=== PATIENT | male | born 1970 | race Caucasian/White ===

== ENCOUNTER 2024-11-08 11:56 | Inpatient (IN) | payer OTHER ==
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
[2024-11-08] MEDS: SODIUM CHLORIDE 0.9% 1,000 ML IV ONE ×2 (12:56→15:19)
[2024-11-08] MEDS: MORPHINE SULFATE 4 MG/ML SYRINGE IVP STA ×2 (12:58→15:20)
[2024-11-08] MEDS: ONDANSETRON 4 MG/2 ML VIAL IVP STA ×2 (12:59→15:21)
[2024-11-08 13:13] LABS: Anisocytosis Slight; Basophils % (A) 0 %; Eosinophils % (A) 0 %; HCT 35.2 % (39.0-53.0); HGB 10.9 gm/dL (13.0-17.5); Hypochromasia Slight; Lymphocytes # (A) 1.8 k/uL (1.0-4.8); Lymphocytes % (A) 12 %; MCH 26.6 pg (25.0-35.0); MCV 85.6 fL (80.0-100.0); Monocytes # (A) 0.5 k/uL (0-1.0); Monocytes % (A) 3 %; Neutrophils # (A) 12.6 k/uL (1.3-7.7); Neutrophils % (A) 84 %; Platelet Count 682 k/uL (150-450); RBC 4.11 m/uL (4.30-5.90); RDW 16.9 % (11.5-15.5); WBC 15.1 k/uL (3.8-10.6)
[2024-11-08 13:29] LABS: Prothrombin Time 10.6 sec (10.0-12.5)
[2024-11-08 13:33] LABS: ALT 25 U/L (4-49); AST 31 U/L (17-59); African American GFR (CKD) >90 (>60 ml/min/1.73 sqM); Albumin 3.9 g/dL (3.5-5.0); Alkaline Phosphatase 91 U/L (38-126); Amylase 36 U/L (30-110); Anion Gap 10 mmol/L; Blood Urea Nitrogen 18 mg/dL (9-20); Carbon Dioxide 25 mmol/L (22-30); Chloride 100 mmol/L (98-107); Glucose 126 mg/dL (74-99); Lipase 23 U/L (23-300); Non-African American GFR(CKD) >90 (>60 ml/min/1.73 sqM); Potassium 4.1 mmol/L (3.5-5.1); Sodium 135 mmol/L (137-145); Total Bilirubin 0.5 mg/dL (0.2-1.3)
--- NOTE | 2024-11-08 14:38 | CT ---
EXAMINATION TYPE: CT abdomen pelvis w con DATE OF EXAM: 11/08/2024 COMPARISON: CLINICAL INDICATION: Male, 54 years old with history of ab pain, distent. weight loss, inguin hernia; PHH, Abdominal pain, distention, weight loss and inguinal hernia TECHNIQUE: Performed without Oral Contrast and with IV Contrast, patient injected with 100 ml mL of Isovue 300. CT DLP: 628.[address] CTDI: mGy Automated exposure control for dose reduction was used. FINDINGS: There is mild atelectasis or interstitial changes in the right lung base posteriorly. The gallbladder is normal without distention, wall thickening, pericholecystic fluid or gallstones. T here is no biliary ductal dilatation. There is no focal mass or organomegaly involving the liver, pancreas, spleen or adrenal glands. There is no solid renal mass or hydronephrosis and there is homogeneous contrast enhancement of the r enal parenchyma. The caliber the abdominal aorta is normal is no retroperitoneal adenopathy or hemorr vasiliy. There is marked dilatation of the small bowel loops consistent with small bowel obstruction. There is a left hernia inguinal hernia extending into the scrotum which contains nondilated loops of bowel bu t the bowel instruction appears to be proximal to the hernia.. There is a small amount of free fluid. There is no free air. There is no free intraperitoneal air or fluid. No pelvic mass, free fluid, abscess or adenopathy. There is moderate prostatic hypertrophy with centr al calcification The osseous structures and soft tissues are intact. IMPRESSION: Left inguinal hernia extending into the scrotum containing nondilated small bowel loops. There are mu ltiple markedly enlarged small bowel loops proximal to the hernia consistent with a small bowel obstr uction. Small amount of free fluid. [facility], , 11/08/2024 2:35 PM
[2024-11-08] MEDS ORDERED: NALOXONE 0.4 MG/ML 1 ML VIAL IV PRN (15:04)
[2024-11-08] MEDS: SODIUM CHLORIDE 0.9% 1,000 ML IV SCH (16:45)
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
[2024-11-08] MEDS: HYDROmorphone 0.5 MG/0.5 ML SYRINGE IVP PRN (16:55)
[2024-11-08] MEDS: LACTATED RINGERS 1,000 ML IV SCH (17:20)
[2024-11-08 17:22] LABS: Appearance,Urine Clear (Clear); Bilirubin,Urine Negative (Negative); Blood,Urine Negative (Negative); Color,Urine Yellow; Glucose,Urine (UA) Negative (Negative); Ketones,Urine Negative (Negative); Leukocyte Esterase,Urine Negative (Negative); Mucus,Urine Few /hpf; Nitrite,Urine Negative (Negative); Protein,Urine 1+ (Negative); RBC,Urine 1 /hpf (0-5); Squamous Epithelial Cell,Urine <1 /hpf (0-4); WBC,Urine 1 /hpf (0-5)
[2024-11-08 17:26] LABS: Specific Gravity,Urine >1.050 (1.001-1.035)
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
--- NOTE | 2024-11-08 23:06 | P.PN ---
Progress Note - Text Progress Note Date: 11/08/24 Patient seen and evaluated. Please see full documented H&P. In the interim, acute bowel obstruction resolving. May have diet.
[2024-11-09] MEDS ORDERED: METOCLOPRAMIDE 5 MG/ML 2 ML VIAL IVP PRN (07:00)
[2024-11-09] MEDS ORDERED: fentaNYL (PF) 50 MCG/ML 2 ML AMP IV PRN (07:00)
[2024-11-09 08:48] LABS: Basophils # (A) 0.03 X 10*3/uL (0.00-0.10); Basophils % (A) 0.2 %; Eosinophils # (A) 0.05 X 10*3/uL (0.04-0.35); Eosinophils % (A) 0.4 %; HCT 28.7 % (39.6-50.0); HGB 9.3 g/dL (13.0-17.0); Lymphocytes # (A) 1.91 X 10*3/uL (0.90-5.00); Lymphocytes % (A) 14.5 %; MCH 27.4 pg (27.0-32.0); MCHC 32.4 g/dL (32.0-37.0); MCV 84.7 FL (80.0-97.0); Mean Platelet Volume 8.9 FL (9.5-12.2); Monocytes # (A) 1.03 X 10*3/uL (0.20-1.00); Monocytes % (A) 7.8 %; NRBC Per 100 WBC 0 X 10*3/uL (0.00-0.01); Neutrophils # (A) 10.08 X 10*3/uL (1.80-7.70); Neutrophils % (A) 76.6 %; Platelet Count 531 X 10*3/uL (140-440); RBC 3.39 X 10*6/uL (4.40-5.60); RDW 18.8 % (11.5-14.5); WBC 13.16 X 10*3/uL (4.50-10.00)
[2024-11-09 09:06] LABS: BUN/Creat Ratio 17.67 Ratio (12.00-20.00); Blood Urea Nitrogen 10.6 mg/dL (9.0-27.0); Calcium 8.1 mg/dL (8.7-10.3); Carbon Dioxide 23.3 mmol/L (21.6-31.8); Chloride 102 mmol/L (96-109); Glucose 106 mg/dL (70-110); Potassium 3.9 mmol/L (3.5-5.5); Sodium 135 mmol/L (135-145)
[2024-11-09] MEDS ORDERED: diphenhydrAMINE 50 MG/ML 1 ML VIAL IVP PRN (09:55)
[2024-11-09] MEDS: PANTOPRAZOLE 40 MG/10 ML VIAL IV SCH (10:15)
[2024-11-09] MEDS: CEFEPIME 2 GM in SODIUM CHLORIDE 0.9% 100 ML IVPB STA (10:34)
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
[2024-11-09] MEDS: metroNIDAZOLE-NS PMX 500 MG in SALINE 1 100ML.BAG IVPB SCH ×2 (13:10→21:43)
[2024-11-09 15:19] LABS: % Iron Saturation 8.83 (15.00-50.00); Ferritin 17.7 ng/mL (22.0-322.0)
--- NOTE | 2024-11-09 17:13 | P.PN ---
Subjective Progress Note Date: 11/09/24 CHIEF COMPLAINT: Abdominal pain HISTORY OF PRESENT ILLNESS: The patient is a 54-year-old male admitted with abdominal pain due to bowel obstruction. Patient reports he has been able to reduce his inguinal hernia. He is tolerating diet. Continues to pass flatus had a bowel movement today. Does report low appetite. He does report some abdominal stanchion today. He does report feeling better today than yesterday. Patient has been seen by cardiology. REVIEW OF ORGAN SYSTEMS: No fevers or chills. No nausea or vomiting. No chest pain. PHYSICAL EXAM: VITALS: Reviewed CONSTITUTIONAL: Well developed and in no acute distress. EYES: Conjuctivae without sclera icterus. Extraocular movements grossly intact. HEAD, EARS, NOSE, THROAT: Moist buccal mucosa. Head is atraumatic, normocephalic. Hears conversational speech. No nasal drainage. RESPIRATORY: Non-labored respirations and equal bilateral excursions. No gross wheezes. CARDIOVASCULAR: Palpable 2+ radial pulses. ABDOMEN: 6 cm left inguinal hernia involving the scrotum, reducible, mild distention MUSCULOSKELETAL: No clubbing cyanosis or edema SKIN: Warm and well perfused with good skin turgor. NEUROLOGIC: Cranial nerves II through XII grossly intact. No focal or lateralizing signs. PSYCH: Appropriate affect. Alert and oriented to person, place and time. Displays appropriate insight. CLINCAL LABS: Reviewed. WBC down to 15,000 and 13,000. Hemoglobin dropped 10.9-9.3, anemia. Platelets down 682-531, thrombocytosis ASSESSMENT: 1. Small bowel obstruction due to incarcerated left inguinal hernia 2. Family history of premature due to cardiac disease, males less than 50 years old 3. Anemia 4. Leukocytosis 5. Thrombocytosis PLAN: 1. His hemoglobin continues to decline further demonstrating pre-existing anemia which makes him elevated risk. I have obtained iron studies. Pending results, will start iron infusions. 2. Additionally, due to pre-existing anemia, patient would benefit from upper lower endoscopy which may be done as an outpatient. 3. Also, WBC still elevated. Started cefepime and Flagyl. 4. Patient will be medically optimized for left inguinal hernia pair to present recurrence of bowel obstruction 5. Patient is elevated risk 6. All questions addressed 7. Simethicone gas drops also started Objective - Vital Signs Vital signs: Vital Signs Temp 98.1 F 11/09/24 16:43 Pulse 77 11/09/24 16:43 Resp 16 11/09/24 16:43 BP 129/80 11/09/24 16:43 Pulse Ox 98 11/09/24 16:43 FiO2 Intake & Output 11/08/24 11/09/24 11/09/24 18:59 06:59 18:59 Intake Total 240 10 Output Total 200 Balance -200 240 10 Weight 65.771 kg Intake: IV 10 Invasive Line 3 10 Oral 240 Output: Urine 200 Other: # Voids 2 - Labs CBC & Chem 7: 11/09/24 05:46 11/09/24 05:46 Labs: Abnormal Lab Results - Last 24 Hours (Table) 11/08/24 11/09/24 11/09/24 Range/Units 17:02 05:46 05:46 WBC 13.16 H (4.50-10.00) X 10*3/uL RBC 3.39 L (4.40-5.60) X 10*6/uL Hgb 9.3 L (13.0-17.0) g/dL Hct 28.7 L (39.6-50.0) % RDW 18.8 H (11.5-14.5) % Plt Count 531 H (140-440) X 10*3/uL MPV 8.9 L (9.5-12.2) FL Immature Gran # 0.06 H (0.00-0.04) X 10*3/uL Neutrophils # 10.08 H (1.80-7.70) X 10*3/uL Monocytes # 1.03 H (0.20-1.00) X 10*3/uL Calcium 8.1 L (8.7-10.3) mg/dL Iron (65-175) UG/DL % Saturation (15.00-50.00) Ferritin (22.0-322.0) ng/mL Ur Specific [place] >1.050 H (1.001-1.035) Urine Protein 1+ H (Negative) Urine Mucus Few H (None) /hpf 11/09/24 Range/Units 05:46 WBC (4.50-10.00) X 10*3/uL RBC (4.40-5.60) X 10*6/uL Hgb (13.0-17.0) g/dL Hct (39.6-50.0) % RDW (11.5-14.5) % Plt Count (140-440) X 10*3/uL MPV (9.5-12.2) FL Immature Gran # (0.00-0.04) X 10*3/uL Neutrophils # (1.80-7.70) X 10*3/uL Monocytes # (0.20-1.00) X 10*3/uL Calcium (8.7-10.3) mg/dL Iron 34 L (65-175) UG/DL % Saturation 8.83 L (15.00-50.00) Ferritin 17.7 L (22.0-322.0) ng/mL Ur Specific [place] (1.001-1.035) Urine Protein (Negative) Urine Mucus (None) /hpf
--- NOTE | 2024-11-09 17:44 | CA ---
Transthoracic Echo Report Name: Ramirez Zuniga Age: 54 Gender: M : 1970 Exam Date: 11/09/2024 11:58 Exam Location: [facility] Ht (in): 72 Wt (lb): 145 Ordering Physician: Zoraida So MD Attending/Referring Phys: Judah FERNANDES [employer] Winder Denny Monroe RDCS Procedure CPT: Indications: Cardiac clearance Cardiac Hx: Technical Quality: Good Contrast 1: Total Dose (mL): Contrast 2: Total Dose (mL): MEASUREMENTS (Male / Female) Normal Values 2D ECHO LV Diastolic Diameter PLAX 5.4 cm 4.2 - 5.9 / 3.9 - 5.3 cm LV Systolic Diameter PLAX 4.1 cm IVS Diastolic Thickness 0.9 cm 0.6 - 1.0 / 0.6 - 0.9 cm LVPW Diastolic Thickness 0.8 cm 0.6 - 1.0 / 0.6 - 0.9 cm LV Relative Wall Thickness 0.3 LVOT Diameter 2.3 cm LA Systolic Diameter LX 3.6 cm 3.0 - 4.0 / 2.7 - 3.8 cm LV Diastolic Volume MOD BP 135.7 cm??? 67 - 155 / 56 - 104 cm??? LV Systolic Volume MOD BP 77.7 cm??? - / 19 - 49 cm??? LV Ejection Fraction MOD BP 42.8 % >= 55 % LV Cardiac Index MOD BP 2330.8 cm???/min???m??? LV Diastolic Volume MOD 4C 117.4 cm??? LV Systolic Volume MOD 4C 64.2 cm??? LV Ejection Fraction MOD 4C 45.3 % LV Cardiac Index MOD 4C 2138.3 cm???/min???m??? LV Diastolic Length 4C 7.7 cm LV Systolic Length 4C 6.7 cm LV Diastolic Volume MOD 2C 140.8 cm??? LV Systolic Volume MOD 2C 85.7 cm??? LV Ejection Fraction MOD 2C 39.2 % LV Cardiac Index MOD 2C 2215.2 cm???/min???m??? LV Diastolic Length 2C 8.7 cm LV Systolic Length 2C 7.4 cm LA Volume 64.2 cm??? 18 - 58 / 22 - 52 cm??? LA Volume Index 35.3 cm???/m??? 16 - 28 cm???/m??? DOPPLER AV Peak Velocity 87.8 cm/s AV Peak Gradient 3.1 mmHg AV Mean Velocity 63.9 cm/s AV Mean Gradient 1.8 mmHg AV Velocity Time Integral 16.6 cm LVOT Peak Velocity 71.6 cm/s LVOT Peak Gradient 2.0 mmHg LVOT Velocity Time Integral 12.4 cm LVOT Stroke Volume 51.6 cm??? LVOT Stroke Volume Index 27.8 ml/m??? LVOT Cardiac Index 2074.7 cm???/min???m??? AV Area Cont Eq vti 3.1 cm??? AV Area Cont Eq pk 3.4 cm??? MV Area PHT 2.8 cm??? Mitral E Point Velocity 43.7 cm/s Mitral A Point Velocity 48.3 cm/s Mitral E to A Ratio 0.9 MV Deceleration Time 266.6 ms FINDINGS Left Ventricle Left ventricular ejection fraction is estimated at 40-45%. Global left ventricular hypokinesis. Moderately increased left ventricular systolic volume. Moderately decreased left ventricular ejection fraction. Right Ventricle Moderate right ventricular dilatation. Unable to estimate the right ventricular systolic pressure. Right Atrium Moderate right atrial dilatation. Left Atrium Mildly increased left atrial volume. Mitral Valve Mitral valve thickened. No mitral stenosis, regurgitation or prolapse. Aortic Valve Trileaflet aortic valve. No aortic stenosis. No aortic regurgitation. Tricuspid Valve Structurally normal tricuspid valve. No tricuspid stenosis. No tricuspid regurgitation. Pulmonic Valve Structurally normal pulmonic valve. No pulmonic stenosis. Trace pulmonic regurgitation. Pericardium No pericardial effusion. No pleural effusion. Aorta Mild aortic dilatation at the level of the sinuses of valsalva (root). Normal proximal ascending aorta. CONCLUSIONS Mild LV systolic dysfunction with an ejection fraction of 45% Mildly dilated right ventricle Previewed by: Dr. Te Singh MD (Electronically Signed) Final Date: 09 November 2024 17:43
--- NOTE | 2024-11-09 17:57 | P.PN ---
Subjective Progress Note Date: 11/09/24 54-year-old male patient with no significant past medical history, presenting today for left lower quadrant sharp abdominal pain. Patient states this pain has been intermittent over the last 2 weeks. More persistent today, uncontrolled with 800 mg of ibuprofen or Pepcid. Patient endorses abdominal swelling and firmness over this time as well. He states he has had a left inguinal hernia "for a while" and the pain is not located over the region of the hernia. He denies fevers or chills, denies shortness of breath or chest pain, endorses nausea and today had 2 episodes of nonbloody nonbilious emesis. States he has intermittent brown stools sometimes with small streaks of blood no melena. No history of prior abdominal surgeries. Denies dysuria, hematuria or urinary frequency. No history of cancers in himself or family members. Patient has no other medical history. He does not drink alcohol or smoke cigarettes. Blood work completed in ED reveals a WBC of 15.1, hemoglobin of 10.[address] atelet count of 682, sodium 135, potassium 4.1, BUNs/creatinine of 18/0.71 and blood glucose of 126, lactic acid level of 1.1 CT of the abdomen and pelvis completed with contrast reveals left inguinal hernia extending into the scrotum containing nondilated small bowel loops. Multiple markedly enlarged small bowel loops proximal to the hernia consistent with small bowel obstruction. Small amount of free fluid Objective - Vital Signs Vital signs: Vital Signs Temp 98.5 F 11/09/24 07:08 Pulse 72 11/09/24 07:08 Resp 16 11/09/24 07:08 BP 116/71 11/09/24 07:08 Pulse Ox 94 L 11/09/24 07:08 FiO2 Intake & Output 11/08/24 11/09/24 11/09/24 18:59 06:59 18:59 Intake Total 240 Output Total 200 Balance -200 240 Weight 65.771 kg Intake: Oral 240 Output: Urine 200 Other: # Voids 2 - Exam CONSTITUTIONAL: [no apparent distress, chronic ill-appearing, nontoxic, somewhat cachectic] SKIN: warm, dry, no jaundice, hives or petechiae EYES: pupils are equally round, extraocular movements intact without nystagmus, clear conjunctiva, non-icteric sclera HENT: normocephalic, atraumatic NECK: Full range of motion, normal appearance PULMONARY: clear to auscultation without wheezes, rhonchi, or rales CARDIOVASCULAR: regular rate, rhythm, normal S1 and S2. No appreciated murmurs, rubs or gallops. Strong radial pulses with intact distal perfusion. No lower extremity edema GASTROINTESTINAL: Firm, distended, active bowel sounds throughout, tenderness outpatient the left lower and right lower quadrants, left inguinal hernia, of note window glass cutter off was offered for exam however patient platelet declined, none irreducible, guarding palpation of the abdomen, no rebound no palpable masses No hepatosplenomegaly GENITOURINARY: As above MUSCULOSKELETAL: Extremities have no gross deformity, no edema, redness, or swelling. No calf swelling NEUROLOGIC: a/o x 3, GCS 15, normal mentation and speech. Moves all extremities x 4 without motor or sensory deficit PSYCHIATRIC: normal mood and affect, thought process is clear and linear - Labs CBC & Chem 7: 11/09/24 05:46 11/09/24 05:46 Labs: Abnormal Lab Results - Last 24 Hours (Table) 11/08/24 11/08/24 11/08/24 Range/Units 13:04 13:04 17:02 WBC 15.1 H (3.8-10.6) k/uL RBC 4.11 L (4.30-5.90) m/uL Hgb 10.9 L (13.0-17.5) gm/dL Hct 35.2 L (39.0-53.0) % RDW 16.9 H (11.5-15.5) % Plt Count 682 H (150-450) k/uL MPV (9.5-12.2) FL Immature Gran # (0.00-0.04) X 10*3/uL Neutrophils # 12.6 H (1.3-7.7) k/uL Monocytes # (0.20-1.00) X 10*3/uL Sodium 135 L (137-145) mmol/L Glucose 126 H (74-99) mg/dL Calcium (8.7-10.3) mg/dL Ur Specific Strawberry >1.050 H (1.001-1.035) Urine Protein 1+ H (Negative) Urine Mucus Few H (None) /hpf 11/09/24 11/09/24 Range/Units 05:46 05:46 WBC 13.16 H (3.8-10.6) k/uL RBC 3.39 L (4.30-5.90) m/uL Hgb 9.3 L (13.0-17.5) gm/dL Hct 28.7 L (39.0-53.0) % RDW 18.8 H (11.5-15.5) % Plt Count 531 H (150-450) k/uL MPV 8.9 L (9.5-12.2) FL Immature Gran # 0.06 H (0.00-0.04) X 10*3/uL Neutrophils # 10.08 H (1.3-7.7) k/uL Monocytes # 1.03 H (0.20-1.00) X 10*3/uL Sodium (137-145) mmol/L Glucose (74-99) mg/dL Calcium 8.1 L (8.7-10.3) mg/dL Ur Specific Strawberry (1.001-1.035) Urine Protein (Negative) Urine Mucus (None) /hpf Assessment and Plan Assessment: 1. Small bowel obstruction CT of the abdomen and pelvis reveals left inguinal hernia extending into scrotum containing nondilated small bowel loops. Multiple markedly enlarged small bowel loops proximal to hernia consistent with a small bowel obstruction. 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 Leukocytosis; likely reactive; no clear evidence of infection; will monitor CRP and procalcitonin and repeat CBC; plan to initiate sepsis workup if white blood count remains elevated or worsens 3. Mild hyponatremia; likely related to poor oral intake; will add IV fluids in form of normal saline at rate of 75 cc an hour 4. Anemia; patient does not report any history of anemia; will order stool occult blood; monitor H&H; start patient on IV Protonix 5. Mild hyperglycemia; possibly stress-induced; will monitor Accu-Cheks DVT prophylaxis; SCDs only given possibility of surgical intervention in next 24 hours CODE STATUS; full code
[2024-11-09] MEDS: SIMETHICONE 40 MG/0.6 ML DROPS 2,000 MG/30 ML BOTTLE PO SCH (18:04)
[2024-11-09] MEDS: SODIUM FERRIC GLUCONAT-SUCROSE 125 MG in SODIUM CHLORIDE 0.9% 100 ML IVPB SCH (19:29)
[2024-11-09] MEDS: CEFEPIME 1 GM in SODIUM CHLORIDE 0.9% 50 ML IVPB SCH (22:10)
[2024-11-10] MEDS: IV FLUID CONTINUATION 1,000 ML IV ONE ×2 (06:07→07:08)
[2024-11-10 06:21] LABS: Anisocytosis Slight; Basophils % (A) 0 %; Eosinophils % (A) 0 %; HCT 36.7 % (39.0-53.0); HGB 11.3 gm/dL (13.0-17.5); Hypochromasia Moderate; Lymphocytes # (A) 2.3 k/uL (1.0-4.8); Lymphocytes % (A) 22 %; MCH 26.5 pg (25.0-35.0); MCHC 30.8 g/dL (31.0-37.0); MCV 85.8 fL (80.0-100.0); Mean Platelet Volume 6.7; Monocytes # (A) 0.5 k/uL (0-1.0); Monocytes % (A) 5 %; Neutrophils # (A) 7.3 k/uL (1.3-7.7); Neutrophils % (A) 70 %; Platelet Count 613 k/uL (150-450); RBC 4.28 m/uL (4.30-5.90); WBC 10.4 k/uL (3.8-10.6)
[2024-11-10 06:29] LABS: INR 1.1 (<1.2); Prothrombin Time 12.2 sec (10.0-12.5)
[2024-11-10] MEDS: DEXAMETHASONE SOD PHOSPHATE 4 MG/ML 1 ML VIAL IVP STA (07:06)
[2024-11-10] MEDS: ONDANSETRON 4 MG/2 ML VIAL IVP STA (07:07)
[2024-11-10] MEDS: MIDAZOLAM 2 MG/2 ML VIAL IV ONE (07:18)
[2024-11-10] MEDS: ENOXAPARIN 30 MG/0.3 ML SYRINGE SQ SCH (07:30)
[2024-11-10] MEDS ORDERED: MIDAZOLAM 2 MG/2 ML VIAL ONE (07:40)
[2024-11-10] MEDS ORDERED: GLYCOPYRROLATE 0.2 MG/ML 2 ML VIAL ONE (07:40)
[2024-11-10] MEDS ORDERED: HYDROmorphone (PF) 1 MG/ML ONE (07:40)
[2024-11-10] MEDS ORDERED: NEOSTIGMINE 1 MG/ML 10 ML VIAL ONE (07:40)
[2024-11-10] MEDS ORDERED: SUCCINYLCHOLINE CHLORIDE 200 MG/10 ML VIAL IV ONE (07:40)
[2024-11-10] MEDS ORDERED: PHENYLEPHRINE 10 MG/ML VIAL ONE (07:40)
[2024-11-10] MEDS ORDERED: DEXAMETHASONE SOD PHOSPHATE 4 MG/ML 1 ML VIAL ONE (07:40)
[2024-11-10] MEDS ORDERED: ROPIVACAINE 5 MG/ML 30 ML VIAL ONE (07:40)
[2024-11-10] MEDS ORDERED: SODIUM CHLORIDE 0.9% (PF) 10 ML VIAL ONE (07:40)
[2024-11-10] MEDS ORDERED: ROCURONIUM 10 MG/ML (5 ML VIAL) IV ONE (07:40)
[2024-11-10] MEDS ORDERED: PROPOFOL 10 MG/ML 20 ML VIAL IV ONE (07:40)
[2024-11-10] MEDS ORDERED: fentaNYL (PF) 50 MCG/ML 2 ML AMP ONE (07:40)
[2024-11-10] MEDS ORDERED: LIDOCAINE 1% INJ 10MG/ML (20 ML MDV) ONE (07:40)
[2024-11-10] MEDS: LIDOCAINE 1%-EPI 1:100,000 20 ML VIAL SQ ONE (08:11)
[2024-11-10 08:15] LABS: Basophils # (A) 0.02 X 10*3/uL (0.00-0.10); Basophils % (A) 0.2 %; Eosinophils # (A) 0.01 X 10*3/uL (0.04-0.35); Eosinophils % (A) 0.1 %; HCT 29.9 % (39.6-50.0); HGB 9.8 g/dL (13.0-17.0); Lymphocytes # (A) 1.76 X 10*3/uL (0.90-5.00); Lymphocytes % (A) 18.8 %; MCH 27.4 pg (27.0-32.0); MCHC 32.8 g/dL (32.0-37.0); MCV 83.5 FL (80.0-97.0); Mean Platelet Volume 9.2 FL (9.5-12.2); Monocytes # (A) 0.88 X 10*3/uL (0.20-1.00); Monocytes % (A) 9.4 %; NRBC Per 100 WBC 0 X 10*3/uL (0.00-0.01); Neutrophils # (A) 6.65 X 10*3/uL (1.80-7.70); Neutrophils % (A) 71.1 %; Platelet Count 502 X 10*3/uL (140-440); RBC 3.58 X 10*6/uL (4.40-5.60); RDW 18.4 % (11.5-14.5); WBC 9.36 X 10*3/uL (4.50-10.00)
[2024-11-10] MEDS: LACTATED RINGERS 1,000 ML IV ONE (10:44)
--- NOTE | 2024-11-10 11:01 | P.ANPRN ---
Procedure Note - Anesthesia - Nerve Block Performed Bilateral Erector Spinae Single Time Out Performed: Yes ([id number]) Date of Procedure: 11/10/24 Procedure Start Time: : Procedure Stop Time: : Location of Patient: PreOp Indication: Acute Post-Operative Pain, Requested by Surgeon Sedation Type: Sedate with meaningful contact maintained Preparation: Sterile Prep Position: Prone Catheter: None Needle Types: Pajunk Needle Gauge: 21 Ultrasound used to visualize needle placement: Yes Ultrasound used to observe medication spread: Yes Injectate: 0.5% Ropivacaine (see comment for volume) (21 mL of block solution used on each side. 21 mL of block solution containing 10 mL of 0.5% ropivacaine mixed with 10 mL of preservative-free normal saline, and 4 mg of dexamethasone.) Blood Aspirated: No Pain Paresthesia on Injection Noted: No Resistance on Injection: Normal Image Stored and Saved: Yes Events: Uneventful and Well Tolerated
--- NOTE | 2024-11-10 12:07 | P.OP ---
Date of Procedure: 11/10/24 Description of Procedure: SURGEON: TAWANDA HOLT MD PREOPERATIVE DIAGNOSES: 1. Incarcerated left inguinal hernia with small bowel obstruction 2. Family history of premature cardiac 3. Unintentional weight loss 4. Iron deficiency anemia 5. Tobacco abuse disorder POSTOPERATIVE DIAGNOSES: 1. Incarcerated left inguinal hernia, 4 x 4 cm 2. Large bowel obstruction due to sigmoid colon mass 3. Small bowel obstruction due to sigmoid colon mass 4. Coloenteric fistula 5. Abdominal ascites OPERATION: 1. Robotic-assisted da Itzel Xi laparoscopic reduction repair of initial incarcerated left indirect inguinal hernia with mesh, 11.[address] 2. Robotic-assisted da Itzel Xi laparoscopic small bowel resection with primary anastomosis 3. Robotic-assisted da Itzel Xi laparoscopic takedown of coloenteric fistula ANESTHESIA: General with local anesthetic, abdominal block ESTIMATED BLOOD LOSS: 10 mL. SPECIMENS: 1. Incarcerated left inguinal hernia sac 2. Small bowel resection, proximal ileum 3. Anastomosis 4. Partial resection coloenteric fistula COMPLICATIONS: None. FINDINGS: 1. Incarcerated left inguinal hernia over 4 x 4 cm, Nyhus III, incorporating small bowel with obstruction and scrotal contents to mid thigh 2. Appendix unremarkable 3. Moderate diffuse distention of entire colon to sigmoid colon with finding of obstructive mass 3. Transition point of small bowel obstruction with active partial volvulus due to small bowel colonic fistula as a cause of small bowel obstruction 4. Partial resection of small bowel to colon fistula with sigmoid colon intact 5. Will require staged procedure for sigmoid resection possible colostomy with additional staging for colon cancer and imaging studies and blood work pending 6. Placement of nasogastric tube due to chronic small and large bowel obstruction identified 7. Placement of Montgomery catheter end of case due to length of the case over 2-1/2 hours 8. Closure of posterior floor of left inguinal hernia 9. Third spacing with abdominal ascites 10. No peritoneal studding 11. No pelvic metastases identified INDICATIONS: The patient is a 54-year-old male who presents with history of initial left inguinal hernia. He reports changes in bowel habits as a result. Now he presents for definitive surgical intervention. Laparoscopic versus open and robotic approaches were discussed including bilateral approach. Benefits and risks including bleeding, infection, chronic groin pain, sterility were reviewed. Placement of mesh was also described. Informed consent was obtained. DESCRIPTION: In the preoperative area, an abdominal block was placed per anesthesia. The patient was brought to the operating room and initially laid in supine position. The abdomen had been prepped and draped in standard sterile fashion. Ioban draping was also placed. Prior to incision, a timeout protocol was confirmed with surgical team regarding patient's name including procedures to be performed. Initial positioning for the robotic assisted ports were selected 20 cm superior to the target anatomy. A 0 degree 5 mm laparoscopic trocar entry was performed at the left upper quadrant. The abdomen was insufflated to 15 mmHg which he tolerated well. Diagnostic laparoscopy demonstrated no injury to bowel, viscera or mesentery. Along the right groin, a large indirect hernia involving incarcerated small bowel was found. The appendix and cecum was being pulled into the hernia sac. Separately, along the left groin was completely secured by the sigmoid colon with adhesions. Next, along the epigastrium, 8 mm robot trocar was placed. An 8-mm robotic trocar was placed under direct visualization at the right upper quadrant. An 8 mm port was placed at the left upper quadrant. All trocars were positioned between 10-cm apart from each other. The [employer] XI robot was primed, draped, prepared for docking along upper abdomen of the patient. The patient was positioned 16 steep Trendelenburg position. I then went to the [employer] Xi console. The assistant child care teacher was at bedside for exchange of the robot arms and equipment. Attention was brought to the right groin. A large right inguinal defect was confirmed as the small intestine was reduced from the right groin. Next, the right groin defect was measured 4 x 3-cm hernia with the sac extending to the scrotum. A large indirect hernia was confirmed, Nyhus type IV. The right inguinal hernia sac was evaginated whereby the peritoneum was scored using Endo scissors with cautery and vessel sealer . As the hernia sac extended into the groin, partial resection of the sac was done. The peritoneal sac of the hernia was stripped. The sac was resected and then passed off for further pathological analysis. The size of the hernia defect was 4 cm x 3 cm with intraoperative films obtained. Using a 2-0 VLOC nonabsorbable, the peritoneal defect of the right inguinal hernia site was closed using a running suture. The defect was found to be completely closed with complete reduction of the right direct inguinal hernia was confirmed. As an onlay, an 11.[address] mesh by [employer] was cut in half and entered into the abdominal cavity via the 8 mm trocar. The mesh was tacked to the pelvis using 2-0 VLOC 9-inch length sutures. Dense adhesions of the cecum and appendix was identified with appendicolith found. The cecum and appendix were mobilized from the pelvis. Secondary to appendicolith found with chronic changes of chronic appendicitis, the appendix was prepared for resection. The mesoappendix and appendix were mobilized. The trocar along the left upper quadrant were exchanged for 12 mm port. A blue 45 m m staple load was fired across the base of the appendix. A final endoscopic imaging was obtained. The robot was undocked from the patient's bedside. I then rescrubbed into the case. Insufflation was released from the abdominal cavity and all instruments were removed from the abdominal cavity. Pressure was applied along the left groin. The rest of incisions were reapproximated using 4-0 Monocryl in a running subcuticular fashion. Local anesthetic was placed along the incision including for a bilateral groin block. Incisions were cleansed using dilute hydrogen peroxide. Liquid glue was applied to the skin. At the end of the procedure, the needle, sponge and instrument counts had been verified correct by the certified endoscopy technician. The patient had tolerated the procedure well and was taken to the postanesthesia care unit in stable condition.
[2024-11-10] MEDS: LACTATED RINGERS 1,000 ML IV SCH (14:02)
[2024-11-10] MEDS: CEFEPIME 1 GM in SODIUM CHLORIDE 0.9% 50 ML IVPB SCH (15:56)
[2024-11-10] MEDS ORDERED: BENZOCAINE SPRAY 1 EACH MUCOUS MEM PRN (17:08)
[2024-11-10] MEDS: HYDROmorphone 1 MG/ML 1 ML SYRINGE IVP PRN (20:11)
[2024-11-11] MEDS: MORPHINE SULFATE 4 MG/ML SYRINGE IV PRN (06:08)
[2024-11-11 07:34] LABS: African American GFR (CKD) >90 (>60 ml/min/1.73 sqM); Anion Gap 5 mmol/L; Blood Urea Nitrogen 9 mg/dL (9-20); Calcium 8.4 mg/dL (8.4-10.2); Carbon Dioxide 29 mmol/L (22-30); Chloride 95 mmol/L (98-107); Glucose 84 mg/dL (74-99); Magnesium 1.5 mg/dL (1.6-2.3); Non-African American GFR(CKD) >90 (>60 ml/min/1.73 sqM); Phosphorus 3.3 mg/dL (2.5-4.5); Potassium 3.6 mmol/L (3.5-5.1); Sodium 129 mmol/L (137-145)
--- NOTE | 2024-11-11 09:04 | P.PN ---
Subjective Progress Note Date: 11/11/24 CHIEF COMPLAINT: Abdominal pain HISTORY OF PRESENT ILLNESS: The patient is a 54-year-old male initially admitted due to bowel obstruction due to left inguinal hernia. Patient is status post robotic left inguinal hernia repair with bowel resection and takedown of small bowel colonic fistula, 11/10/2024, due to sigmoid colon mass as a cause of his small bowel obstruction and large bowel obstruction which is a new finding. He reports abdominal distention. Nasogastric tube had no output overnight. He has yet to ambulate. Oncology consultation has been placed due to new finding. No reports of flatus or bowel movements. He reports no recurrent inguinal hernia. REVIEW OF ORGAN SYSTEMS: No fevers or chills. No nausea or vomiting. No chest pain. PHYSICAL EXAM: VITALS: Reviewed CONSTITUTIONAL: Well developed and in no acute distress. EYES: Conjuctivae without sclera icterus. Extraocular movements grossly intact. HEAD, EARS, NOSE, THROAT: Moist buccal mucosa. Head is atraumatic, normo cephalic. Hears conversational speech. No nasal drainage. RESPIRATORY: Non-labored respirations and equal bilateral excursions. No gross wheezes. CARDIOVASCULAR: Palpable 2+ radial pulses. ABDOMEN: No recurrent inguinal hernia. Abdominal binder intact. Incisions intact. Mild abdominal distention. MUSCULOSKELETAL: No clubbing cyanosis or edema SKIN: Warm and well perfused with good skin turgor. NEUROLOGIC: Cranial nerves II through XII grossly intact. No focal or lateralizing signs. PSYCH: Appropriate affect. Alert and oriented to person, place and time. Displays appropriate insight. CLINCAL LABS: Reviewed. WBC normal. Sodium decreased 135-129, hyponatremia. Magnesium low. STUDIES: CT of the abdomen pelvis upon admission reevaluated with findings of circumferential intraluminal mass of the sigmoid colon within the pelvis. No adenopathy identified. This is my independent interpretation. No liver lesions identified. ASSESSMENT: 1. 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 Left inguinal hernia 3. High risk malignancy 4. Hyponatremia PLAN: 1. Oncology consultation requested due to new findings of coloenteric fistula and high risk of malignancy as patient reports no prior colonoscopy and family history of cancers. Patient reports that his mother is stage IV liver cancer in [place]. 2. Due to his anemia and new finding, will proceed with upper and lower endoscopy on Wednesday. An enema will be performed due to sigmoid obstruction and discussed with patient. 3. Correction of sodium including magnesium for hyponatremia and hypomagnesia which may contribute to ileus 4. Scheduled Reglan prescribed 5. DVT prophylaxis with Lovenox scheduled 6. CEA and CA 19-9 sent for tumor markers 7. Will need definitive resection prior to discharge while inpatient due to obstruction from colonic mass as staging and additional workup is in progress 8. Discontinue Montgomery 9. Care plan described and reviewed with patient who agreed with level of care Objective - Vital Signs Vital signs: Vital Signs Temp 98.2 F 11/11/24 07:16 Pulse 88 11/11/24 07:16 Resp 16 11/11/24 07:16 BP 134/88 11/11/24 07:16 Pulse Ox 97 11/11/24 07:16 FiO2 Intake & Output 11/10/24 11/11/24 11/11/24 18:59 06:59 18:59 Intake Total 1750 Output Total 960 700 Balance 790 -700 Intake: IV 1750 Output: Urine 950 700 Estimated Blood Loss 10 Other: Voiding Method Indwelling Catheter Indwelling Catheter - Labs CBC & Chem 7: 11/10/24 05:49 11/11/24 05:19 Labs: Abnormal Lab Results - Last 24 Hours (Table) 11/11/24 Range/Units 05:19 Sodium 129 L (137-145) mmol/L Chloride 95 L (98-107) mmol/L Creatinine 0.65 L (0.66-1.25) mg/dL Magnesium 1.5 L (1.6-2.3) mg/dL
[2024-11-11 09:19] LABS: Basophils # (A) 0.02 X 10*3/uL (0.00-0.10); Basophils % (A) 0.1 %; Eosinophils # (A) 0 X 10*3/uL (0.04-0.35); Eosinophils % (A) 0 %; HCT 31.9 % (39.6-50.0); HGB 10.3 g/dL (13.0-17.0); Lymphocytes # (A) 1.46 X 10*3/uL (0.90-5.00); Lymphocytes % (A) 8.7 %; MCH 26.7 pg (27.0-32.0); MCHC 32.3 g/dL (32.0-37.0); MCV 82.6 FL (80.0-97.0); Mean Platelet Volume 8.7 FL (9.5-12.2); Monocytes # (A) 0.86 X 10*3/uL (0.20-1.00); Monocytes % (A) 5.1 %; NRBC Per 100 WBC 0 X 10*3/uL (0.00-0.01); Neutrophils # (A) 14.42 X 10*3/uL (1.80-7.70); Neutrophils % (A) 85.6 %; Platelet Count 522 X 10*3/uL (140-440); RBC 3.86 X 10*6/uL (4.40-5.60); RDW 18.9 % (11.5-14.5); WBC 16.85 X 10*3/uL (4.50-10.00)
--- NOTE | 2024-11-11 09:45 | XR ---
Abdomen: HISTORY: NG tube placement. COMPARISON: None. FINDINGS: There is no visible NG tube within the stomach or lower esophagus. Bowel gas pattern is nonspecific. There is no suspicious abdominal or pelvic calcification. IMPRESSION: 1. No evidence of an NG tube within the stomach or distal esophagus. 2 nonspecific bowel gas pattern. [facility], Workstation: [facility], 11/11/2024 9:43 AM
--- NOTE | 2024-11-11 09:57 | CT ---
EXAMINATION TYPE: CT chest wo con DATE OF EXAM: 11/11/2024 COMPARISON: CLINICAL INDICATION: Male, 54 years old with history of Sigmoid colon mass with iodine allergy, r/o m ets; PHH, Sigmoid colon mass, R/O mets TECHNIQUE: CT scan of the thorax is performed without IV contrast. CT DLP: 229.[address] CTDI: mGy Automated exposure control for dose reduction was used. FINDINGS: There are moderate to marked emphysematous changes with an upper lobe predominance. There is an ET tube tip which is in the right mainstem bronchus. There are bilateral partially interstitial and airspace infiltrates in the lower lobes posteriorly, r ight greater than left. Findings could represent aspiration pneumonia or atelectasis. There are a few scattered micronodules. There is a 4 mm groundglass nodule in the left lung apex. There is no pleural effusion or pneumothorax. The great vessels chest are normal and there is no mediastinal, hilar or axillary adenopathy. There is a 1.6 cm left thyroid nodule. Recommend thyroid ultrasound There are no focal intraosseous abnormality. IMPRESSION: 1. ET tube extending into the right mainstem bronchus. 2. By basilar infiltrates, right greater than left as described above. 3. 4 mm groundglass nodule in the left lung apex and a few scattered micronodules. No definite eviden ce of metastatic disease 4. 1.6 cm left thyroid nodule. Thyroid ultrasound is recommended. 5. Moderate emphysematous changes with upper lobe predominance. [facility], , 11/11/2024 9:54 AM
[2024-11-11] MEDS: METOCLOPRAMIDE 5 MG/ML 2 ML VIAL IVP SCH (10:13)
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
[2024-11-11] MEDS: SODIUM CHLORIDE 0.9% 1,000 ML IV SCH (12:53)
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
[2024-11-11 13:35] LABS: Cancer Antigen 19-9 9.3 U/mL (0.0-34.9); Carcinoembryonic Antigen 8.9 ng/mL (0.0-4.9)
[2024-11-11] MEDS: MAGNESIUM SULFATE-D5W PMX 1 GM in DEXTROSE/WATER 1 100ML.BAG IVPB SCH (14:17)
--- NOTE | 2024-11-11 18:40 | P.PN ---
Subjective Progress Note Date: 11/10/24 54-year-old male patient with no significant past medical history, presenting today for left lower quadrant sharp abdominal pain. Patient states this pain has been intermittent over the last 2 weeks. More persistent today, uncontrolled with 800 mg of ibuprofen or Pepcid. Patient endorses abdominal swelling and firmness over this time as well. He states he has had a left inguinal hernia "for a while" and the pain is not located over the region of the hernia. He denies fevers or chills, denies shortness of breath or chest pain, endorses nausea and today had 2 episodes of nonbloody nonbilious emesis. States he has intermittent brown stools sometimes with small streaks of blood no melena. No history of prior abdominal surgeries. Denies dysuria, hematuria or urinary frequency. No history of cancers in himself or family members. Patient has no other medical history. He does not drink alcohol or smoke cigarettes. Blood work completed in ED reveals a WBC of 15.1, hemoglobin of 10.[address] atelet count of 682, sodium 135, potassium 4.1, BUNs/creatinine of 18/0.71 and blood glucose of 126, lactic acid level of 1.1 CT of the abdomen and pelvis completed with contrast reveals left inguinal hernia extending into the scrotum containing nondilated small bowel loops. Multiple markedly enlarged small bowel loops proximal to the hernia consistent with small bowel obstruction. Small amount of free fluid 11/10/2024 Patient is seen and evaluated in room at bedside; about to be ruled over 2 OR; for incarcerated left inguinal hernia with small bowel obstruction -Vital signs are reviewed and stable Lab review shows WBC of 10.4, hemoglobin of 11.3 and platelet count of 613 Patient admitted for small bowel obstruction due to incarcerated left inguinal hernia Patient has been started on IV antibiotics in form of cefepime and Flagyl Objective - Vital Signs Vital signs: Vital Signs Temp 98.1 F 11/10/24 06:11 Pulse 67 11/10/24 07:30 Resp 16 11/10/24 07:30 BP 127/81 11/10/24 07:30 Pulse Ox 99 11/10/24 07:30 FiO2 Intake & Output 11/09/24 11/10/24 11/10/24 18:59 06:59 18:59 Intake Total 10 1050 Balance 10 1050 Intake: IV 10 1050 Invasive Line 3 10 Other: # Voids 4 1 - Exam CONSTITUTIONAL: [no apparent distress, chronic ill-appearing, nontoxic, somewhat cachectic] SKIN: warm, dry, no jaundice, hives or petechiae EYES: pupils are equally round, extraocular movements intact without nystagmus, clear conjunctiva, non-icteric sclera HENT: normocephalic, atraumatic NECK: Full range of motion, normal appearance PULMONARY: clear to auscultation without wheezes, rhonchi, or rales CARDIOVASCULAR: regular rate, rhythm, normal S1 and S2. No appreciated murmurs, rubs or gallops. Strong radial pulses with intact distal perfusion. No lower extremity edema GASTROINTESTINAL: Firm, distended, active bowel sounds throughout, tenderness outpatient the left lower and right lower quadrants, left inguinal hernia, of note center hole reamer was offered for exam however patient platelet declined, none i rreducible, guarding palpation of the abdomen, no rebound no palpable masses No hepatosplenomegaly GENITOURINARY: As above MUSCULOSKELETAL: Extremities have no gross deformity, no edema, redness, or swelling. No calf swelling NEUROLOGIC: a/o x 3, GCS 15, normal mentation and speech. Moves all extremities x 4 without motor or sensory deficit PSYCHIATRIC: normal mood and affect, thought process is clear and linear - Labs CBC & Chem 7: 11/11/24 05:19 11/11/24 05:19 Labs: Abnormal Lab Results - Last 24 Hours (Table) 11/09/24 11/10/24 11/10/24 Range/Units 05:46 04:40 05:49 RBC 3.58 L 4.28 L (4.40-5.60) X 10*6/uL Hgb 9.8 L 11.3 L (13.0-17.0) g/dL Hct 29.9 L 36.7 L (39.6-50.0) % MCHC 30.8 L (31.0-37.0) g/dL RDW 18.4 H 17.0 H (11.5-14.5) % Plt Count 502 H 613 H (140-440) X 10*3/uL MPV 9.2 L (9.5-12.2) [place] Eosinophils # 0.01 L (0.04-0.35) X 10*3/uL Iron 34 L (65-175) UG/DL % Saturation 8.83 L (15.00-50.00) Ferritin 17.7 L (22.0-322.0) ng/mL Assessment and Plan Assessment: 1. Small bowel obstruction CT of the abdomen and pelvis reveals left inguinal hernia extending into scrotum containing nondilated small bowel loops. Multiple markedly enlarged small bowel loops proximal to hernia consistent with a small bowel obstruction. 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 Leukocytosis; likely reactive; no clear evidence of infection; will monitor CRP and procalcitonin and repeat CBC; plan to initiate sepsis workup if white blood count remains elevated or worsens 3. Mild hyponatremia; likely related to poor oral intake; will add IV fluids in form of normal saline at rate of 75 cc an hour 4. Anemia; patient does not report any history of anemia; will order stool occult blood; monitor H&H; start patient on IV Protonix 5. Mild hyperglycemia; possibly stress-induced; will monitor Accu-Cheks DVT prophylaxis; SCDs only given possibility of surgical intervention in next 24 hours CODE STATUS; full code
--- NOTE | 2024-11-11 18:43 | P.PN ---
Subjective Progress Note Date: 11/11/24 54-year-old male patient with no significant past medical history, presenting today for left lower quadrant sharp abdominal pain. Patient states this pain has been intermittent over the last 2 weeks. More persistent today, uncontrolled with 800 mg of ibuprofen or Pepcid. Patient endorses abdominal swelling and firmness over this time as well. He states he has had a left inguinal hernia "for a while" and the pain is not located over the region of the hernia. He denies fevers or chills, denies shortness of breath or chest pain, endorses nausea and today had 2 episodes of nonbloody nonbilious emesis. States he has intermittent brown stools sometimes with small streaks of blood no melena. No history of prior abdominal surgeries. Denies dysuria, hematuria or urinary frequency. No history of cancers in himself or family members. Patient has no other medical history. He does not drink alcohol or smoke cigarettes. Blood work completed in ED reveals a WBC of 15.1, hemoglobin of 10.[address] atelet count of 682, sodium 135, potassium 4.1, BUNs/creatinine of 18/0.71 and blood glucose of 126, lactic acid level of 1.1 CT of the abdomen and pelvis completed with contrast reveals left inguinal hernia extending into the scrotum containing nondilated small bowel loops. Multiple markedly enlarged small bowel loops proximal to the hernia consistent with small bowel obstruction. 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 causing bowel obstruction -Patient is status post surgery; POD #1 -Medical oncology consult is placed Lab reviewed reveals WBC trending up to 16.85, hemoglobin 10.3 postoperatively, sodium down to 129 with potassium at 3.6 and magnesium of 1.5 -Recommend supplements keeping magnesium above 2 and sodium level above 4.0; we will start patient on IV fluids for hyponatremia; monitor electrolytes closely Objective - Vital Signs Vital signs: Vital Signs Temp 98.2 F 11/11/24 07:16 Pulse 88 11/11/24 07:16 Resp 16 11/11/24 07:16 BP 134/88 11/11/24 07:16 Pulse Ox 97 11/11/24 07:16 FiO2 Intake & Output 11/10/24 11/11/24 11/11/24 18:59 06:59 18:59 Intake Total 1750 Output Total 960 700 Balance 790 -700 Intake: IV 1750 Output: Urine 950 700 Estimated Blood Loss 10 Other: Voiding Method Indwelling Catheter Indwelling Catheter - Exam CONSTITUTIONAL: [no apparent distress, chronic ill-appearing, nontoxic, somewhat cachectic] SKIN: warm, dry, no jaundice, hives or petechiae EYES: pupils are equally round, extraocular movements intact without nystagmus, clear conjunctiva, non-icteric sclera HENT: normocephalic, atraumatic NECK: Full range of motion, normal appearance PULMONARY: clear to auscultation without wheezes, rhonchi, or rales CARDIOVASCULAR: regular rate, rhythm, normal S1 and S2. No appreciated murmurs, rubs or gallops. Strong radial pulses with intact distal perfusion. No lower extremity edema GASTROINTESTINAL: Firm, distended, active bowel sounds throughout, tenderness outpatient the left lower and right lower quadrants, left inguinal hernia, of note termite helper was offered for exam however patient platelet declined, none irreducible, guarding palpation of the abdomen, no rebound no palpable masses No hepatosplenomegaly GENITOURINARY: As above MUSCULOSKELETAL: Extremities have no gross deformity, no edema, redness, or swelling. No calf swelling NEUROLOGIC: a/o x 3, GCS 15, normal mentation and speech. Moves all extremities x 4 without motor or sensory deficit PSYCHIATRIC: normal mood and affect, thought process is clear and linear - Labs CBC & Chem 7: 11/11/24 05:19 11/11/24 05:19 Labs: Abnormal Lab Results - Last 24 Hours (Table) 11/11/24 11/11/24 Range/Units 05:19 05:19 WBC 16.85 H (4.50-10.00) X 10*3/uL RBC 3.86 L (4.40-5.60) X 10*6/uL Hgb 10.3 L (13.0-17.0) g/dL Hct 31.9 L (39.6-50.0) % MCH 26.7 L (27.0-32.0) pg RDW 18.9 H (11.5-14.5) % Plt Count 522 H (140-440) X 10*3/uL MPV 8.7 L (9.5-12.2) FL Immature Gran # 0.09 H (0.00-0.04) X 10*3/uL Neutrophils # 14.42 H (1.80-7.70) X 10*3/uL Eosinophils # 0 L (0.04-0.35) X 10*3/uL Sodium 129 L (137-145) mmol/L Chloride 95 L (98-107) mmol/L Creatinine 0.65 L (0.66-1.25) mg/dL Magnesium 1.5 L (1.6-2.3) mg/dL Assessment and Plan Assessment: 1. Small bowel obstruction CT of the abdomen and pelvis reveals left inguinal hernia extending into scrotum containing nondilated small bowel loops. Multiple markedly enlarged small bowel loops proximal to hernia consistent with a small bowel obstruction. 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 Leukocytosis; likely reactive; no clear evidence of infection; will monitor CRP and procalcitonin and repeat CBC; plan to initiate sepsis workup if white blood count remains elevated or worsens 3. Mild hyponatremia; likely related to poor oral intake; will add IV fluids in form of normal saline at rate of 75 cc an hour 4. Anemia; patient does not report any history of anemia; will order stool occult blood; monitor H&H; start patient on IV Protonix 5. Mild hyperglycemia; possibly stress-induced; will monitor Accu-Cheks DVT prophylaxis; SCDs only given possibility of surgical intervention in next 24 hours CODE STATUS; full code
--- NOTE | 2024-11-12 08:18 | P.PN ---
Subjective Progress Note Date: 11/12/24 CHIEF COMPLAINT: Abdominal pain HISTORY OF PRESENT ILLNESS: The patient is a 54-year-old male initially admitted due to bowel obstruction from left inguinal hernia. He is status post robotic left inguinal hernia repair with bowel resection and takedown of small bowel sigmoid colonic fistula, 11/10/2024, due to sigmoid colon mass as a cause of his small bowel obstruction and large bowel obstruction. Due to high likelihood of malignancy, oncology was consulted. Additional studies including CT scan were obtained also demonstrating moderate COPD for which pulmonary consultation was also obtained. Patient is now passing moderate flatus. He reports no bowel movement. He reports no recurrence of his inguinal hernia. He reports feeling better from yesterday. He is on clear liquids. Nasogastric tube was also discontinued yesterday as was found within the right bronchus. REVIEW OF ORGAN SYSTEMS: No fevers or chills. No nausea or vomiting. No chest pain. PHYSICAL EXAM: VITALS: Reviewed CONSTITUTIONAL: Well developed and in no acute distress. EYES: Conjuctivae without sclera icterus. Extraocular movements grossly intact. HEAD, EARS, NOSE, THROAT: Moist buccal mucosa. Head is atraumatic, normocephalic. Hears conversational speech. No nasal drainage. RESPIRATORY: Non-labored respirations and equal bilateral excursions. No gross wheezes. CARDIOVASCULAR: Palpable 2+ radial pulses. ABDOMEN: No recurrent left inguinal hernia. Abdominal binder present. Incision clean dry intact. MUSCULOSKELETAL: No clubbing cyanosis or edema SKIN: Warm and well perfused with good skin turgor. NEUROLOGIC: Cranial nerves II through XII grossly intact. No focal or lateralizing signs. PSYCH: Appropriate affect. Alert and oriented to person, place and time. Displays appropriate insight. CLINCAL LABS: Reviewed. WBC elevated over 16,000. Sodium 129, hyponatremia low. Today labs are pending. CEA elevated STUDIES: CT of the chest report reviewed without IV contrast demonstrates moderate emphysematous changes with COPD including 1.6 cm left thyroid nodule. Additionally, nasogastric tube was in the right main bronchus. ASSESSMENT: 1. 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 Left inguinal hernia 3. High risk malignancy 4. Hyponatremia 5. Emphysema with COPD, new 6. Thyroid nodule, left, new 7. Elevated CEA 8. Iron deficiency anemia PLAN: 1. Discussion with radiologist for new finding of sigmoid colon fistula on past CT scan was described. Recommendation of rectal enema with CT pelvis ordered for better assessment of location and size of tumor. 2. Due to his malignancy and iron deficiency anemia, upper and lower endoscopy described with biopsies 3. Further discussion with patient includes staged colectomy pending additional diagnostic and radiology images. 4. Anticipated definitive surgical resection for colectomy while inpatient Objective - Vital Signs Vital signs: Vital Signs Temp 98.5 F 11/12/24 01:22 Pulse 93 11/12/24 01:22 Resp 16 11/12/24 01:22 BP 135/75 11/12/24 01:22 Pulse Ox 93 L 11/12/24 01:22 FiO2 Intake & Output 11/11/24 11/12/24 11/12/24 18:59 06:59 18:59 Other: Voiding Method Toilet - Labs CBC & Chem 7: 11/11/24 05:19 11/11/24 05:19 Labs: Abnormal Lab Results - Last 24 Hours (Table) 11/11/24 11/11/24 Range/Units 05:19 05:19 WBC 16.85 H (4.50-10.00) X 10*3/uL RBC 3.86 L (4.40-5.60) X 10*6/uL Hgb 10.3 L (13.0-17.0) g/dL Hct 31.9 L (39.6-50.0) % MCH 26.7 L (27.0-32.0) pg RDW 18.9 H (11.5-14.5) % Plt Count 522 H (140-440) X 10*3/uL MPV 8.7 L (9.5-12.2) FL Immature Gran # 0.09 H (0.00-0.04) X 10*3/uL Neutrophils # 14.42 H (1.80-7.70) X 10*3/uL Eosinophils # 0 L (0.04-0.35) X 10*3/uL Carcinoembryonic Ag 8.9 H (0.0-4.9) ng/mL
[2024-11-12] MEDS: FAMOTIDINE 20 MG/2 ML VIAL IV STA (09:04)
[2024-11-12] MEDS: methylPREDNISolone SOD SUCCI 125 MG/2 ML VIAL IV STA (09:04)
[2024-11-12] MEDS: diphenhydrAMINE 50 MG/ML 1 ML VIAL IVP STA (09:04)
[2024-11-12 09:49] LABS: HCT 31.6 % (39.6-50.0); HGB 10.3 g/dL (13.0-17.0); MCHC 32.6 g/dL (32.0-37.0); MCV 82.9 FL (80.0-97.0); NRBC Per 100 WBC 0 X 10*3/uL (0.00-0.01); Platelet Count 512 X 10*3/uL (140-440); RBC 3.81 X 10*6/uL (4.40-5.60); RDW 18.9 % (11.5-14.5); WBC 26.46 X 10*3/uL (4.50-10.00)
[2024-11-12 10:22] LABS: ALT 14 U/L (10-49); AST 22 U/L (14-35); Albumin 2.8 g/dL (3.8-4.9); Albumin/Globulin Ratio 1.33 Ratio (1.60-3.17); Alkaline Phosphatase 76 U/L (41-126); BUN/Creat Ratio 12.33 Ratio (12.00-20.00); Blood Urea Nitrogen 7.4 mg/dL (9.0-27.0); Carbon Dioxide 26.4 mmol/L (21.6-31.8); Chloride 96 mmol/L (96-109); Globulin 2.1 g/dL (1.6-3.3); Glucose 103 mg/dL (70-110); Potassium 3.6 mmol/L (3.5-5.5); Sodium 132 mmol/L (135-145); Total Bilirubin 0.2 mg/dL (0.3-1.2); Total Protein 4.9 g/dL (6.2-8.2)
--- NOTE | 2024-11-12 10:27 | CT ---
CT pelvis with rectal contrast and IV contrast. HISTORY: Rectal mass. COMPARISON: CT abdomen and pelvis 8 11/08/2024. TECHNIQUE: Multiple axial images were obtained through the pelvis following rectal contrast and IV co ntrast material. FINDINGS: There is a rectal tube with marked contrast within the rectum and distal sigmoid colon. Extending from the anterior surface of the distal sigmoid colon there is a linear tract of contrast e xtending in to the distal small bowel loops in the midline abdomen consistent with small bowel fistul a. The possibility of a abscess in the central portion of the pelvis is not excluded. There are dropl ets of free air scattered throughout the lower abdomen and pelvis reason the question of bowel perfor ation or postsurgical change. There is diffuse edema in the mesentery could be postsurgical or inflam matory in nature. Small bowel within the left inguinal hernia has been reduced and the small bowel dilatation and obstr uction has resolved. There is moderate stool within the visualized colon and rectum. There are a few scattered droplets of subcutaneous air in the lower anterior abdominal wall likely po stsurgical. The osseous structures are intact. IMPRESSION: 1. Fistula tract extending from the anterior wall of the sigmoid colon proximally and what appeared t o be small bowel loops. 2. Possible abscess in the midline pelvis. 3 drops of free intraperitoneal air either postsurgical or indicative of bowel perforation. 4. Edema formation within the mesentery infectious or postsurgical in nature or 5 resolution of the bowel within the left inguinal hernia and resolution of the previous bowel obstru ction [facility], , 11/12/2024 10:24 AM
[2024-11-12 10:55] LABS: Basophils # (A) 0.05 X 10*3/uL (0.00-0.10); Basophils % (A) 0.2 %; Eosinophils # (A) 0.01 X 10*3/uL (0.04-0.35); Eosinophils % (A) 0 %; Lymphocytes % (A) 7.2 %; Monocytes # (A) 0.96 X 10*3/uL (0.20-1.00); Monocytes % (A) 3.6 %; Neutrophils # (A) 23.38 X 10*3/uL (1.80-7.70); Neutrophils % (A) 88.4 %
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
--- NOTE | 2024-11-12 12:21 | P.PN ---
Subjective Progress Note Date: 11/12/24 54-year-old male patient with no significant past medical history, presenting today for left lower quadrant sharp abdominal pain. Patient states this pain has been intermittent over the last 2 weeks. More persistent today, uncontrolled with 800 mg of ibuprofen or Pepcid. Patient endorses abdominal swelling and firmness over this time as well. He states he has had a left inguinal hernia "for a while" and the pain is not located over the region of the hernia. He denies fevers or chills, denies shortness of breath or chest pain, endorses nausea and today had 2 episodes of nonbloody nonbilious emesis. States he has intermittent brown stools sometimes with small streaks of blood no melena. No history of prior abdominal surgeries. Denies dysuria, hematuria or urinary frequency. No history of cancers in himself or family members. Patient has no other medical history. He does not drink alcohol or smoke cigarettes. Blood work completed in ED reveals a WBC of 15.1, hemoglobin of 10.[address] atelet count of 682, sodium 135, potassium 4.1, BUNs/creatinine of 18/0.71 and blood glucose of 126, lactic acid level of 1.1 CT of the abdomen and pelvis completed with contrast reveals left inguinal hernia extending into the scrotum containing nondilated small bowel loops. Multiple markedly enlarged small bowel loops proximal to the hernia consistent with small bowel obstruction. 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 He is currently sitting up in bed. Awake and alert in no acute distress. - CT scan of the pelvis today reveals a fistula tract extending from the anterior wall of the sigmoid colon proximally and what appeared to be small bowel loops. Possible abscess in the midline pelvis. Droplets of free intraperitoneal air either postsurgical or indicative of bowel perforation. Edema formation within the mesenteric infectious or postsurgical in nature. Resolution of the bowel within the left inguinal hernia and resolution of the previous bowel obstruction. Lab review shows White count 26.4. Hemoglobin 10.3. Platelets 512. Sodium 132. Potassium 3.6. Bicarb 26. BUN 7. Creatinine 0.6. Glucose 103. He remains on cefepime and Flagyl. Normal saline at 80 mL/h. Morphine and Dil audid for pain control. Lovenox for DVT prophylaxis. -Surgery recommending EGD and colonoscopy with biopsies given sigmoid colon mass and iron deficiency anemia Objective - Vital Signs Vital signs: Vital Signs Temp 98.3 F 11/12/24 07:23 Pulse 89 11/12/24 07:23 Resp 17 11/12/24 07:23 BP 117/76 11/12/24 07:23 Pulse Ox 94 L 11/12/24 07:23 FiO2 Intake & Output 11/11/24 11/12/24 11/12/24 18:59 06:59 18:59 Other: Voiding Method Toilet - Exam CONSTITUTIONAL: [no apparent distress, chronic ill-appearing, nontoxic, somewhat cachectic] SKIN: warm, dry, no jaundice, hives or petechiae EYES: pupils are equally round, extraocular movements intact without nystagmus, clear conjunctiva, non-icteric sclera HENT: normocephalic, atraumatic NECK: Full range of motion, normal appearance PULMONARY: clear to auscultation without wheezes, rhonchi, or rales CARDIOVASCULAR: regular rate, rhythm, normal S1 and S2. No appreciated murmurs, rubs or gallops. Strong radial pulses with intact distal perfusion. No lower extremity edema GASTROINTESTINAL: Firm, distended, active bowel sounds throughout, tenderness outpatient the left lower and right lower quadrants, left inguinal hernia, of note farm management adviser was offered for exam however patient platelet declined, none irreducible, guarding palpation of the abdomen, no rebound no palpable masses No hepatosplenomegaly GENITOURINARY: As above MUSCULOSKELETAL: Extremities have no gross deformity, no edema, redness, or swelling. No calf swelling NEUROLOGIC: a/o x 3, GCS 15, normal mentation and speech. Moves all extremities x 4 without motor or sensory deficit PSYCHIATRIC: normal mood and affect, thought process is clear and linear - Labs CBC & Chem 7: 11/12/24 04:26 11/12/24 04:26 Labs: Abnormal Lab Results - Last 24 Hours (Table) 11/11/24 11/11/24 Range/Units 05:19 10:39 Carcinoembryonic Ag 8.9 H (0.0-4.9) ng/mL Folate 3.20 L (4.40-31.00) ng/mL Assessment and Plan Assessment: 1. Small bowel obstruction CT of the abdomen and pelvis reveals left inguinal hernia extending into scrotum containing nondilated small bowel loops. Multiple markedly enlarged small bowel loops proximal to hernia consistent with a small bowel obstruction. 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 Leukocytosis; likely reactive; no clear evidence of infection; will monitor CRP and procalcitonin and repeat CBC; plan to initiate sepsis workup if white blood count remains elevated or worsens 3. Mild hyponatremia; likely related to poor oral intake; will add IV fluids in form of normal saline at rate of 75 cc an hour 4. Anemia; patient does not report any history of anemia; will order stool occult blood; monitor H&H; start patient on IV Protonix 5. Mild hyperglycemia; possibly stress-induced; will monitor Accu-Cheks DVT prophylaxis; SCDs only given possibility of surgical intervention in next 24 hours CODE STATUS; full code
[2024-11-12] MEDS: FOLIC ACID 1 MG TAB PO SCH (12:46)
[2024-11-13 08:45] LABS: Anisocytosis Slight; Basophils % (A) 0 %; Eosinophils # (A) 0.2 k/uL (0-0.7); Eosinophils % (A) 1 %; HCT 30.3 % (39.0-53.0); Hypochromasia Slight; Lymphocytes # (A) 1.8 k/uL (1.0-4.8); Lymphocytes % (A) 7 %; MCH 26.9 pg (25.0-35.0); MCHC 31.5 g/dL (31.0-37.0); MCV 85.3 fL (80.0-100.0); Mean Platelet Volume 6.9; Monocytes # (A) 0.7 k/uL (0-1.0); Monocytes % (A) 3 %; Neutrophils # (A) 22.1 k/uL (1.3-7.7); Neutrophils % (A) 88 %; Platelet Count 471 k/uL (150-450); RBC 3.55 m/uL (4.30-5.90); RDW 17.6 % (11.5-15.5)
[2024-11-13 08:58] LABS: HGB 9.6 gm/dL (13.0-17.5)
[2024-11-13 09:10] LABS: ALT 13 U/L (4-49); AST 23 U/L (17-59); African American GFR (CKD) >90 (>60 ml/min/1.73 sqM); Albumin 2.5 g/dL (3.5-5.0); Alkaline Phosphatase 78 U/L (38-126); Anion Gap 3 mmol/L; Blood Urea Nitrogen 7 mg/dL (9-20); Carbon Dioxide 31 mmol/L (22-30); Chloride 97 mmol/L (98-107); Globulin 2.5 g/dL; Glucose 98 mg/dL (74-99); Magnesium 1.9 mg/dL (1.6-2.3); Non-African American GFR(CKD) >90 (>60 ml/min/1.73 sqM); Phosphorus 2.2 mg/dL (2.5-4.5); Potassium 3.2 mmol/L (3.5-5.1); Sodium 131 mmol/L (137-145); Total Bilirubin 0.4 mg/dL (0.2-1.3)
[2024-11-13] MEDS: IV FLUID CONTINUATION 900 ML IV ONE (10:02)
[2024-11-13] MEDS ORDERED: PROPOFOL 10 MG/ML 20 ML VIAL IV ONE (10:04)
--- NOTE | 2024-11-13 10:52 | P.PCN ---
Date of Procedure: 11/13/24 Description of Procedure: PREOPERATIVE DIAGNOSIS: Anemia POSTOPERATIVE DIAGNOSIS: Gastroesophageal reflux disease with erosive esophagitis Gastritis, chronic Diaphragmatic hiatal hernia OPERATION: Esophagogastroduodenoscopy with cold forceps biopsies along esophagus, antrum and duodenum SURGEON: Zoraida So MD ANESTHESIA: MAC. INDICATIONS: The patient is a 54-year-old male who presents with anemia. Benefits and risks of the procedure were described. Informed consent was obtained. DESCRIPTION: The patient was brought into the endoscopy suite and laid in the left lateral decubitus position. An Olympus gastroscope was passed along the posterior oropharynx down to the distal esophagus where the squamocolumnar junction was encountered at 40 cm from the incisors. The stomach was entered and no bile reflux was found. Additional findings are listed below. Biopsies with cold forceps were obtained of the antrum. The first through third portion of the duodenum was examined. Retroflexion of the scope confirmed Hill grade 3 lower esophageal valve. The squamocolumnar junction demonstrated LA grade B erosive esophagitis. The stomach was desufflated. The patient tolerated the procedure well. FINDINGS: Squamocolumnar junction 40 cm from the incisors. Diaphragmatic hiatus at 42 cm. Hiatal hernia, 2 cm Hill grade 3 lower esophageal valve. LA grade C erosive esophagitis, 2 cm linear erosions with biopsies obtained Biopsies obtained of the duodenum. Chronic gastritis with biopsies obtained. RECOMMENDATIONS: Omeprazole 40 mg daily
--- NOTE | 2024-11-13 11:04 | P.PCN ---
Date of Procedure: 11/13/24 Description of Procedure: PREOPERATIVE DIAGNOSIS: Anemia Coloenteric fistula POSTOPERATIVE DIAGNOSIS: Tubular adenoma rectum Tubular adenoma sigmoid colon with obstruction OPERATION: Sigmoidoscopy with hot snare polypectomy Sigmoidoscopy with injection of Shamika ink, 4 cc, sigmoid colon mass SURGEON: Zoraida So MD. ANESTHESIA: MAC. INDICATIONS: The patient is an 54-year-old male who presented with anemia including no prior colonoscopy. Intraoperative findings demonstrated a sigmoid colon fistula highly suspicious for malignancy. Benefits and risks were described and informed consent was obtained. DESCRIPTION OF PROCEDURE: The patient had undergone contrast enema. The patient had been brought into the operating room and laid in the left lateral decubitus position. After adequate intravenous sedation, the rectum was examined with 2% lidocaine jelly. The prostate was unremarkable. No external hemorrhoids were encountered. The rectal tone was within normal limits. No lesions were palpated in the rectal vault. An Olympus colonoscope was advanced until the cecum, ileocecal valve and appendiceal orifice were clearly viewed. The prep was poor. A rectal adenoma 10 cm from the anal verge was resected using hot snare. At 20 cm from the anal verge, a circumferential near complete obstruction of the mass was found with additional snare polypectomy obtained. Due to poor prep, moderate suction was performed within the rectum to obtain samples. Injection of 4 cc Shamika ink placed 20 cm from the anal verge for attempted resection. The colon was desufflated. The patient had tolerated the procedure well. Withdrawal time was over 6 minutes. FINDINGS: Aronchick preparation quality scale 5(1-5) Internal hemorrhoids, grade 2 External hemorrhoids, grade 2. Colonoscopy limited to obstructive sigmoid colon mass Removal of 2 polyps: - Snare polypectomy 10 cm from the anal verge, 10 mm tubulovillous adenoma, rectum - Snare polypectomy 20 cm from the anal verge, circumferential obstructive fungating mass with snare polypectomies obtained for specimen without complete resection. No focal colitis. RECOMMENDATIONS: Will undergo bowel prep for urgent colectomy due to bowel obstruction from likely malignant sigmoid colon mass Plan - Discharge Summary New Discharge Prescriptions: No Action No Known Home Medications Discharge Medication List No Known Home Medications 04/05/14 [History] Follow up Appointment(s)/Referral(s): None,Stated [Primary Care Provider] - 1-2 days Te Singh MD [STAFF PHYSICIAN] - 1 Week Discharge/Stand Alone Forms: [facility] PCPs
[2024-11-13] MEDS: LACTULOSE 20 GM/30 ML CUP PO SCH (11:07)
[2024-11-13] MEDS: CEFEPIME 2 GM in SODIUM CHLORIDE 0.9% 100 ML IVPB SCH (13:39)
[2024-11-13] MEDS: POTASSIUM CHLORIDE ER 20 MEQ TAB.ER PO SCH (15:11)
--- NOTE | 2024-11-13 15:15 | P.PN ---
Subjective Progress Note Date: 11/13/24 Interval History: 54-year-old male patient with no significant past medical history, presenting today for left lower quadrant sharp abdominal pain. Patient states this pain has been intermittent over the last 2 weeks. More persistent today, uncontrolled with 800 mg of ibuprofen or Pepcid. Patient endorses abdominal swelling and firmness over this time as well. He states he has had a left inguinal hernia "for a while" and the pain is not located over the region of the hernia. He denies fevers or chills, denies shortness of breath or chest pain, endorses nausea and today had 2 episodes of nonbloody nonbilious emesis. States he has intermittent brown stools sometimes with small streaks of blood no melena. No history of prior abdominal surgeries. Denies dysuria, hematuria or urinary frequency. No history of cancers in himself or family members. Patient has no other medical history. He does not drink alcohol or smoke cigarettes. Blood work completed in ED reveals a WBC of 15.1, hemoglobin of 10.9 and platelet count of 682, sodium 135, potassium 4.1, BUNs/creatinine of 18/0.71 and blood glucose of 126, lactic acid level of 1.1 CT of the abdomen and pelvis completed with contrast reveals left inguinal hernia extending into the scrotum containing nondilated small bowel loops. Multiple markedly enlarged small bowel loops proximal to the hernia consistent with small bowel obstruction. 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 He is currently sitting up in bed. Awake and alert in no acute distress. - CT scan of the pelvis today reveals a fistula tract extending from the anterior wall of the sigmoid colon proximally and what appeared to be small bowel loops. Possible abscess in the midline pelvis. Droplets of free intraperitoneal air either postsurgical or indicative of bowel perforation. Edema formation within the mesenteric infectious or postsurgical in nature. Resolution of the bowel within the left inguinal hernia and resolution of the previous bowel obstruction. Lab review shows White count 26.4. Hemoglobin 10.3. Platelets 512. Sodium 132. Potassium 3.6. Bicarb 26. BUN 7. Creatinine 0.6. Glucose 103. He remains on cefepime and Flagyl. Normal saline at 80 mL/h. Morphine and Dilaudid for pain control. Lovenox for DVT prophylaxis. -Surgery recommending EGD and colonoscopy with biopsies given sigmoid colon mass and iron deficiency anemia 11/13--patient was seen and examined today. Abdominal pain is better, reported bowel movement, underwent EGD today which showed hiatal hernia, Hill grade 3 low esophageal valve, LA grade C erosive esophagitis, 2 cm linear lesions, chronic gastritisbiopsies taken. Colonoscopy today showed internal/external hemorrhoid s, obstructive sigmoid colon mass, showed polyps. General surgery following, plan for urgent colectomy due to bowel obstruction from likely malignant sigmoid colon mass. Assessment and plan: Obstructing sigmoid colon mass Possible pelvic abscess: SBO: Incarcerated left inguinal hernias/p robotic assisted laparoscopic repair of left inguinal hernia, small bowel resection with primary anastomosis 11/10 Leukocytosis: Chronic anemia: Presented with abdominal pain, was admitted for SBO with incarcerated inguinal hernia. s/p robotic assisted laparoscopic repair of left inguinal hernia, small bowel resection with primary anastomosis 11/10 CT scan of pelvis on 11/12 showed fistulous tract extending from anterior wall of the sigmoid colon proximally and what appeared to be small bowel loops, possible abscess in the midline pelvis, droplet of free intraperitoneal air either postsurgical or perforation, edema of mesenteric region. EGD 11/13-- showed hiatal hernia, Hill grade 3 low esophageal valve, LA grade C erosive esophagitis, 2 cm linear lesions, chronic gastritisbiopsies taken. Colonoscopy 11/13--- showed internal/external hemorrhoids, obstructive sigmoid colon mass, showed polyps. General surgery following, plan for urgent colectomy due to bowel obstruction from likely malignant sigmoid colon mass. Cardiology consulted for cardiac clearance Pulmonary consulted for evaluation of emphysema on CT scan. Oncology consultedokay to proceed with definitive surgical intervention IV iron Cefepime and Flagyl General Surgery planning for colectomy. Emphysema: Former smoker: Shortness of breath: Secondary to right mainstem bronchus nasogastric tube placement subsequent removal and relief of symptoms CT scan showed moderate emphysema atelectasis Pulmonary consultedcontinue albuterol inhaler as needed, incentive spirometry Encourage ambulation, outpatient PFTs Hyponatremia: Mild hyponatremia secondary to hypovolemia Continue fluids Folate deficiency: Folate supplement. Gastritis: Esophagitis: PPI DVT prophylaxis: Subcutaneous Lovenox Monitor vital signs and labs Labs and medication were reviewed. Continue same treatment. Further recommendations as per clinical course of the patient PHYSICAL EXAMINATION: GENERAL: The patient is A&O x3, NAD HEENT: EOMI, Sclerae anicteric, Moist Mucous membranes Neck: Supple, Non tender, No JVD PULMONARY: Equal breath souds B/L, No wheezing, No crackles. CARDIOVASCULAR: S1, S2 present. No murmurs, rubs, or gallops. ABDOMEN: Soft, nondistended, normoactive bowel sounds. No guarding or rebound tenderness. MUSCULOSKELETAL: No edema, No cyanosis. No clubbing. Normal ROM. Intact peripheral pulses. NEUROLOGICAL: CN 2-12 grossly intact. No FND Skin: No Rash REVIEW OF SYSTEMS: CONSTITUTIONAL: No fever or chills. CARDIOVASCULAR: No chest pain, palpitations or syncope. PULMONARY: No shortness of breath, no cough, sore throat. GASTROINTESTINAL: No nausea, vomiting, diarrhea, abdominal pain. : No Dysuria, urgency, frequency. Extremities: No edema. NEUROLOGICAL: No headaches, no weakness, or numbness Dictation was produced using [email or web address] dictation software. please excuse any grammatical, word or spelling errors. Objective - Vital Signs Vital signs: Vital Signs Temp 98.4 F 11/13/24 13:37 Pulse 100 11/13/24 13:37 Resp 16 11/13/24 13:37 BP 119/73 11/13/24 13:37 Pulse Ox 93 L 11/13/24 13:37 FiO2 Intake & Output 11/12/24 11/13/24 11/13/24 18:59 06:59 18:59 Intake Total 500 Balance 500 Intake: IV 500 Other: Voiding Method Toilet # Voids 3 - Labs CBC & Chem 7: 11/13/24 08:26 11/13/24 08:26 Labs: Abnormal Lab Results - Last 24 Hours (Table) 11/13/24 11/13/24 Range/Units 08:26 08:26 WBC 25.0 H (3.8-10.6) k/uL RBC 3.55 L (4.30-5.90) m/uL Hgb 9.6 L D (13.0-17.5) gm/dL Hct 30.3 L (39.0-53.0) % RDW 17.6 H (11.5-15.5) % Plt Count 471 H (150-450) k/uL Neutrophils # 22.1 H (1.3-7.7) k/uL Sodium 131 L (137-145) mmol/L Potassium 3.2 L (3.5-5.1) mmol/L Chloride 97 L (98-107) mmol/L Carbon Dioxide 31 H (22-30) mmol/L BUN 7 L (9-20) mg/dL Creatinine 0.53 L (0.66-1.25) mg/dL Calcium 8.0 L (8.4-10.2) mg/dL Phosphorus 2.2 L (2.5-4.5) mg/dL Total Protein 5.0 L (6.3-8.2) g/dL Albumin 2.5 L (3.5-5.0) g/dL
[2024-11-13] MEDS ORDERED: CEFEPIME 2 GM in SODIUM CHLORIDE 0.9% 50 ML IVPB SCH (16:00)
[2024-11-13] MEDS: POTASSIUM PHOSPHATE 10 MMOL in SODIUM CHLORIDE 0.9% 250 ML IV SCH (17:12)
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
[2024-11-14 08:26] LABS: HCT 37.9 % (39.6-50.0); HGB 12.4 g/dL (13.0-17.0); MCH 27.4 pg (27.0-32.0); MCHC 32.7 g/dL (32.0-37.0); MCV 83.7 FL (80.0-97.0); Mean Platelet Volume 9.1 FL (9.5-12.2); NRBC Per 100 WBC 0 X 10*3/uL (0.00-0.01); Platelet Count 490 X 10*3/uL (140-440); RBC 4.53 X 10*6/uL (4.40-5.60); RDW 19.8 % (11.5-14.5)
[2024-11-14 08:37] LABS: ALT 12 U/L (10-49); AST 20 U/L (14-35); Albumin 2.7 g/dL (3.8-4.9); Albumin/Globulin Ratio 1.12 Ratio (1.60-3.17); Alkaline Phosphatase 55 U/L (41-126); Blood Urea Nitrogen 7.8 mg/dL (9.0-27.0); Carbon Dioxide 23.1 mmol/L (21.6-31.8); Chloride 99 mmol/L (96-109); Globulin 2.4 g/dL (1.6-3.3); Glucose 130 mg/dL (70-110); Magnesium 1.7 mg/dL (1.5-2.4); Phosphorus 3.3 mg/dL (2.4-5.1); Sodium 134 mmol/L (135-145); Total Bilirubin 0.3 mg/dL (0.3-1.2); Total Protein 5.1 g/dL (6.2-8.2)
[2024-11-14 09:39] LABS: Basophils # (A) 0.06 X 10*3/uL (0.00-0.10); Basophils % (A) 0.6 %; Crenated RBC 2+ (None Seen); Eosinophils # (A) 0.03 X 10*3/uL (0.04-0.35); Eosinophils % (A) 0.3 %; Lymphocytes # (A) 0.73 X 10*3/uL (0.90-5.00); Monocytes # (A) 0.34 X 10*3/uL (0.20-1.00); Monocytes % (A) 3.3 %; Neutrophils # (A) 9.19 X 10*3/uL (1.80-7.70); Neutrophils % (A) 88.3 %
[2024-11-14] MEDS: PEG 3350 (236 GM/BTL) + LYTES 4,000 ML BOTTLE PO ONE (10:43)
[2024-11-14] MEDS: SODIUM CHLORIDE 0.9% 1,000 ML IV ONE (10:43)
[2024-11-14] MEDS: SODIUM CHLORIDE 0.9% 1,000 ML IV SCH (11:53)
[2024-11-14] MEDS ORDERED: Antibiotics per Pharmacy 1 EACH MISC MISCELLANE PRN (12:45)
--- NOTE | 2024-11-14 13:14 | P.PN ---
Subjective Interval History: 54-year-old male patient with no significant past medical history, presenting today for left lower quadrant sharp abdominal pain. Patient states this pain has been intermittent over the last 2 weeks. More persistent today, uncont rolled with 800 mg of ibuprofen or Pepcid. Patient endorses abdominal swelling and firmness over this time as well. He states he has had a left inguinal hernia "for a while" and the pain is not located over the region of the hernia. He denies fevers or chills, denies shortness of breath or chest pain, endorses nausea and today had 2 episodes of nonbloody nonbilious emesis. States he has intermittent brown stools sometimes with small streaks of blood no melena. No history of prior abdominal surgeries. Denies dysuria, hematuria or urinary frequency. No history of cancers in himself or family members. Patient has no other medical history. He does not drink alcohol or smoke cigarettes. Blood work completed in ED reveals a WBC of 15.1, hemoglobin of 10.9 and platelet count of 682, sodium 135, potassium 4.1, BUNs/creatinine of 18/0.71 and blood glucose of 126, lactic acid level of 1.1 CT of the abdomen and pelvis completed with contrast reveals left inguinal hernia extending into the scrotum containing nondilated small bowel loops. Multiple markedly enlarged small bowel loops proximal to the hernia consistent with small bowel obstruction. 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 He is currently sitting up in bed. Awake and alert in no acute distress. - CT scan of the pelvis today reveals a fistula tract extending from the anterior wall of the sigmoid colon proximally and what appeared to be small bowel loops. Possible abscess in the midline pelvis. Droplets of free intraperitoneal air either postsurgical or indicative of bowel perforation. Edema formation within the mesenteric infectious or postsurgical in nature. Resolution of the bowel within the left inguinal hernia and resolution of the previous bowel obstruction. Lab review shows White count 26.4. Hemoglobin 10.3. Platelets 512. Sodium 132. Potassium 3.6. Bicarb 26. BUN 7. Creatinine 0.6. Glucose 103. He remains on cefepime and Flagyl. Normal saline at 80 mL/h. Morphine and Dilaudid for pain control. Lovenox for DVT prophylaxis. -Surgery recommending EGD and colonoscopy with biopsies given sigmoid colon mass and iron deficiency anemia 11/13--patient was seen and examined today. Abdominal pain is better, reported bowel movement, underwent EGD today which showed hiatal hernia, Hill grade 3 low esophageal valve, LA grade C erosive esophagitis, 2 cm linear lesions, chronic gastritisbiopsies taken. Colonoscopy today showed internal/external hemorrhoids, obstructive sigmoid colon mass, showed polyps. General surgery following, plan for urgent colectomy due to bowel obstruction from likely m alignant sigmoid colon mass. 11/14--patient was seen and examined today. Passing flatus, reported small bowel movement. Afebrile, heart rate 117, respiratory rate 17, blood pressure 110/71, saturating 93% on room air. WBCs 10.4, hemoglobin 12.4, platelet 490. Sodium 134, potassium 4.0, chloride 99, CO2 23.1, BUN 7.8, creatinine 0.5. Infectious disease consulted and following, on cefepime and Flagyl. Assessment and plan: Obstructing sigmoid colon mass Possible pelvic abscess: SBO: Incarcerated left inguinal hernias/p robotic assisted laparoscopic repair of left inguinal hernia, small bowel resection with primary anastomosis 11/10 Leukocytosis: Chronic anemia: Presented with abdominal pain, was admitted for SBO with incarcerated inguinal hernia. s/p robotic assisted laparoscopic repair of left inguinal hernia, small bowel resection with primary anastomosis 11/10 CT scan of pelvis on 11/12 showed fistulous tract extending from anterior wall of the sigmoid colon proximally and what appeared to be small bowel loops, possible abscess in the midline pelvis, droplet of free intraperitoneal air either postsurgical or perforation, edema of mesenteric region. EGD 11/13-- showed hiatal hernia, Hill grade 3 low esophageal valve, LA grade C erosive esophagitis, 2 cm linear lesions, chronic gastritisbiopsies taken. Colonoscopy 11/13--- showed internal/external hemorrhoids, obstructive sigmoid colon mass, showed polyps. General surgery following, plan for urgent colectomy due to bowel obstruction from likely malignant sigmoid colon mass. Cardiology consulted for cardiac clearance Pulmonary consulted for evaluation of emphysema on CT scan. Oncology consultedokay to proceed with definitive surgical intervention IV iron Cefepime and Flagyl Infectious disease consulted General Surgery planning for colectomy tentatively on Emphysema: Former smoker: Shortness of breath: Secondary to right mainstem bronchus nasogastric tube placement subsequent removal and relief of symptoms CT scan showed moderate emphysema atelectasis Pulmonary consultedcontinue albuterol inhaler as needed, incentive spirometry Encourage ambulation, outpatient PFTs Hyponatremia: Mild hyponatremia secondary to hypovolemia Continue fluids Folate deficiency: Folate supplement. Gastritis: Esophagitis: PPI DVT prophylaxis: Subcutaneous Lovenox Monitor vital signs and labs Labs and medication were reviewed. Continue same treatment. Further recommendations as per clinical course of the patient PHYSICAL EXAMINATION: GENERAL: The patient is A&O x3, NAD HEENT: EOMI, Sclerae anicteric, Moist Mucous membranes Neck: Supple, Non tender, No JVD PULMONARY: Equal breath souds B/L, No wheezing, No crackles. CARDIOVASCULAR: S1, S2 present. No murmurs, rubs, or gallops. ABDOMEN: Soft, nondistended, normoactive bowel sounds. No guarding or rebound tenderness. MUSCULOSKELETAL: No edema, No cyanosis. No clubbing. Normal ROM. Intact peripheral pulses. NEUROLOGICAL: CN 2-12 grossly intact. No FND Skin: No Rash REVIEW OF SYSTEMS: CONSTITUTIONAL: No fever or chills. CARDIOVASCULAR: No chest pain, palpitations or syncope. PULMONARY: No shortness of breath, no cough, sore throat. GASTROINTESTINAL: No nausea, vomiting, diarrhea, abdominal pain. : No Dysuria, urgency, frequency. Extremities: No edema. NEUROLOGICAL: No headaches, no weakness, or numbness Dictation was produced using [employer] dictation software. please excuse any grammatical, word or spelling errors. Objective - Vital Signs Vital signs: Vital Signs Temp 98.0 F 11/14/24 07:51 Pulse 117 H 11/14/24 07:51 Resp 17 11/14/24 07:51 BP 110/71 11/14/24 07:51 Pulse Ox 93 L 11/14/24 07:51 FiO2 Intake & Output 11/13/24 11/14/24 11/14/24 18:59 06:59 18:59 Intake Total 500 Balance 500 Intake: IV 500 Other: Voiding Method Toilet # Voids 3 1 # Bowel Movements 4 4 - Labs CBC & Chem 7: 11/14/24 03:07 11/14/24 03:07 Labs: Abnormal Lab Results - Last 24 Hours (Table) 11/11/24 11/14/24 11/14/24 Range/Units 10:39 03:07 03:07 WBC 10.40 H (4.50-10.00) X 10*3/uL Hgb 12.4 L (13.0-17.0) g/dL Hct 37.9 L (39.6-50.0) % RDW 19.8 H (11.5-14.5) % Plt Count 490 H (140-440) X 10*3/uL MPV 9.1 L (9.5-12.2) FL Immature Gran # 0.05 H (0.00-0.04) X 10*3/uL Neutrophils # 9.19 H (1.80-7.70) X 10*3/uL Lymphocytes # 0.73 L (0.90-5.00) X 10*3/uL Eosinophils # 0.03 L (0.04-0.35) X 10*3/uL Crenated Cell 2+ A (None Seen) Sodium 134 L (135-145) mmol/L BUN 7.8 L (9.0-27.0) mg/dL Creatinine 0.5 L (0.6-1.5) mg/dL Glucose 130 H (70-110) mg/dL Calcium 8.0 L (8.7-10.3) mg/dL Total Protein 5.1 L (6.2-8.2) g/dL Albumin 2.7 L (3.8-4.9) g/dL Albumin/Globulin Ratio 1.12 L (1.60-3.17) Ratio Methylmalonic Acid 0.57 H (<0.40) umol/L
--- NOTE | 2024-11-14 13:46 | P.PN ---
Subjective Progress Note Date: 11/14/24 CHIEF COMPLAINT: Sigmoid colon mass HISTORY OF PRESENT ILLNESS: The patient is a 54-year-old male initially admitted due to bowel obstruction from left inguinal hernia. He is status post robotic left inguinal hernia repair with bowel resection and takedown of small bowel sigmoid colonic fistula, 11/10/2024, due to sigmoid colon mass as a cause of his small bowel obstruction and large bowel obstruction. Patient is status post EGD and colonoscopy. EGD reported GERD with erosive esophagitis, gastritis and diaphragmatic hiatal hernia. And colonoscopy reported tubular adenoma in the rectum and tubular adenoma sigmoid colon with obstruction. Patient complains of abdominal pain in the suprapubic area. He has been tachycardic. Afebrile. WBC is down from 25-10.4 Hgb 9.6-12.4 platelets 490 sodium is 134 potassium is 4.0 creatinine 0.5 phosphorus 3.3 magnesium 1.7 PHYSICAL EXAM: VITAL SIGNS: Reviewed GENERAL: Well-developed in no acute distress. HEENT: No sclera icterus. Extraocular movements grossly intact. Moist buccal mucosa. Head is atraumatic, normocephalic. Hears conversational speech. No nasal drainage. NECK: Supple without lymphadenopathy. CHEST: Non-labored respirations and equal bilateral excursions. CARDIOVASCULAR: Palpable 2+ radial pulses. ABDOMEN: Soft. Nondistended. Tenderness with palpation of the suprapubic area MUSCULOSKELETAL: No clubbing or cyanosis. NEUROLOGIC: No focal or lateralizing signs. Cranial nerves II through XII grossly intact. PSYCH: Appropriate affect. Alert and oriented to person, place and time. SKIN: Well perfused. Good skin turgor. ASSESSMENT: 1. Sigmoid colon mass with coloenteric fistula as cause of large and small bow el obstruction, new 2. Left inguinal hernia 3. High risk malignancy 4. Hyponatremia 5. Emphysema with COPD, new 6. Thyroid nodule, left, new 7. Elevated CEA 8. Iron deficiency anemia PLAN: -Patient scheduled for lower anterior resection on November with Dr. So -Start GoLytely bowel prep today. Will continue prep throughout today and tomorrow. -Lactulose added for bowel prep -Full liquid diet today and a clear liquid diet tomorrow -1 L fluid bolus for tachycardia. Patient likely dehydrated. Will place maintenance fluids at 80 mL/h -Repeat labs in a.m. -Continue Protonix Physician Building Estimator note has been reviewed by physician. Signing provider agrees with the documented findings, assessment, and plan of care. Objective - Vital Signs Vital signs: Vital Signs Temp 98.0 F 11/14/24 07:51 Pulse 117 H 11/14/24 07:51 Resp 17 11/14/24 07:51 BP 110/71 11/14/24 07:51 Pulse Ox 93 L 11/14/24 07:51 FiO2 Intake & Output 11/13/24 11/14/24 11/14/24 18:59 06:59 18:59 Intake Total 500 Balance 500 Intake: IV 500 Other: Voiding Method Toilet # Voids 3 1 # Bowel Movements 4 4 - Labs CBC & Chem 7: 11/14/24 03:07 11/14/24 03:07 Labs: Abnormal Lab Results - Last 24 Hours (Table) 11/11/24 11/14/24 11/14/24 Range/Units 10:39 03:07 03:07 WBC 10.40 H (4.50-10.00) X 10*3/uL Hgb 12.4 L (13.0-17.0) g/dL Hct 37.9 L (39.6-50.0) % RDW 19.8 H (11.5-14.5) % Plt Count 490 H (140-440) X 10*3/uL MPV 9.1 L (9.5-12.2) FL Immature Gran # 0.05 H (0.00-0.04) X 10*3/uL Neutrophils # 9.19 H (1.80-7.70) X 10*3/uL Lymphocytes # 0.73 L (0.90-5.00) X 10*3/uL Eosinophils # 0.03 L (0.04-0.35) X 10*3/uL Crenated Cell 2+ A (None Seen) Sodium 134 L (135-145) mmol/L BUN 7.8 L (9.0-27.0) mg/dL Creatinine 0.5 L (0.6-1.5) mg/dL Glucose 130 H (70-110) mg/dL Calcium 8.0 L (8.7-10.3) mg/dL Total Protein 5.1 L (6.2-8.2) g/dL Albumin 2.7 L (3.8-4.9) g/dL Albumin/Globulin Ratio 1.12 L (1.60-3.17) Ratio Methylmalonic Acid 0.57 H (<0.40) umol/L
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
--- NOTE | 2024-11-14 18:11 | P.PN ---
Subjective Progress Note Date: 11/14/24 No acute events overnight. Pt reporting pain is controlled. Plan for colectomy on 11/16. WBC 10.4, hgb 12.4, plt 490. Continues IV abx Objective - Vital Signs Vital signs: Vital Signs Temp 98.0 F 11/14/24 07:51 Pulse 117 H 11/14/24 07:51 Resp 17 11/14/24 07:51 BP 110/71 11/14/24 07:51 Pulse Ox 93 L 11/14/24 07:51 FiO2 Intake & Output 11/13/24 11/14/24 11/14/24 18:59 06:59 18:59 Intake Total 500 Balance 500 Intake: IV 500 Other: Voiding Method Toilet # Voids 3 1 # Bowel Movements 4 4 - Constitutional General appearance: Present: no acute distress - EENT Eyes: Present: anicteric sclerae, EOMI ENT: Present: hearing grossly normal - Respiratory Details: breathing is even and unlabored - Cardiovascular Details: skin warm and dry - Integumentary Integumentary: Absent: cyanotic, jaundiced - Neurologic Neurologic: Present: CNII-XII intact - Psychiatric Psychiatric: Present: A&O x's 3 - Labs CBC & Chem 7: 11/14/24 03:07 11/14/24 03:07 Labs: Abnormal Lab Results - Last 24 Hours (Table) 11/11/24 11/14/24 11/14/24 Range/Units 10:39 03:07 03:07 WBC 10.40 H (4.50-10.00) X 10*3/uL Hgb 12.4 L (13.0-17.0) g/dL Hct 37.9 L (39.6-50.0) % RDW 19.8 H (11.5-14.5) % Plt Count 490 H (140-440) X 10*3/uL MPV 9.1 L (9.5-12.2) FL Immature Gran # 0.05 H (0.00-0.04) X 10*3/uL Neutrophils # 9.19 H (1.80-7.70) X 10*3/uL Lymphocytes # 0.73 L (0.90-5.00) X 10*3/uL Eosinophils # 0.03 L (0.04-0.35) X 10*3/uL Crenated Cell 2+ A (None Seen) Sodium 134 L (135-145) mmol/L BUN 7.8 L (9.0-27.0) mg/dL Creatinine 0.5 L (0.6-1.5) mg/dL Glucose 130 H (70-110) mg/dL Calcium 8.0 L (8.7-10.3) mg/dL Total Protein 5.1 L (6.2-8.2) g/dL Albumin 2.7 L (3.8-4.9) g/dL Albumin/Globulin Ratio 1.12 L (1.60-3.17) Ratio Methylmalonic Acid 0.57 H (<0.40) umol/L - Imaging and Cardiology CT scan - chest: report reviewed CT scan - pelvis: report reviewed Assessment and Plan (1) Iron deficiency anemia Current Visit: Yes Status: Acute Code(s): D50.9 - IRON DEFICIENCY ANEMIA, UNSPECIFIED SNOMED Code(s): 32282181 (2) Leukocytosis Current Visit: Yes Status: Acute Code(s): D72.829 - ELEVATED WHITE BLOOD CELL COUNT, UNSPECIFIED SNOMED Code(s): 416425770 (3) Mass of colon Current Visit: Yes Status: Acute Code(s): K63.89 - OTHER SPECIFIED DISEASES OF INTESTINE SNOMED Code(s): 240877439 (4) Reactive thrombocytosis Current Visit: Yes Status: Acute Code(s): D75.838 - OTHER THROMBOCYTOSIS SNOMED Code(s): 770530709 (5) Small bowel obstruction Current Visit: Yes Status: Acute Code(s): K56.609 - UNSP INTESTNL OBST, UNSP TO PARTIAL VERSUS COMPLETE OBST SNOMED Code(s): 580738726 Plan: #Sigmoid colon mass -Noted to be present during surgical repair of incarcerated hernia resulting in small bowel obstruction -CT abdomen/pelvis on 11/08/2024 noted no findings concerning for metastatic disease -This finding combined with the iron deficiency does raise the concern for primary colon cancer -CEA elevated at 8.9, CA 19-9 WNL -CT of the chest with IV contrast ordered to complete staging workup. Scan revealed non-specific 4mm groundglass nodule in left lung apex, and few scattered micronodules. Will plan to obtain PET CT in outpt setting to further evaluate -Sigmoidoscopy showing tubular adenoma with near obstruction of sigomid colon, with plan for colectomy on 11/16 -Pathology pending #Iron deficiency anemia -Noted to have borderline microcytic anemia on admission -Iron studies on 11/10/2023 revealed ferritin of 275 with iron saturation 8.83% -Likely due to impaired absorption from incarcerated hernia in addition to po ssible colon cancer -IV iron has been given. Folic acid deficiency also noted, supplementation start ed #Thrombocytosis -Likely reactive to iron deficiency and small bowel obstruction -Continue to monitor
[2024-11-15] MEDS: PEG 3350 (236 GM/BTL) + LYTES 4,000 ML BOTTLE PO ONE (07:59)
--- NOTE | 2024-11-15 08:28 | P.PN ---
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 Patient had colonoscopy confirming malignancy at the sigmoid colon with near partial obstruction. Patient reports new lower abdominal pain and new abdominal distention which started last night to this morning. He still reports passage of flatus and having bowel movements without blood. Reports stool is [place]-colored. He reports more burping. Has new tachycardia between yesterday and this morning. REVIEW OF ORGAN SYSTEMS: No fevers or chills. No nausea or vomiting. No chest pain. PHYSICAL EXAM: VITALS: Reviewed CONSTITUTIONAL: Well developed and in no acute distress. EYES: Conjuctivae without sclera icterus. Extraocular movements grossly intact. HEAD, EARS, NOSE, THROAT: Moist buccal mucosa. Head is atraumatic, normocephalic. Hears conversational speech. No nasal drainage. RESPIRATORY: Non-labored respirations and equal bilateral excursions. No gross wheezes. CARDIOVASCULAR: Palpable 2+ radial pulses. ABDOMEN: No recurrent inguinal hernia. Abdomen distended. Incisions clean dry and intact. No erythema along incisions. MUSCULOSKELETAL: No clubbing cyanosis or edema SKIN: Warm and well perfused with good skin turgor. NEUROLOGIC: Cranial nerves II through XII grossly intact. No focal or lateralizing signs. PSYCH: Appropriate affect. Alert and oriented to person, place and time. Displays appropriate insight. CLINCAL LABS: Reviewed. WBC down from 25,000- over 10,000. Labs from this morning pending. CA 19-9 normal. CEA elevated. ASSESSMENT: 1. 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 Left inguinal hernia 3. High risk malignancy 4. Hyponatremia 5. Emphysema with COPD, new 6. Thyroid nodule, left, new 7. Elevated CEA 8. Iron deficiency anemia 9. Sigmoid colon malignancy with obstruction PLAN: 1. Patient reports that he still passing flatus and bowel movements hence partial obstruction 2. Mechanical bowel prep with Salazar prep described. Patient will need sigmoid colectomy. 3. Discussed with patient that diet will be modified to minimize abdominal distention. Objective - Vital Signs Vital signs: Vital Signs Temp 97.7 F 11/15/24 06:58 Pulse 104 H 11/15/24 06:58 Resp 17 11/15/24 06:58 BP 135/90 11/15/24 06:58 Pulse Ox 93 L 11/15/24 06:58 FiO2 Intake & Output 11/14/24 11/15/24 11/15/24 18:59 06:59 18:59 Other: Voiding Method Toilet # Voids 3 4 # Bowel Movements 5 4 - Labs CBC & Chem 7: 11/14/24 03:07 11/14/24 03:07 Labs: Abnormal Lab Results - Last 24 Hours (Table) 11/14/24 11/14/24 Range/Units 03:07 03:07 WBC 10.40 H (4.50-10.00) X 10*3/uL Hgb 12.4 L (13.0-17.0) g/dL Hct 37.9 L (39.6-50.0) % RDW 19.8 H (11.5-14.5) % Plt Count 490 H (140-440) X 10*3/uL MPV 9.1 L (9.5-12.2) FL Immature Gran # 0.05 H (0.00-0.04) X 10*3/uL Neutrophils # 9.19 H (1.80-7.70) X 10*3/uL Lymphocytes # 0.73 L (0.90-5.00) X 10*3/uL Eosinophils # 0.03 L (0.04-0.35) X 10*3/uL Crenated Cell 2+ A (None Seen) Sodium 134 L (135-145) mmol/L BUN 7.8 L (9.0-27.0) mg/dL Creatinine 0.5 L (0.6-1.5) mg/dL Glucose 130 H (70-110) mg/dL Calcium 8.0 L (8.7-10.3) mg/dL Total Protein 5.1 L (6.2-8.2) g/dL Albumin 2.7 L (3.8-4.9) g/dL Albumin/Globulin Ratio 1.12 L (1.60-3.17) Ratio
[2024-11-15 11:32] LABS: Anisocytosis Slight; Basophils % (A) 0 %; Eosinophils % (A) 0 %; HCT 33.3 % (39.0-53.0); HGB 10.1 gm/dL (13.0-17.5); Hypochromasia Moderate; Lymphocytes # (A) 0.7 k/uL (1.0-4.8); Lymphocytes % (A) 3 %; MCH 26.9 pg (25.0-35.0); MCHC 30.5 g/dL (31.0-37.0); MCV 88.3 fL (80.0-100.0); Mean Platelet Volume 7.4; Monocytes # (A) 0.6 k/uL (0-1.0); Monocytes % (A) 2 %; Neutrophils # (A) 22.6 k/uL (1.3-7.7); Neutrophils % (A) 94 %; Platelet Count 418 k/uL (150-450); RBC 3.77 m/uL (4.30-5.90); RDW 18.1 % (11.5-15.5)
[2024-11-15 11:41] LABS: African American GFR (CKD) >90 (>60 ml/min/1.73 sqM); Anion Gap 5 mmol/L; Blood Urea Nitrogen 15 mg/dL (9-20); Calcium 8.2 mg/dL (8.4-10.2); Carbon Dioxide 27 mmol/L (22-30); Chloride 102 mmol/L (98-107); Glucose 100 mg/dL (74-99); Non-African American GFR(CKD) >90 (>60 ml/min/1.73 sqM); Potassium 3.2 mmol/L (3.5-5.1); Sodium 134 mmol/L (137-145)
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
[2024-11-15] MEDS: metroNIDAZOLE 500 MG TAB PO SCH (12:40)
[2024-11-15] MEDS: NEOMYCIN 500 MG TAB PO SCH (12:41)
[2024-11-15] MEDS ORDERED: Potassium Replacement Protocol 1 EACH MISC MISCELLANE PRN ×2 (12:41→12:46)
--- NOTE | 2024-11-15 13:33 | P.PN ---
Subjective Interval History: 54-year-old male patient with no significant past medical history, presenting today for left lower quadrant sharp abdominal pain. Patient states this pain has been intermittent over the last 2 weeks. More persistent today, uncont rolled with 800 mg of ibuprofen or Pepcid. Patient endorses abdominal swelling and firmness over this time as well. He states he has had a left inguinal hernia "for a while" and the pain is not located over the region of the hernia. He denies fevers or chills, denies shortness of breath or chest pain, endorses nausea and today had 2 episodes of nonbloody nonbilious emesis. States he has intermittent brown stools sometimes with small streaks of blood no melena. No history of prior abdominal surgeries. Denies dysuria, hematuria or urinary frequency. No history of cancers in himself or family members. Patient has no other medical history. He does not drink alcohol or smoke cigarettes. Blood work completed in ED reveals a WBC of 15.1, hemoglobin of 10.9 and platelet count of 682, sodium 135, potassium 4.1, BUNs/creatinine of 18/0.71 and blood glucose of 126, lactic acid level of 1.1 CT of the abdomen and pelvis completed with contrast reveals left inguinal hernia extending into the scrotum containing nondilated small bowel loops. Multiple markedly enlarged small bowel loops proximal to the hernia consistent with small bowel obstruction. 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 He is currently sitting up in bed. Awake and alert in no acute distress. - CT scan of the pelvis today reveals a fistula tract extending from the anterior wall of the sigmoid colon proximally and what appeared to be small bowel loops. Possible abscess in the midline pelvis. Droplets of free intraperitoneal air either postsurgical or indicative of bowel perforation. Edema formation within the mesenteric infectious or postsurgical in nature. Resolution of the bowel within the left inguinal hernia and resolution of the previous bowel obstruction. Lab review shows White count 26.4. Hemoglobin 10.3. Platelets 512. Sodium 132. Potassium 3.6. Bicarb 26. BUN 7. Creatinine 0.6. Glucose 103. He remains on cefepime and Flagyl. Normal saline at 80 mL/h. Morphine and Dilaudid for pain control. Lovenox for DVT prophylaxis. -Surgery recommending EGD and colonoscopy with biopsies given sigmoid colon mass and iron deficiency anemia 11/13--patient was seen and examined today. Abdominal pain is better, reported bowel movement, underwent EGD today which showed hiatal hernia, Hill grade 3 low esophageal valve, LA grade C erosive esophagitis, 2 cm linear lesions, chronic gastritisbiopsies taken. Colonoscopy today showed internal/external hemorrhoids, obstructive sigmoid colon mass, showed polyps. General surgery following, plan for urgent colectomy due to bowel obstruction from likely m alignant sigmoid colon mass. 11/14--patient was seen and examined today. Passing flatus, reported small bowel movement. Afebrile, heart rate 117, respiratory rate 17, blood pressure 110/71, saturating 93% on room air. WBCs 10.4, hemoglobin 12.4, platelet 490. Sodium 134, potassium 4.0, chloride 99, CO2 23.1, BUN 7.8, creatinine 0.5. Infectious disease consulted and following, on cefepime and Flagyl. 11/15--patient was seen and examined today. No issues overnight.Patient is afeb rile, tachycardic with heart rate 104, will start on low-dose beta-ramin, respiratory rate 17, blood pressure 135/90, saturating 93% on room air. WBCs 24.0, hemoglobin 10.1, platelet 418. Sodium 134 potassium 3.2 chloride 102 BUN 15 creatinine 0.54. Infectious is consulted and following, currently on cefepime and Flagyl. Assessment and plan: Obstructing sigmoid colon mass Possible pelvic abscess: Sepsis: SBO: Incarcerated left inguinal hernias/p robotic assisted laparoscopic repair of left inguinal hernia, small bowel resection with primary anastomosis 11/10 Leukocytosis: Chronic anemia: Presented with abdominal pain, was admitted for SBO with incarcerated inguinal hernia. s/p robotic assisted laparoscopic repair of left inguinal hernia, small bowel resection with primary anastomosis 11/10 CT scan of pelvis on 11/12 showed fistulous tract extending from anterior wall of the sigmoid colon proximally and what appeared to be small bowel loops, possible abscess in the midline pelvis, droplet of free intraperitoneal air either postsurgical or perforation, edema of mesenteric region. EGD 11/13-- showed hiatal hernia, Hill grade 3 low esophageal valve, LA grade C erosive esophagitis, 2 cm linear lesions, chronic gastritisbiopsies taken. Colonoscopy 11/13--- showed internal/external hemorrhoids, obstructive sigmoid colon mass, showed polyps. General surgery following, plan for urgent colectomy due to bowel obstruction from likely malignant sigmoid colon mass. Cardiology consulted for cardiac clearance Pulmonary consulted for evaluation of emphysema on CT scan. Oncology consultedokay to proceed with definitive surgical intervention IV iron Cefepime and Flagyl Infectious disease consulted General Surgery planning for colectomy tentatively on Tachycardia: Likely secondary to above, monitor If persistently tachycardic with symptoms, will add Lopressor. Emphysema: Former smoker: Shortness of breath: Secondary to right mainstem bronchus nasogastric tube placement subsequent removal and relief of symptoms CT scan showed moderate emphysema atelectasis Pulmonary consultedcontinue albuterol inhaler as needed, incentive spirometry Encourage ambulation, outpatient PFTs Hyponatremia: Mild hyponatremia secondary to hypovolemia Continue fluids Folate deficiency: Folate supplement. Gastritis: Esophagitis: PPI DVT prophylaxis: Subcutaneous Lovenox Monitor vital signs and labs Labs and medication were reviewed. Continue same treatment. Further recommendations as per clinical course of the patient PHYSICAL EXAMINATION: GENERAL: The patient is A&O x3, NAD HEENT: EOMI, Sclerae anicteric, Moist Mucous membranes Neck: Supple, Non tender, No JVD PULMONARY: Equal breath souds B/L, No wheezing, No crackles. CARDIOVASCULAR: S1, S2 present. No murmurs, rubs, or gallops. ABDOMEN: Soft, nondistended, normoactive bowel sounds. No guarding or rebound tenderness. MUSCULOSKELETAL: No edema, No cyanosis. No clubbing. Normal ROM. Intact peripheral pulses. NEUROLOGICAL: CN 2-12 grossly intact. No FND Skin: No Rash REVIEW OF SYSTEMS: CONSTITUTIONAL: No fever or chills. CARDIOVASCULAR: No chest pain, palpitations or syncope. PULMONARY: No shortness of breath, no cough, sore throat. GASTROINTESTINAL: No nausea, vomiting, diarrhea, abdominal pain. : No Dysuria, urgency, frequency. Extremities: No edema. NEUROLOGICAL: No headaches, no weakness, or numbness Dictation was produced using [employer] dictation software. please excuse any grammatical, word or spelling errors. Objective - Vital Signs Vital signs: Vital Signs Temp 97.7 F 11/15/24 06:58 Pulse 104 H 11/15/24 06:58 Resp 17 11/15/24 06:58 BP 135/90 11/15/24 06:58 Pulse Ox 93 L 11/15/24 06:58 FiO2 Intake & Output 11/14/24 11/15/24 11/15/24 18:59 06:59 18:59 Other: Voiding Method Toilet # Voids 3 4 # Bowel Movements 5 4 - Labs CBC & Chem 7: 11/15/24 10:44 11/15/24 10:44 Labs: Abnormal Lab Results - Last 24 Hours (Table) 11/15/24 11/15/24 Range/Units 10:44 10:44 WBC 24.0 H (3.8-10.6) k/uL RBC 3.77 L (4.30-5.90) m/uL Hgb 10.1 L (13.0-17.5) gm/dL Hct 33.3 L (39.0-53.0) % MCHC 30.5 L (31.0-37.0) g/dL RDW 18.1 H (11.5-15.5) % Neutrophils # 22.6 H (1.3-7.7) k/uL Lymphocytes # 0.7 L (1.0-4.8) k/uL Sodium 134 L (137-145) mmol/L Potassium 3.2 L (3.5-5.1) mmol/L Creatinine 0.54 L (0.66-1.25) mg/dL Glucose 100 H (74-99) mg/dL Calcium 8.2 L (8.4-10.2) mg/dL
[2024-11-15] MEDS: POTASSIUM CHLORIDE 10 MEQ in WATER FOR INJECTION 1 100ML.BAG IVPB SCH (14:37)
[2024-11-16] MEDS ORDERED: metroNIDAZOLE-NS PMX 500 MG in SALINE 1 100ML.BAG IVPB PRN (05:00)
[2024-11-16 05:43] LABS: Potassium 2.8 mmol/L (3.5-5.1)
[2024-11-16 05:44] LABS: ALT 11 U/L (4-49); AST 23 U/L (17-59); African American GFR (CKD) >90 (>60 ml/min/1.73 sqM); Albumin 2.2 g/dL (3.5-5.0); Alkaline Phosphatase 67 U/L (38-126); Anion Gap 10 mmol/L; Blood Urea Nitrogen 13 mg/dL (9-20); Calcium 7.8 mg/dL (8.4-10.2); Carbon Dioxide 22 mmol/L (22-30); Chloride 100 mmol/L (98-107); Globulin 2.2 g/dL; Glucose 71 mg/dL (74-99); Magnesium 1.8 mg/dL (1.6-2.3); Non-African American GFR(CKD) >90 (>60 ml/min/1.73 sqM); Phosphorus 2.8 mg/dL (2.5-4.5); Sodium 132 mmol/L (137-145); Total Bilirubin 0.4 mg/dL (0.2-1.3); Total Protein 4.4 g/dL (6.3-8.2)
[2024-11-16 06:05] LABS: Anisocytosis Slight; Basophils % (A) 0 %; Eosinophils % (A) 0 %; HCT 30.2 % (39.0-53.0); HGB 9.3 gm/dL (13.0-17.5); Hypochromasia Marked; Lymphocytes # (A) 0.7 k/uL (1.0-4.8); Lymphocytes % (A) 3 %; MCH 26.8 pg (25.0-35.0); MCHC 30.9 g/dL (31.0-37.0); MCV 86.6 fL (80.0-100.0); Mean Platelet Volume 7.8; Monocytes # (A) 0.5 k/uL (0-1.0); Monocytes % (A) 2 %; Neutrophils # (A) 24.4 k/uL (1.3-7.7); Neutrophils % (A) 95 %; Platelet Count 393 k/uL (150-450); RBC 3.49 m/uL (4.30-5.90); RDW 17.8 % (11.5-15.5); WBC 25.7 k/uL (3.8-10.6)
[2024-11-16] MEDS ORDERED: Potassium Replacement Protocol 1 EACH MISC MISCELLANE PRN ×2 (06:05→09:58)
[2024-11-16] MEDS: POTASSIUM CHLORIDE 20 MEQ in WATER FOR INJECTION 1 100ML.BAG IVPB SCH (06:23)
[2024-11-16] MEDS ORDERED: ALVIMOPAN 12 MG CAPSULE PO PRN (07:00)
[2024-11-16] MEDS ORDERED: ACETAMINOPHEN TAB 500 MG TAB PO PRN (07:00)
[2024-11-16] MEDS: POTASSIUM CHLORIDE ER 20 MEQ TAB.ER PO STA (07:15)
[2024-11-16] MEDS: POTASSIUM CHLORIDE ER 20 MEQ TAB.ER PO ONE (07:16)
[2024-11-16] MEDS ORDERED: POTASSIUM CHLORIDE ER 20 MEQ TAB.ER PO SCH (10:00)
[2024-11-16] MEDS: POTASSIUM CHLORIDE ER 20 MEQ TAB.ER PO SCH (10:09)
[2024-11-16] MEDS: ONDANSETRON 4 MG/2 ML VIAL IVP PRN (10:19)
--- NOTE | 2024-11-16 11:21 | P.PN ---
Subjective Progress Note Date: 11/16/24 CHIEF COMPLAINT: Abdominal pain HISTORY OF PRESENT ILLNESS: The patient is a 54-year-old male status post left inguinal hernia repair on 11/10/2024 with new findings of large and small bowel obstruction due to coloenteric fistula of the sigmoid colon. He has under gone additional workup including colonoscopy demonstrating near complete obstruction including bowel prep for staged procedure for sigmoid colectomy. Patient has had persistent low potassium including leukocytosis which infectious diseases monitoring. PICC line was placed yesterday after discussion with infectious disease specialist. He is having multiple bowel movements. Reports no recurrent hernia. He also reports decreased abdominal distention today as he passing flatus. REVIEW OF ORGAN SYSTEMS: No fevers or chills. No chest pain. PHYSICAL EXAM: VITALS: Reviewed CONSTITUTIONAL: Well developed and in no acute distress. EYES: Conjuctivae without sclera icterus. Extraocular movements grossly intact. HEAD, EARS, NOSE, THROAT: Moist buccal mucosa. Head is atraumatic, normocephalic. Hears conversational speech. No nasal drainage. RESPIRATORY: Non-labored respirations and equal bilateral excursions. No gross wheezes. CARDIOVASCULAR: Palpable 2+ radial pulses. ABDOMEN: No recurrent inguinal hernia. Decreased abdominal distention. No diffuse peritonitis. MUSCULOSKELETAL: No clubbing cyanosis or edema SKIN: Warm and well perfused with good skin turgor. NEUROLOGIC: Cranial nerves II through XII grossly intact. No focal or lateralizing signs. PSYCH: Appropriate affect. Alert and oriented to person, place and time. Displays appropriate insight. CLINCAL LABS: Reviewed. WBC elevated over 25,000. Potassium remains 2.8 despite multiple potassium replacements. ASSESSMENT: 1. 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 Left inguinal hernia 3. High risk malignancy 4. Hyponatremia 5. Emphysema with COPD, new 6. Thyroid nodule, left, new 7. Elevated CEA 8. Iron deficiency anemia 9. Sigmoid colon malignancy with obstruction 10. Persistent hypokalemia PLAN: 1. Aggressive potassium replacements in the interim. 2. Will likely need magnesium replacement due to refractory hypokalemia 3. Overall, patient elevated risk for sigmoid colectomy. 4. Risks of open surgery including diverting ostomy also described for which patient agreed to proceed Objective - Vital Signs Vital signs: Vital Signs Temp 98.5 F 11/16/24 06:54 Pulse 90 11/16/24 06:54 Resp 17 11/16/24 06:54 BP 137/71 11/16/24 06:54 Pulse Ox 92 L 11/16/24 06:54 FiO2 Intake & Output 11/15/24 11/16/24 11/16/24 18:59 06:59 18:59 Weight 65.771 kg Other: Voiding Method Toilet # Voids 1 # Bowel Movements 5 - Labs CBC & Chem 7: 11/16/24 03:46 11/16/24 08:56 Labs: Abnormal Lab Results - Last 24 Hours (Table) 11/15/24 11/15/24 11/16/24 Range/Units 10:44 10:44 03:46 WBC 24.0 H 25.7 H (3.8-10.6) k/uL RBC 3.77 L 3.49 L (4.30-5.90) m/uL Hgb 10.1 L 9.3 L (13.0-17.5) gm/dL Hct 33.3 L 30.2 L (39.0-53.0) % MCHC 30.5 L 30.9 L (31.0-37.0) g/dL RDW 18.1 H 17.8 H (11.5-15.5) % Neutrophils # 22.6 H 24.4 H (1.3-7.7) k/uL Lymphocytes # 0.7 L 0.7 L (1.0-4.8) k/uL Sodium 134 L (137-145) mmol/L Potassium 3.2 L (3.5-5.1) mmol/L Creatinine 0.54 L (0.66-1.25) mg/dL Glucose 100 H (74-99) mg/dL Calcium 8.2 L (8.4-10.2) mg/dL Total Protein (6.3-8.2) g/dL Albumin (3.5-5.0) g/dL 11/16/24 11/16/24 Range/Units 03:46 08:56 WBC (3.8-10.6) k/uL RBC (4.30-5.90) m/uL Hgb (13.0-17.5) gm/dL Hct (39.0-53.0) % MCHC (31.0-37.0) g/dL RDW (11.5-15.5) % Neutrophils # (1.3-7.7) k/uL Lymphocytes # (1.0-4.8) k/uL Sodium 132 L (137-145) mmol/L Potassium 2.8 L 2.8 L (3.5-5.1) mmol/L Creatinine 0.46 L (0.66-1.25) mg/dL Glucose 71 L (74-99) mg/dL Calcium 7.8 L (8.4-10.2) mg/dL Total Protein 4.4 L (6.3-8.2) g/dL Albumin 2.2 L (3.5-5.0) g/dL
[2024-11-16] MEDS: IV FLUID CONTINUATION 1,000 ML IV ONE (12:42)
[2024-11-16] MEDS ORDERED: fentaNYL (PF) 50 MCG/ML 2 ML AMP ONE (13:00)
[2024-11-16] MEDS ORDERED: PROPOFOL 10 MG/ML 20 ML VIAL IV ONE (13:00)
[2024-11-16] MEDS ORDERED: SUCCINYLCHOLINE CHLORIDE 200 MG/10 ML VIAL IV ONE (13:00)
[2024-11-16] MEDS ORDERED: diphenhydrAMINE 50 MG/ML 1 ML VIAL ONE (13:00)
[2024-11-16] MEDS ORDERED: VASOPRESSIN 20 UNIT/ML 1 ML VIAL ONE (13:00)
[2024-11-16] MEDS ORDERED: LIDOCAINE 1% INJ 10MG/ML (20 ML MDV) ONE (13:00)
[2024-11-16] MEDS ORDERED: ALBUMIN HUMAN 5% (25gm) 500 ML VIAL IVPB ONE (13:00)
[2024-11-16] MEDS ORDERED: PHENYLEPHRINE 10 MG/ML VIAL ONE (13:00)
[2024-11-16] MEDS ORDERED: CALCIUM CHLORIDE 100 MG/ML 10 ML SYRINGE ONE (13:00)
[2024-11-16] MEDS: HEPARIN SODIUM,PORCINE 5,000 UNIT/ML 1 ML VIAL SQ STA (13:00)
[2024-11-16] MEDS ORDERED: ESMOLOL 100 MG/10 ML VIAL ONE (13:00)
[2024-11-16] MEDS ORDERED: ONDANSETRON 4 MG/2 ML VIAL ONE (13:00)
[2024-11-16] MEDS ORDERED: MIDAZOLAM 2 MG/2 ML VIAL ONE (13:00)
[2024-11-16] MEDS ORDERED: ROCURONIUM 10 MG/ML (5 ML VIAL) IV ONE (13:00)
[2024-11-16] MEDS: DEXAMETHASONE SOD PHOSPHATE 4 MG/ML 1 ML VIAL IVP STA (13:01)
[2024-11-16] MEDS: LIDOCAINE 1%-EPI 1:100,000 20 ML VIAL SQ ONE (13:40)
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
--- NOTE | 2024-11-16 15:17 | P.PN ---
Subjective Interval History: 54-year-old male patient with no significant past medical history, presenting today for left lower quadrant sharp abdominal pain. Patient states this pain has been intermittent over the last 2 weeks. More persistent today, uncont rolled with 800 mg of ibuprofen or Pepcid. Patient endorses abdominal swelling and firmness over this time as well. He states he has had a left inguinal hernia "for a while" and the pain is not located over the region of the hernia. He denies fevers or chills, denies shortness of breath or chest pain, endorses nausea and today had 2 episodes of nonbloody nonbilious emesis. States he has intermittent brown stools sometimes with small streaks of blood no melena. No history of prior abdominal surgeries. Denies dysuria, hematuria or urinary frequency. No history of cancers in himself or family members. Patient has no other medical history. He does not drink alcohol or smoke cigarettes. Blood work completed in ED reveals a WBC of 15.1, hemoglobin of 10.9 and platelet count of 682, sodium 135, potassium 4.1, BUNs/creatinine of 18/0.71 and blood glucose of 126, lactic acid level of 1.1 CT of the abdomen and pelvis completed with contrast reveals left inguinal hernia extending into the scrotum containing nondilated small bowel loops. Multiple markedly enlarged small bowel loops proximal to the hernia consistent with small bowel obstruction. 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 He is currently sitting up in bed. Awake and alert in no acute distress. - CT scan of the pelvis today reveals a fistula tract extending from the anterior wall of the sigmoid colon proximally and what appeared to be small bowel loops. Possible abscess in the midline pelvis. Droplets of free intraperitoneal air either postsurgical or indicative of bowel perforation. Edema formation within the mesenteric infectious or postsurgical in nature. Resolution of the bowel within the left inguinal hernia and resolution of the previous bowel obstruction. Lab review shows White count 26.4. Hemoglobin 10.3. Platelets 512. Sodium 132. Potassium 3.6. Bicarb 26. BUN 7. Creatinine 0.6. Glucose 103. He remains on cefepime and Flagyl. Normal saline at 80 mL/h. Morphine and Dilaudid for pain control. Lovenox for DVT prophylaxis. -Surgery recommending EGD and colonoscopy with biopsies given sigmoid colon mass and iron deficiency anemia 11/13--patient was seen and examined today. Abdominal pain is better, reported bowel movement, underwent EGD today which showed hiatal hernia, Hill grade 3 low esophageal valve, LA grade C erosive esophagitis, 2 cm linear lesions, chronic gastritisbiopsies taken. Colonoscopy today showed internal/external hemorrhoids, obstructive sigmoid colon mass, showed polyps. General surgery following, plan for urgent colectomy due to bowel obstruction from likely m alignant sigmoid colon mass. 11/14--patient was seen and examined today. Passing flatus, reported small bowel movement. Afebrile, heart rate 117, respiratory rate 17, blood pressure 110/71, saturating 93% on room air. WBCs 10.4, hemoglobin 12.4, platelet 490. Sodium 134, potassium 4.0, chloride 99, CO2 23.1, BUN 7.8, creatinine 0.5. Infectious disease consulted and following, on cefepime and Flagyl. 11/15--patient was seen and examined today. No issues overnight.Patient is afeb rile, tachycardic with heart rate 104, will start on low-dose beta-ramin, respiratory rate 17, blood pressure 135/90, saturating 93% on room air. WBCs 24.0, hemoglobin 10.1, platelet 418. Sodium 134 potassium 3.2 chloride 102 BUN 15 creatinine 0.54. Infectious is consulted and following, currently on cefepime and Flagyl. 11/16--patient was seen and examined today. No issues overnight. Patient is afebrile, heart rate better 71, respiratory rate 18, blood pressure 145/95, saturating 94% on room air. WBCs 25.7, hemoglobin 9.3, platelet 393 sodium 132 potassium 2.8, 3.5 peripheral replacement, BUN 13, creatinine 0.46. Liver profile unremarkable. Potassium was low, replaced. Currently on cefepime and Flagyl. PICC line in place. Infectious disease following. General surgery planning for OR for sigmoid colectomy today. Assessment and plan: Obstructing sigmoid colon mass Possible pelvic abscess: Sepsis: SBO: Incarcerated left inguinal hernias/p robotic assisted laparoscopic repair of left inguinal hernia, small bowel resection with primary anastomosis 11/10 Leukocytosis: Chronic anemia: Presented with abdominal pain, was admitted for SBO with incarcerated inguinal hernia. s/p robotic assisted laparoscopic repair of left inguinal hernia, small bowel resection with primary anastomosis 11/10 CT scan of pelvis on 11/12 showed fistulous tract extending from anterior wall of the sigmoid colon proximally and what appeared to be small bowel loops, possible abscess in the midline pelvis, droplet of free intraperitoneal air either postsurgical or perforation, edema of mesenteric region. EGD 11/13-- showed hiatal hernia, Hill grade 3 low esophageal valve, LA grade C erosive esophagitis, 2 cm linear lesions, chronic gastritisbiopsies taken. Colonoscopy 11/13--- showed internal/external hemorrhoids, obstructive sigmoid colon mass, showed polyps. General surgery following, plan for urgent colectomy due to bowel obstruction from likely malignant sigmoid colon mass. Cardiology consulted for cardiac clearance Pulmonary consulted for evaluation of emphysema on CT scan. Oncology consultedokay to proceed with definitive surgical intervention IV iron Cefepime and Flagyl--PICC line in place. Infectious disease consulted General Surgery --- plan for sigmoid colectomy 11/16. Tachycardia: Likely secondary to above, monitor If persistently tachycardic with symptoms, will add Lopressor. Emphysema: Former smoker: Shortness of breath: Secondary to right mainstem bronchus nasogastric tube placement subsequent removal and relief of symptoms CT scan showed moderate emphysema atelectasis Pulmonary consultedcontinue albuterol inhaler as needed, incentive spirometry Encourage ambulation, outpatient PFTs Hyponatremia: Mild hyponatremia secondary to hypovolemia Continue fluids Folate deficiency: Folate supplement. Gastritis: Esophagitis: PPI DVT prophylaxis: Subcutaneous Lovenox Monitor vital signs and labs Labs and medication were reviewed. Continue same treatment. Further recommendations as per clinical course of the patient PHYSICAL EXAMINATION: GENERAL: The patient is A&O x3, NAD HEENT: EOMI, Sclerae anicteric, Moist Mucous membranes Neck: Supple, Non tender, No JVD PULMONARY: Equal breath souds B/L, No wheezing, No crackles. CARDIOVASCULAR: S1, S2 present. No murmurs, rubs, or gallops. ABDOMEN: Incision dressed. Soft, nondistended, normoactive bowel sounds. No guarding or rebound tenderness. MUSCULOSKELETAL: No edema, No cyanosis. No clubbing. Normal ROM. Intact peripheral pulses. NEUROLOGICAL: CN 2-12 grossly intact. No FND Skin: No Rash REVIEW OF SYSTEMS: CONSTITUTIONAL: No fever or chills. CARDIOVASCULAR: No chest pain, palpitations or syncope. PULMONARY: No shortness of breath, no cough, sore throat. GASTROINTESTINAL: No nausea, vomiting, diarrhea, abdominal pain. : No Dysuria, urgency, frequency. Extremities: No edema. NEUROLOGICAL: No headaches, no weakness, or numbness Dictation was produced using [employer] dictation software. please excuse any grammatical, word or spelling errors. Objective - Vital Signs Vital signs: Vital Signs Temp 98.5 F 11/16/24 06:54 Pulse 71 11/16/24 12:50 Resp 18 11/16/24 12:50 BP 145/95 11/16/24 12:50 Pulse Ox 94 L 11/16/24 12:50 FiO2 Intake & Output 11/15/24 11/16/24 11/16/24 18:59 06:59 18:59 Intake Total 150 Balance 150 Weight 65.771 kg Intake: IV 150 Other: Voiding Method Toilet Toilet # Voids 1 # Bowel Movements 5 - Labs CBC & Chem 7: 11/16/24 03:46 11/16/24 11:36 Labs: Abnormal Lab Results - Last 24 Hours (Table) 11/16/24 11/16/24 11/16/24 Range/Units 03:46 03:46 08:56 WBC 25.7 H (3.8-10.6) k/uL RBC 3.49 L (4.30-5.90) m/uL Hgb 9.3 L (13.0-17.5) gm/dL Hct 30.2 L (39.0-53.0) % MCHC 30.9 L (31.0-37.0) g/dL RDW 17.8 H (11.5-15.5) % Neutrophils # 24.4 H (1.3-7.7) k/uL Lymphocytes # 0.7 L (1.0-4.8) k/uL Sodium 132 L (137-145) mmol/L Potassium 2.8 L 2.8 L (3.5-5.1) mmol/L Creatinine 0.46 L (0.66-1.25) mg/dL Glucose 71 L (74-99) mg/dL Calcium 7.8 L (8.4-10.2) mg/dL Total Protein 4.4 L (6.3-8.2) g/dL Albumin 2.2 L (3.5-5.0) g/dL
--- NOTE | 2024-11-16 16:13 | P.PN ---
Subjective Progress Note Date: 11/16/24 No acute events overnight. Pt reporting lower abdominal pain. Plan for sigmoid colectomy today, pending replacement of potassium. Potassium 2.8 this morning. Hgb 9.3. WBC 25.7, plt 393 Objective - Vital Signs Vital signs: Vital Signs Temp 98.5 F 11/16/24 06:54 Pulse 90 11/16/24 06:54 Resp 17 11/16/24 06:54 BP 137/71 11/16/24 06:54 Pulse Ox 92 L 11/16/24 06:54 FiO2 Intake & Output 11/15/24 11/16/24 11/16/24 18:59 06:59 18:59 Weight 65.771 kg Other: Voiding Method Toilet # Voids 1 # Bowel Movements 5 - Constitutional General appearance: Present: no acute distress - EENT Eyes: Present: anicteric sclerae, EOMI ENT: Present: hearing grossly normal - Cardiovascular Details: skin warm and dry - Gastrointestinal General gastrointestinal: Present: tenderness - Integumentary Integumentary: Absent: cyanotic - Neurologic Neurologic: Present: CNII-XII intact - Psychiatric Psychiatric: Present: A&O x's 3 - Labs CBC & Chem 7: 11/16/24 03:46 11/16/24 11:36 Labs: Abnormal Lab Results - Last 24 Hours (Table) 11/16/24 11/16/24 11/16/24 Range/Units 03:46 03:46 08:56 WBC 25.7 H (3.8-10.6) k/uL RBC 3.49 L (4.30-5.90) m/uL Hgb 9.3 L (13.0-17.5) gm/dL Hct 30.2 L (39.0-53.0) % MCHC 30.9 L (31.0-37.0) g/dL RDW 17.8 H (11.5-15.5) % Neutrophils # 24.4 H (1.3-7.7) k/uL Lymphocytes # 0.7 L (1.0-4.8) k/uL Sodium 132 L (137-145) mmol/L Potassium 2.8 L 2.8 L (3.5-5.1) mmol/L Creatinine 0.46 L (0.66-1.25) mg/dL Glucose 71 L (74-99) mg/dL Calcium 7.8 L (8.4-10.2) mg/dL Total Protein 4.4 L (6.3-8.2) g/dL Albumin 2.2 L (3.5-5.0) g/dL Assessment and Plan (1) Iron deficiency anemia Current Visit: Yes Status: Acute Code(s): D50.9 - IRON DEFICIENCY ANEMIA, UNSPECIFIED SNOMED Code(s): 26638313 (2) Leukocytosis Current Visit: Yes Status: Acute Code(s): D72.829 - ELEVATED WHITE BLOOD CELL COUNT, UNSPECIFIED SNOMED Code(s): 699708406 (3) Mass of colon Current Visit: Yes Status: Acute Code(s): K63.89 - OTHER SPECIFIED DISEASES OF INTESTINE SNOMED Code(s): 442853649 (4) Reactive thrombocytosis Current Visit: Yes Status: Acute Code(s): D75.838 - OTHER THROMBOCYTOSIS SNOMED Code(s): 866136881 (5) Small bowel obstruction Current Visit: Yes Status: Acute Code(s): K56.609 - UNSP INTESTNL OBST, UNSP TO PARTIAL VERSUS COMPLETE OBST SNOMED Code(s): 938864903 Plan: #Sigmoid colon mass -Noted to be present during surgical repair of incarcerated hernia resulting in small bowel obstruction -CT abdomen/pelvis on 11/08/2024 noted no findings concerning for metastatic disease -This finding combined with the iron deficiency does raise the concern for primary colon cancer -CEA elevated at 8.9, CA 19-9 WNL -CT of the chest with IV contrast ordered to complete staging workup. Scan revealed non-specific 4mm groundglass nodule in left lung apex, and few scattered micronodules. Will plan to obtain PET CT in outpt setting to further evaluate -Sigmoidoscopy showing tubular adenoma with near obstruction of sigmoid colon, with plan for colectomy on 11/16 -Pathology thus far negative for malignancy. Additional path still pending #Iron deficiency anemia -Noted to have borderline microcytic anemia on admission -Iron studies on 11/10/2023 revealed ferritin of 275 with iron saturation 8.83% -Likely due to impaired absorption from incarcerated hernia in addition to possible colon cancer -IV iron has been given. Folic acid deficiency also noted, supplementation started #Thrombocytosis -Likely reactive to iron deficiency and small bowel obstruction -Continue to monitor
[2024-11-16 18:13] LABS: Anisocytosis Slight; HCT 36.3 % (39.0-53.0); HGB 11.1 gm/dL (13.0-17.5); Hypochromasia Slight; MCH 26.9 pg (25.0-35.0); MCHC 30.6 g/dL (31.0-37.0); Mean Platelet Volume 7.2; Platelet Count 425 k/uL (150-450); RBC 4.12 m/uL (4.30-5.90); RDW 18.3 % (11.5-15.5); WBC 6.8 k/uL (3.8-10.6)
[2024-11-16 18:22] LABS: ALT 11 U/L (4-49); AST 19 U/L (17-59); African American GFR (CKD) >90 (>60 ml/min/1.73 sqM); Albumin 1.9 g/dL (3.5-5.0); Alkaline Phosphatase 53 U/L (38-126); Anion Gap 10 mmol/L; Blood Urea Nitrogen 15 mg/dL (9-20); Calcium 7.3 mg/dL (8.4-10.2); Carbon Dioxide 19 mmol/L (22-30); Chloride 108 mmol/L (98-107); Glucose 123 mg/dL (74-99); Non-African American GFR(CKD) >90 (>60 ml/min/1.73 sqM); Potassium 4.9 mmol/L (3.5-5.1); Sodium 137 mmol/L (137-145); Total Bilirubin 0.4 mg/dL (0.2-1.3)
[2024-11-16 19:03] LABS: ABG PCO2 40 mmHg (35-45); ABG PH 7.27 (7.35-7.45); ABG PO2 184 mmHg (83-108); Allen Test Performed? Yes
[2024-11-16 19:04] LABS: ABG Base Excess -7.9 mmol/L; ABG HCO3 18 mmol/L (21-25); ABG TCO2 20 mmol/L (19-24)
[2024-11-16] MEDS: LACTATED RINGERS 1,000 ML IV ONE (19:45)
--- NOTE | 2024-11-16 20:53 | P.ANPRN ---
Procedure Note - Anesthesia - Invasive Line Arterial Line Time Out Performed: Yes (357) Date of Procedure: 11/16/24 Time of Procedure: 17:21 Location of Patient: OR Preparation: Sterile Prep, Sterile Dressing Arterial Line Location: Radial (attempts x3) Ultrasound Used: No Purpose - Visualization and Identification of Vasculature: No Needle Guage: 20g Image Stored and Saved: No Narrative: Invasive line placement per sterile protocol utilized. Art line placed in 3 attempts. Lumen blood and flushed. Secured and dressed
--- NOTE | 2024-11-16 20:55 | P.ANPRN ---
Procedure Note - Anesthesia - Invasive Line Right Central Line Time Out Performed: Yes ([id number]) Date of Procedure: 11/16/24 Time of Procedure: 19:21 Location of Patient: OR Preparation: Sterile Prep, Sterile Dressing Central Line Location: Internal Jugular (right triple lumen catheter) Ultrasound Used: Yes Purpose - Visualization and Identification of Vasculature: Yes Needle Guage: 18g angio Image Stored and Saved: Yes Narrative: Invasive line placement per sterile protocol utilized. Anesthesia note Procedure: Right internal jugular central venous catheter insertion: Triple- lumen catheter Sterile protocol followed. Right neck prepped. Ultrasound used. Lidocaine 1% used. Using ultrasound local anesthetic was instilled site over right Internal Jugular vein. Angiocath was used to gain access via ultrasound. Once free flow non-pulsatile blood flow was confirmed, 12 inch extension tubing was then placed on Angiocath. Once central venous pressure was confirmed, J-wire was then placed through Angiocath. Angiocath was then withdrawn. Local was instilled at J-wire site. Small skin camille was then made with provided sterile scalpel. Right IJ triple-lumen catheter was then inserted over the wire after uneventful dilation while maintaining control of wire at all times. Free flow nonpulsatile blood flow through triple-lumen catheter. All lumens blood and flushed sterilely. Secured with suture. Dressings applied. Drapes Removed. Attempts x1.
[2024-11-16 21:10] LABS: Glucose,Whole Blood 128 mg/dL (70-110)
[2024-11-16] MEDS ORDERED: Magnesium Replacement Protocol 1 EACH MISC MISCELLANE PRN (21:41)
[2024-11-16] MEDS ORDERED: Phosphorus Replacement Protoco 1 EACH MISC MISCELLANE PRN (21:41)
[2024-11-16 21:47] LABS: ABG Base Excess -8.1 mmol/L; ABG HCO3 20 mmol/L (21-25); ABG Oxygen Saturation 98.6 % (94-97); ABG PCO2 52 mmHg (35-45); ABG PO2 340 mmHg (83-108); ABG TCO2 22 mmol/L (19-24)
--- NOTE | 2024-11-16 21:51 | XR ---
EXAMINATION TYPE: XR chest 1V portable DATE OF EXAM: 11/16/2024 9:31 PM COMPARISON: CT chest 11/11/2024 TECHNIQUE: XR chest 1V portable Portable AP radiograph of the chest. CLINICAL INDICATION:Male, 54 years old with history of Tube placement; FINDINGS: Lungs/Pleura left basilar patchy airspace opacities.: No pleural effusion or pneumothorax. Pulmonary vascularity: Unremarkable. Heart/mediastinum: Cardiomediastinal silhouette is unremarkable. Musculoskeletal: No acute osseous pathology. Other findings: None Lines/Tubes: Endotracheal tube with distal tip 5.6 cm above the brii Nasogastric tube with its distal tip in the stomach however the sidehole is at the GE junction. Right IJ central venous catheter distal tip in the mid SVC. Appears to be a surgical drain within the right upper quadrant. IMPRESSION: 1. Appropriate position of endotracheal tube and right IJ central venous catheter. 2. NG tube with distal tip in the stomach however the sidehole is at the GE junction. Recommend adva ncement of approximately 6 cm. 3. Left basilar patchy airspace opacities which may represent infiltrate versus atelectasis. [facility], , 11/16/2024 9:49 PM
[2024-11-16 21:58] LABS: Allen Test Performed? no
--- NOTE | 2024-11-16 22:02 | P.OP ---
Date of Procedure: 11/16/24 Description of Procedure: SURGEON: TAWANDA HOLT MD PREOPERATIVE DIAGNOSES: 1. 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 Sepsis present on admission 3. Tobacco abuse disorder 4. Chronic obstructive pulmonary disease with severe emphysema 5. Thyroid neoplasm 6. Small and large bowel obstruction due to sigmoid colon malignancy POSTOP DIAGNOSES: 1. 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 Sepsis present on admission 3. Tobacco abuse disorder 4. Chronic obstructive pulmonary disease with severe emphysema 5. Fecal peritonitis 6. Large bowel obstruction due to sigmoid colon neoplasm with perforation 7. Large bowel infarction, descending/sigmoid colon 8. Severe hypotension due to sepsis with hypovolemic shock OPERATION: 1. Attempted robotic-assisted daVinci Xi sigmoid colectomy with low anterior resection converted to open 2. Robotic-assisted daVinci Xi extensive lysis of adhesions over 2 hrs with decompressive colotomy 3. Drainage of diffuse intraperitoneal and pelvis fecal peritonitis/sepsis, 1-L 4. Placement of round #19 drain x 2 - pelvis, left and perihepatic space, right 5. Intraoperative colonoscopy for sigmoidoscopy 6. Exploratory laparotomy with lysis of adhesions, over 2.5 hours 7. Partial colectomy including transverse colectomy to low anterior resection with partial proctectomy 8. Mid transverse colostomy for Griffin's procedure 9. Abdominal peritoneum lavage 12 L normal saline 10. Placement of incisional wound VAC system, universal PREVENA, 30 cm incision 11. Partial omentectomy 12. Mobilization of splenic flexure ANESTHESIA: General And local ESTIMATED BLOOD LOSS: 100 mL. SPECIMENS: 1. Aerobic anaerobic cultures peritoneal fluid 2. Partial colectomy transverse, descending sigmoid colon en bloc 3. Distal resection/proximal proctectomy 4. Omentectomy COMPLICATIONS: None. CONDITION: Guarded. FINDINGS: 1. Dense fibrinous exudate and adhesions involving small bowel and colon 2. Moderately dilated transverse descending and sigmoid colon with infarction confirmed with indocyanine green 3. Severe intra-abdominal adhesions requiring 2 to 4 hours extensive lysis of adhesions laparoscopic including open technique 4. Localized fecal peritonitis pelvis over 1 L evacuated requiring conversion to open technique 5. Diffuse fecal peritonitis throughout the abdomen involving splenic including hepatic flexure 6. Large bowel infarction incorporating splenic flexure requiring left col ectomy including distal transverse colon, splenic flexure, descending colon, sigmoid colon and proximal rectum 7. No recurrent left inguinal hernia 8. During case, patient with hypovolemic shock requiring multiple volume expanders and pressors 9. Dark concentrated urine with improved urine output at end of the case 10. Decompressive colotomy at sigmoid colon with over 2 L evacuated liquid stoo l INDICATIONS: The patient is a 54-year-old male.. Benefits and risks of surgical intervention was described in detail including infection, injury to the ureter, colostomy creation, possibility for additional surgery was discussed at length. Informed consent was obtained. All questions of the patient and family were answered. DESCRIPTION: Earlier the patient had undergone a bowel prep using the enhanced colon recovery program. The patient was transferred to the operating room and placed supine. After general induction, the abdomen was prepped and draped in standard sterile fashion. Ioban was placed along the abdomen to minimize any contamination of skin floor. A Montgomery catheter was placed. After a timeout protocol was performed, attention was then brought to the left upper quadrant whereby a 0 degree 5 mm laparoscopic trocar entry was performed. The abdominal cavity was entered and insufflated to 15 mmHg pressure, which was tolerated well. Diagnostic laparoscopy confirmed moderately redundant sigmoid colon with adhesion of terminal ileum to the sigmoid colon at the dome of the bladder. The liver surface was unremarkable. Next a robotic 12-mm trocar was placed along the right lateral abdominal wall 20 cm superior from the pelvis. An 8 mm port placed along the upper abdomen. Ports were placed 8 to 10 cm apart from each other including 15-20 cm away from the target anatomy of the left pelvis. The 5-mm port was exchanged for an 8 mm robotic port at the left upper quadrant. A 12 mm robotic trochars placed on the left lateral abdomen. The robot was docked along the right lateral abdomen. The patient was positioned in steep Trendelenburg position at 21. Using atraumatic graspers and vessel sealer, the robotic system was docked and primed as described. Instruments were interchanged by the environmental assistant including scissors, needle frontload driver, robotic stapler and vessel sealer. The robot stapler was prepared along the right lateral abdominal wall. The stapler 12-mm port was arranged along the right lateral abdominal wall. Next, attention was brought to identify the sigmoid colon. INDICATIONS: The patient is a 59-year-old male who presents with recurrent per forated diverticulitis. Patient opted for conservative management. Due to hid persistent abdominal pain, exploratory laparotomy, bowel resection including descending colostomy were described. Cardiac risk assessment was obtained due to pre-existing hypertensive heart disease, ischemic cardiomyopathy. Benefits, risks of procedure including bleeding, infection, need for additional surgery, bowel resection and ostomy were described in detail. Informed consent was obtained. DESCRIPTION: The patient was brought to the operating room. The patient was brought on the operating table. After general induction, a Montgomery catheter was placed. The abdomen had been prepped and draped in standard sterile fashion including placement of Ioban draping. Prior to incision, a time-out protocol was confirmed with surgical team regarding the patient's name and procedures being performed. He was on scheduled IV antibiotics. A #10 blade was used to enter the abdomen and deepened into the subcutaneous tissue. Presence of prior abdominoplasty adding complexity to the case. Carefully the abdomen was entered. Dense concrete adhesions was palpated along the pelvis involving the small bowel including colon. A pelvic phlegmon with 30 mL of purulence was drained. Using a combination of blunt dissection with a Kitner as well as Metzenbaum scissors and a #10 blade, small bowel fistula was identified. Extensive lysis of adhesions over 2.5 hours was performed. Small bowel fistula was identified involving ileum to sigmoid colon. Features of early small bowel obstruction was identified. Small bowel fistula 2 involving pelvic phlegmon with early bowel obstruction was found. Proximal to the ileum fistula, the mesentery was mobilized. Using Ethicon powered stapler 60 mm blue loads, small bowel was divided. Primary small bowel anastomosis was performed using stapled anastomosis. An additional small bowel fistula was also identified along the pelvis involving the distal jejunum and resected proximally distally using powered Ethicon stapler loads, 60 mm blue. Primary anastomosis using 60 mm blue stapler was also performed. The small bowel was decompressed prior to closure of enterotomy. The bowel was investigated from the ligament of Treitz distally. Multiple interloop adhesions were found involving the proximal mid and distal jejunum. Mesenteric adhesions were also similarly lysed using a combination of blunt dissection, including Metzenbaum scissors. At the left lower quadrant, the small bowel was also tethered. Adhesiolysis was performed. Next attention was brought to the sigmoid colon, redundant sigmoid colon was identified. Perforation was identified at the proximal sigmoid colon. The colon was divided proximally and distally using an Ethicon powered 60 mm black staple load. The mesentery was mobilized using Enseal device. Hemostasis was checked. Mesenteric bleeder was oversewn using 3-0 silk. The sigmoid colectomy was passed off. Rectal stump was tagged using 2-0 Prolene. Descending colon was brought out through the left lower quadrant for descending colostomy using Babcocks. Prior to irrigation of the abdomen, the nasogastric tube was repositioned and confirmed with Anesthesia. The abdomen was copiously irrigated with 3.5 L of warm normal saline solution. Hemostasis had been checked. Given the moderate amount of irrigation a round 19 Trent-Conti drain was exited via the right lower quadrant with suction within the deep pelvis. The abdomen had been closed using double-stranded 0-PDS. Attention was brought to the maturation of descending colostomy. A quarter size circular incision was made along the left lower quadrant along the rectus abdominis muscle. The descending colostomy is brought in fashion through the sk in. The ostomy was matured using interrupted 3-0 Vicryl at the 12:00, 3:00, 6:00 and 9 o'clock position. The ostomy was viable and pink. Additional interrupted sutures were placed along all quadrants. An ostomy appliance was placed. The subcutaneous tissue had been irrigated with dilute hydrogen peroxide. Length of incision over 25 cm was prepared for placement of universal incisional wound VAC system. Please note, a 2-0 nylon drain stitch was placed. The tubing was cut to size, and a JOHNNY bulb was placed. Optifoam dressing was also placed over the JOHNNY site as well. At the end of the procedure, the sponge and instrument count had been verified correct by the dye lab technician. The patient tolerated the procedure well and was brought to the anesthesia postanesthesia care unit in guarded condition. Intraabdominal findings were reviewed at length with the patient's family via telephone.
[2024-11-16] MEDS: SODIUM CHLORIDE 0.9% 1,000 ML IV SCH (22:42)
[2024-11-16 23:18] LABS: Appearance,Urine Cloudy (Clear); Bacteria,Urine Rare /hpf; Bilirubin,Urine Negative (Negative); Blood,Urine Large (Negative); Budding Yeast,Urine Rare /hpf; Color,Urine Yellow; Glucose,Urine (UA) Negative (Negative); Granular Casts,Urine 1 /lpf (0); Hyaline Casts,Urine 46 /lpf (0-2); Ketones,Urine 1+ (Negative); Leukocyte Esterase,Urine Negative (Negative); Mucus,Urine Occasional /hpf; Nitrite,Urine Negative (Negative); PH, Urine 5.5 (5.0-8.0); Protein,Urine 1+ (Negative); RBC,Urine 1 /hpf (0-5); Urobilinogen,Urine <2.0 mg/dL (<2.0); WBC,Urine 2 /hpf (0-5)
[2024-11-16 23:21] LABS: African American GFR (CKD) >90 (>60 ml/min/1.73 sqM); Anion Gap 7 mmol/L; Blood Urea Nitrogen 15 mg/dL (9-20); Calcium 6.9 mg/dL (8.4-10.2); Carbon Dioxide 18 mmol/L (22-30); Chloride 111 mmol/L (98-107); Glucose 119 mg/dL (74-99); Magnesium 1.5 mg/dL (1.6-2.3); Non-African American GFR(CKD) >90 (>60 ml/min/1.73 sqM); Potassium 4.5 mmol/L (3.5-5.1); Sodium 136 mmol/L (137-145)
[2024-11-16 23:30] LABS: Anisocytosis Slight; Basophils % (A) 0 %; Eosinophils % (A) 0 %; HCT 37.5 % (39.0-53.0); HGB 11.6 gm/dL (13.0-17.5); Hypochromasia Marked; Lymphocytes # (A) 0.7 k/uL (1.0-4.8); Lymphocytes % (A) 8 %; MCH 27.7 pg (25.0-35.0); MCV 89.3 fL (80.0-100.0); Mean Platelet Volume 7.4; Monocytes # (A) 0.7 k/uL (0-1.0); Monocytes % (A) 9 %; Neutrophils # (A) 6.8 k/uL (1.3-7.7); Neutrophils % (A) 82 %; Platelet Count 397 k/uL (150-450); RDW 17.9 % (11.5-15.5); WBC 8.3 k/uL (3.8-10.6)
[2024-11-17] MEDS: MAGNESIUM SULFATE-D5W PMX 1 GM in DEXTROSE/WATER 1 100ML.BAG IVPB SCH
[2024-11-17] MEDS: ACETAMINOPHEN IV (For NPO) 1,000 MG in EMPTY BAG 1 BAG IVPB SCH
[2024-11-17 04:53] LABS: ABG Base Excess -7.9 mmol/L; ABG HCO3 16 mmol/L (21-25); ABG Oxygen Saturation 97.7 % (94-97); ABG PCO2 29 mmHg (35-45); ABG PH 7.36 (7.35-7.45); ABG PO2 126 mmHg (83-108); ABG TCO2 17 mmol/L (19-24)
[2024-11-17 05:33] LABS: Anisocytosis Slight; HCT 37.5 % (39.0-53.0); HGB 11.2 gm/dL (13.0-17.5); Hypochromasia Marked; MCH 26.4 pg (25.0-35.0); MCV 88.3 fL (80.0-100.0); Mean Platelet Volume 7.3; Platelet Count 374 k/uL (150-450); RBC 4.24 m/uL (4.30-5.90); RDW 18.1 % (11.5-15.5); WBC 11.8 k/uL (3.8-10.6)
[2024-11-17 05:34] LABS: Allen Test Performed? no
[2024-11-17 05:36] LABS: ALT 11 U/L (4-49); AST 34 U/L (17-59); African American GFR (CKD) >90 (>60 ml/min/1.73 sqM); Albumin 1.8 g/dL (3.5-5.0); Alkaline Phosphatase 28 U/L (38-126); Anion Gap 9 mmol/L; Blood Urea Nitrogen 16 mg/dL (9-20); Calcium 7.2 mg/dL (8.4-10.2); Carbon Dioxide 15 mmol/L (22-30); Chloride 111 mmol/L (98-107); Glucose 119 mg/dL (74-99); Non-African American GFR(CKD) >90 (>60 ml/min/1.73 sqM); Phosphorus 2.8 mg/dL (2.5-4.5); Potassium 4.4 mmol/L (3.5-5.1); Sodium 135 mmol/L (137-145); Total Bilirubin 0.3 mg/dL (0.2-1.3); Total Protein 3.4 g/dL (6.3-8.2)
[2024-11-17 05:47] LABS: Glucose,Whole Blood 117 mg/dL (70-110)
--- NOTE | 2024-11-17 07:28 | XR ---
EXAMINATION TYPE: XR chest 1V portable DATE OF EXAM: 11/17/2024 5:24 AM COMPARISON: 11/16/2024 CLINICAL INDICATION: Male, 54 years old with history of Tube placement, , FINDINGS: ET and NG tubes are satisfactory. Heart normal size. Right IJ CVC tip lower SVC. Left PICC tip cavoat rial junction. Suspect a surgical drain right upper quadrant. Envoy small left pleural effusion with patchy left basilar opacity. The patchy opacity at the right base shows improvement. IMPRESSION: Ongoing small left pleural effusion with adjacent patchy atelectasis and/or consolidation. [facility] Anisa Beyer, , 11/17/2024 7:25 AM
[2024-11-17] MEDS: CHLORHEXIDINE GLUCONATE 15 ML CUP MUCOUS MEM SCH (08:40)
--- NOTE | 2024-11-17 09:21 | P.PN ---
Subjective Progress Note Date: 11/17/24 CHIEF COMPLAINT: Abdominal pain HISTORY OF PRESENT ILLNESS: The patient is a 54-year-old male status post left inguinal hernia repair on 11/10/2024 followed by extensive lysis of adhesions, drainage of peritoneal abscess and subtotal colectomy for large bowel ischemia with perforation, 11/16/2024. Patient is in the ICU due to septic shock. Patient is on the ventilator. REVIEW OF ORGAN SYSTEMS: No fevers or chills. No chest pain. PHYSICAL EXAM: VITALS: Reviewed CONSTITUTIONAL: Well developed and in no acute distress. EYES: Conjuctivae without sclera icterus. HEAD, EARS, NOSE, THROAT: Head is atraumatic, normocephalic. Nasogastric tube present with bilious content RESPIRATORY: Mechanical ventilation. CARDIOVASCULAR: Palpable 2+ radial pulses. ABDOMEN: Incisional wound VAC intact. JOHNNY drains serous. No cellulitis or infection. Ostomy pink patent with fluid. No stool. No recurrent inguinal hernia. MUSCULOSKELETAL: No clubbing cyanosis or edema SKIN: Warm and well perfused with good skin turgor. NEUROLOGIC: Sedated on vent PSYCH: Sedated on vent : Resolved scrotal edema. CLINCAL LABS: Reviewed. WBC elevated over 25,000 now moderate decrease, from 6000-11,000. Creatinine within normal limits. Potassium normalized from severe hypokalemia 2.8 to over 4.0. ASSESSMENT: 1. 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 Left inguinal hernia 3. High risk malignancy 4. Hyponatremia 5. Emphysema with COPD, new 6. Thyroid nodule, left, new 7. Elevated CEA 8. Iron deficiency anemia 9. Sigmoid colon malignancy with obstruction 10. Persistent hypokalemia 11. Large bowel infarction 12. Fecal peritonitis with pelvic abscess status post drainage 13. Septic shock PLAN: 1. Continue ICU care 2. Cultures were obtained during procedure which are pending at this time 3. No rectal medications or enemas due to low resection 4. Prognosis guarded Objective - Vital Signs Vital signs: Vital Signs Temp 98.5 F 11/17/24 04:00 Pulse 125 H 11/17/24 07:00 Resp 20 11/17/24 07:00 BP 86/56 11/17/24 07:00 Pulse Ox 97 11/17/24 07:00 FiO2 50 11/17/24 08:44 Intake & Output 11/16/24 11/17/24 11/17/24 18:59 06:59 18:59 Intake Total 1050 2711.433 80 Output Total 450 1203 430 Balance 600 1508.433 -350 Weight 76.9 kg Intake: IV 1050 Intake, IV Titration 2711.433 80 Amount Cefepime 2 gm In Sodium 100 Chloride 0.9% 100 ml @ 25 mls/hr IVPB Q8H YI Rx#: [id number] Sodium Chloride 0.9% 1, 560 80 000 ml @ 80 mls/hr IV . [id number] YI Rx#:[id number] Sodium Chloride 0.9% 1, 2000 000 ml @ 999 mls/hr IV Q65M YI Rx#:[id number] propofoL 1,000 mg In 51.433 Empty Bag 1 bag @ 15 MCG/ KG/MIN 5.919 mls/hr IV . [id number] YI Rx#:[id number] Output: Gastric Drainage 300 Drainage 829 100 Left Abdomen 426 50 Right Abdomen 403 50 Urine 350 374 30 Estimated Blood Loss 100 Other: Voiding Method Toilet Indwelling Catheter ABP, PAP, CO, CI - Last Documented Arterial Blood Pressure 86/50 - Labs CBC & Chem 7: 11/17/24 04:50 11/17/24 04:50 Labs: Abnormal Lab Results - Last 24 Hours (Table) 11/16/24 11/16/24 11/16/24 Range/Units 08:56 17:44 17:44 WBC (3.8-10.6) k/uL RBC 4.12 L (4.30-5.90) m/uL Hgb 11.1 L (13.0-17.5) gm/dL Hct 36.3 L (39.0-53.0) % MCHC 30.6 L (31.0-37.0) g/dL RDW 18.3 H (11.5-15.5) % Lymphocytes # (1.0-4.8) k/uL ABG pH (7.35-7.45) ABG pCO2 (35-45) mmHg ABG pO2 (83-108) mmHg ABG HCO3 (21-25) mmol/L ABG Total CO2 (19-24) mmol/L ABG O2 Saturation (94-97) % Hemoglobin (13.0-17.5) gm/dL Sodium (137-145) mmol/L Potassium 2.8 L (3.5-5.1) mmol/L Chloride 108 H (98-107) mmol/L Carbon Dioxide 19 L (22-30) mmol/L Creatinine 0.57 L (0.66-1.25) mg/dL Glucose 123 H (74-99) mg/dL POC Glucose (mg/dL) (70-110) mg/dL Calcium 7.3 L (8.4-10.2) mg/dL Magnesium (1.6-2.3) mg/dL Alkaline Phosphatase (38-126) U/L Total Protein 4.0 L (6.3-8.2) g/dL Albumin 1.9 L (3.5-5.0) g/dL Urine Protein (Negative) Urine Ketones (Negative) Urine Blood (Negative) Urine Bacteria (None) /hpf Hyaline Casts (0-2) /lpf Urine Mucus (None) /hpf Urine Yeast (Budding) (None) /hpf 11/16/24 11/16/24 11/16/24 Range/Units 18:54 21:08 21:43 WBC (3.8-10.6) k/uL RBC (4.30-5.90) m/uL Hgb (13.0-17.5) gm/dL Hct (39.0-53.0) % MCHC (31.0-37.0) g/dL RDW (11.5-15.5) % Lymphocytes # (1.0-4.8) k/uL ABG pH 7.27 L 7.20 L (7.35-7.45) ABG pCO2 52 H (35-45) mmHg ABG pO2 184 H 340 H (83-108) mmHg ABG HCO3 18 L 20 L (21-25) mmol/L ABG Total CO2 (19-24) mmol/L ABG O2 Saturation 98.0 H 98.6 H (94-97) % Hemoglobin 11.2 L (13.0-17.5) gm/dL Sodium (137-145) mmol/L Potassium (3.5-5.1) mmol/L Chloride (98-107) mmol/L Carbon Dioxide (22-30) mmol/L Creatinine (0.66-1.25) mg/dL Glucose (74-99) mg/dL POC Glucose (mg/dL) 128 H (70-110) mg/dL Calcium (8.4-10.2) mg/dL Magnesium (1.6-2.3) mg/dL Alkaline Phosphatase (38-126) U/L Total Protein (6.3-8.2) g/dL Albumin (3.5-5.0) g/dL Urine Protein (Negative) Urine Ketones (Negative) Urine Blood (Negative) Urine Bacteria (None) /hpf Hyaline Casts (0-2) /lpf Urine Mucus (None) /hpf Urine Yeast (Budding) (None) /hpf 11/16/24 11/16/24 11/16/24 Range/Units 22:30 22:50 22:50 WBC (3.8-10.6) k/uL RBC 4.20 L (4.30-5.90) m/uL Hgb 11.6 L (13.0-17.5) gm/dL Hct 37.5 L (39.0-53.0) % MCHC (31.0-37.0) g/dL RDW 17.9 H (11.5-15.5) % Lymphocytes # 0.7 L (1.0-4.8) k/uL ABG pH (7.35-7.45) ABG pCO2 (35-45) mmHg ABG pO2 (83-108) mmHg ABG HCO3 (21-25) mmol/L ABG Total CO2 (19-24) mmol/L ABG O2 Saturation (94-97) % Hemoglobin (13.0-17.5) gm/dL Sodium 136 L (137-145) mmol/L Potassium (3.5-5.1) mmol/L Chloride 111 H (98-107) mmol/L Carbon Dioxide 18 L (22-30) mmol/L Creatinine 0.62 L (0.66-1.25) mg/dL Glucose 119 H (74-99) mg/dL POC Glucose (mg/dL) (70-110) mg/dL Calcium 6.9 L (8.4-10.2) mg/dL Magnesium 1.5 L (1.6-2.3) mg/dL Alkaline Phosphatase (38-126) U/L Total Protein (6.3-8.2) g/dL Albumin (3.5-5.0) g/dL Urine Protein 1+ H (Negative) Urine Ketones 1+ H (Negative) Urine Blood Large H (Negative) Urine Bacteria Rare H (None) /hpf Hyaline Casts 46 H (0-2) /lpf Urine Mucus Occasional H (None) /hpf Urine Yeast (Budding) Rare H (None) /hpf 11/17/24 11/17/24 11/17/24 Range/Units 04:50 04:50 04:51 WBC 11.8 H (3.8-10.6) k/uL RBC 4.24 L (4.30-5.90) m/uL Hgb 11.2 L (13.0-17.5) gm/dL Hct 37.5 L (39.0-53.0) % MCHC 30.0 L (31.0-37.0) g/dL RDW 18.1 H (11.5-15.5) % Lymphocytes # (1.0-4.8) k/uL ABG pH (7.35-7.45) ABG pCO2 29 L (35-45) mmHg ABG pO2 126 H (83-108) mmHg ABG HCO3 16 L (21-25) mmol/L ABG Total CO2 17 L (19-24) mmol/L ABG O2 Saturation 97.7 H (94-97) % Hemoglobin 11.3 L (13.0-17.5) gm/dL Sodium 135 L (137-145) mmol/L Potassium (3.5-5.1) mmol/L Chloride 111 H (98-107) mmol/L Carbon Dioxide 15 L (22-30) mmol/L Creatinine (0.66-1.25) mg/dL Glucose 119 H (74-99) mg/dL POC Glucose (mg/dL) (70-110) mg/dL Calcium 7.2 L (8.4-10.2) mg/dL Magnesium (1.6-2.3) mg/dL Alkaline Phosphatase 28 L (38-126) U/L Total Protein 3.4 L (6.3-8.2) g/dL Albumin 1.8 L (3.5-5.0) g/dL Urine Protein (Negative) Urine Ketones (Negative) Urine Blood (Negative) Urine Bacteria (None) /hpf Hyaline Casts (0-2) /lpf Urine Mucus (None) /hpf Urine Yeast (Budding) (None) /hpf 11/17/24 Range/Units 05:46 WBC (3.8-10.6) k/uL RBC (4.30-5.90) m/uL Hgb (13.0-17.5) gm/dL Hct (39.0-53.0) % MCHC (31.0-37.0) g/dL RDW (11.5-15.5) % Lymphocytes # (1.0-4.8) k/uL ABG pH (7.35-7.45) ABG pCO2 (35-45) mmHg ABG pO2 (83-108) mmHg ABG HCO3 (21-25) mmol/L ABG Total CO2 (19-24) mmol/L ABG O2 Saturation (94-97) % Hemoglobin (13.0-17.5) gm/dL Sodium (137-145) mmol/L Potassium (3.5-5.1) mmol/L Chloride (98-107) mmol/L Carbon Dioxide (22-30) mmol/L Creatinine (0.66-1.25) mg/dL Glucose (74-99) mg/dL POC Glucose (mg/dL) 117 H (70-110) mg/dL Calcium (8.4-10.2) mg/dL Magnesium (1.6-2.3) mg/dL Alkaline Phosphatase (38-126) U/L Total Protein (6.3-8.2) g/dL Albumin (3.5-5.0) g/dL Urine Protein (Negative) Urine Ketones (Negative) Urine Blood (Negative) Urine Bacteria (None) /hpf Hyaline Casts (0-2) /lpf Urine Mucus (None) /hpf Urine Yeast (Budding) (None) /hpf
[2024-11-17 09:49] LABS: Band Neutrophils % 32 %; Lymphocytes # (M) 0.35 k/uL (1.0-4.8); Monocytes # (M) 0.24 k/uL (0-1.0); Neutrophils % (M) 63 %; Nucleated Red Blood Cells 0 /100 WBC (0-0); Total Cells Counted 100
[2024-11-17] MEDS: LACTATED RINGERS 1,000 ML IV ONE ×2 (10:00→14:10)
[2024-11-17] MEDS: LACTATED RINGERS 1,000 ML IV SCH (10:00)
[2024-11-17] MEDS: SODIUM BICARB 8.4% 50 ML SYR (1 MEQ/ML) IV STA ×2 (10:05)
[2024-11-17 12:09] LABS: Glucose,Whole Blood 111 mg/dL (70-110)
[2024-11-17] MEDS: ALBUTEROL NEBULIZED 2.5 MG/3 ML INHALATION PRN (12:29)
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
--- NOTE | 2024-11-17 15:06 | P.PN ---
Subjective Interval History: 54-year-old male patient with no significant past medical history, presenting today for left lower quadrant sharp abdominal pain. Patient states this pain has been intermittent over the last 2 weeks. More persistent today, uncont rolled with 800 mg of ibuprofen or Pepcid. Patient endorses abdominal swelling and firmness over this time as well. He states he has had a left inguinal hernia "for a while" and the pain is not located over the region of the hernia. He denies fevers or chills, denies shortness of breath or chest pain, endorses nausea and today had 2 episodes of nonbloody nonbilious emesis. States he has intermittent brown stools sometimes with small streaks of blood no melena. No history of prior abdominal surgeries. Denies dysuria, hematuria or urinary frequency. No history of cancers in himself or family members. Patient has no other medical history. He does not drink alcohol or smoke cigarettes. Blood work completed in ED reveals a WBC of 15.1, hemoglobin of 10.9 and platelet count of 682, sodium 135, potassium 4.1, BUNs/creatinine of 18/0.71 and blood glucose of 126, lactic acid level of 1.1 CT of the abdomen and pelvis completed with contrast reveals left inguinal hernia extending into the scrotum containing nondilated small bowel loops. Multiple markedly enlarged small bowel loops proximal to the hernia consistent with small bowel obstruction. 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 He is currently sitting up in bed. Awake and alert in no acute distress. - CT scan of the pelvis today reveals a fistula tract extending from the anterior wall of the sigmoid colon proximally and what appeared to be small bowel loops. Possible abscess in the midline pelvis. Droplets of free intraperitoneal air either postsurgical or indicative of bowel perforation. Edema formation within the mesenteric infectious or postsurgical in nature. Resolution of the bowel within the left inguinal hernia and resolution of the previous bowel obstruction. Lab review shows White count 26.4. Hemoglobin 10.3. Platelets 512. Sodium 132. Potassium 3.6. Bicarb 26. BUN 7. Creatinine 0.6. Glucose 103. He remains on cefepime and Flagyl. Normal saline at 80 mL/h. Morphine and Dilaudid for pain control. Lovenox for DVT prophylaxis. -Surgery recommending EGD and colonoscopy with biopsies given sigmoid colon mass and iron deficiency anemia 11/13--patient was seen and examined today. Abdominal pain is better, reported bowel movement, underwent EGD today which showed hiatal hernia, Hill grade 3 low esophageal valve, LA grade C erosive esophagitis, 2 cm linear lesions, chronic gastritisbiopsies taken. Colonoscopy today showed internal/external hemorrhoids, obstructive sigmoid colon mass, showed polyps. General surgery following, plan for urgent colectomy due to bowel obstruction from likely m alignant sigmoid colon mass. 11/14--patient was seen and examined today. Passing flatus, reported small bowel movement. Afebrile, heart rate 117, respiratory rate 17, blood pressure 110/71, saturating 93% on room air. WBCs 10.4, hemoglobin 12.4, platelet 490. Sodium 134, potassium 4.0, chloride 99, CO2 23.1, BUN 7.8, creatinine 0.5. Infectious disease consulted and following, on cefepime and Flagyl. 11/15--patient was seen and examined today. No issues overnight.Patient is afeb rile, tachycardic with heart rate 104, will start on low-dose beta-ramin, respiratory rate 17, blood pressure 135/90, saturating 93% on room air. WBCs 24.0, hemoglobin 10.1, platelet 418. Sodium 134 potassium 3.2 chloride 102 BUN 15 creatinine 0.54. Infectious is consulted and following, currently on cefepime and Flagyl. 11/16--patient was seen and examined today. No issues overnight. Patient is afebrile, heart rate better 71, respiratory rate 18, blood pressure 145/95, saturating 94% on room air. WBCs 25.7, hemoglobin 9.3, platelet 393 sodium 132 potassium 2.8, 3.5 peripheral replacement, BUN 13, creatinine 0.46. Liver profile unremarkable. Potassium was low, replaced. Currently on cefepime and Flagyl. PICC line in place. Infectious disease following. General surgery planning for OR for sigmoid colectomy today. 11/17--patient was transferred to ICU from the OR yesterday due to septic shock, was intubated, currently on mechanical ventilation. ICU consulted and followin g. General surgery following. On IV fluids, on antibiotics cefepime and Flagyl. 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 s/p robotic assisted laparoscopic repair of left inguinal hernia, small bowel resection with primary anastomosis 11/10 CT scan of pelvis on 11/12 showed fistulous tract extending from anterior wall of the sigmoid colon proximally and what appeared to be small bowel loops, possible abscess in the midline pelvis, droplet of free intraperitoneal air either postsurgical or perforation, edema of mesenteric region. EGD 11/13-- showed hiatal hernia, Hill grade 3 low esophageal valve, LA grade C erosive esophagitis, 2 cm linear lesions, chronic gastritisbiopsies taken. Colonoscopy 11/13--- showed internal/external hemorrhoids, obstructive sigmoid colon mass, showed polyps. General surgery following, plan for urgent colectomy due to bowel obstruction from likely malignant sigmoid colon mass. Cardiology consulted for cardiac clearance Pulmonary consulted for evaluation of emphysema on CT scan. Oncology consultedokay to proceed with definitive surgical intervention s/p IV iron Cefepime and Flagyl--PICC line in place. Infectious disease consulted General Surgery --- patient underwent extensive lysis of adhesion, drainage of peritoneal abscess and subtotal colectomy for large bowel ischemia with perforation 11/16, transferred to ICU for septic shock and respiratory failure requiring intubation mechanical ventilation. ICU consulted. Tachycardia: Likely secondary to above, monitor If persistently tachycardic with symptoms, will add Lopressor. Emphysema: Former smoker: Shortness of breath: Secondary to right mainstem bronchus nasogastric tube placement subsequent removal and relief of symptoms CT scan showed moderate emphysema atelectasis Pulmonary consultedcontinue albuterol inhaler as needed, incentive spirometry Encourage ambulation, outpatient PFTs Hyponatremia: Mild hyponatremia secondary to hypovolemia Continue fluids Folate deficiency: Folate supplement. Gastritis: Esophagitis: PPI DVT prophylaxis: Subcutaneous Lovenox Monitor vital signs and labs Labs and medication were reviewed. Continue same treatment. Further recommendations as per clinical course of the patient PHYSICAL EXAMINATION: GENERAL: Sedated, intubated. HEENT: EOMI, Sclerae anicteric, Moist Mucous membranes Neck: Supple, Non tender, No JVD PULMONARY: Equal breath souds B/L, No wheezing, No crackles. CARDIOVASCULAR: S1, S2 present. No murmurs, rubs, or gallops. ABDOMEN: Mid abdominal incision--prevena, JOHNNY drains X2. Colostomy. MUSCULOSKELETAL: No edema, No cyanosis. No clubbing. Normal ROM. Intact peripheral pulses. NEUROLOGICAL: Sedated, intubated. Skin: No Rash REVIEW OF SYSTEMS: Limited of system as patient is intubated. Dictation was produced using [employer] dictation software. please excuse any grammatical, word or spelling errors. Objective - Vital Signs Vital signs: Vital Signs Temp 97.8 F 11/17/24 12:00 Pulse 122 H 11/17/24 14:00 Resp 10 L 11/17/24 14:00 BP 104/61 11/17/24 14:00 Pulse Ox 96 11/17/24 14:00 FiO2 50 11/17/24 12:30 Intake & Output 11/16/24 11/17/24 11/17/24 18:59 06:59 18:59 Intake Total 1050 2760.000 3253.14 Output Total 450 1203 680 Balance 600 9996.097 1239.14 Weight 76.9 kg 76.9 kg Intake: IV 1050 910 Lactated Ringers 1,000 ml 750 @ 150 mls/hr IV .Q6H40M [facility] Rx#:[id number] Sodium Chloride 0.9% 1, 160 000 ml @ 80 mls/hr IV . [id number] [facility] Rx#:[id number] Intake, IV Titration 2760.000 2343.14 Amount ACETAMINOPHEN IV (For NPO 100 ) 1,000 mg In Empty Bag 1 bag @ 400 mls/hr IVPB Q6HR [facility] Rx#:[id number] Cefepime 2 gm In Sodium 100 Chloride 0.9% 100 ml @ 25 mls/hr IVPB Q8H [facility] Rx#: [id number] Lactated Ringers 1,000 ml 1000 @ 999 mls/hr IV .Q1H1M ONE Rx#:[id number] Lactated Ringers 1,000 ml 1000 @ 999 mls/hr IV .Q1H1M ONE Rx#:[id number] Sodium Chloride 0.9% 1, 560 80 000 ml @ 80 mls/hr IV . [id number] [facility] Rx#:[id number] Sodium Chloride 0.9% 1, 2000 000 ml @ 999 mls/hr IV Q65M [facility] Rx#:[id number] metroNIDAZOLE-NS PMX 500 100 mg In Saline 1 100ml.bag @ 100 mls/hr IVPB ONCE PRN Rx#:[id number] propofoL 1,000 mg In 100.000 63.14 Empty Bag 1 bag @ 15 MCG/ KG/MIN 5.919 mls/hr IV . [id number] [facility] Rx#:[id number] Output: Gastric Drainage 300 Drainage 829 210 Left Abdomen 426 110 Right Abdomen 403 100 Urine 350 374 170 Estimated Blood Loss 100 Other: Voiding Method Toilet Indwelling Catheter Indwelling Catheter ABP, PAP, CO, CI - Last Documented Arterial Blood Pressure 81/59 - Labs CBC & Chem 7: 11/17/24 04:50 11/17/24 04:50 Labs: Abnormal Lab Results - Last 24 Hours (Table) 11/16/24 11/16/24 11/16/24 Range/Units 17:44 17:44 18:54 WBC (3.8-10.6) k/uL RBC 4.12 L (4.30-5.90) m/uL Hgb 11.1 L (13.0-17.5) gm/dL Hct 36.3 L (39.0-53.0) % MCHC 30.6 L (31.0-37.0) g/dL RDW 18.3 H (11.5-15.5) % Neutrophils # (Manual) (1.3-7.7) k/uL Lymphocytes # (1.0-4.8) k/uL Lymphocytes # (Manual) (1.0-4.8) k/uL ABG pH 7.27 L (7.35-7.45) ABG pCO2 (35-45) mmHg ABG pO2 184 H (83-108) mmHg ABG HCO3 18 L (21-25) mmol/L ABG Total CO2 (19-24) mmol/L ABG O2 Saturation 98.0 H (94-97) % Hemoglobin (13.0-17.5) gm/dL Sodium (137-145) mmol/L Chloride 108 H (98-107) mmol/L Carbon Dioxide 19 L (22-30) mmol/L Creatinine 0.57 L (0.66-1.25) mg/dL Glucose 123 H (74-99) mg/dL POC Glucose (mg/dL) (70-110) mg/dL Calcium 7.3 L (8.4-10.2) mg/dL Magnesium (1.6-2.3) mg/dL Alkaline Phosphatase (38-126) U/L Total Protein 4.0 L (6.3-8.2) g/dL Albumin 1.9 L (3.5-5.0) g/dL Urine Protein (Negative) Urine Ketones (Negative) Urine Blood (Negative) Urine Bacteria (None) /hpf Hyaline Casts (0-2) /lpf Urine Mucus (None) /hpf Urine Yeast (Budding) (None) /hpf 11/16/24 11/16/24 11/16/24 Range/Units 21:08 21:43 22:30 WBC (3.8-10.6) k/uL RBC (4.30-5.90) m/uL Hgb (13.0-17.5) gm/dL Hct (39.0-53.0) % MCHC (31.0-37.0) g/dL RDW (11.5-15.5) % Neutrophils # (Manual) (1.3-7.7) k/uL Lymphocytes # (1.0-4.8) k/uL Lymphocytes # (Manual) (1.0-4.8) k/uL ABG pH 7.20 L (7.35-7.45) ABG pCO2 52 H (35-45) mmHg ABG pO2 340 H (83-108) mmHg ABG HCO3 20 L (21-25) mmol/L ABG Total CO2 (19-24) mmol/L ABG O2 Saturation 98.6 H (94-97) % Hemoglobin 11.2 L (13.0-17.5) gm/dL Sodium (137-145) mmol/L Chloride (98-107) mmol/L Carbon Dioxide (22-30) mmol/L Creatinine (0.66-1.25) mg/dL Glucose (74-99) mg/dL POC Glucose (mg/dL) 128 H (70-110) mg/dL Calcium (8.4-10.2) mg/dL Magnesium (1.6-2.3) mg/dL Alkaline Phosphatase (38-126) U/L Total Protein (6.3-8.2) g/dL Albumin (3.5-5.0) g/dL Urine Protein 1+ H (Negative) Urine Ketones 1+ H (Negative) Urine Blood Large H (Negative) Urine Bacteria Rare H (None) /hpf Hyaline Casts 46 H (0-2) /lpf Urine Mucus Occasional H (None) /hpf Urine Yeast (Budding) Rare H (None) /hpf 11/16/24 11/16/24 11/17/24 Range/Units 22:50 22:50 04:50 WBC (3.8-10.6) k/uL RBC 4.20 L (4.30-5.90) m/uL Hgb 11.6 L (13.0-17.5) gm/dL Hct 37.5 L (39.0-53.0) % MCHC (31.0-37.0) g/dL RDW 17.9 H (11.5-15.5) % Neutrophils # (Manual) (1.3-7.7) k/uL Lymphocytes # 0.7 L (1.0-4.8) k/uL Lymphocytes # (Manual) (1.0-4.8) k/uL ABG pH (7.35-7.45) ABG pCO2 (35-45) mmHg ABG pO2 (83-108) mmHg ABG HCO3 (21-25) mmol/L ABG Total CO2 (19-24) mmol/L ABG O2 Saturation (94-97) % Hemoglobin (13.0-17.5) gm/dL Sodium 136 L 135 L (137-145) mmol/L Chloride 111 H 111 H (98-107) mmol/L Carbon Dioxide 18 L 15 L (22-30) mmol/L Creatinine 0.62 L (0.66-1.25) mg/dL Glucose 119 H 119 H (74-99) mg/dL POC Glucose (mg/dL) (70-110) mg/dL Calcium 6.9 L 7.2 L (8.4-10.2) mg/dL Magnesium 1.5 L (1.6-2.3) mg/dL Alkaline Phosphatase 28 L (38-126) U/L Total Protein 3.4 L (6.3-8.2) g/dL Albumin 1.8 L (3.5-5.0) g/dL Urine Protein (Negative) Urine Ketones (Negative) Urine Blood (Negative) Urine Bacteria (None) /hpf Hyaline Casts (0-2) /lpf Urine Mucus (None) /hpf Urine Yeast (Budding) (None) /hpf 11/17/24 11/17/24 11/17/24 Range/Units 04:50 04:51 05:46 WBC 11.8 H (3.8-10.6) k/uL RBC 4.24 L (4.30-5.90) m/uL Hgb 11.2 L (13.0-17.5) gm/dL Hct 37.5 L (39.0-53.0) % MCHC 30.0 L (31.0-37.0) g/dL RDW 18.1 H (11.5-15.5) % Neutrophils # (Manual) 11.20 H (1.3-7.7) k/uL Lymphocytes # (1.0-4.8) k/uL Lymphocytes # (Manual) 0.35 L (1.0-4.8) k/uL ABG pH (7.35-7.45) ABG pCO2 29 L (35-45) mmHg ABG pO2 126 H (83-108) mmHg ABG HCO3 16 L (21-25) mmol/L ABG Total CO2 17 L (19-24) mmol/L ABG O2 Saturation 97.7 H (94-97) % Hemoglobin 11.3 L (13.0-17.5) gm/dL Sodium (137-145) mmol/L Chloride (98-107) mmol/L Carbon Dioxide (22-30) mmol/L Creatinine (0.66-1.25) mg/dL Glucose (74-99) mg/dL POC Glucose (mg/dL) 117 H (70-110) mg/dL Calcium (8.4-10.2) mg/dL Magnesium (1.6-2.3) mg/dL Alkaline Phosphatase (38-126) U/L Total Protein (6.3-8.2) g/dL Albumin (3.5-5.0) g/dL Urine Protein (Negative) Urine Ketones (Negative) Urine Blood (Negative) Urine Bacteria (None) /hpf Hyaline Casts (0-2) /lpf Urine Mucus (None) /hpf Urine Yeast (Budding) (None) /hpf 11/17/24 Range/Units 12:07 WBC (3.8-10.6) k/uL RBC (4.30-5.90) m/uL Hgb (13.0-17.5) gm/dL Hct (39.0-53.0) % MCHC (31.0-37.0) g/dL RDW (11.5-15.5) % Neutrophils # (Manual) (1.3-7.7) k/uL Lymphocytes # (1.0-4.8) k/uL Lymphocytes # (Manual) (1.0-4.8) k/uL ABG pH (7.35-7.45) ABG pCO2 (35-45) mmHg ABG pO2 (83-108) mmHg ABG HCO3 (21-25) mmol/L ABG Total CO2 (19-24) mmol/L ABG O2 Saturation (94-97) % Hemoglobin (13.0-17.5) gm/dL Sodium (137-145) mmol/L Chloride (98-107) mmol/L Carbon Dioxide (22-30) mmol/L Creatinine (0.66-1.25) mg/dL Glucose (74-99) mg/dL POC Glucose (mg/dL) 111 H (70-110) mg/dL Calcium (8.4-10.2) mg/dL Magnesium (1.6-2.3) mg/dL Alkaline Phosphatase (38-126) U/L Total Protein (6.3-8.2) g/dL Albumin (3.5-5.0) g/dL Urine Protein (Negative) Urine Ketones (Negative) Urine Blood (Negative) Urine Bacteria (None) /hpf Hyaline Casts (0-2) /lpf Urine Mucus (None) /hpf Urine Yeast (Budding) (None) /hpf Microbiology - Last 24 Hours (Table) 11/16/24 19:37 Gram Stain - Preliminary Other - Other 11/16/24 19:37 Gram Stain - Preliminary Other - Other 11/16/24 19:37 Gram Stain - Preliminary Peritoneal Fluid
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
[2024-11-17 17:38] LABS: Glucose,Whole Blood 133 mg/dL (70-110)
--- NOTE | 2024-11-17 18:30 | P.PN ---
Subjective Progress Note Date: 11/17/24 Pt seen in ICU, currently ventilated. S/p open abdominal surgery. Pt had prolonged and extensive surgery, with severe hypotension noted during procedure. Continues IV abx. Hgb 11.2. Pt afebrile, Bp soft, 90s systoically this morning. Objective - Vital Signs Vital signs: Vital Signs Temp 96.6 F L 11/17/24 16:00 Pulse 111 H 11/17/24 17:00 Resp 24 11/17/24 17:00 BP 107/62 11/17/24 17:00 Pulse Ox 98 11/17/24 17:00 FiO2 50 11/17/24 16:01 Intake & Output 11/16/24 11/17/24 11/17/24 18:59 06:59 18:59 Intake Total 1050 2760.000 3703.14 Output Total 450 1203 1155 Balance 600 1062.539 7481.14 Weight 76.9 kg 76.9 kg Intake: IV 1050 1360 Lactated Ringers 1,000 ml 1200 @ 150 mls/hr IV .Q6H40M [facility] Rx#:[id number] Sodium Chloride 0.9% 1, 160 000 ml @ 80 mls/hr IV . [id number] [facility] Rx#:[id number] Intake, IV Titration 2760.000 2343.14 Amount ACETAMINOPHEN IV (For NPO 100 ) 1,000 mg In Empty Bag 1 bag @ 400 mls/hr IVPB Q6HR [facility] Rx#:[id number] Cefepime 2 gm In Sodium 100 Chloride 0.9% 100 ml @ 25 mls/hr IVPB Q8H [facility] Rx#: [id number] Lactated Ringers 1,000 ml 1000 @ 999 mls/hr IV .Q1H1M [facility] Rx#:[id number] Lactated Ringers 1,000 ml 1000 @ 999 mls/hr IV .Q1H1M [facility] Rx#:[id number] Sodium Chloride 0.9% 1, 560 80 000 ml @ 80 mls/hr IV . [id number] [facility] Rx#:[id number] Sodium Chloride 0.9% 1, 2000 000 ml @ 999 mls/hr IV Q65M [facility] Rx#:[id number] metroNIDAZOLE-NS PMX 500 100 mg In Saline 1 100ml.bag @ 100 mls/hr IVPB ONCE [facility] Rx#:[id number] propofoL 1,000 mg In 100.000 63.14 Empty Bag 1 bag @ 15 MCG/ KG/MIN 5.919 mls/hr IV . [id number] [facility] Rx#:[id number] Output: Gastric Drainage 600 Drainage 829 295 Left Abdomen 426 160 Right Abdomen 403 135 Urine 350 374 260 Estimated Blood Loss 100 Other: Voiding Method Toilet Indwelling Catheter Indwelling Catheter ABP, PAP, CO, CI - Last Documented Arterial Blood Pressure 81/61 - Constitutional General appearance: Present: no acute distress - Respiratory Details: ventilated breath sounds - Cardiovascular Details: skin warm and dry - Labs CBC & Chem 7: 11/17/24 04:50 11/17/24 04:50 Labs: Abnormal Lab Results - Last 24 Hours (Table) 11/16/24 11/16/24 11/16/24 Range/Units 17:44 17:44 18:54 WBC (3.8-10.6) k/uL RBC 4.12 L (4.30-5.90) m/uL Hgb 11.1 L (13.0-17.5) gm/dL Hct 36.3 L (39.0-53.0) % MCHC 30.6 L (31.0-37.0) g/dL RDW 18.3 H (11.5-15.5) % Neutrophils # (Manual) (1.3-7.7) k/uL Lymphocytes # (1.0-4.8) k/uL Lymphocytes # (Manual) (1.0-4.8) k/uL ABG pH 7.27 L (7.35-7.45) ABG pCO2 (35-45) mmHg ABG pO2 184 H (83-108) mmHg ABG HCO3 18 L (21-25) mmol/L ABG Total CO2 (19-24) mmol/L ABG O2 Saturation 98.0 H (94-97) % Hemoglobin (13.0-17.5) gm/dL Sodium (137-145) mmol/L Chloride 108 H (98-107) mmol/L Carbon Dioxide 19 L (22-30) mmol/L Creatinine 0.57 L (0.66-1.25) mg/dL Glucose 123 H (74-99) mg/dL POC Glucose (mg/dL) (70-110) mg/dL Calcium 7.3 L (8.4-10.2) mg/dL Magnesium (1.6-2.3) mg/dL Alkaline Phosphatase (38-126) U/L Total Protein 4.0 L (6.3-8.2) g/dL Albumin 1.9 L (3.5-5.0) g/dL Urine Protein (Negative) Urine Ketones (Negative) Urine Blood (Negative) Urine Bacteria (None) /hpf Hyaline Casts (0-2) /lpf Urine Mucus (None) /hpf Urine Yeast (Budding) (None) /hpf 11/16/24 11/16/24 11/16/24 Range/Units 21:08 21:43 22:30 WBC (3.8-10.6) k/uL RBC (4.30-5.90) m/uL Hgb (13.0-17.5) gm/dL Hct (39.0-53.0) % MCHC (31.0-37.0) g/dL RDW (11.5-15.5) % Neutrophils # (Manual) (1.3-7.7) k/uL Lymphocytes # (1.0-4.8) k/uL Lymphocytes # (Manual) (1.0-4.8) k/uL ABG pH 7.20 L (7.35-7.45) ABG pCO2 52 H (35-45) mmHg ABG pO2 340 H (83-108) mmHg ABG HCO3 20 L (21-25) mmol/L ABG Total CO2 (19-24) mmol/L ABG O2 Saturation 98.6 H (94-97) % Hemoglobin 11.2 L (13.0-17.5) gm/dL Sodium (137-145) mmol/L Chloride (98-107) mmol/L Carbon Dioxide (22-30) mmol/L Creatinine (0.66-1.25) mg/dL Glucose (74-99) mg/dL POC Glucose (mg/dL) 128 H (70-110) mg/dL Calcium (8.4-10.2) mg/dL Magnesium (1.6-2.3) mg/dL Alkaline Phosphatase (38-126) U/L Total Protein (6.3-8.2) g/dL Albumin (3.5-5.0) g/dL Urine Protein 1+ H (Negative) Urine Ketones 1+ H (Negative) Urine Blood Large H (Negative) Urine Bacteria Rare H (None) /hpf Hyaline Casts 46 H (0-2) /lpf Urine Mucus Occasional H (None) /hpf Urine Yeast (Budding) Rare H (None) /hpf 11/16/24 11/16/24 11/17/24 Range/Units 22:50 22:50 04:50 WBC (3.8-10.6) k/uL RBC 4.20 L (4.30-5.90) m/uL Hgb 11.6 L (13.0-17.5) gm/dL Hct 37.5 L (39.0-53.0) % MCHC (31.0-37.0) g/dL RDW 17.9 H (11.5-15.5) % Neutrophils # (Manual) (1.3-7.7) k/uL Lymphocytes # 0.7 L (1.0-4.8) k/uL Lymphocytes # (Manual) (1.0-4.8) k/uL ABG pH (7.35-7.45) ABG pCO2 (35-45) mmHg ABG pO2 (83-108) mmHg ABG HCO3 (21-25) mmol/L ABG Total CO2 (19-24) mmol/L ABG O2 Saturation (94-97) % Hemoglobin (13.0-17.5) gm/dL Sodium 136 L 135 L (137-145) mmol/L Chloride 111 H 111 H (98-107) mmol/L Carbon Dioxide 18 L 15 L (22-30) mmol/L Creatinine 0.62 L (0.66-1.25) mg/dL Glucose 119 H 119 H (74-99) mg/dL POC Glucose (mg/dL) (70-110) mg/dL Calcium 6.9 L 7.2 L (8.4-10.2) mg/dL Magnesium 1.5 L (1.6-2.3) mg/dL Alkaline Phosphatase 28 L (38-126) U/L Total Protein 3.4 L (6.3-8.2) g/dL Albumin 1.8 L (3.5-5.0) g/dL Urine Protein (Negative) Urine Ketones (Negative) Urine Blood (Negative) Urine Bacteria (None) /hpf Hyaline Casts (0-2) /lpf Urine Mucus (None) /hpf Urine Yeast (Budding) (None) /hpf 11/17/24 11/17/24 11/17/24 Range/Units 04:50 04:51 05:46 WBC 11.8 H (3.8-10.6) k/uL RBC 4.24 L (4.30-5.90) m/uL Hgb 11.2 L (13.0-17.5) gm/dL Hct 37.5 L (39.0-53.0) % MCHC 30.0 L (31.0-37.0) g/dL RDW 18.1 H (11.5-15.5) % Neutrophils # (Manual) 11.20 H (1.3-7.7) k/uL Lymphocytes # (1.0-4.8) k/uL Lymphocytes # (Manual) 0.35 L (1.0-4.8) k/uL ABG pH (7.35-7.45) ABG pCO2 29 L (35-45) mmHg ABG pO2 126 H (83-108) mmHg ABG HCO3 16 L (21-25) mmol/L ABG Total CO2 17 L (19-24) mmol/L ABG O2 Saturation 97.7 H (94-97) % Hemoglobin 11.3 L (13.0-17.5) gm/dL Sodium (137-145) mmol/L Chloride (98-107) mmol/L Carbon Dioxide (22-30) mmol/L Creatinine (0.66-1.25) mg/dL Glucose (74-99) mg/dL POC Glucose (mg/dL) 117 H (70-110) mg/dL Calcium (8.4-10.2) mg/dL Magnesium (1.6-2.3) mg/dL Alkaline Phosphatase (38-126) U/L Total Protein (6.3-8.2) g/dL Albumin (3.5-5.0) g/dL Urine Protein (Negative) Urine Ketones (Negative) Urine Blood (Negative) Urine Bacteria (None) /hpf Hyaline Casts (0-2) /lpf Urine Mucus (None) /hpf Urine Yeast (Budding) (None) /hpf 11/17/24 11/17/24 Range/Units 12:07 17:36 WBC (3.8-10.6) k/uL RBC (4.30-5.90) m/uL Hgb (13.0-17.5) gm/dL Hct (39.0-53.0) % MCHC (31.0-37.0) g/dL RDW (11.5-15.5) % Neutrophils # (Manual) (1.3-7.7) k/uL Lymphocytes # (1.0-4.8) k/uL Lymphocytes # (Manual) (1.0-4.8) k/uL ABG pH (7.35-7.45) ABG pCO2 (35-45) mmHg ABG pO2 (83-108) mmHg ABG HCO3 (21-25) mmol/L ABG Total CO2 (19-24) mmol/L ABG O2 Saturation (94-97) % Hemoglobin (13.0-17.5) gm/dL Sodium (137-145) mmol/L Chloride (98-107) mmol/L Carbon Dioxide (22-30) mmol/L Creatinine (0.66-1.25) mg/dL Glucose (74-99) mg/dL POC Glucose (mg/dL) 111 H 133 H (70-110) mg/dL Calcium (8.4-10.2) mg/dL Magnesium (1.6-2.3) mg/dL Alkaline Phosphatase (38-126) U/L Total Protein (6.3-8.2) g/dL Albumin (3.5-5.0) g/dL Urine Protein (Negative) Urine Ketones (Negative) Urine Blood (Negative) Urine Bacteria (None) /hpf Hyaline Casts (0-2) /lpf Urine Mucus (None) /hpf Urine Yeast (Budding) (None) /hpf Microbiology - Last 24 Hours (Table) 11/16/24 19:37 Gram Stain - Preliminary Other - Other 11/16/24 19:37 Gram Stain - Preliminary Other - Other 11/16/24 19:37 Gram Stain - Preliminary Peritoneal Fluid Assessment and Plan (1) Iron deficiency anemia Current Visit: Yes Status: Acute Code(s): D50.9 - IRON DEFICIENCY ANEMIA, UNSPECIFIED SNOMED Code(s): 86656777 (2) Leukocytosis Current Visit: Yes Status: Acute Code(s): D72.829 - ELEVATED WHITE BLOOD CELL COUNT, UNSPECIFIED SNOMED Code(s): 849014842 (3) Mass of colon Current Visit: Yes Status: Acute Code(s): K63.89 - OTHER SPECIFIED DISEASES OF INTESTINE SNOMED Code(s): 945052485 (4) Reactive thrombocytosis Current Visit: Yes Status: Acute Code(s): D75.838 - OTHER THROMBOCYTOSIS SNOMED Code(s): 729662633 (5) Small bowel obstruction Current Visit: Yes Status: Acute Code(s): K56.609 - UNSP INTESTNL OBST, UNSP TO PARTIAL VERSUS COMPLETE OBST SNOMED Code(s): 817457919 Plan: #Sigmoid colon mass -Noted to be present during surgical repair of incarcerated hernia resulting in small bowel obstruction -CT abdomen/pelvis on 11/08/2024 noted no findings concerning for metastatic disease -This finding combined with the iron deficiency does raise the concern for primary colon cancer -CEA elevated at 8.9, CA 19-9 WNL -CT of the chest with IV contrast ordered to complete staging workup. Scan reve aled non-specific 4mm groundglass nodule in left lung apex, and few scattered micronodules. Will plan to obtain PET CT in outpt setting to further evaluate -Sigmoidoscopy showing tubular adenoma with near obstruction of sigmoid colon. S/p extensive open abdominal surgery today. -Initial pathology negative for malignancy. Additional path pending Discussed findings and POC with family at bedside. All questions and concerns were addressed #Iron deficiency anemia -Noted to have borderline microcytic anemia on admission -Iron studies on 11/10/2023 revealed ferritin of 275 with iron saturation 8.83% -Likely due to impaired absorption from incarcerated hernia in addition to possible colon cancer -IV iron has been given. Folic acid deficiency also noted, supplementation started -Continue to closely monitor CBC #Thrombocytosis -Likely reactive to iron deficiency and small bowel obstruction -Continue to monitor
[2024-11-17 23:47] LABS: Glucose,Whole Blood 118 mg/dL (70-110)
[2024-11-18 03:48] LABS: ALT 17 U/L (4-49); AST 60 U/L (17-59); African American GFR (CKD) >90 (>60 ml/min/1.73 sqM); Albumin 1.6 g/dL (3.5-5.0); Alkaline Phosphatase 50 U/L (38-126); Anion Gap 7 mmol/L; Blood Urea Nitrogen 22 mg/dL (9-20); Calcium 7.3 mg/dL (8.4-10.2); Carbon Dioxide 22 mmol/L (22-30); Chloride 109 mmol/L (98-107); Glucose 101 mg/dL (74-99); Magnesium 1.9 mg/dL (1.6-2.3); Non-African American GFR(CKD) >90 (>60 ml/min/1.73 sqM); Phosphorus 2.4 mg/dL (2.5-4.5); Potassium 4.2 mmol/L (3.5-5.1); Sodium 138 mmol/L (137-145); Total Bilirubin 0.3 mg/dL (0.2-1.3); Total Protein 3.3 g/dL (6.3-8.2)
[2024-11-18 03:56] LABS: Anisocytosis Slight; Basophils # (A) 0.1 k/uL (0-0.2); Basophils % (A) 0 %; Eosinophils % (A) 0 %; Hypochromasia Marked; Lymphocytes % (A) 5 %; MCH 27.4 pg (25.0-35.0); MCHC 31.6 g/dL (31.0-37.0); MCV 86.7 fL (80.0-100.0); Mean Platelet Volume 7.6; Monocytes # (A) 0.5 k/uL (0-1.0); Monocytes % (A) 3 %; Neutrophils # (A) 16.6 k/uL (1.3-7.7); Neutrophils % (A) 91 %; Platelet Count 308 k/uL (150-450); RBC 3.35 m/uL (4.30-5.90); RDW 18.2 % (11.5-15.5); WBC 18.4 k/uL (3.8-10.6)
[2024-11-18 03:59] LABS: HGB 9.2 gm/dL (13.0-17.5)
[2024-11-18] MEDS: MAGNESIUM SULFATE-D5W PMX 1 GM in DEXTROSE/WATER 1 100ML.BAG IVPB ONE (04:59)
[2024-11-18 05:41] LABS: ABG Base Excess -0.3 mmol/L; ABG HCO3 23 mmol/L (21-25); ABG Oxygen Saturation 97.9 % (94-97); ABG PCO2 32 mmHg (35-45); ABG PH 7.47 (7.35-7.45); ABG PO2 122 mmHg (83-108); ABG TCO2 24 mmol/L (19-24); Allen Test Performed? Yes
[2024-11-18 06:22] LABS: Glucose,Whole Blood 117 mg/dL (70-110)
--- NOTE | 2024-11-18 08:20 | XR ---
EXAMINATION TYPE: XR chest 1V portable DATE OF EXAM: 11/18/2024 5:16 AM COMPARISON: None. CLINICAL INDICATION: Male, 54 years old with history of Tube placement, TECHNIQUE: XR chest 1V portable view(s) obtained. FINDINGS: The heart size is normal. The pulmonary vasculature is normal. There may be a small left pleural effusion with adjacent atelectasis. Findings are stable Endotracheal tube tip is 5.1 cm above the brii. Nasogastric tube transverses the thorax tip in the left upper quadrant of the abdomen. Right central venous catheter tip is in the superior vena cava re gion. IMPRESSION: 1. Small left pleural effusion with adjacent mild atelectasis. 2. Lines and catheters discussed above. [facility], , 11/18/2024 8:18 AM
--- NOTE | 2024-11-18 11:08 | P.PN ---
Subjective Progress Note Date: 11/18/24 CHIEF COMPLAINT: Abdominal pain HISTORY OF PRESENT ILLNESS: The patient is a 54-year-old male status post left inguinal hernia repair on 11/10/2024 followed by open laparotomy, extensive lysis of adhesions, drainage of peritoneal and pelvic abscess, transverse colostomy, with subtotal colectomy for large bowel ischemia with perforation, 11/16/2024. Patient is extubated. He is awake and alert. He reports appropriate incisional pain. He is performing his own oral care. REVIEW OF ORGAN SYSTEMS: No fevers or chills. No chest pain. Has productive sputum. PHYSICAL EXAM: VITALS: Reviewed CONSTITUTIONAL: Well developed and in no acute distress. EYES: Conjuctivae without sclera icterus. Extraocular movements grossly intact. HEAD, EARS, NOSE, THROAT: Head is atraumatic, normocephalic. Nasogastric tube present with bilious content RESPIRATORY: Nonlabored respirations. CARDIOVASCULAR: Palpable 2+ radial pulses. Heart rate over 100s. ABDOMEN: Incisional wound VAC intact. JOHNNY drains serous. Resolved abdominal distention. Ostomy pink patent. MUSCULOSKELETAL: No clubbing cyanosis or edema SKIN: Warm and well perfused with good skin turgor. NEUROLOGIC: No focal lateralizing signs PSYCH: Alert and oriented person place time. : Resolved scrotal edema. [place] clear CLINCAL LABS: Reviewed. WBC trending 25,000 down to 6000 now up to 18,000, expected. Hemoglobin 9.3, anemia, expected. Albumin 1.6. MICROBIOLOGY: Peritoneal cultures pending. ASSESSMENT: 1. 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 Left inguinal hernia 3. High risk malignancy 4. Hyponatremia 5. Emphysema with COPD, new 6. Thyroid nodule, left, new 7. Elevated CEA 8. Iron deficiency anemia 9. Sigmoid colon malignancy with obstruction 10. Persistent hypokalemia 11. Large bowel infarction, transverse colon, descending and sigmoid colon 12. Fecal peritonitis with pelvic abscess status post drainage 13. Septic shock 14. Severe protein malnutrition PLAN: 1. At this time, cultures are pending to address sepsis. 2. Continue ICU care. 3. Per discussion with family, medical [place] and [place] requested for subacute, acute rehab 4. PICC line present 5. May start with clear liquid diet. However due to severe protein malnutrition, additional supplementation as bowel function resumes. 6. Ostomy care pending Patient's family updated, Cory at 1103 per patient request. Objective - Vital Signs Vital signs: Vital Signs Temp 98.3 F 11/18/24 08:00 Pulse 103 H 11/18/24 10:00 Resp 14 11/18/24 10:00 BP 122/75 11/18/24 10:00 Pulse Ox 95 11/18/24 10:00 FiO2 40 11/18/24 08:16 Intake & Output 11/17/24 11/18/24 11/18/24 18:59 06:59 18:59 Intake Total 3953.14 2414.229 475.881 Output Total 1320 1040 90 Balance 2633.14 1374.229 385.881 Weight 76.9 kg 76.771 kg Intake: IV 1510 1950 450 Lactated Ringers 1,000 ml 1350 1950 450 @ 150 mls/hr IV .Q6H40M [facility] Rx#:[id number] Sodium Chloride 0.9% 1, 160 000 ml @ 80 mls/hr IV . [id number] [facility] Rx#:[id number] Intake, IV Titration 2443.14 464.229 25.881 Amount ACETAMINOPHEN IV (For NPO 200 ) 1,000 mg In Empty Bag 1 bag @ 400 mls/hr IVPB Q6HR [facility] Rx#:[id number] Cefepime 2 gm In Sodium 100 Chloride 0.9% 100 ml @ 25 mls/hr IVPB Q8H [facility] Rx#: [id number] Lactated Ringers 1,000 ml 1000 @ 999 mls/hr IV .Q1H1M [facility] Rx#:[id number] Lactated Ringers 1,000 ml 1000 @ 999 mls/hr IV .Q1H1M [facility] Rx#:[id number] Sodium Chloride 0.9% 1, 80 000 ml @ 80 mls/hr IV . [id number] [facility] Rx#:[id number] metroNIDAZOLE-NS PMX 500 100 mg In Saline 1 100ml.bag @ 100 mls/hr IVPB ONCE PRN Rx#:[id number] metroNIDAZOLE-NS PMX 500 100 mg In Saline 1 100ml.bag @ 100 mls/hr IVPB Q8H [facility] Rx#:[id number] propofoL 1,000 mg In 63.14 264.229 25.881 Empty Bag 1 bag @ 15 MCG/ KG/MIN 5.919 mls/hr IV . [id number] [facility] Rx#:[id number] Output: Gastric Drainage 700 Drainage 330 440 Left Abdomen 180 200 Right Abdomen 150 240 Urine 290 600 90 Other: Voiding Method Indwelling Catheter Indwelling Catheter ABP, PAP, CO, CI - Last Documented Arterial Blood Pressure 81/61 - Labs CBC & Chem 7: 11/18/24 02:52 11/18/24 02:48 Labs: Abnormal Lab Results - Last 24 Hours (Table) 11/17/24 11/17/24 11/17/24 Range/Units 12:07 17:36 23:45 WBC (3.8-10.6) k/uL RBC (4.30-5.90) m/uL Hgb (13.0-17.5) gm/dL Hct (39.0-53.0) % RDW (11.5-15.5) % Neutrophils # (1.3-7.7) k/uL ABG pH (7.35-7.45) ABG pCO2 (35-45) mmHg ABG pO2 (83-108) mmHg ABG O2 Saturation (94-97) % Hemoglobin (13.0-17.5) gm/dL Chloride (98-107) mmol/L BUN (9-20) mg/dL Glucose (74-99) mg/dL POC Glucose (mg/dL) 111 H 133 H 118 H (70-110) mg/dL Calcium (8.4-10.2) mg/dL Phosphorus (2.5-4.5) mg/dL AST (17-59) U/L Total Protein (6.3-8.2) g/dL Albumin (3.5-5.0) g/dL 11/18/24 11/18/24 11/18/24 Range/Units 02:48 02:52 05:40 WBC 18.4 H (3.8-10.6) k/uL RBC 3.35 L (4.30-5.90) m/uL Hgb 9.2 L D (13.0-17.5) gm/dL Hct 29.0 L (39.0-53.0) % RDW 18.2 H (11.5-15.5) % Neutrophils # 16.6 H (1.3-7.7) k/uL ABG pH 7.47 H (7.35-7.45) ABG pCO2 32 L (35-45) mmHg ABG pO2 122 H (83-108) mmHg ABG O2 Saturation 97.9 H (94-97) % Hemoglobin 8.5 L (13.0-17.5) gm/dL Chloride 109 H (98-107) mmol/L BUN 22 H (9-20) mg/dL Glucose 101 H (74-99) mg/dL POC Glucose (mg/dL) (70-110) mg/dL Calcium 7.3 L (8.4-10.2) mg/dL Phosphorus 2.4 L (2.5-4.5) mg/dL AST 60 H (17-59) U/L Total Protein 3.3 L (6.3-8.2) g/dL Albumin 1.6 L (3.5-5.0) g/dL 11/18/24 Range/Units 06:21 WBC (3.8-10.6) k/uL RBC (4.30-5.90) m/uL Hgb (13.0-17.5) gm/dL Hct (39.0-53.0) % RDW (11.5-15.5) % Neutrophils # (1.3-7.7) k/uL ABG pH (7.35-7.45) ABG pCO2 (35-45) mmHg ABG pO2 (83-108) mmHg ABG O2 Saturation (94-97) % Hemoglobin (13.0-17.5) gm/dL Chloride (98-107) mmol/L BUN (9-20) mg/dL Glucose (74-99) mg/dL POC Glucose (mg/dL) 117 H (70-110) mg/dL Calcium (8.4-10.2) mg/dL Phosphorus (2.5-4.5) mg/dL AST (17-59) U/L Total Protein (6.3-8.2) g/dL Albumin (3.5-5.0) g/dL Microbiology - Last 24 Hours (Table) 11/16/24 19:37 Gram Stain - Preliminary Other - Other 11/17/24 08:56 Gram Stain - Preliminary Sputum 11/16/24 19:37 Gram Stain - Preliminary Other - Other 11/16/24 19:37 Gram Stain - Preliminary Other - Other 11/16/24 19:37 Gram Stain - Preliminary Peritoneal Fluid
[2024-11-18 12:02] LABS: Glucose,Whole Blood 91 mg/dL (70-110)
--- NOTE | 2024-11-18 12:45 | P.PN ---
Subjective Progress Note Date: 11/18/24 This is a 35-year-old male patient who was brought into the intensive care unit following an extensive abdominal surgery. 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 Postop, the patient was being monitored by general surgery. He subsequent developed complete obstruction of the bowel and reported worsening abdominal distention. 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 The patient had evidence of large bowel obstruction due to sigmoid neoplasm with secondary perforation and there was also large bowel infarction involving the descending colon/sigmoid area. The patient accordingly underwent a low anterior resection, open approach and drainage of the diffuse intraperitoneal and pelvic fecal peritonitis/sepsis, 1 L and excellent laparotomy, lysis of adhesions and colectomy involving the transverse colon to low anterior resection with partial proctectomy and creation of a South's pouch. Patient was given 2 JOHNNY drains. Patient underwent abdominal peritoneal lavage, 12 L. A incisional wound VAC system, universal Prevena was applied along with 2 JOHNNY drains and the patient was kept intubated a nd patient got transferred to the intensive care unit. Intraoperatively, the patient received a total of 5 L of IV fluids and 1.5 L of albumin. Currently is on normal saline at rate of 80 cc an hour. NG tube output is noted of 300 cc over the past 8 hours. JOHNNY drain has produced 470 cc and 450 cc in each drain over the past 8 hours. The patient initially was on pressors and currently is off norepinephrine. Slightly tachycardic. Blood pressure is borderline low. He is on a combination of IV cefepime and Flagyl. Afebrile. Sedated on propofol the patient is calm and comfortable. He remains on the mechanical ventilator assist-control mode with rate of 20, tidal volume of 400, FiO2 of 50% with a PEEP of 5. Blood gas showed pH of 7.36 with a pCO2 of 29 and pO2 of 126. The white cell count is 11.8 with a hemoglobin 11.2 and a platelet count of 374. Sodium is at 135, potassium is at 4.4, serum bicarbonate 15 with a BUN of 16 and a creatinine 0.7. Albumin level is at 1.8 with a total protein level of 3.4. Cardiac rhythm is sinus. 11/18/2024, the patient is being seen for a follow-up. This morning, the patient is postop day #2. The patient remains intubated on mechanical ventilator. This morning, the patient is on propofol running at 20 mcg/kg/min. The propofol is being gradually weaned off. The patient was as high as 50 mcg. The patient is arousable. Following simple commands. He remains on a assist-control mode of mechanical ventilation at rate of 20, tidal volume of 400, FiO2 40% with a PEEP of 5. Blood gas showed a pH of 7.47 with a pCO2 of 32 and pO2 of 122. Remains on lactated Ringer at rate of 150 cc an hour. The patient is on no pressors. NG tube is in place output in the order of 300 cc over the past shift. JOHNNY drain on the right has drained approximately 170 cc and the one on the left is draining 120 cc over the past 8 to 12 hours. Output is serosanguineous. Cardiac rhythm is sinus. White cell count is 18.4 with a hemoglobin 9.2 and a p latelet count of 308. Sodium is at 138, potassium is at 4.2, bicarb is 22, BUN is 22 with a creatinine of 0.9. LFTs are essentially within normal limits. No other significant events overnight. The patient remains on a combination of cefepime and Flagyl. The patient will also need TPN for nutritional support. The colostomy site is functional and there is some liquid output in the colostomy bag. Objective - Vital Signs Vital signs: Vital Signs Temp 98.3 F 11/18/24 08:00 Pulse 110 H 11/18/24 08:00 Resp 20 11/18/24 08:00 BP 105/69 11/18/24 08:00 Pulse Ox 96 11/18/24 08:00 FiO2 40 11/18/24 07:46 Intake & Output 11/17/24 11/18/24 11/18/24 18:59 06:59 18:59 Intake Total 3953.14 2414.229 170.882 Output Total 1320 1040 35 Balance 2633.14 1374.229 135.882 Weight 76.9 kg 76.771 kg Intake: IV 1510 1950 150 Lactated Ringers 1,000 ml 1350 1950 150 @ 150 mls/hr IV .Q6H40M [facility] Rx#:[id number] Sodium Chloride 0.9% 1, 160 000 ml @ 80 mls/hr IV . [id number] [facility] Rx#:[id number] Intake, IV Titration 2443.14 464.229 20.882 Amount ACETAMINOPHEN IV (For NPO 200 ) 1,000 mg In Empty Bag 1 bag @ 400 mls/hr IVPB Q6HR [facility] Rx#:[id number] Cefepime 2 gm In Sodium 100 Chloride 0.9% 100 ml @ 25 mls/hr IVPB Q8H [facility] Rx#: [id number] Lactated Ringers 1,000 ml 1000 @ 999 mls/hr IV .Q1H1M [facility] Rx#:[id number] Lactated Ringers 1,000 ml 1000 @ 999 mls/hr IV .Q1H1M [facility] Rx#:[id number] Sodium Chloride 0.9% 1, 80 000 ml @ 80 mls/hr IV . [id number] [facility] Rx#:[id number] metroNIDAZOLE-NS PMX 500 100 mg In Saline 1 100ml.bag @ 100 mls/hr IVPB ONCE PRN Rx#:[id number] metroNIDAZOLE-NS PMX 500 100 mg In Saline 1 100ml.bag @ 100 mls/hr IVPB Q8H [facility] Rx#:[id number] propofoL 1,000 mg In 63.14 264.229 20.882 Empty Bag 1 bag @ 15 MCG/ KG/MIN 5.919 mls/hr IV . [id number] [facility] Rx#:[id number] Output: Gastric Drainage 700 Drainage 330 440 Left Abdomen 180 200 Right Abdomen 150 240 Urine 290 600 35 Other: Voiding Method Indwelling Catheter Indwelling Catheter ABP, PAP, CO, CI - Last Documented Arterial Blood Pressure 81/61 - Exam The patient appeared well sedated on propofol., Comfortable and synchronous with mechanical ventilator. Orogastric and orotracheal tube are both in place. Head exam is unremarkable. No scleral icterus or corneal arcus noted. Neck is without jugular venous distension, thyromegaly, or carotid bruits. Carotid upstrokes are brisk bilaterally. Right IJ triple-lumen catheter in place. Lungs are clear to auscultation and percussion. Cardiac exam reveals the PMI to be normally sized and situated. Rhythm is regular. First and second heart sounds normal. No murmurs, rubs or gallops. Abdominal exam reveals normal bowel sounds, no masses, no organomegaly and no aortic enlargement. Hypoactive bowel sounds. Mid abdominal incision with universal Prevena. The patient has JOHNNY drains x 2. Output from the JOHNNY drains was noted. The patient also has a colostomy. There is liquidy output in the colostomy bag. The tissue is viable and healthy at this point. Extremities are nonedematous and both femoral and pedal pulses are normal. Examination of the skin revealed no evidence of significant rashes, suspicious appearing nevi or other concerning lesions. Neurologically, the patient is awake and alert and the patient does not have any focal neurological deficit. Cranial nerves are essentially intact. - Labs CBC & Chem 7: 11/18/24 02:52 11/18/24 02:48 Labs: Abnormal Lab Results - Last 24 Hours (Table) 11/17/24 11/17/24 11/17/24 Range/Units 04:50 12:07 17:36 WBC (3.8-10.6) k/uL RBC (4.30-5.90) m/uL Hgb (13.0-17.5) gm/dL Hct (39.0-53.0) % RDW (11.5-15.5) % Neutrophils # (1.3-7.7) k/uL Neutrophils # (Manual) 11.20 H (1.3-7.7) k/uL Lymphocytes # (Manual) 0.35 L (1.0-4.8) k/uL ABG pH (7.35-7.45) ABG pCO2 (35-45) mmHg ABG pO2 (83-108) mmHg ABG O2 Saturation (94-97) % Hemoglobin (13.0-17.5) gm/dL Chloride (98-107) mmol/L BUN (9-20) mg/dL Glucose (74-99) mg/dL POC Glucose (mg/dL) 111 H 133 H (70-110) mg/dL Calcium (8.4-10.2) mg/dL Phosphorus (2.5-4.5) mg/dL AST (17-59) U/L Total Protein (6.3-8.2) g/dL Albumin (3.5-5.0) g/dL 11/17/24 11/18/24 11/18/24 Range/Units 23:45 02:48 02:52 WBC 18.4 H (3.8-10.6) k/uL RBC 3.35 L (4.30-5.90) m/uL Hgb 9.2 L D (13.0-17.5) gm/dL Hct 29.0 L (39.0-53.0) % RDW 18.2 H (11.5-15.5) % Neutrophils # 16.6 H (1.3-7.7) k/uL Neutrophils # (Manual) (1.3-7.7) k/uL Lymphocytes # (Manual) (1.0-4.8) k/uL ABG pH (7.35-7.45) ABG pCO2 (35-45) mmHg ABG pO2 (83-108) mmHg ABG O2 Saturation (94-97) % Hemoglobin (13.0-17.5) gm/dL Chloride 109 H (98-107) mmol/L BUN 22 H (9-20) mg/dL Glucose 101 H (74-99) mg/dL POC Glucose (mg/dL) 118 H (70-110) mg/dL Calcium 7.3 L (8.4-10.2) mg/dL Phosphorus 2.4 L (2.5-4.5) mg/dL AST 60 H (17-59) U/L Total Protein 3.3 L (6.3-8.2) g/dL Albumin 1.6 L (3.5-5.0) g/dL 11/18/24 11/18/24 Range/Units 05:40 06:21 WBC (3.8-10.6) k/uL RBC (4.30-5.90) m/uL Hgb (13.0-17.5) gm/dL Hct (39.0-53.0) % RDW (11.5-15.5) % Neutrophils # (1.3-7.7) k/uL Neutrophils # (Manual) (1.3-7.7) k/uL Lymphocytes # (Manual) (1.0-4.8) k/uL ABG pH 7.47 H (7.35-7.45) ABG pCO2 32 L (35-45) mmHg ABG pO2 122 H (83-108) mmHg ABG O2 Saturation 97.9 H (94-97) % Hemoglobin 8.5 L (13.0-17.5) gm/dL Chloride (98-107) mmol/L BUN (9-20) mg/dL Glucose (74-99) mg/dL POC Glucose (mg/dL) 117 H (70-110) mg/dL Calcium (8.4-10.2) mg/dL Phosphorus (2.5-4.5) mg/dL AST (17-59) U/L Total Protein (6.3-8.2) g/dL Albumin (3.5-5.0) g/dL Microbiology - Last 24 Hours (Table) 11/16/24 19:37 Gram Stain - Preliminary Other - Other 11/17/24 08:56 Gram Stain - Preliminary Sputum 11/16/24 19:37 Gram Stain - Preliminary Other - Other 11/16/24 19:37 Gram Stain - Preliminary Other - Other 11/16/24 19:37 Gram Stain - Preliminary Peritoneal Fluid Assessment and Plan Plan: Acute abdomen, sigmoid perforation due to sigmoid colon neoplasm in addition to large bowel obstruction/infarction and fecal peritonitis. Patient is status post open low AP resection, decompression colostomy, partial colectomy involving the transverse colon to low anterior resection with partial proctectomy and construction of the South's pouch. The patient is status post abdominal peritoneal lavage, 12 L normal saline. The patient has [address] and the reversal Fabiana covering the abdominal wounds. Patient is currently postop day # 2 Abdominal sepsis secondary to above, adequately associated IV fluids and the patient is currently off pressors Repair of an incarcerated inguinal hernia on 11/10/2024. The patient did have evidence of coloenteric fistula at that time. COPD Acute none anion gap metabolic acidosis Acute hypoxic respiratory failure post abdominal surgery. The patient has been kept intubated on mechanical ventilator. Adequate oxygenation. Adequate ventilation. Chest x-ray findings are essentially stable. Shock secondary to sepsis, currently off pressors and the patient has been aggressively sustained IV fluids receiving a total of 5 L of crystalloid and 1.5 L of albumin intraoperatively. For now, the patient is hemodynamically stable. Acute leukocytosis secondary to above Former smoker Plan Sedation holiday Weaning parameters Spontaneous breathing trial Possible extubation today Continue vent support, no changes Continue LR at rate of 150 cc an hour Keep the patient n.p.o. Keep the NG tube in place Monitor the output from the JOHNNY drain Continue IV cefepime and Flagyl combination TPN to be considered by the general surgical team Lovenox for DVT prophylaxis IV Protonix Keep the patient in the ICU. Condition is critical and will continue to follow. Critical care evaluation and 33 minutes. Time with Patient: Greater than 30
[2024-11-18] MEDS: HYDROmorphone 2 MG/ML 1 ML SYRINGE IVP PRN (12:54)
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
--- NOTE | 2024-11-18 14:26 | P.PN ---
Subjective Progress Note Date: 11/18/24 54-year-old male patient with no significant past medical history, presenting today for left lower quadrant sharp abdominal pain. Patient states this pain has been intermittent over the last 2 weeks. More persistent today, uncontrolled with 800 mg of ibuprofen or Pepcid. Patient endorses abdominal swelling and firmness over this time as well. He states he has had a left inguinal hernia "for a while" and the pain is not located over the region of the hernia. He denies fevers or chills, denies shortness of breath or chest pain, endorses nausea and today had 2 episodes of nonbloody nonbilious emesis. States he has intermittent brown stools sometimes with small streaks of blood no melena. No history of prior abdominal surgeries. Denies dysuria, hematuria or urinary frequency. No history of cancers in himself or family members. Patient has no other medical history. He does not drink alcohol or smoke cigarettes. Blood work completed in ED reveals a WBC of 15.1, hemoglobin of 10.[address] atelet count of 682, sodium 135, potassium 4.1, BUNs/creatinine of 18/0.71 and blood glucose of 126, lactic acid level of 1.1 CT of the abdomen and pelvis completed with contrast reveals left inguinal hernia extending into the scrotum containing nondilated small bowel loops. Multiple markedly enlarged small bowel loops proximal to the hernia consistent with small bowel obstruction. 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 He is currently sitting up in bed. Awake and alert in no acute distress. - CT scan of the pelvis today reveals a fistula tract extending from the anterior wall of the sigmoid colon proximally and what appeared to be small bowel loops. Possible abscess in the midline pelvis. Droplets of free intraperitoneal air either postsurgical or indicative of bowel perforation. Edema formation within the mesenteric infectious or postsurgical in nature. Resolution of the bowel within the left inguinal hernia and resolution of the previous bowel obstruction. Lab review shows White count 26.4. Hemoglobin 10.3. Platelets 512. Sodium 132. Potassium 3.6. Bicarb 26. BUN 7. Creatinine 0.6. Glucose 103. He remains on cefepime and Flagyl. Normal saline at 80 mL/h. Morphine and Dil audid for pain control. Lovenox for DVT prophylaxis. -Surgery recommending EGD and colonoscopy with biopsies given sigmoid colon mass and iron deficiency anemia 11/13--patient was seen and examined today. Abdominal pain is better, reported bowel movement, underwent EGD today which showed hiatal hernia, Hill grade 3 low esophageal valve, LA grade C erosive esophagitis, 2 cm linear lesions, chronic gastritisbiopsies taken. Colonoscopy today showed internal/external hemorrhoids, obstructive sigmoid colon mass, showed polyps. General surgery following, plan for urgent colectomy due to bowel obstruction from likely malignant sigmoid colon mass. 11/14--patient was seen and examined today. Passing flatus, reported small bowel movement. Afebrile, heart rate 117, respiratory rate 17, blood pressure 110/71, saturating 93% on room air. WBCs 10.4, hemoglobin 12.4, platelet 490. Sodium 134, potassium 4.0, chloride 99, CO2 23.1, BUN 7.8, creatinine 0.5. Infectious disease consulted and following, on cefepime and Flagyl. 11/15--patient was seen and examined today. No issues overnight.Patient is afebrile, tachycardic with heart rate 104, will start on low-dose beta-ramin, respiratory rate 17, blood pressure 135/90, saturating 93% on room air. WBCs 24.0, hemoglobin 10.1, platelet 418. Sodium 134 potassium 3.2 chloride 102 BUN 15 creatinine 0.54. Infectious is consulted and following, currently on cefepime and Flagyl. 11/16--patient was seen and examined today. No issues overnight. Patient is afebrile, heart rate better 71, respiratory rate 18, blood pressure 145/95, saturating 94% on room air. WBCs 25.7, hemoglobin 9.3, platelet 393 sodium 132 potassium 2.8, 3.5 peripheral replacement, BUN 13, creatinine 0.46. Liver profile unremarkable. Potassium was low, replaced. Currently on cefepime and Flagyl. PICC line in place. Infectious disease following. General surgery planning for OR for sigmoid colectomy today. 11/17--patient was transferred to ICU from the OR yesterday due to septic shock, was intubated, currently on mechanical ventilation. ICU consulted and following. General surgery following. On IV fluids, on antibiotics cefepime and Flagyl. 11/18. Patient seen and examined. Blood work done today showed WBC 18.4, hemoglobin 9.2, platelet count 308, sodium 130, potassium 4.2, BUN 22, creatinine 0.93, calcium 7.3, phosphorus 2.4 AST 60, ALT 17. Patient was extubated this morning, currently on nasal cannula oxygen at 3 L REVIEW OF SYSTEMS: Denies any chest pain. Denies any shortness of breath PHYSICAL EXAMINATION: GENERAL: The patient is alert and oriented x3, ill looking HEENT: Pupils are round and equally reacting to light. EOMI. No scleral icterus. No conjunctival pallor. Normocephalic, atraumatic. No pharyngeal erythema. No thyromegaly. CARDIOVASCULAR: S1 and S2 present. No murmurs, rubs, or gallops. PULMONARY: Chest is clear to auscultation, no wheezing or crackles. ABDOMEN: Soft, surgical incision seen, ostomy MUSCULOSKELETAL: No joint swelling or deformity. EXTREMITIES: No cyanosis, clubbing, or pedal edema. NEUROLOGICAL: Gross neurological examination did not reveal any focal deficits. SKIN: No rashes. 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 s/p robotic assisted laparoscopic repair of left inguinal hernia, small bowel resection with primary anastomosis 11/10 CT scan of pelvis on 11/12 showed fistulous tract extending from anterior wall of the sigmoid colon proximally and what appeared to be small bowel loops, possible abscess in the midline pelvis, droplet of free intraperitoneal air either postsurgical or perforation, edema of mesenteric region. EGD 11/13-- showed hiatal hernia, Hill grade 3 low esophageal valve, LA grade C erosive esophagitis, 2 cm linear lesions, chronic gastritisbiopsies taken. Colonoscopy 11/13--- showed internal/external hemorrhoids, obstructive sigmoid colon mass, showed polyps. General surgery following, plan for urgent colectomy due to bowel obstruction from likely malignant sigmoid colon mass. Cardiology consulted for cardiac clearance Pulmonary consulted for evaluation of emphysema on CT scan. Oncology consultedokay to proceed with definitive surgical intervention s/p IV iron Cefepime and Flagyl--PICC line in place. Infectious disease consulted General Surgery --- patient underwent extensive lysis of adhesion, drainage of peritoneal abscess and subtotal colectomy for large bowel ischemia with perforation 11/16, transferred to ICU for septic shock and respiratory failure requiring intubation mechanical ventilation. ICU following, patient extubated this morning, currently doing well Tachycardia: Likely secondary to above, monitor Emphysema: Former smoker: Shortness of breath: Secondary to right mainstem bronchus nasogastric tube placement subsequent removal and relief of symptoms CT scan showed moderate emphysema atelectasis Pulmonary consultedcontinue albuterol inhaler as needed, incentive spirometry Encourage ambulation, outpatient PFTs Hyponatremia: Mild hyponatremia secondary to hypovolemia Continue fluids Folate deficiency: Folate supplement. Gastritis: Esophagitis: PPI DVT prophylaxis: Subcutaneous Lovenox Labs and medication were reviewed.. Continue same treatment. Continue with symptomatic treatment. Resume home medication. Monitor labs and vitals. DVT and GI prophylaxis. Further recommendations as per clinical course of the patient Dictation was produced using [employer] dictation software. please excuse any grammatical, word or spelling errors. Objective - Vital Signs Vital signs: Vital Signs Temp 98.3 F 11/18/24 08:00 Pulse 109 H 11/18/24 08:22 Resp 20 11/18/24 08:00 BP 105/69 11/18/24 08:00 Pulse Ox 98 11/18/24 09:17 FiO2 40 11/18/24 08:16 Intake & Output 11/17/24 11/18/24 11/18/24 18:59 06:59 18:59 Intake Total 3953.14 2414.229 175.881 Output Total 1320 1040 35 Balance 2633.14 1374.229 140.881 Weight 76.9 kg 76.771 kg Intake: IV 1510 1950 150 Lactated Ringers 1,000 ml 1350 1950 150 @ 150 mls/hr IV .[id number] [facility] Rx#:[id number] Sodium Chloride 0.9% 1, 160 000 ml @ 80 mls/hr IV . [id number] [facility] Rx#:[id number] Intake, IV Titration 2443.14 464.229 25.881 Amount ACETAMINOPHEN IV (For NPO 200 ) 1,000 mg In Empty Bag 1 bag @ 400 mls/hr IVPB Q6HR [facility] Rx#:[id number] Cefepime 2 gm In Sodium 100 Chloride 0.9% 100 ml @ 25 mls/hr IVPB Q8H [facility] Rx#: [id number] Lactated Ringers 1,000 ml 1000 @ 999 mls/hr IV .Q1H1M [facility] Rx#:[id number] Lactated Ringers 1,000 ml 1000 @ 999 mls/hr IV .Q1[facility] Rx#:[id number] Sodium Chloride 0.9% 1, 80 000 ml @ 80 mls/hr IV . [id number] [facility] Rx#:[id number] metroNIDAZOLE-NS PMX 500 100 mg In Saline 1 100ml.bag @ 100 mls/hr IVPB ONCE PRN Rx#:[id number] metroNIDAZOLE-NS PMX 500 100 mg In Saline 1 100ml.bag @ 100 mls/hr IVPB Q8H [facility] Rx#:[id number] propofoL 1,000 mg In 63.14 264.229 25.881 Empty Bag 1 bag @ 15 MCG/ KG/MIN 5.919 mls/hr IV . [id number] [facility] Rx#:[id number] Output: Gastric Drainage 700 Drainage 330 440 Left Abdomen 180 200 Right Abdomen 150 240 Urine 290 600 35 Other: Voiding Method Indwelling Catheter Indwelling Catheter ABP, PAP, CO, CI - Last Documented Arterial Blood Pressure 81/61 - Labs CBC & Chem 7: 11/18/24 02:52 11/18/24 02:48 Labs: Abnormal Lab Results - Last 24 Hours (Table) 11/17/24 11/17/24 11/17/24 Range/Units 12:07 17:36 23:45 WBC (3.8-10.6) k/uL RBC (4.30-5.90) m/uL Hgb (13.0-17.5) gm/dL Hct (39.0-53.0) % RDW (11.5-15.5) % Neutrophils # (1.3-7.7) k/uL ABG pH (7.35-7.45) ABG pCO2 (35-45) mmHg ABG pO2 (83-108) mmHg ABG O2 Saturation (94-97) % Hemoglobin (13.0-17.5) gm/dL Chloride (98-107) mmol/L BUN (9-20) mg/dL Glucose (74-99) mg/dL POC Glucose (mg/dL) 111 H 133 H 118 H (70-110) mg/dL Calcium (8.4-10.2) mg/dL Phosphorus (2.5-4.5) mg/dL AST (17-59) U/L Total Protein (6.3-8.2) g/dL Albumin (3.5-5.0) g/dL 11/18/24 11/18/24 11/18/24 Range/Units 02:48 02:52 05:40 WBC 18.4 H (3.8-10.6) k/uL RBC 3.35 L (4.30-5.90) m/uL Hgb 9.2 L D (13.0-17.5) gm/dL Hct 29.0 L (39.0-53.0) % RDW 18.2 H (11.5-15.5) % Neutrophils # 16.6 H (1.3-7.7) k/uL ABG pH 7.47 H (7.35-7.45) ABG pCO2 32 L (35-45) mmHg ABG pO2 122 H (83-108) mmHg ABG O2 Saturation 97.9 H (94-97) % Hemoglobin 8.5 L (13.0-17.5) gm/dL Chloride 109 H (98-107) mmol/L BUN 22 H (9-20) mg/dL Glucose 101 H (74-99) mg/dL POC Glucose (mg/dL) (70-110) mg/dL Calcium 7.3 L (8.4-10.2) mg/dL Phosphorus 2.4 L (2.5-4.5) mg/dL AST 60 H (17-59) U/L Total Protein 3.3 L (6.3-8.2) g/dL Albumin 1.6 L (3.5-5.0) g/dL 11/18/24 Range/Units 06:21 WBC (3.8-10.6) k/uL RBC (4.30-5.90) m/uL Hgb (13.0-17.5) gm/dL Hct (39.0-53.0) % RDW (11.5-15.5) % Neutrophils # (1.3-7.7) k/uL ABG pH (7.35-7.45) ABG pCO2 (35-45) mmHg ABG pO2 (83-108) mmHg ABG O2 Saturation (94-97) % Hemoglobin (13.0-17.5) gm/dL Chloride (98-107) mmol/L BUN (9-20) mg/dL Glucose (74-99) mg/dL POC Glucose (mg/dL) 117 H (70-110) mg/dL Calcium (8.4-10.2) mg/dL Phosphorus (2.5-4.5) mg/dL AST (17-59) U/L Total Protein (6.3-8.2) g/dL Albumin (3.5-5.0) g/dL Microbiology - Last 24 Hours (Table) 11/16/24 19:37 Gram Stain - Preliminary Other - Other 11/17/24 08:56 Gram Stain - Preliminary Sputum 11/16/24 19:37 Gram Stain - Preliminary Other - Other 11/16/24 19:37 Gram Stain - Preliminary Other - Other 11/16/24 19:37 Gram Stain - Preliminary Peritoneal Fluid
[2024-11-18] MEDS: MVI, ADULT NO.4 WITH VIT K 10 ML, TRACE (CONC-1ML/DOSE) 1 ML in AMINO ACID 5%-D20W+LYTE... IV ONE (16:02)
[2024-11-18] MEDS: FAT EMULSION 20% 250 ML IV SCH (16:02)
[2024-11-18 18:07] LABS: Glucose,Whole Blood 149 mg/dL (70-110)
[2024-11-18] MEDS ORDERED: DEXTROSE 50% SYRINGE 50 ML IVP PRN ×2 (18:22)
[2024-11-19 00:31] LABS: Glucose,Whole Blood 146 mg/dL (70-110)
[2024-11-19] MEDS: INSULIN LISPRO (HumaLOG) 100 UNIT/ML 10 mL VL SQ SCH (00:34)
[2024-11-19 06:07] LABS: Glucose,Whole Blood 166 mg/dL (70-110)
[2024-11-19 06:20] LABS: Anisocytosis Slight; Basophils # (A) 0.1 k/uL (0-0.2); Basophils % (A) 0 %; Eosinophils % (A) 0 %; Hypochromasia Moderate; Lymphocytes # (A) 0.6 k/uL (1.0-4.8); Lymphocytes % (A) 3 %; MCH 26.5 pg (25.0-35.0); MCHC 29.9 g/dL (31.0-37.0); MCV 88.5 fL (80.0-100.0); Mean Platelet Volume 8.1; Monocytes # (A) 0.5 k/uL (0-1.0); Monocytes % (A) 3 %; Neutrophils # (A) 17.4 k/uL (1.3-7.7); Neutrophils % (A) 92 %; Platelet Count 296 k/uL (150-450); RBC 3.39 m/uL (4.30-5.90); RDW 18.5 % (11.5-15.5); WBC 18.9 k/uL (3.8-10.6)
[2024-11-19 06:24] LABS: Ionized Calcium 4.5 mg/dL (4.5-5.3)
[2024-11-19 06:31] LABS: ALT 23 U/L (4-49); AST 76 U/L (17-59); African American GFR (CKD) >90 (>60 ml/min/1.73 sqM); Albumin 1.9 g/dL (3.5-5.0); Alkaline Phosphatase 49 U/L (38-126); Anion Gap 4 mmol/L; Blood Urea Nitrogen 14 mg/dL (9-20); Calcium 7.5 mg/dL (8.4-10.2); Carbon Dioxide 28 mmol/L (22-30); Chloride 105 mmol/L (98-107); Glucose 133 mg/dL (74-99); Magnesium 1.8 mg/dL (1.6-2.3); Non-African American GFR(CKD) >90 (>60 ml/min/1.73 sqM); Phosphorus 2.1 mg/dL (2.5-4.5); Potassium 3.3 mmol/L (3.5-5.1); Sodium 137 mmol/L (137-145); Total Bilirubin 0.5 mg/dL (0.2-1.3)
--- NOTE | 2024-11-19 07:54 | XR ---
EXAMINATION TYPE: XR chest 1V portable DATE OF EXAM: 11/19/2024 5:03 AM COMPARISON: 11/18/2024 CLINICAL INDICATION: Male, 54 years old with history of Tube placement, TECHNIQUE: XR chest 1V portable view(s) obtained. FINDINGS: The heart size is normal. The pulmonary vasculature is normal. Mild bilateral perihilar infiltrates have developed. Correlate for atelectasis. Patient has been extubated. PICC line in the left with the tip in the proximal right atrium. Right ce ntral venous catheter tip is in distal superior vena cava region. These consist tube transverses the thorax IMPRESSION: 1. Interval development of perihilar infiltrates. Correlate for atelectasis 2. Lines and catheters discussed above [facility], , 11/19/2024 7:51 AM
[2024-11-19] MEDS: POTASSIUM CHLORIDE 20 MEQ in WATER FOR INJECTION 1 100ML.BAG IVPB SCH ×2 (08:20→21:06)
[2024-11-19] MEDS: MAGNESIUM SULFATE-D5W PMX 1 GM in DEXTROSE/WATER 1 100ML.BAG IVPB ONE (08:20)
[2024-11-19] MEDS: FUROSEMIDE 10 MG/ML 2 ML VIAL IV ONE (08:21)
--- NOTE | 2024-11-19 09:13 | P.PN ---
Subjective Progress Note Date: 11/19/24 CHIEF COMPLAINT: Abdominal pain HISTORY OF PRESENT ILLNESS: The patient is a 54-year-old male status post left inguinal hernia repair on 11/10/2024 followed by open laparotomy, extensive lysis of adhesions, drainage of peritoneal and pelvic abscess, transverse colostomy, with subtotal colectomy for large bowel ischemia with perforation, 11/16/2024. He has been started on TPN yesterday. Moderate productive sputum. He has clear liquid tray at bedside. Patient reports after 1 spoonful of Jell-O he no longer has an appetite. He feels better today. He looks better today. REVIEW OF ORGAN SYSTEMS: No fevers or chills. No chest pain. Has productive sputum. PHYSICAL EXAM: VITALS: Reviewed CONSTITUTIONAL: Well developed and in no acute distress. EYES: Conjuctivae without sclera icterus. Extraocular movements grossly intact. HEAD, EARS, NOSE, THROAT: Head is atraumatic, normocephalic. Nasogastric tube present with bilious content RESPIRATORY: Nonlabored respirations. CARDIOVASCULAR: Palpable 2+ radial pulses. Heart rate over 100s. ABDOMEN: Incisional wound VAC intact. Moderate stool and gas in ostomy functioning. [place] patent ostomy. No signs of infection. JOHNNY serous. MUSCULOSKELETAL: No clubbing cyanosis or edema SKIN: Warm and well perfused with good skin turgor. NEUROLOGIC: No focal lateralizing signs PSYCH: Alert and oriented person place time. : Resolved scrotal edema. [place] clear CLINCAL LABS: Reviewed. WBC remains 18,000. MICROBIOLOGY: Peritoneal cultures demonstrating gram-negative bacilli multiple organisms. ASSESSMENT: 1. 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 Left inguinal hernia 3. High risk malignancy 4. Hyponatremia 5. Emphysema with COPD, new 6. Thyroid nodule, left, new 7. Elevated CEA 8. Iron deficiency anemia 9. Sigmoid colon malignancy with obstruction 10. Persistent hypokalemia 11. Large bowel infarction, transverse colon, descending and sigmoid colon 12. Fecal peritonitis with pelvic abscess status post drainage 13. Septic shock 14. Severe protein malnutrition PLAN: 1. As his ostomy is functioning, I personally moved his nasogastric tube. 2. TPN for supplement tube nutrition present. 3. Do not advance diet at this time. 4. Await cultures for adjustment of antibiotics. Objective - Vital Signs Vital signs: Vital Signs Temp 97.6 F 11/19/24 08:00 Pulse 91 11/19/24 09:00 Resp 16 11/19/24 09:00 BP 132/78 11/19/24 09:00 Pulse Ox 96 11/19/24 09:00 FiO2 40 11/18/24 08:16 Intake & Output 11/18/24 11/19/24 11/19/24 18:59 06:59 18:59 Intake Total 3357.009 3792.497 480 Output Total 855 1475 655 Balance 820.881 842.497 -175 Weight 76.771 kg 76.459 kg Intake: IV 1650 2317.497 480 Fat Emulsion 20% 250 ml @ 187.497 20.833 mls/hr IV Q72H [facility] Rx#:[id number] Lactated Ringers 1,000 ml 1650 1800 190 @ 20 mls/hr IV .Q24H [facility] Rx#:[id number] Magnesium Sulfate-D5w Pmx 100 1 gm In Dextrose/Water 1 100ml.bag @ 100 mls/hr IVPB ONCE [facility] Rx#: [id number] Mvi, Adult No.4 with Vit 330 90 K 10 ml Trace (Conc-1Ml/ Dose) 1 ml In Amino Acid 5%-D20w+Lytes*E* 1,000 ml @ 30 mls/hr IV .Q24H [facility] Rx#:[id number] Potassium Chloride 20 meq 100 In Water For Injection 1 100ml.bag @ 50 mls/hr IVPB Q2H [facility] Rx#: [id number] Intake, IV Titration 25.881 Amount propofoL 1,000 mg In 25.881 Empty Bag 1 bag @ 15 MCG/ KG/MIN 5.919 mls/hr IV . [id number] [facility] Rx#:[id number] Output: Drainage 50 30 Left Abdomen 30 20 Right Abdomen 20 10 Urine 755 1425 625 Stool 100 Other: Voiding Method Indwelling Catheter Indwelling Catheter Indwelling Catheter ABP, PAP, CO, CI - Last Documented Arterial Blood Pressure 81/61 - Labs CBC & Chem 7: 11/19/24 05:53 11/19/24 05:53 Labs: Abnormal Lab Results - Last 24 Hours (Table) 11/18/24 11/19/24 11/19/24 Range/Units 18:05 00:29 05:53 WBC (3.8-10.6) k/uL RBC (4.30-5.90) m/uL Hgb (13.0-17.5) gm/dL Hct (39.0-53.0) % MCHC (31.0-37.0) g/dL RDW (11.5-15.5) % Neutrophils # (1.3-7.7) k/uL Lymphocytes # (1.0-4.8) k/uL Potassium 3.3 L (3.5-5.1) mmol/L Creatinine 0.41 L (0.66-1.25) mg/dL Glucose 133 H (74-99) mg/dL POC Glucose (mg/dL) 149 H 146 H (70-110) mg/dL Calcium 7.5 L (8.4-10.2) mg/dL Phosphorus 2.1 L (2.5-4.5) mg/dL AST 76 H (17-59) U/L Total Protein 4.0 L (6.3-8.2) g/dL Albumin 1.9 L (3.5-5.0) g/dL 11/19/24 11/19/24 Range/Units 05:53 06:05 WBC 18.9 H (3.8-10.6) k/uL RBC 3.39 L (4.30-5.90) m/uL Hgb 9.0 L (13.0-17.5) gm/dL Hct 30.0 L (39.0-53.0) % MCHC 29.9 L (31.0-37.0) g/dL RDW 18.5 H (11.5-15.5) % Neutrophils # 17.4 H (1.3-7.7) k/uL Lymphocytes # 0.6 L (1.0-4.8) k/uL Potassium (3.5-5.1) mmol/L Creatinine (0.66-1.25) mg/dL Glucose (74-99) mg/dL POC Glucose (mg/dL) 166 H (70-110) mg/dL Calcium (8.4-10.2) mg/dL Phosphorus (2.5-4.5) mg/dL AST (17-59) U/L Total Protein (6.3-8.2) g/dL Albumin (3.5-5.0) g/dL Microbiology - Last 24 Hours (Table) 11/17/24 08:56 Gram Stain - Preliminary Sputum Sputum Culture - Preliminary 11/16/24 19:37 Gram Stain - Preliminary Other - Other Body Fluid Culture - Preliminary 11/16/24 19:37 Gram Stain - Preliminary Other - Other Wound Culture - Preliminary 11/16/24 19:37 Gram Stain - Preliminary Peritoneal Fluid Body Fluid Culture - Preliminary 11/16/24 19:37 Gram Stain - Preliminary Other - Other Wound Culture - Preliminary
--- NOTE | 2024-11-19 10:39 | P.PN ---
Subjective Progress Note Date: 11/19/24 This is a 35-year-old male patient who was brought into the intensive care unit following an extensive abdominal surgery. 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 Postop, the patient was being monitored by general surgery. He subsequent developed complete obstruction of the bowel and reported worsening abdominal distention. 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 The patient had evidence of large bowel obstruction due to sigmoid neoplasm with secondary perforation and there was also large bowel infarction involving the descending colon/sigmoid area. The patient accordingly underwent a low anterior resection, open approach and drainage of the diffuse intraperitoneal and pelvic fecal peritonitis/sepsis, 1 L and excellent laparotomy, lysis of adhesions and colectomy involving the transverse colon to low anterior resection with partial proctectomy and creation of a South's pouch. Patient was given 2 JOHNNY drains. Patient underwent abdominal peritoneal lavage, 12 L. A incisional wound VAC system, universal Prevena was applied along with 2 JOHNNY drains and the patient was kept intubated a nd patient got transferred to the intensive care unit. Intraoperatively, the patient received a total of 5 L of IV fluids and 1.5 L of albumin. Currently is on normal saline at rate of 80 cc an hour. NG tube output is noted of 300 cc over the past 8 hours. JOHNNY drain has produced 470 cc and 450 cc in each drain over the past 8 hours. The patient initially was on pressors and currently is off norepinephrine. Slightly tachycardic. Blood pressure is borderline low. He is on a combination of IV cefepime and Flagyl. Afebrile. Sedated on propofol the patient is calm and comfortable. He remains on the mechanical ventilator assist-control mode with rate of 20, tidal volume of 400, FiO2 of 50% with a PEEP of 5. Blood gas showed pH of 7.36 with a pCO2 of 29 and pO2 of 126. The white cell count is 11.8 with a hemoglobin 11.2 and a platelet count of 374. Sodium is at 135, potassium is at 4.4, serum bicarbonate 15 with a BUN of 16 and a creatinine 0.7. Albumin level is at 1.8 with a total protein level of 3.4. Cardiac rhythm is sinus. 11/18/2024, the patient is being seen for a follow-up. This morning, the patient is postop day #2. The patient remains intubated on mechanical ventilator. This morning, the patient is on propofol running at 20 mcg/kg/min. The propofol is being gradually weaned off. The patient was as high as 50 mcg. The patient is arousable. Following simple commands. He remains on a assist-control mode of mechanical ventilation at rate of 20, tidal volume of 400, FiO2 40% with a PEEP of 5. Blood gas showed a pH of 7.47 with a pCO2 of 32 and pO2 of 122. Remains on lactated Ringer at rate of 150 cc an hour. The patient is on no pressors. NG tube is in place output in the order of 300 cc over the past shift. JOHNNY drain on the right has drained approximately 170 cc and the one on the left is draining 120 cc over the past 8 to 12 hours. Output is serosanguineous. Cardiac rhythm is sinus. White cell count is 18.4 with a hemoglobin 9.2 and a p latelet count of 308. Sodium is at 138, potassium is at 4.2, bicarb is 22, BUN is 22 with a creatinine of 0.9. LFTs are essentially within normal limits. No other significant events overnight. The patient remains on a combination of cefepime and Flagyl. The patient will also need TPN for nutritional support. The colostomy site is functional and there is some liquid output in the colostomy bag. 11/19/2024, patient is being seen for a follow-up. The patient is extubated on 11/18/2024 and the patient is awake and alert and currently on 2 L of oxygen by nasal cannula. His NG tube in place and the total amount of output was 300 cc over the past 8 hours. The patient is taking some clear liquid diet and popsicles. Colostomy is functional with positive output. Bowel sounds are present. He remains on TPN for nutritional support at rate of 30 cc an hour. He remains on lactated Ringer at rate of 150 cc an hour. The JOHNNY drain on the right has put out 10 cc over the past 8 hours, the JOHNNY drain on the left has put out 20 cc over the past 8 hours. No respiratory difficulties. The white cell count of 18.9, hemoglobin is 9 and a platelet count of 296. BUN is 14 with a creatinine of 0.9. Sodium levels at 137 and a potassium level is at 3.3. Chest x-ray from today shows some left perihilar infiltrate/atelectasis. NG tube is in satisfactory location. Hemodynamically stable and the patient is on no pressors. Awaiting final cultures. Remains on antibiotics and the patient remains on a combination of cefepime and Flagyl. He has developed some increased edema lower extremities and some limited scrotal edema. The patient is postop day #3. Objective - Vital Signs Vital signs: Vital Signs Temp 97.5 F L 11/19/24 04:00 Pulse 73 11/19/24 07:00 Resp 13 11/19/24 07:00 BP 122/72 11/19/24 07:00 Pulse Ox 99 11/19/24 07:00 FiO2 40 11/18/24 08:16 Intake & Output 11/18/24 11/19/24 11/19/24 18:59 06:59 18:59 Intake Total 6873.888 3114.497 180 Output Total 855 1475 130 Balance 820.881 842.497 50 Weight 76.771 kg 76.459 kg Intake: IV 1650 2317.497 180 Fat Emulsion 20% 250 ml @ 187.497 20.833 mls/hr IV Q72H [facility] Rx#:[id number] Lactated Ringers 1,000 ml 1650 1800 150 @ 150 mls/hr IV .Q6H40M [facility] Rx#:[id number] Mvi, Adult No.4 with Vit 330 30 K 10 ml Trace (Conc-1Ml/ Dose) 1 ml In Amino Acid 5%-D20w+Lytes*E* 1,000 ml @ 30 mls/hr IV .Q24H [facility] Rx#:[id number] Intake, IV Titration 25.881 Amount propofoL 1,000 mg In 25.881 Empty Bag 1 bag @ 15 MCG/ KG/MIN 5.919 mls/hr IV . [id number] [facility] Rx#:[id number] Output: Drainage 50 30 Left Abdomen 30 20 Right Abdomen 20 10 Urine 755 1425 100 Stool 100 Other: Voiding Method Indwelling Catheter Indwelling Catheter ABP, PAP, CO, CI - Last Documented Arterial Blood Pressure 81/61 - Exam The patient appeared extubated on 2 L of oxygen by nasal cannula. NG tube is still in place. Neck is without jugular venous distension, thyromegaly, or carotid bruits. Carotid upstrokes are brisk bilaterally. Right IJ triple-lumen catheter in place. Lungs are clear to auscultation and percussion. Cardiac exam reveals the PMI to be normally sized and situated. Rhythm is regular. First and second heart sounds normal. No murmurs, rubs or gallops. Abdominal exam reveals normal bowel sounds, no masses, no organomegaly and no aortic enlargement. Hypoactive bowel sounds. Mid abdominal incision with universal Prevena. The patient has JOHNNY drains x 2. Output from the JOHNNY drains was noted. The patient also has a colostomy. There is liquidy output in the colostomy bag. The tissue is viable and healthy at this point. Extremities are nonedematous and both femoral and pedal pulses are normal. Examination of the skin revealed no evidence of significant rashes, suspicious appearing nevi or other concerning lesions. Neurologically, the patient is awake and alert and the patient does not have any focal neurological deficit. Cranial nerves are essentially intact. - Labs CBC & Chem 7: 11/19/24 05:53 11/19/24 05:53 Labs: Abnormal Lab Results - Last 24 Hours (Table) 11/18/24 11/19/24 11/19/24 Range/Units 18:05 00:29 05:53 WBC (3.8-10.6) k/uL RBC (4.30-5.90) m/uL Hgb (13.0-17.5) gm/dL Hct (39.0-53.0) % MCHC (31.0-37.0) g/dL RDW (11.5-15.5) % Neutrophils # (1.3-7.7) k/uL Lymphocytes # (1.0-4.8) k/uL Potassium 3.3 L (3.5-5.1) mmol/L Creatinine 0.41 L (0.66-1.25) mg/dL Glucose 133 H (74-99) mg/dL POC Glucose (mg/dL) 149 H 146 H (70-110) mg/dL Calcium 7.5 L (8.4-10.2) mg/dL Phosphorus 2.1 L (2.5-4.5) mg/dL AST 76 H (17-59) U/L Total Protein 4.0 L (6.3-8.2) g/dL Albumin 1.9 L (3.5-5.0) g/dL 11/19/24 11/19/24 Range/Units 05:53 06:05 WBC 18.9 H (3.8-10.6) k/uL RBC 3.39 L (4.30-5.90) m/uL Hgb 9.0 L (13.0-17.5) gm/dL Hct 30.0 L (39.0-53.0) % MCHC 29.9 L (31.0-37.0) g/dL RDW 18.5 H (11.5-15.5) % Neutrophils # 17.4 H (1.3-7.7) k/uL Lymphocytes # 0.6 L (1.0-4.8) k/uL Potassium (3.5-5.1) mmol/L Creatinine (0.66-1.25) mg/dL Glucose (74-99) mg/dL POC Glucose (mg/dL) 166 H (70-110) mg/dL Calcium (8.4-10.2) mg/dL Phosphorus (2.5-4.5) mg/dL AST (17-59) U/L Total Protein (6.3-8.2) g/dL Albumin (3.5-5.0) g/dL Microbiology - Last 24 Hours (Table) 11/17/24 08:56 Gram Stain - Preliminary Sputum Sputum Culture - Preliminary 11/16/24 19:37 Gram Stain - Preliminary Other - Other Body Fluid Culture - Preliminary 11/16/24 19:37 Gram Stain - Preliminary Other - Other Wound Culture - Preliminary 11/16/24 19:37 Gram Stain - Preliminary Peritoneal Fluid Body Fluid Culture - Preliminary 11/16/24 19:37 Gram Stain - Preliminary Other - Other Wound Culture - Preliminary Assessment and Plan Plan: Acute abdomen, sigmoid perforation due to sigmoid colon neoplasm in addition to large bowel obstruction/infarction and fecal peritonitis. Patient is status post open low AP resection, decompression colostomy, partial colectomy involving the transverse colon to low anterior resection with partial proctectomy and construction of the South's pouch. The patient is status post abdominal peritoneal lavage, 12 L normal saline. The patient has [address] and the reversal Fabiana covering the abdominal wounds. Patient is currently postop day # 3 Abdominal sepsis secondary to above, adequately associated IV fluids and the patient is currently off pressors, remains hemodynamically stable Repair of an incarcerated inguinal hernia on 11/10/2024. The patient did have evidence of coloenteric fistula at that time. COPD Acute none anion gap metabolic acidosis, recovered Acute hypoxic respiratory failure post abdominal surgery. The patient was extubated on 11/18/2024 and the patient is currently on room air oxygen Shock secondary to sepsis, currently off pressors and the patient has been aggressively sustained IV fluids receiving a total of 5 L of crystalloid and 1.5 L of albumin intraoperatively. For now, the patient is hemodynamically stable. Acute leukocytosis secondary to above Former smoker Plan Remains extubated at 2 L/min nasal cannula Encourage use of incentive spirometer Change IV fluids to 20 cc an hour, lactated Ringer Give Lasix 20 mg IV push x 1 Keep the patient n.p.o. Keep the NG tube in place Monitor the output from the JOHNNY drain Continue IV cefepime and Flagyl combination TPN to be considered by the general surgical team Lovenox for DVT prophylaxis IV Protonix Keep the patient in the ICU. Condition is critical and will continue to follow. General surgery is on the case Colostomy is functional TPN for nutritional support Awaiting final cultures Critical care evaluation and 33 minutes. Time with Patient: Greater than 30
[2024-11-19 11:51] LABS: Glucose,Whole Blood 240 mg/dL (70-110)
[2024-11-19] MEDS: SODIUM PHOSPHATE 15 MMOL in DEXTROSE 5% IN WATER 250 ML IVPB ONE (11:58)
[2024-11-19] MEDS ORDERED: VANCOMYCIN IV PER PHARMACY 1 EACH MISC MISCELLANE PRN (12:47)
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
--- NOTE | 2024-11-19 12:57 | P.PN ---
Subjective Progress Note Date: 11/19/24 54-year-old male patient with no significant past medical history, presenting today for left lower quadrant sharp abdominal pain. Patient states this pain has been intermittent over the last 2 weeks. More persistent today, uncontrolled with 800 mg of ibuprofen or Pepcid. Patient endorses abdominal swelling and firmness over this time as well. He states he has had a left inguinal hernia "for a while" and the pain is not located over the region of the hernia. He denies fevers or chills, denies shortness of breath or chest pain, endorses nausea and today had 2 episodes of nonbloody nonbilious emesis. States he has intermittent brown stools sometimes with small streaks of blood no melena. No history of prior abdominal surgeries. Denies dysuria, hematuria or urinary frequency. No history of cancers in himself or family members. Patient has no other medical history. He does not drink alcohol or smoke cigarettes. Blood work completed in ED reveals a WBC of 15.1, hemoglobin of 10.[address] atelet count of 682, sodium 135, potassium 4.1, BUNs/creatinine of 18/0.71 and blood glucose of 126, lactic acid level of 1.1 CT of the abdomen and pelvis completed with contrast reveals left inguinal hernia extending into the scrotum containing nondilated small bowel loops. Multiple markedly enlarged small bowel loops proximal to the hernia consistent with small bowel obstruction. 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 He is currently sitting up in bed. Awake and alert in no acute distress. - CT scan of the pelvis today reveals a fistula tract extending from the anterior wall of the sigmoid colon proximally and what appeared to be small bowel loops. Possible abscess in the midline pelvis. Droplets of free intraperitoneal air either postsurgical or indicative of bowel perforation. Edema formation within the mesenteric infectious or postsurgical in nature. Resolution of the bowel within the left inguinal hernia and resolution of the previous bowel obstruction. Lab review shows White count 26.4. Hemoglobin 10.3. Platelets 512. Sodium 132. Potassium 3.6. Bicarb 26. BUN 7. Creatinine 0.6. Glucose 103. He remains on cefepime and Flagyl. Normal saline at 80 mL/h. Morphine and Dil audid for pain control. Lovenox for DVT prophylaxis. -Surgery recommending EGD and colonoscopy with biopsies given sigmoid colon mass and iron deficiency anemia 11/13--patient was seen and examined today. Abdominal pain is better, reported bowel movement, underwent EGD today which showed hiatal hernia, Hill grade 3 low esophageal valve, LA grade C erosive esophagitis, 2 cm linear lesions, chronic gastritisbiopsies taken. Colonoscopy today showed internal/external hemorrhoids, obstructive sigmoid colon mass, showed polyps. General surgery following, plan for urgent colectomy due to bowel obstruction from likely malignant sigmoid colon mass. 11/14--patient was seen and examined today. Passing flatus, reported small bowel movement. Afebrile, heart rate 117, respiratory rate 17, blood pressure 110/71, saturating 93% on room air. WBCs 10.4, hemoglobin 12.4, platelet 490. Sodium 134, potassium 4.0, chloride 99, CO2 23.1, BUN 7.8, creatinine 0.5. Infectious disease consulted and following, on cefepime and Flagyl. 11/15--patient was seen and examined today. No issues overnight.Patient is afebrile, tachycardic with heart rate 104, will start on low-dose beta-ramin, respiratory rate 17, blood pressure 135/90, saturating 93% on room air. WBCs 24.0, hemoglobin 10.1, platelet 418. Sodium 134 potassium 3.2 chloride 102 BUN 15 creatinine 0.54. Infectious is consulted and following, currently on cefepime and Flagyl. 11/16--patient was seen and examined today. No issues overnight. Patient is afebrile, heart rate better 71, respiratory rate 18, blood pressure 145/95, saturating 94% on room air. WBCs 25.7, hemoglobin 9.3, platelet 393 sodium 132 potassium 2.8, 3.5 peripheral replacement, BUN 13, creatinine 0.46. Liver profile unremarkable. Potassium was low, replaced. Currently on cefepime and Flagyl. PICC line in place. Infectious disease following. General surgery planning for OR for sigmoid colectomy today. 11/17--patient was transferred to ICU from the OR yesterday due to septic shock, was intubated, currently on mechanical ventilation. ICU consulted and following. General surgery following. On IV fluids, on antibiotics cefepime and Flagyl. 11/18. Patient seen and examined. Blood work done today showed WBC 18.4, hemoglobin 9.2, platelet count 308, sodium 130, potassium 4.2, BUN 22, creatinine 0.93, calcium 7.3, phosphorus 2.4 AST 60, ALT 17. Patient was extubated this morning, currently on nasal cannula oxygen at 3 L 11/19. Patient seen and examined. States he feels much better. Labs on this morning showed WBC 18.9, hemoglobin 9, platelet count 296, sodium 137 potassium 3.3, BUN 14, creatinine 0.41 REVIEW OF SYSTEMS: Denies any chest pain. Denies any shortness of breath PHYSICAL EXAMINATION: GENERAL: The patient is alert and oriented x3, ill looking HEENT: Pupils are round and equally reacting to light. EOMI. No scleral icterus. No conjunctival pallor. Normocephalic, atraumatic. No pharyngeal erythema. No thyromegaly. CARDIOVASCULAR: S1 and S2 present. No murmurs, rubs, or gallops. PULMONARY: Chest is clear to auscultation, no wheezing or crackles. ABDOMEN: Soft, surgical incision seen, ostomy, drain in place MUSCULOSKELETAL: No joint swelling or deformity. EXTREMITIES: No cyanosis, clubbing, or pedal edema. NEUROLOGICAL: Gross neurological examination did not reveal any focal deficits. SKIN: No rashes. 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 s/p robotic assisted laparoscopic repair of left inguinal hernia, small bowel resection with primary anastomosis 11/10 CT scan of pelvis on 11/12 showed fistulous tract extending from anterior wall of the sigmoid colon proximally and what appeared to be small bowel loops, possible abscess in the midline pelvis, droplet of free intraperitoneal air either postsurgical or perforation, edema of mesenteric region. EGD 11/13-- showed hiatal hernia, Hill grade 3 low esophageal valve, LA grade C erosive esophagitis, 2 cm linear lesions, chronic gastritisbiopsies taken. Colonoscopy 11/13--- showed internal/external hemorrhoids, obstructive sigmoid colon mass, showed polyps. General surgery following, plan for urgent colectomy due to bowel obstruction from likely malignant sigmoid colon mass. Cardiology consulted for cardiac clearance Pulmonary consulted for evaluation of emphysema on CT scan. Oncology consultedokay to proceed with definitive surgical intervention s/p IV iron Cefepime and Flagyl, fluconazole--PICC line in place. Infectious disease consulted General Surgery --- patient underwent extensive lysis of adhesion, drainage of peritoneal abscess and subtotal colectomy for large bowel ischemia with perforation 11/16, transferred to ICU for septic shock and respiratory failure requiring intubation mechanical ventilation. ICU following Tachycardia: Likely secondary to above, monitor Emphysema: Former smoker: Shortness of breath: Secondary to right mainstem bronchus nasogastric tube placement subsequent removal and relief of symptoms CT scan showed moderate emphysema atelectasis Pulmonary consultedcontinue albuterol inhaler as needed, incentive spirometry Encourage ambulation, outpatient PFTs Hyponatremia: Mild hyponatremia secondary to hypovolemia Continue fluids Folate deficiency: Folate supplement. Gastritis: Esophagitis: PPI DVT prophylaxis: Subcutaneous Lovenox Labs and medication were reviewed.. Continue same treatment. Continue with symptomatic treatment. Resume home medication. Monitor labs and vitals. DVT and GI prophylaxis. Further recommendations as per clinical course of the patient Dictation was produced using [employer] dictation software. please excuse any grammatical, word or spelling errors. Objective - Vital Signs Vital signs: Vital Signs Temp 97.6 F 11/19/24 08:00 Pulse 81 11/19/24 11:00 Resp 13 11/19/24 11:00 BP 141/79 11/19/24 11:00 Pulse Ox 91 L 11/19/24 11:00 FiO2 40 11/18/24 08:16 Intake & Output 11/18/24 11/19/24 11/19/24 18:59 06:59 18:59 Intake Total 4012.673 3590.497 580 Output Total 855 1475 2480 Balance 820.881 842.497 -1900 Weight 76.771 kg 76.459 kg Intake: IV 1650 2317.497 580 Fat Emulsion 20% 250 ml @ 187.497 20.833 mls/hr IV Q72H [facility] Rx#:[id number] Lactated Ringers 1,000 ml 1650 1800 230 @ 20 mls/hr IV .Q24H [facility] Rx#:[id number] Magnesium Sulfate-D5w Pmx 100 1 gm In Dextrose/Water 1 100ml.bag @ 100 mls/hr IVPB ONCE ONE Rx#: [id number] Mvi, Adult No.4 with Vit 330 150 K 10 ml Trace (Conc-1Ml/ Dose) 1 ml In Amino Acid 5%-D20w+Lytes*E* 1,000 ml @ 30 mls/hr IV .Q24H [facility] Rx#:[id number] Potassium Chloride 20 meq 100 In Water For Injection 1 100ml.bag @ 50 mls/hr IVPB Q2H [facility] Rx#: [id number] Intake, IV Titration 25.881 Amount propofoL 1,000 mg In 25.881 Empty Bag 1 bag @ 15 MCG/ KG/MIN 5.919 mls/hr IV . [id number] [facility] Rx#:[id number] Output: Drainage 50 30 Left Abdomen 30 20 Right Abdomen 20 10 Urine 755 1425 2200 Stool 100 250 Other: Voiding Method Indwelling Catheter Indwelling Catheter Indwelling Catheter ABP, PAP, CO, CI - Last Documented Arterial Blood Pressure 81/61 - Labs CBC & Chem 7: 11/19/24 05:53 11/19/24 05:53 Labs: Abnormal Lab Results - Last 24 Hours (Table) 11/18/24 11/19/24 11/19/24 Range/Units 18:05 00:29 05:53 WBC (3.8-10.6) k/uL RBC (4.30-5.90) m/uL Hgb (13.0-17.5) gm/dL Hct (39.0-53.0) % MCHC (31.0-37.0) g/dL RDW (11.5-15.5) % Neutrophils # (1.3-7.7) k/uL Lymphocytes # (1.0-4.8) k/uL Potassium 3.3 L (3.5-5.1) mmol/L Creatinine 0.41 L (0.66-1.25) mg/dL Glucose 133 H (74-99) mg/dL POC Glucose (mg/dL) 149 H 146 H (70-110) mg/dL Calcium 7.5 L (8.4-10.2) mg/dL Phosphorus 2.1 L (2.5-4.5) mg/dL AST 76 H (17-59) U/L Total Protein 4.0 L (6.3-8.2) g/dL Albumin 1.9 L (3.5-5.0) g/dL Triglycerides 239.00 H (0.00-149.00) mg/dL 11/19/24 11/19/24 11/19/24 Range/Units 05:53 06:05 11:48 WBC 18.9 H (3.8-10.6) k/uL RBC 3.39 L (4.30-5.90) m/uL Hgb 9.0 L (13.0-17.5) gm/dL Hct 30.0 L (39.0-53.0) % MCHC 29.9 L (31.0-37.0) g/dL RDW 18.5 H (11.5-15.5) % Neutrophils # 17.4 H (1.3-7.7) k/uL Lymphocytes # 0.6 L (1.0-4.8) k/uL Potassium (3.5-5.1) mmol/L Creatinine (0.66-1.25) mg/dL Glucose (74-99) mg/dL POC Glucose (mg/dL) 166 H 240 H (70-110) mg/dL Calcium (8.4-10.2) mg/dL Phosphorus (2.5-4.5) mg/dL AST (17-59) U/L Total Protein (6.3-8.2) g/dL Albumin (3.5-5.0) g/dL Triglycerides (0.00-149.00) mg/dL Microbiology - Last 24 Hours (Table) 11/16/24 19:37 Anaerobic Culture - Preliminary Other - Other 11/16/24 19:37 Anaerobic Culture - Preliminary Peritoneal Fluid 11/16/24 19:37 Anaerobic Culture - Preliminary Other - Other 11/16/24 19:37 Anaerobic Culture - Preliminary Perineal Fluid 11/16/24 19:37 Gram Stain - Preliminary Other - Other Wound Culture - Preliminary Group D Enterococcus 11/16/24 19:37 Gram Stain - Preliminary Peritoneal Fluid Body Fluid Culture - Preliminary Group D Enterococcus Yeast species Gram Neg Bacilli 11/17/24 08:56 Gram Stain - Final Sputum Sputum Culture - Final 11/16/24 19:37 Gram Stain - Preliminary Other - Other Body Fluid Culture - Preliminary 11/16/24 19:37 Gram Stain - Preliminary Other - Other Wound Culture - Preliminary
[2024-11-19] MEDS: FLUCONAZOLE IN NACL,ISO-OSM 200 MG in SALINE 1 100ML.BAG IVPB SCH (13:31)
[2024-11-19] MEDS: VANCOMYCIN 1,500 MG in SODIUM CHLORIDE 0.9% 500 ML 500 ML IVPB ONE (14:33)
[2024-11-19 16:55] LABS: Glucose,Whole Blood 157 mg/dL (70-110)
[2024-11-19] MEDS: MVI, ADULT NO.4 WITH VIT K 10 ML, TRACE (CONC-1ML/DOSE) 1 ML in AMINO ACID 5%-D20W+LYTE... IV SCH (17:01)
[2024-11-19] MEDS: SODIUM CHLORIDE 0.9% 1,000 ML IV ONE (19:39)
[2024-11-19 23:27] LABS: Glucose,Whole Blood 151 mg/dL (70-110)
[2024-11-20] MEDS: VANCOMYCIN 1,250 MG in SODIUM CHLORIDE 0.9% 250 ML IVPB SCH (00:12)
[2024-11-20 05:06] LABS: Anisocytosis Slight; HCT 29.7 % (39.0-53.0); Hypochromasia Slight; MCH 26.2 pg (25.0-35.0); MCHC 30.1 g/dL (31.0-37.0); MCV 86.9 fL (80.0-100.0); Mean Platelet Volume 8.4; Platelet Count 290 k/uL (150-450); RBC 3.42 m/uL (4.30-5.90); RDW 18.2 % (11.5-15.5); WBC 14.5 k/uL (3.8-10.6)
[2024-11-20 05:07] LABS: ALT 22 U/L (4-49); AST 55 U/L (17-59); African American GFR (CKD) >90 (>60 ml/min/1.73 sqM); Albumin 1.8 g/dL (3.5-5.0); Alkaline Phosphatase 66 U/L (38-126); Anion Gap 2 mmol/L; Blood Urea Nitrogen 12 mg/dL (9-20); Calcium 7.1 mg/dL (8.4-10.2); Carbon Dioxide 31 mmol/L (22-30); Chloride 103 mmol/L (98-107); Glucose 125 mg/dL (74-99); Magnesium 1.8 mg/dL (1.6-2.3); Non-African American GFR(CKD) >90 (>60 ml/min/1.73 sqM); Phosphorus 2.1 mg/dL (2.5-4.5); Potassium 2.8 mmol/L (3.5-5.1); Sodium 136 mmol/L (137-145); Total Bilirubin 0.5 mg/dL (0.2-1.3); Total Protein 3.9 g/dL (6.3-8.2)
[2024-11-20] MEDS ORDERED: Potassium Replacement Protocol 1 EACH MISC MISCELLANE PRN (05:26)
[2024-11-20] MEDS: POTASSIUM CHLORIDE 20 MEQ in WATER FOR INJECTION 1 100ML.BAG IVPB SCH (05:47)
[2024-11-20] MEDS: MAGNESIUM SULFATE-D5W PMX 1 GM in DEXTROSE/WATER 1 100ML.BAG IVPB ONE (05:47)
[2024-11-20 06:10] LABS: Glucose,Whole Blood 147 mg/dL (70-110)
--- NOTE | 2024-11-20 07:17 | XR ---
EXAMINATION TYPE: XR chest 1V portable DATE OF EXAM: 11/20/2024 5:21 AM COMPARISON: 11/19/2024 CLINICAL INDICATION: Male, 54 years old with history of Tube placement, TECHNIQUE: XR chest 1V portable view(s) obtained. FINDINGS: The heart size is normal. The pulmonary vasculature is normal. Perihilar infiltrates are present. There is some silhouetting the left diaphragm. There is elevation of the right diaphragm. Findings appear stable. Nasogastric tube is been removed. Right central venous catheter tip is in the distal superior vena ca va region. PICC line tip is within the right atrium. IMPRESSION: 1. Stable perihilar and lower lobe infiltrates. 2. Lines and catheters discussed above [facility], , 11/20/2024 7:15 AM
[2024-11-20] MEDS: SODIUM PHOSPHATE 15 MMOL in DEXTROSE 5% IN WATER 250 ML IVPB ONE (09:00)
[2024-11-20] MEDS: MVI, ADULT NO.4 WITH VIT K 10 ML, TRACE (CONC-1ML/DOSE) 1 ML, SODIUM ACETATE 20 MEQ, PO... IV SCH (09:50)
--- NOTE | 2024-11-20 10:31 | P.PN ---
Subjective Progress Note Date: 11/20/24 CHIEF COMPLAINT: Abdominal pain HISTORY OF PRESENT ILLNESS: The patient is a 54-year-old male status post left inguinal hernia repair on 11/10/2024 followed by open laparotomy, extensive lysis of adhesions, drainage of peritoneal and pelvic abscess, transverse colostomy, with subtotal colectomy for large bowel ischemia with perforation, 11/16/2024. He is tolerating liquid diet. He has had a moderate stools from his ostomy. His pain is well-controlled. Patient reports intolerance to Dilaudid which causes abdominal pain for him. Ostomy nurse at bedside for management of ostomy care. REVIEW OF ORGAN SYSTEMS: No fevers or chills. No chest pain. PHYSICAL EXAM: VITALS: Reviewed CONSTITUTIONAL: Well developed and in no acute distress. EYES: Conjuctivae without sclera icterus. Extraocular movements grossly intact. HEAD, EARS, NOSE, THROAT: Head is atraumatic, normocephalic. Nasogastric tube present with bilious content RESPIRATORY: Nonlabored respirations. CARDIOVASCULAR: Palpable 2+ radial pulses. Heart rate over 100s. ABDOMEN: Incisional wound VAC intact. Moderate stool and gas in Coloplast. JOHNNY serous. MUSCULOSKELETAL: No clubbing cyanosis or edema SKIN: Warm and well perfused with good skin turgor. NEUROLOGIC: No focal lateralizing signs PSYCH: Alert and oriented person place time. : Resolved scrotal edema. [place] clear CLINCAL LABS: Reviewed. WBC down from 18,000-14,000. Hemoglobin stable 9.0. MICROBIOLOGY: Peritoneal cultures demonstrating yeast, group D Enterococcus, and gram-negative bacilli. ASSESSMENT: 1. 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 Left inguinal hernia 3. High risk malignancy 4. Hyponatremia 5. Emphysema with COPD, new 6. Thyroid nodule, left, new 7. Elevated CEA 8. Iron deficiency anemia 9. Sigmoid colon malignancy with obstruction 10. Persistent hypokalemia 11. Large bowel infarction, transverse colon, descending and sigmoid colon 12. Fecal peritonitis with pelvic abscess status post drainage 13. Septic shock 14. Severe protein malnutrition 15. Candidiasis peritonitis PLAN: 1. Will advance diet to regular diet 2. Change from narcotic to nonnarcotic Tylenol and Toradol for pain management 3. Agree with transfer out of ICU once medically cleared by manager editorial 4. Disposition in 72 hours pending rehab placement and antibiotic management Objective - Vital Signs Vital signs: Vital Signs Temp 98.6 F 11/20/24 06:00 Pulse 86 11/20/24 09:00 Resp 18 11/20/24 09:00 BP 133/78 11/20/24 09:00 Pulse Ox 95 11/20/24 09:00 FiO2 40 11/18/24 08:16 Intake & Output 11/19/24 11/20/24 11/20/24 18:59 06:59 18:59 Intake Total 1660 2976 159 Output Total 3280 1951 425 Balance -1620 1025 -266 Weight 75.6 kg Intake: IV 1660 2176 159 Fluconazole in NaCl,Iso- 100 Osm 200 mg In Saline 1 100ml.bag @ 100 mls/hr IVPB DAILY@1400 [facility] Rx#: [id number] KVO 330 90 Lactated Ringers 1,000 ml 370 20 @ 20 mls/hr IV .Q24H [facility] Rx#:[id number] Magnesium Sulfate-D5w Pmx 100 100 1 gm In Dextrose/Water 1 100ml.bag @ 100 mls/hr IVPB ONCE ONE Rx#: [id number] Mvi, Adult No.4 with Vit 360 690 60 K 10 ml Trace (Conc-1Ml/ Dose) 1 ml In Amino Acid 5%-D20w+Lytes*E* 1,000 ml @ 30 mls/hr IV .Q24H [facility] Rx#:[id number] Potassium Chloride 20 meq 100 300 In Water For Injection 1 100ml.bag @ 50 mls/hr IVPB Q2H [facility] Rx#: [id number] Pressure bag 30 36 9 Vancomycin 1,500 mg In 500 500 Sodium Chloride 0.9% 500 ml 500 ml @ 167 mls/hr IVPB ONCE ONE Rx#: [id number] metroNIDAZOLE-NS PMX 500 100 200 mg In Saline 1 100ml.bag @ 100 mls/hr IVPB Q8H [facility] Rx#:[id number] Intake, IV Titration 200 Amount Cefepime 2 gm In Sodium 200 Chloride 0.9% 100 ml @ 25 mls/hr IVPB Q8H [facility] Rx#: [id number] Oral 600 Output: Drainage 30 61 0 Left Abdomen 20 43 0 Right Abdomen 10 18 0 Urine 3000 1140 75 Stool 250 750 350 Other: Voiding Method Indwelling Catheter Indwelling Catheter Indwelling Catheter ABP, PAP, CO, CI - Last Documented Arterial Blood Pressure 81/61 - Labs CBC & Chem 7: 11/20/24 04:35 11/20/24 04:35 Labs: Abnormal Lab Results - Last 24 Hours (Table) 11/19/24 11/19/24 11/19/24 Range/Units 05:53 11:48 16:53 WBC (3.8-10.6) k/uL RBC (4.30-5.90) m/uL Hgb (13.0-17.5) gm/dL Hct (39.0-53.0) % MCHC (31.0-37.0) g/dL RDW (11.5-15.5) % Sodium (137-145) mmol/L Potassium (3.5-5.1) mmol/L Carbon Dioxide (22-30) mmol/L Creatinine (0.66-1.25) mg/dL Glucose (74-99) mg/dL POC Glucose (mg/dL) 240 H 157 H (70-110) mg/dL Calcium (8.4-10.2) mg/dL Phosphorus (2.5-4.5) mg/dL Total Protein (6.3-8.2) g/dL Albumin (3.5-5.0) g/dL Triglycerides 239.00 H (0.00-149.00) mg/dL 11/19/24 11/20/24 11/20/24 Range/Units 23:24 04:35 04:35 WBC 14.5 H (3.8-10.6) k/uL RBC 3.42 L (4.30-5.90) m/uL Hgb 9.0 L (13.0-17.5) gm/dL Hct 29.7 L (39.0-53.0) % MCHC 30.1 L (31.0-37.0) g/dL RDW 18.2 H (11.5-15.5) % Sodium 136 L (137-145) mmol/L Potassium 2.8 L (3.5-5.1) mmol/L Carbon Dioxide 31 H (22-30) mmol/L Creatinine 0.41 L (0.66-1.25) mg/dL Glucose 125 H (74-99) mg/dL POC Glucose (mg/dL) 151 H (70-110) mg/dL Calcium 7.1 L (8.4-10.2) mg/dL Phosphorus 2.1 L (2.5-4.5) mg/dL Total Protein 3.9 L (6.3-8.2) g/dL Albumin 1.8 L (3.5-5.0) g/dL Triglycerides (0.00-149.00) mg/dL 11/20/24 Range/Units 06:08 WBC (3.8-10.6) k/uL RBC (4.30-5.90) m/uL Hgb (13.0-17.5) gm/dL Hct (39.0-53.0) % MCHC (31.0-37.0) g/dL RDW (11.5-15.5) % Sodium (137-145) mmol/L Potassium (3.5-5.1) mmol/L Carbon Dioxide (22-30) mmol/L Creatinine (0.66-1.25) mg/dL Glucose (74-99) mg/dL POC Glucose (mg/dL) 147 H (70-110) mg/dL Calcium (8.4-10.2) mg/dL Phosphorus (2.5-4.5) mg/dL Total Protein (6.3-8.2) g/dL Albumin (3.5-5.0) g/dL Triglycerides (0.00-149.00) mg/dL Microbiology - Last 24 Hours (Table) 11/16/24 19:37 Gram Stain - Preliminary Other - Other Wound Culture - Preliminary Group D Enterococcus Ilda albicans 11/16/24 19:37 Gram Stain - Preliminary Peritoneal Fluid Body Fluid Culture - Preliminary Group D Enterococcus Ilda albicans Gram Neg Bacilli 11/16/24 19:37 Gram Stain - Preliminary Other - Other Body Fluid Culture - Preliminary Gram Neg Bacilli Group D Enterococcus Ilda albicans 11/16/24 19:37 Anaerobic Culture - Preliminary Other - Other 11/16/24 19:37 Anaerobic Culture - Preliminary Peritoneal Fluid 11/16/24 19:37 Anaerobic Culture - Preliminary Other - Other 11/16/24 19:37 Anaerobic Culture - Preliminary Perineal Fluid 11/16/24 19:37 Gram Stain - Preliminary Other - Other Wound Culture - Preliminary Group D Enterococcus 11/17/24 08:56 Gram Stain - Final Sputum Sputum Culture - Final
[2024-11-20 11:36] LABS: Glucose,Whole Blood 171 mg/dL (70-110)
[2024-11-20] MEDS: ACETAMINOPHEN IV (For NPO) 1,000 MG in EMPTY BAG 1 BAG IVPB SCH (11:40)
[2024-11-20] MEDS: KETOROLAC 15 MG/ML 1 ML VIAL IVP SCH (11:52)
--- NOTE | 2024-11-20 12:48 | P.PN ---
Subjective Progress Note Date: 11/20/24 54-year-old male patient with no significant past medical history, presenting today for left lower quadrant sharp abdominal pain. Patient states this pain has been intermittent over the last 2 weeks. More persistent today, uncontrolled with 800 mg of ibuprofen or Pepcid. Patient endorses abdominal swelling and firmness over this time as well. He states he has had a left inguinal hernia "for a while" and the pain is not located over the region of the hernia. He denies fevers or chills, denies shortness of breath or chest pain, endorses nausea and today had 2 episodes of nonbloody nonbilious emesis. States he has intermittent brown stools sometimes with small streaks of blood no melena. No history of prior abdominal surgeries. Denies dysuria, hematuria or urinary frequency. No history of cancers in himself or family members. Patient has no other medical history. He does not drink alcohol or smoke cigarettes. Blood work completed in ED reveals a WBC of 15.1, hemoglobin of 10.[address] atelet count of 682, sodium 135, potassium 4.1, BUNs/creatinine of 18/0.71 and blood glucose of 126, lactic acid level of 1.1 CT of the abdomen and pelvis completed with contrast reveals left inguinal hernia extending into the scrotum containing nondilated small bowel loops. Multiple markedly enlarged small bowel loops proximal to the hernia consistent with small bowel obstruction. 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 He is currently sitting up in bed. Awake and alert in no acute distress. - CT scan of the pelvis today reveals a fistula tract extending from the anterior wall of the sigmoid colon proximally and what appeared to be small bowel loops. Possible abscess in the midline pelvis. Droplets of free intraperitoneal air either postsurgical or indicative of bowel perforation. Edema formation within the mesenteric infectious or postsurgical in nature. Resolution of the bowel within the left inguinal hernia and resolution of the previous bowel obstruction. Lab review shows White count 26.4. Hemoglobin 10.3. Platelets 512. Sodium 132. Potassium 3.6. Bicarb 26. BUN 7. Creatinine 0.6. Glucose 103. He remains on cefepime and Flagyl. Normal saline at 80 mL/h. Morphine and Dil audid for pain control. Lovenox for DVT prophylaxis. -Surgery recommending EGD and colonoscopy with biopsies given sigmoid colon mass and iron deficiency anemia 11/13--patient was seen and examined today. Abdominal pain is better, reported bowel movement, underwent EGD today which showed hiatal hernia, Hill grade 3 low esophageal valve, LA grade C erosive esophagitis, 2 cm linear lesions, chronic gastritisbiopsies taken. Colonoscopy today showed internal/external hemorrhoids, obstructive sigmoid colon mass, showed polyps. General surgery following, plan for urgent colectomy due to bowel obstruction from likely malignant sigmoid colon mass. 11/14--patient was seen and examined today. Passing flatus, reported small bowel movement. Afebrile, heart rate 117, respiratory rate 17, blood pressure 110/71, saturating 93% on room air. WBCs 10.4, hemoglobin 12.4, platelet 490. Sodium 134, potassium 4.0, chloride 99, CO2 23.1, BUN 7.8, creatinine 0.5. Infectious disease consulted and following, on cefepime and Flagyl. 11/15--patient was seen and examined today. No issues overnight.Patient is afebrile, tachycardic with heart rate 104, will start on low-dose beta-ramin, respiratory rate 17, blood pressure 135/90, saturating 93% on room air. WBCs 24.0, hemoglobin 10.1, platelet 418. Sodium 134 potassium 3.2 chloride 102 BUN 15 creatinine 0.54. Infectious is consulted and following, currently on cefepime and Flagyl. 11/16--patient was seen and examined today. No issues overnight. Patient is afebrile, heart rate better 71, respiratory rate 18, blood pressure 145/95, saturating 94% on room air. WBCs 25.7, hemoglobin 9.3, platelet 393 sodium 132 potassium 2.8, 3.5 peripheral replacement, BUN 13, creatinine 0.46. Liver profile unremarkable. Potassium was low, replaced. Currently on cefepime and Flagyl. PICC line in place. Infectious disease following. General surgery planning for OR for sigmoid colectomy today. 11/17--patient was transferred to ICU from the OR yesterday due to septic shock, was intubated, currently on mechanical ventilation. ICU consulted and following. General surgery following. On IV fluids, on antibiotics cefepime and Flagyl. 11/18. Patient seen and examined. Blood work done today showed WBC 18.4, hemoglobin 9.2, platelet count 308, sodium 130, potassium 4.2, BUN 22, creatinine 0.93, calcium 7.3, phosphorus 2.4 AST 60, ALT 17. Patient was extubated this morning, currently on nasal cannula oxygen at 3 L /. Patient seen and examined. States he feels much better. Labs on this morning showed WBC 18.9, hemoglobin 9, platelet count 296, sodium 137 potassium 3.3, BUN 14, creatinine 0.41 /7. Patient seen and examined. States he feels better. Currently on 2 L of oxygen. Continues to be on TPN. ID following, keeping patient on cefepime, Flagyl, fluconazole, vancomycin for now. Patient being transferred out of ICU REVIEW OF SYSTEMS: Denies any chest pain. Denies any shortness of breath Denies any nausea, vomiting abdominal pain PHYSICAL EXAMINATION: GENERAL: The patient is alert and oriented x3, ill looking HEENT: Pupils are round and equally reacting to light. EOMI. No scleral icterus. No conjunctival pallor. Normocephalic, atraumatic. No pharyngeal erythema. No thyromegaly. CARDIOVASCULAR: S1 and S2 present. No murmurs, rubs, or gallops. PULMONARY: Chest is clear to auscultation, no wheezing or crackles. ABDOMEN: Soft, surgical incision seen, ostomy, drain in place MUSCULOSKELETAL: No joint swelling or deformity. EXTREMITIES: No cyanosis, clubbing, 1+ edema of lower extremities bilaterally NEUROLOGICAL: Gross neurological examination did not reveal any focal deficits. SKIN: No rashes. 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 s/p robotic assisted laparoscopic repair of left inguinal hernia, small bowel resection with primary anastomosis 11/10 CT scan of pelvis on 11/12 showed fistulous tract extending from anterior wall of the sigmoid colon proximally and what appeared to be small bowel loops, possible abscess in the midline pelvis, droplet of free intraperitoneal air either postsurgical or perforation, edema of mesenteric region. EGD 11/13-- showed hiatal hernia, Hill grade 3 low esophageal valve, LA grade C erosive esophagitis, 2 cm linear lesions, chronic gastritisbiopsies taken. Colonoscopy 11/13--- showed internal/external hemorrhoids, obstructive sigmoid colon mass, showed polyps. General surgery following, plan for urgent colectomy due to bowel obstruction from likely malignant sigmoid colon mass. Cardiology consulted for cardiac clearance Pulmonary consulted for evaluation of emphysema on CT scan. Oncology consultedokay to proceed with definitive surgical intervention s/p IV iron Cefepime and Flagyl, fluconazole, vancomycin--PICC line in place. Infectious disease consulted General Surgery --- patient underwent extensive lysis of adhesion, drainage of peritoneal abscess and subtotal colectomy for large bowel ischemia with perforation 11/16, transferred to ICU for septic shock and respiratory failure requiring intubation mechanical ventilation. ICU following Tachycardia: Likely secondary to above, monitor Emphysema: Former smoker: Shortness of breath: Secondary to right mainstem bronchus nasogastric tube placement subsequent removal and relief of symptoms CT scan showed moderate emphysema atelectasis Pulmonary consultedcontinue albuterol inhaler as needed, incentive spirometry Encourage ambulation, outpatient PFTs Hyponatremia: Monitor BMP Folate deficiency: Folate supplement. Gastritis: Esophagitis: PPI DVT prophylaxis: Subcutaneous Lovenox Labs and medication were reviewed.. Continue same treatment. Continue with symptomatic treatment. Resume home medication. Monitor labs and vitals. DVT and GI prophylaxis. Further recommendations as per clinical course of the patient Dictation was produced using [employer] dictation software. please excuse any grammatical, word or spelling errors. Objective - Vital Signs Vital signs: Vital Signs Temp 98.6 F 11/20/24 06:00 Pulse 86 11/20/24 09:00 Resp 18 11/20/24 09:00 BP 133/78 11/20/24 09:00 Pulse Ox 95 11/20/24 09:00 FiO2 40 11/18/24 08:16 Intake & Output 11/19/24 11/20/24 11/20/24 18:59 06:59 18:59 Intake Total 1660 2976 159 Output Total 3280 1951 425 Balance -1620 1025 -266 Weight 75.6 kg Intake: IV 1660 2176 159 Fluconazole in NaCl,Iso- 100 Osm 200 mg In Saline 1 100ml.bag @ 100 mls/hr IVPB DAILY@1400 [facility] Rx#: [id number] KVO 330 90 Lactated Ringers 1,000 ml 370 20 @ 20 mls/hr IV .Q24H [facility] Rx#:[id number] Magnesium Sulfate-D5w Pmx 100 100 1 gm In Dextrose/Water 1 100ml.bag @ 100 mls/hr IVPB ONCE ONE Rx#: [id number] Mvi, Adult No.4 with Vit 360 690 60 K 10 ml Trace (Conc-1Ml/ Dose) 1 ml In Amino Acid 5%-D20w+Lytes*E* 1,000 ml @ 30 mls/hr IV .Q24H ONE Rx#:[id number] Potassium Chloride 20 meq 100 300 In Water For Injection 1 100ml.bag @ 50 mls/hr IVPB Q2H [facility] Rx#: [id number] Pressure bag 30 36 9 Vancomycin 1,500 mg In 500 500 Sodium Chloride 0.9% 500 ml 500 ml @ 167 mls/hr IVPB ONCE ONE Rx#: [id number] metroNIDAZOLE-NS PMX 500 100 200 mg In Saline 1 100ml.bag @ 100 mls/hr IVPB Q8H [facility] Rx#:[id number] Intake, IV Titration 200 Amount Cefepime 2 gm In Sodium 200 Chloride 0.9% 100 ml @ 25 mls/hr IVPB Q8H [facility] Rx#: [id number] Oral 600 Output: Drainage 30 61 0 Left Abdomen 20 43 0 Right Abdomen 10 18 0 Urine 3000 1140 75 Stool 250 750 350 Other: Voiding Method Indwelling Catheter Indwelling Catheter Indwelling Catheter ABP, PAP, CO, CI - Last Documented Arterial Blood Pressure 81/61 - Labs CBC & Chem 7: 11/20/24 04:35 11/20/24 04:35 Labs: Abnormal Lab Results - Last 24 Hours (Table) 11/19/24 11/19/24 11/19/24 Range/Units 05:53 11:48 16:53 WBC (3.8-10.6) k/uL RBC (4.30-5.90) m/uL Hgb (13.0-17.5) gm/dL Hct (39.0-53.0) % MCHC (31.0-37.0) g/dL RDW (11.5-15.5) % Sodium (137-145) mmol/L Potassium (3.5-5.1) mmol/L Carbon Dioxide (22-30) mmol/L Creatinine (0.66-1.25) mg/dL Glucose (74-99) mg/dL POC Glucose (mg/dL) 240 H 157 H (70-110) mg/dL Calcium (8.4-10.2) mg/dL Phosphorus (2.5-4.5) mg/dL Total Protein (6.3-8.2) g/dL Albumin (3.5-5.0) g/dL Triglycerides 239.00 H (0.00-149.00) mg/dL 11/19/24 11/20/24 11/20/24 Range/Units 23:24 04:35 04:35 WBC 14.5 H (3.8-10.6) k/uL RBC 3.42 L (4.30-5.90) m/uL Hgb 9.0 L (13.0-17.5) gm/dL Hct 29.7 L (39.0-53.0) % MCHC 30.1 L (31.0-37.0) g/dL RDW 18.2 H (11.5-15.5) % Sodium 136 L (137-145) mmol/L Potassium 2.8 L (3.5-5.1) mmol/L Carbon Dioxide 31 H (22-30) mmol/L Creatinine 0.41 L (0.66-1.25) mg/dL Glucose 125 H (74-99) mg/dL POC Glucose (mg/dL) 151 H (70-110) mg/dL Calcium 7.1 L (8.4-10.2) mg/dL Phosphorus 2.1 L (2.5-4.5) mg/dL Total Protein 3.9 L (6.3-8.2) g/dL Albumin 1.8 L (3.5-5.0) g/dL Triglycerides (0.00-149.00) mg/dL 11/20/24 Range/Units 06:08 WBC (3.8-10.6) k/uL RBC (4.30-5.90) m/uL Hgb (13.0-17.5) gm/dL Hct (39.0-53.0) % MCHC (31.0-37.0) g/dL RDW (11.5-15.5) % Sodium (137-145) mmol/L Potassium (3.5-5.1) mmol/L Carbon Dioxide (22-30) mmol/L Creatinine (0.66-1.25) mg/dL Glucose (74-99) mg/dL POC Glucose (mg/dL) 147 H (70-110) mg/dL Calcium (8.4-10.2) mg/dL Phosphorus (2.5-4.5) mg/dL Total Protein (6.3-8.2) g/dL Albumin (3.5-5.0) g/dL Triglycerides (0.00-149.00) mg/dL Microbiology - Last 24 Hours (Table) 11/16/24 19:37 Gram Stain - Preliminary Other - Other Wound Culture - Preliminary Group D Enterococcus Ilda albicans 11/16/24 19:37 Gram Stain - Preliminary Peritoneal Fluid Body Fluid Culture - Preliminary Group D Enterococcus Ilda albicans Gram Neg Bacilli 11/16/24 19:37 Gram Stain - Preliminary Other - Other Body Fluid Culture - Preliminary Gram Neg Bacilli Group D Enterococcus Ilda albicans 11/16/24 19:37 Anaerobic Culture - Preliminary Other - Other 11/16/24 19:37 Anaerobic Culture - Preliminary Peritoneal Fluid 11/16/24 19:37 Anaerobic Culture - Preliminary Other - Other 11/16/24 19:37 Anaerobic Culture - Preliminary Perineal Fluid 11/16/24 19:37 Gram Stain - Preliminary Other - Other Wound Culture - Preliminary Group D Enterococcus 11/17/24 08:56 Gram Stain - Final Sputum Sputum Culture - Final
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
[2024-11-20 16:59] LABS: Glucose,Whole Blood 180 mg/dL (70-110)
[2024-11-20] MEDS: POTASSIUM CHLORIDE ER 20 MEQ TAB.ER PO SCH ×2 (17:03→22:29)
--- NOTE | 2024-11-20 18:34 | P.PN ---
Subjective Progress Note Date: 11/20/24 Pt seen in ICU, he has been extubated. Reporting feeling improved today. Hgb stable at 9.0. Objective - Vital Signs Vital signs: Vital Signs Temp 98.6 F 11/20/24 06:00 Pulse 86 11/20/24 09:00 Resp 18 11/20/24 09:00 BP 133/78 11/20/24 09:00 Pulse Ox 95 11/20/24 09:00 FiO2 40 11/18/24 08:16 Intake & Output 11/19/24 11/20/24 11/20/24 18:59 06:59 18:59 Intake Total 1660 2976 159 Output Total 3280 1951 425 Balance -1620 1025 -266 Weight 75.6 kg Intake: IV 1660 2176 159 Fluconazole in NaCl,Iso- 100 Osm 200 mg In Saline 1 100ml.bag @ 100 mls/hr IVPB DAILY@1400 [facility] Rx#: [id number] KVO 330 90 Lactated Ringers 1,000 ml 370 20 @ 20 mls/hr IV .Q24H [facility] Rx#:[id number] Magnesium Sulfate-D5w Pmx 100 100 1 gm In Dextrose/Water 1 100ml.bag @ 100 mls/hr IVPB ONCE ONE Rx#: [id number] Mvi, Adult No.4 with Vit 360 690 60 K 10 ml Trace (Conc-1Ml/ Dose) 1 ml In Amino Acid 5%-D20w+Lytes*E* 1,000 ml @ 30 mls/hr IV .Q24H [facility] Rx#:[id number] Potassium Chloride 20 meq 100 300 In Water For Injection 1 100ml.bag @ 50 mls/hr IVPB Q2H [facility] Rx#: [id number] Pressure bag 30 36 9 Vancomycin 1,500 mg In 500 500 Sodium Chloride 0.9% 500 ml 500 ml @ 167 mls/hr IVPB ONCE ONE Rx#: [id number] metroNIDAZOLE-NS PMX 500 100 200 mg In Saline 1 100ml.bag @ 100 mls/hr IVPB Q8H [facility] Rx#:[id number] Intake, IV Titration 200 Amount Cefepime 2 gm In Sodium 200 Chloride 0.9% 100 ml @ 25 mls/hr IVPB Q8H [facility] Rx#: [id number] Oral 600 Output: Drainage 30 61 0 Left Abdomen 20 43 0 Right Abdomen 10 18 0 Urine 3000 1140 75 Stool 250 750 350 Other: Voiding Method Indwelling Catheter Indwelling Catheter Indwelling Catheter ABP, PAP, CO, CI - Last Documented Arterial Blood Pressure 81/61 - Constitutional General appearance: Present: average body habitus, no acute distress - EENT Eyes: Present: anicteric sclerae, EOMI ENT: Present: hearing grossly normal - Respiratory Details: breathing is even and unlabored - Cardiovascular Details: skin warm and dry - Integumentary Integumentary: Absent: cyanotic, jaundiced - Musculoskeletal Musculoskeletal: Present: generalized weakness - Psychiatric Psychiatric: Present: A&O x's 3 - Labs CBC & Chem 7: 11/20/24 04:35 11/20/24 14:42 Labs: Abnormal Lab Results - Last 24 Hours (Table) 11/19/24 11/19/24 11/19/24 Range/Units 05:53 11:48 16:53 WBC (3.8-10.6) k/uL RBC (4.30-5.90) m/uL Hgb (13.0-17.5) gm/dL Hct (39.0-53.0) % MCHC (31.0-37.0) g/dL RDW (11.5-15.5) % Sodium (137-145) mmol/L Potassium (3.5-5.1) mmol/L Carbon Dioxide (22-30) mmol/L Creatinine (0.66-1.25) mg/dL Glucose (74-99) mg/dL POC Glucose (mg/dL) 240 H 157 H (70-110) mg/dL Calcium (8.4-10.2) mg/dL Phosphorus (2.5-4.5) mg/dL Total Protein (6.3-8.2) g/dL Albumin (3.5-5.0) g/dL Triglycerides 239.00 H (0.00-149.00) mg/dL 11/19/24 11/20/24 11/20/24 Range/Units 23:24 04:35 04:35 WBC 14.5 H (3.8-10.6) k/uL RBC 3.42 L (4.30-5.90) m/uL Hgb 9.0 L (13.0-17.5) gm/dL Hct 29.7 L (39.0-53.0) % MCHC 30.1 L (31.0-37.0) g/dL RDW 18.2 H (11.5-15.5) % Sodium 136 L (137-145) mmol/L Potassium 2.8 L (3.5-5.1) mmol/L Carbon Dioxide 31 H (22-30) mmol/L Creatinine 0.41 L (0.66-1.25) mg/dL Glucose 125 H (74-99) mg/dL POC Glucose (mg/dL) 151 H (70-110) mg/dL Calcium 7.1 L (8.4-10.2) mg/dL Phosphorus 2.1 L (2.5-4.5) mg/dL Total Protein 3.9 L (6.3-8.2) g/dL Albumin 1.8 L (3.5-5.0) g/dL Triglycerides (0.00-149.00) mg/dL 11/20/24 Range/Units 06:08 WBC (3.8-10.6) k/uL RBC (4.30-5.90) m/uL Hgb (13.0-17.5) gm/dL Hct (39.0-53.0) % MCHC (31.0-37.0) g/dL RDW (11.5-15.5) % Sodium (137-145) mmol/L Potassium (3.5-5.1) mmol/L Carbon Dioxide (22-30) mmol/L Creatinine (0.66-1.25) mg/dL Glucose (74-99) mg/dL POC Glucose (mg/dL) 147 H (70-110) mg/dL Calcium (8.4-10.2) mg/dL Phosphorus (2.5-4.5) mg/dL Total Protein (6.3-8.2) g/dL Albumin (3.5-5.0) g/dL Triglycerides (0.00-149.00) mg/dL Microbiology - Last 24 Hours (Table) 11/16/24 19:37 Gram Stain - Preliminary Other - Other Wound Culture - Preliminary Group D Enterococcus Ilda albicans 11/16/24 19:37 Gram Stain - Preliminary Peritoneal Fluid Body Fluid Culture - Preliminary Group D Enterococcus Ilda albicans Gram Neg Bacilli 11/16/24 19:37 Gram Stain - Preliminary Other - Other Body Fluid Culture - Preliminary Gram Neg Bacilli Group D Enterococcus Ilda albicans 11/16/24 19:37 Anaerobic Culture - Preliminary Other - Other 11/16/24 19:37 Anaerobic Culture - Preliminary Peritoneal Fluid 11/16/24 19:37 Anaerobic Culture - Preliminary Other - Other 11/16/24 19:37 Anaerobic Culture - Preliminary Perineal Fluid 11/16/24 19:37 Gram Stain - Preliminary Other - Other Wound Culture - Preliminary Group D Enterococcus 11/17/24 08:56 Gram Stain - Final Sputum Sputum Culture - Final Assessment and Plan (1) Iron deficiency anemia Current Visit: Yes Status: Acute Code(s): D50.9 - IRON DEFICIENCY ANEMIA, UNSPECIFIED SNOMED Code(s): 42058451 (2) Leukocytosis Current Visit: Yes Status: Acute Code(s): D72.829 - ELEVATED WHITE BLOOD CELL COUNT, UNSPECIFIED SNOMED Code(s): 155629190 (3) Mass of colon Current Visit: Yes Status: Acute Code(s): K63.89 - OTHER SPECIFIED DISEASES OF INTESTINE SNOMED Code(s): 093137726 (4) Reactive thrombocytosis Current Visit: Yes Status: Acute Code(s): D75.838 - OTHER THROMBOCYTOSIS SNOMED Code(s): 836780068 (5) Small bowel obstruction Current Visit: Yes Status: Acute Code(s): K56.609 - UNSP INTESTNL OBST, UNSP TO PARTIAL VERSUS COMPLETE OBST SNOMED Code(s): 805280450 Plan: #Sigmoid colon mass -Noted to be present during surgical repair of incarcerated hernia resulting in small bowel obstruction -CT abdomen/pelvis on 11/08/2024 noted no findings concerning for metastatic disease -This finding combined with the iron deficiency does raise the concern for p rimary colon cancer -CEA elevated at 8.9, CA 19-9 WNL -CT of the chest with IV contrast ordered to complete staging workup. Scan revealed non-specific 4mm groundglass nodule in left lung apex, and few scattered micronodules. Will plan to obtain PET CT in outpt setting to further evaluate -Sigmoidoscopy showing tubular adenoma with near obstruction of sigmoid colon. S/p extensive open abdominal surgery -Initial pathology negative for malignancy. Surgical pathology form 11/17 pending. -Discussed with patient that any treatment if malignancy is confirmed would not be for 4-6 s/p surgery to allow adequate time for recovery. Clinic f/u will be scheduled upon discharge Discussed findings and POC with patient. All questions and concerns were addressed #Iron deficiency anemia -Noted to have borderline microcytic anemia on admission -Iron studies on 11/10/2023 revealed ferritin of 275 with iron saturation 8.83% -Likely due to impaired absorption from incarcerated hernia in addition to possible colon cancer -IV iron has been given. Folic acid deficiency also noted, supplementation started -Continue to closely monitor CBC
[2024-11-20 20:19] LABS: Glucose,Whole Blood 168 mg/dL (70-110)
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
[2024-11-21 00:04] LABS: Glucose,Whole Blood 184 mg/dL (70-110)
[2024-11-21 06:05] LABS: Glucose,Whole Blood 158 mg/dL (70-110)
[2024-11-21 08:02] LABS: ALT 22 U/L (4-49); AST 44 U/L (17-59); African American GFR (CKD) >90 (>60 ml/min/1.73 sqM); Albumin 1.9 g/dL (3.5-5.0); Alkaline Phosphatase 60 U/L (38-126); Anion Gap 3 mmol/L; Blood Urea Nitrogen 10 mg/dL (9-20); Calcium 6.8 mg/dL (8.4-10.2); Carbon Dioxide 30 mmol/L (22-30); Chloride 100 mmol/L (98-107); Glucose 115 mg/dL (74-99); Magnesium 1.9 mg/dL (1.6-2.3); Non-African American GFR(CKD) >90 (>60 ml/min/1.73 sqM); Phosphorus 1.8 mg/dL (2.5-4.5); Potassium 3.6 mmol/L (3.5-5.1); Sodium 133 mmol/L (137-145); Total Bilirubin 0.4 mg/dL (0.2-1.3); Total Protein 4.1 g/dL (6.3-8.2)
[2024-11-21] MEDS: VANCOMYCIN TROUGH DUE 1 EACH MISC MISCELLANE ONE (11:31)
[2024-11-21 11:39] LABS: Glucose,Whole Blood 210 mg/dL (70-110)
--- NOTE | 2024-11-21 12:44 | P.PN ---
Subjective 54-year-old male patient with no significant past medical history, presenting today for left lower quadrant sharp abdominal pain. Patient states this pain has been intermittent over the last 2 weeks. More persistent today, uncontrolled with 800 mg of ibuprofen or Pepcid. Patient endorses abdominal swelling and firmness over this time as well. He states he has had a left inguinal hernia "for a while" and the pain is not located over the region of the hernia. He denies fevers or chills, denies shortness of breath or chest pain, endorses nausea and today had 2 episodes of nonbloody nonbilious emesis. States he has intermittent brown stools sometimes with small streaks of blood no melena. No history of prior abdominal surgeries. Denies dysuria, hematuria or urinary frequency. No history of cancers in himself or family members. Patient has no other medical history. He does not drink alcohol or smoke cigarettes. Blood work completed in ED reveals a WBC of 15.1, hemoglobin of 10.9 and platelet count of 682, sodium 135, potassium 4.1, BUNs/creatinine of 18/0.71 and blood glucose of 126, lactic acid level of 1.1 CT of the abdomen and pelvis completed with contrast reveals left inguinal hernia extending into the scrotum containing nondilated small bowel loops. Multiple markedly enlarged small bowel loops proximal to the hernia consistent with small bowel obstruction. 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 He is currently sitting up in bed. Awake and alert in no acute distress. - CT scan of the pelvis today reveals a fistula tract extending from the anterior wall of the sigmoid colon proximally and what appeared to be small bowel loops. Possible abscess in the midline pelvis. Droplets of free intraper itoneal air either postsurgical or indicative of bowel perforation. Edema formation within the mesenteric infectious or postsurgical in nature. Resolution of the bowel within the left inguinal hernia and resolution of the previous bowel obstruction. Lab review shows White count 26.4. Hemoglobin 10.3. Platelets 512. Sodium 132. Potassium 3.6. Bicarb 26. BUN 7. Creatinine 0.6. Glucose 103. He remains on cefepime and Flagyl. Normal saline at 80 mL/h. Morphine and Dilaudid for pain control. Lovenox for DVT prophylaxis. -Surgery recommending EGD and colonoscopy with biopsies given sigmoid colon mass and iron deficiency anemia 11/13--patient was seen and examined today. Abdominal pain is better, reported bowel movement, underwent EGD today which showed hiatal hernia, Hill grade 3 low esophageal valve, LA grade C erosive esophagitis, 2 cm linear lesions, chronic gastritisbiopsies taken. Colonoscopy today showed internal/external hemorrhoids, obstructive sigmoid colon mass, showed polyps. General surgery following, plan for urgent colectomy due to bowel obstruction from likely malignant sigmoid colon mass. 11/14--patient was seen and examined today. Passing flatus, reported small bowel movement. Afebrile, heart rate 117, respiratory rate 17, blood pressure 110/71, saturating 93% on room air. WBCs 10.4, hemoglobin 12.4, platelet 490. Sodium 134, potassium 4.0, chloride 99, CO2 23.1, BUN 7.8, creatinine 0.5. Infectious disease consulted and following, on cefepime and Flagyl. 11/15--patient was seen and examined today. No issues overnight.Patient is afebrile, tachycardic with heart rate 104, will start on low-dose beta-ramin, respiratory rate 17, blood pressure 135/90, saturating 93% on room air. WBCs 24.0, hemoglobin 10.1, platelet 418. Sodium 134 potassium 3.2 chloride 102 BUN 15 creatinine 0.54. Infectious is consulted and following, currently on cefepime and Flagyl. 11/16--patient was seen and examined today. No issues overnight. Patient is afebrile, heart rate better 71, respiratory rate 18, blood pressure 145/95, saturating 94% on room air. WBCs 25.7, hemoglobin 9.3, platelet 393 sodium 132 potassium 2.8, 3.5 peripheral replacement, BUN 13, creatinine 0.46. Liver profile unremarkable. Potassium was low, replaced. Currently on cefepime and Flagyl. PICC line in place. Infectious disease following. General surgery planning for OR for sigmoid colectomy today. 11/17--patient was transferred to ICU from the OR yesterday due to septic shock, was intubated, currently on mechanical ventilation. ICU consulted and following. General surgery following. On IV fluids, on antibiotics cefepime and Flagyl. 11/18. Patient seen and examined. Blood work done today showed WBC 18.4, hemoglobin 9.2, platelet count 308, sodium 130, potassium 4.2, BUN 22, creatinine 0.93, calcium 7.3, phosphorus 2.4 AST 60, ALT 17. Patient was ex tubated this morning, currently on nasal cannula oxygen at 3 L 11/19. Patient seen and examined. States he feels much better. Labs on this morning showed WBC 18.9, hemoglobin 9, platelet count 296, sodium 137 potassium 3.3, BUN 14, creatinine 0.41 11/20. Patient seen and examined. States he feels better. Currently on 2 L of oxygen. Continues to be on TPN. ID following, keeping patient on cefepime, Flagyl, fluconazole, vancomycin for now. Patient being transferred out of ICU 11/21 Patient tolerates diet well Getting TPN Abdominal wound closed Drain is empty [place] catheter in place He had several bowel movement in his left lower colostomy bag he emptied it 5 times and the color of the stool is light brown. No other new complaint GI biopsy: duodenal biopsy no significant abnormality, stomach biopsy benign mucosa with focal congestion and negative for H. pylori. Esophageal biopsy C: G landular junctional mucosa with goblet cell interstitial metaplasia compatible with Waller's esophagus. Negative for dysplasia. Rectal biopsy limited to specimen. Sigmoid mass. Villous adenomatous tissue with prolapse change and low-grade dysplasia. Current specimen nondiagnostic for high-grade dysplasia or invasive carcinoma Active Medications Generic Name Dose Route Start Last Admin Trade Name Freq PRN Reason Stop Dose Admin Albuterol Sulfate 2.5 mg 11/11/24 13:29 11/18/24 08:14 Albuterol Nebulized 2.5 Mg/3 Ml INHALATION 2.5 mg RT-QID PRN Administration Shortness Of Breath Or Wheezing Benzocaine 1 each 11/10/24 17:08 Benzocaine [place] 1 Each MUCOUS MEM QID PRN Mouth Irritation Dextrose/Water 25 ml 11/18/24 18:22 Dextrose 50% Syringe 50 Ml IVP PER PROTOCOL PRN Hypoglycemia Protocol Dextrose/Water 50 ml 11/18/24 18:22 Dextrose 50% Syringe 50 Ml IVP PER PROTOCOL PRN Hypoglycemia Protocol Diphenhydramine HCl 25 mg 11/09/24 09:55 Diphenhydramine 50 Mg/Ml 1 Ml Vial IVP Q6HR PRN Allergy Symptoms Enoxaparin Sodium 30 mg 11/10/24 06:13 11/21/24 06:22 Enoxaparin 30 Mg/0.3 Ml Syringe SQ 30 mg Q24H YI Administration Folic Acid 1 mg 11/12/24 12:15 11/21/24 09:40 Folic Acid 1 Mg Tab PO 1 mg DAILY YI Administration Hydromorphone HCl 1 mg 11/17/24 18:58 11/19/24 21:05 Hydromorphone 2 Mg/Ml 1 Ml Syringe IVP 1 mg Q4HR PRN Administration Severe Pain (Scale 7 to 10) Metronidazole 500 mg/ IV 100 mls @ 100 mls/hr 11/09/24 21:00 11/21/24 12:42 Solution IVPB 100 mls/hr Q8H YI Administration Protocol Cefepime HCl 2 gm/ Sodium 100 mls @ 25 mls/hr 11/13/24 14:00 11/21/24 06:22 Chloride IVPB 25 mls/hr Q8H YI Administration Lactated Ringer's 1,000 mls @ 20 mls/hr 11/17/24 10:00 11/20/24 11:43 Lactated Ringers IV 20 mls/hr .Q24H YI Administration Fat Emulsion Intravenous 250 mls @ 20.833 mls/hr 11/18/24 14:00 11/18/24 16:02 Lipids 20% IV 20.833 mls/hr Q72H YI Administration Fluconazole/Sodium Chloride 100 mls @ 100 mls/hr 11/19/24 14:00 11/20/24 17:14 200 mg/ IV Solution IVPB 100 mls/hr DAILY@1400 YI Administration Protocol Vancomycin HCl 1,250 mg/ 250 mls @ 125 mls/hr 11/20/24 00:00 11/21/24 09:39 Sodium Chloride IVPB 125 mls/hr Q8HR YI Administration Parenteral Vitamin Supplement 1,069 mls @ 60 mls/hr 11/20/24 10:00 11/21/24 03:46 10 ml/ Zinc/Copper/Manganese/ IV 60 mls/hr Selenium 1 ml/ Sodium Acetate .[id number] YI Administration 20 meq/ Potassium Phosphate 15 mmol/ Potassium Chloride 60 meq/ Magnesium Sulfate 1.5 gm/ Calcium Gluconate 1 gm/ Amino Acids/Dextrose Sodium Phosphate 30 mmol/ 260 mls @ 65 mls/hr 11/21/24 12:00 Dextrose/Water IVPB 11/21/24 15:59 ONCE ONE Insulin Human Lispro 0 unit 11/19/24 00:00 11/21/24 12:43 Insulin Lispro (Humalog) 100 Unit/Ml 10 Ml Vl SQ 4 unit Q6HR YI Administration Protocol Ketorolac Tromethamine 15 mg 11/20/24 12:00 11/21/24 12:42 Ketorolac 15 Mg/Ml 1 Ml Vial IVP 11/25/24 10:33 15 mg Q6HR YI Administration Metoclopramide HCl 10 mg 11/11/24 09:00 11/21/24 09:40 Metoclopramide 5 Mg/Ml 2 Ml Vial IVP 10 mg Q6H YI Administration Miscellaneous Information 1 each 11/16/24 21:41 Magnesium Replacement Protocol 1 Each Misc MISCELLANE DAILY PRN Per Protocol Protocol Miscellaneous Information 1 each 11/16/24 21:41 Phosphorus Replacement Protoco 1 Each Misc MISCELLANE DAILY PRN Per Protocol Protocol Miscellaneous Information 1 each 11/20/24 05:26 Potassium Replacement Protocol 1 Each Misc MISCELLANE DAILY PRN Per Protocol Protocol Naloxone HCl 0.2 mg 11/08/24 15:04 Naloxone 0.4 Mg/Ml 1 Ml Vial IV Q2M PRN Opioid Reversal Ondansetron HCl 4 mg 11/10/24 11:58 11/16/24 10:19 Ondansetron 4 Mg/2 Ml Vial IVP 4 mg Q6HR PRN Administration Nausea And Vomiting Pantoprazole Sodium 40 mg 11/09/24 09:00 11/21/24 09:40 Pantoprazole 40 Mg/10 Ml Vial IV 40 mg DAILY YI Administration Simethicone 40 mg 11/09/24 18:00 11/21/24 12:43 Simethicone 40 Mg/0.6 Ml Drops 2,000 Mg/30 Ml Bottle PO 40 mg QID YI Administration Objective - Vital Signs Vital signs: Vital Signs Temp 98.2 F 11/21/24 07:45 Pulse 92 11/21/24 08:00 Resp 16 11/21/24 08:00 BP 144/78 11/21/24 07:45 Pulse Ox 95 11/21/24 07:45 FiO2 40 11/18/24 08:16 Intake & Output 11/20/24 11/21/24 11/21/24 18:59 06:59 18:59 Intake Total 359 2149 240 Output Total 1725 2000 800 Balance -1366 149 -560 Weight 75.6 kg 77 kg Intake: IV 159 KVO 90 Mvi, Adult No.4 with Vit 60 K 10 ml Trace (Conc-1Ml/ Dose) 1 ml In Amino Acid 5%-D20w+Lytes*E* 1,000 ml @ 30 mls/hr IV .Q24H [facility] Rx#:[id number] Pressure bag 9 Intake, IV Titration 1069 Amount Mvi, Adult No.4 with Vit 1069 K 10 ml Trace (Conc-1Ml/ Dose) 1 ml Sodium Acetate 20 meq Potassium Phosphate 15 mmol Potassium Chloride 60 meq Magnesium Sulfate gm 1.5 gm Calcium Gluconate 1 gm In Amino Acids 5 %/ Dextrose 20 % 1,000 ml @ 60 mls/hr IV .[id number] [facility] Rx#:[id number] Oral 200 1080 240 Output: Drainage 0 Left Abdomen 0 Right Abdomen 0 Urine 575 1550 800 Stool 1150 450 Other: Voiding Method Indwelling Catheter Indwelling Catheter ABP, PAP, CO, CI - Last Documented Arterial Blood Pressure 81/61 - Exam GENERAL: The patient is alert and oriented x3, not in any acute distress. Well developed, well nourished. HEENT: Pupils are round and equally reacting to light. EOMI. No scleral icterus. No conjunctival pallor. Normocephalic, atraumatic. No pharyngeal erythema. No thyromegaly. CARDIOVASCULAR: S1 and S2 present. No murmurs, rubs, or gallops. PULMONARY: Chest is clear to auscultation, no wheezing , no crackles. -ABDOMEN: Soft, nontender, nondistended, normoactive bowel sounds. No palpable organomegaly. Puncture surgical wounds are closed. Left lower quadrant colostomy bag in place. JOHNNY drain in place MUSCULOSKELETAL: No joint swelling or deformity. EXTREMITIES: No cyanosis, clubbing, or pedal edema. NEUROLOGICAL: Gross neurological examination did not reveal any focal deficits. SKIN: No rashes. no petechiae. - Labs CBC & Chem 7: 11/20/24 04:35 11/21/24 06:38 Labs: Abnormal Lab Results - Last 24 Hours (Table) 11/20/24 11/20/24 11/20/24 Range/Units 14:42 16:58 20:17 Sodium (137-145) mmol/L Potassium 2.7 L* (3.5-5.1) mmol/L Creatinine (0.66-1.25) mg/dL Glucose (74-99) mg/dL POC Glucose (mg/dL) 180 H 168 H (70-110) mg/dL Calcium (8.4-10.2) mg/dL Phosphorus (2.5-4.5) mg/dL Total Protein (6.3-8.2) g/dL Albumin (3.5-5.0) g/dL 11/21/24 11/21/24 11/21/24 Range/Units 00:01 06:02 06:38 Sodium 133 L (137-145) mmol/L Potassium (3.5-5.1) mmol/L Creatinine 0.34 L (0.66-1.25) mg/dL Glucose 115 H (74-99) mg/dL POC Glucose (mg/dL) 184 H 158 H (70-110) mg/dL Calcium 6.8 L (8.4-10.2) mg/dL Phosphorus 1.8 L (2.5-4.5) mg/dL Total Protein 4.1 L (6.3-8.2) g/dL Albumin 1.9 L (3.5-5.0) g/dL 11/21/24 Range/Units 11:38 Sodium (137-145) mmol/L Potassium (3.5-5.1) mmol/L Creatinine (0.66-1.25) mg/dL Glucose (74-99) mg/dL POC Glucose (mg/dL) 210 H (70-110) mg/dL Calcium (8.4-10.2) mg/dL Phosphorus (2.5-4.5) mg/dL Total Protein (6.3-8.2) g/dL Albumin (3.5-5.0) g/dL Microbiology - Last 24 Hours (Table) 11/16/24 19:37 Anaerobic Culture - Final Perineal Fluid Anaerobic Gm Negative Bacilli 11/16/24 19:37 Anaerobic Culture - Final Other - Other Clostridium difficile Anaerobic Gm Negative Bacilli Anaerobic Gm Negative Bacilli#2 Anaerobic Gm Negative Bacilli#3 11/16/24 19:37 Anaerobic Culture - Final Peritoneal Fluid 11/16/24 19:37 Anaerobic Culture - Final Other - Other 11/16/24 19:37 Gram Stain - Preliminary Peritoneal Fluid Body Fluid Culture - Preliminary Group D Enterococcus Ilda albicans Gram Neg Bacilli 11/16/24 19:37 Gram Stain - Preliminary Other - Other Body Fluid Culture - Preliminary Escherichia coli Group D Enterococcus Ilda albicans Assessment and Plan Assessment: Obstructing sigmoid colon mass,Small and large bowel obstruction status post resection with primary anastomosis. colonoscopy report: "Circumferential obstruc tive fungating mass" . 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 abscess Waller's esophagus Septic shock, resolved Incarcerated left inguinal hernias/p robotic assisted laparoscopic repair of left inguinal hernia, small bowel resection with primary anastomosis 11/10 11/16--s/p extensive lysis of adhesions, drainage of peritoneal abscess and subtotal colectomy of large bowel ischemia with perforation Acute hypoxic respiratory failure requiring intubation mechanical ventilation Leukocytosis Chronic anemia Plan: Continue with antibiotic, currently on IV Flagyl cefepime fluconazole and vancomycin Continue TPN General Surgery primary team following closely Pulmonary and ID team following closely Labs and medication were reviewed.. Continue same treatment. Continue with symptomatic treatment. Resume home medication. Monitor labs and vitals. DVT and GI prophylaxis. Further recommendations as per clinical course of the patient DVT prophylaxis: Subcutaneous Lovenox GI Prophylaxis: Protonix Prognosis is guarded
--- NOTE | 2024-11-21 13:19 | P.PN ---
Subjective Progress Note Date: 11/21/24 CHIEF COMPLAINT: Sigmoid colon mass HISTORY OF PRESENT ILLNESS: The patient is a 54-year-old male status post left inguinal hernia repair on 11/10/2024 followed by open laparotomy, extensive lysis of adhesions, drainage of peritoneal and pelvic abscess, transverse colostomy, with subtotal colectomy for large bowel ischemia with perforation, 11/16/2024. Patient transferred out of the ICU to cardiac floor. He is tolerating the regular diet. He ate half his eggs and a pancake this morning. His colostomy is functioning. JOHNNY drain x 2 with serous output PHYSICAL EXAM: VITAL SIGNS: Reviewed GENERAL: Well-developed in no acute distress. HEENT: No sclera icterus. Extraocular movements grossly intact. Moist buccal mucosa. Head is atraumatic, normocephalic. Hears conversational speech. No nasal dr ainage. NECK: Supple without lymphadenopathy. CHEST: Non-labored respirations and equal bilateral excursions. CARDIOVASCULAR: Palpable 2+ radial pulses. ABDOMEN: Soft. Nondistended. Prevena wound VAC intact. Ostomy with stool present. JOHNNY drain serous MUSCULOSKELETAL: No clubbing or cyanosis. NEUROLOGIC: No focal or lateralizing signs. Cranial nerves II through XII grossly intact. PSYCH: Appropriate affect. Alert and oriented to person, place and time. SKIN: Well perfused. Good skin turgor. ASSESSMENT: 1. 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 Left inguinal hernia 3. High risk malignancy 4. Hyponatremia 5. Emphysema with COPD, new 6. Thyroid nodule, left, new 7. Elevated CEA 8. Iron deficiency anemia 9. Sigmoid colon malignancy with obstruction 10. Persistent hypokalemia 11. Large bowel infarction, transverse colon, descending and sigmoid colon 12. Fecal peritonitis with pelvic abscess status post drainage 13. Septic shock 14. Severe protein malnutrition 15. Candidiasis peritonitis PLAN: - Patient is tolerating regular diet. Wean off TPN today - Continue po Tylenol and Toradol for pain management - Encourage patient increase activity level - Encourage patient to use incentive spirometer - DVT prophylaxis Lovenox and GI prophylaxis Protonix Physician Vegetable Thinner note has been reviewed by physician. Signing provider agrees with the documented findings, assessment, and plan of care. Objective - Vital Signs Vital signs: Vital Signs Temp 98.1 F 11/21/24 08:50 Pulse 93 11/21/24 08:50 Resp 16 11/21/24 08:50 BP 130/79 11/21/24 08:50 Pulse Ox 94 L 11/21/24 08:50 FiO2 40 11/18/24 08:16 Intake & Output 11/20/24 11/21/24 11/21/24 18:59 06:59 18:59 Intake Total 359 2149 240 Output Total 1725 2000 800 Balance -1366 149 -560 Weight 75.6 kg 77 kg Intake: IV 159 KVO 90 Mvi, Adult No.4 with Vit 60 K 10 ml Trace (Conc-1Ml/ Dose) 1 ml In Amino Acid 5%-D20w+Lytes*E* 1,000 ml @ 30 mls/hr IV .Q24H [facility] Rx#:[id number] Pressure bag 9 Intake, IV Titration 1069 Amount Mvi, Adult No.4 with Vit 1069 K 10 ml Trace (Conc-1Ml/ Dose) 1 ml Sodium Acetate 20 meq Potassium Phosphate 15 mmol Potassium Chloride 60 meq Magnesium Sulfate gm 1.5 gm Calcium Gluconate 1 gm In Amino Acids 5 %/ Dextrose 20 % 1,000 ml @ 60 mls/hr IV .[id number] [facility] Rx#:[id number] Oral 200 1080 240 Output: Drainage 0 Left Abdomen 0 Right Abdomen 0 Urine 575 1550 800 Stool 1150 450 Other: Voiding Method Indwelling Catheter Indwelling Catheter ABP, PAP, CO, CI - Last Documented Arterial Blood Pressure 81/61 - Labs CBC & Chem 7: 11/20/24 04:35 11/21/24 06:38 Labs: Abnormal Lab Results - Last 24 Hours (Table) 11/20/24 11/20/24 11/20/24 Range/Units 14:42 16:58 20:17 Sodium (137-145) mmol/L Potassium 2.7 L* (3.5-5.1) mmol/L Creatinine (0.66-1.25) mg/dL Glucose (74-99) mg/dL POC Glucose (mg/dL) 180 H 168 H (70-110) mg/dL Calcium (8.4-10.2) mg/dL Phosphorus (2.5-4.5) mg/dL Total Protein (6.3-8.2) g/dL Albumin (3.5-5.0) g/dL 11/21/24 11/21/24 11/21/24 Range/Units 00:01 06:02 06:38 Sodium 133 L (137-145) mmol/L Potassium (3.5-5.1) mmol/L Creatinine 0.34 L (0.66-1.25) mg/dL Glucose 115 H (74-99) mg/dL POC Glucose (mg/dL) 184 H 158 H (70-110) mg/dL Calcium 6.8 L (8.4-10.2) mg/dL Phosphorus 1.8 L (2.5-4.5) mg/dL Total Protein 4.1 L (6.3-8.2) g/dL Albumin 1.9 L (3.5-5.0) g/dL 11/21/24 Range/Units 11:38 Sodium (137-145) mmol/L Potassium (3.5-5.1) mmol/L Creatinine (0.66-1.25) mg/dL Glucose (74-99) mg/dL POC Glucose (mg/dL) 210 H (70-110) mg/dL Calcium (8.4-10.2) mg/dL Phosphorus (2.5-4.5) mg/dL Total Protein (6.3-8.2) g/dL Albumin (3.5-5.0) g/dL Microbiology - Last 24 Hours (Table) 11/16/24 19:37 Anaerobic Culture - Final Perineal Fluid Anaerobic Gm Negative Bacilli 11/16/24 19:37 Anaerobic Culture - Final Other - Other Clostridium difficile Anaerobic Gm Negative Bacilli Anaerobic Gm Negative Bacilli#2 Anaerobic Gm Negative Bacilli#3 11/16/24 19:37 Anaerobic Culture - Final Peritoneal Fluid 11/16/24 19:37 Anaerobic Culture - Final Other - Other 11/16/24 19:37 Gram Stain - Preliminary Peritoneal Fluid Body Fluid Culture - Preliminary Group D Enterococcus Ilda albicans Gram Neg Bacilli 11/16/24 19:37 Gram Stain - Preliminary Other - Other Body Fluid Culture - Preliminary Escherichia coli Group D Enterococcus Ilda albicans
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
[2024-11-21] MEDS: ACETAMINOPHEN TAB 500 MG TAB PO SCH ×2 (15:03→20:42)
[2024-11-21] MEDS: SODIUM PHOSPHATE 30 MMOL in DEXTROSE 5% IN WATER 250 ML IVPB ONE (15:07)
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
[2024-11-21 16:42] LABS: Glucose,Whole Blood 159 mg/dL (70-110)
--- NOTE | 2024-11-21 23:09 | P.PN ---
Subjective Progress Note Date: 11/21/24 Principal diagnosis: SBO, mass In f/u pt reports he feels pretty good, he is tolerating oral intake, ostomy is functioning, passing stool, pain is managed, denies any gross bleeding. Objective - Vital Signs Vital signs: Vital Signs Temp 98.1 F 11/21/24 08:50 Pulse 93 11/21/24 08:50 Resp 16 11/21/24 08:50 BP 130/79 11/21/24 08:50 Pulse Ox 94 L 11/21/24 08:50 FiO2 40 11/18/24 08:16 Intake & Output 11/20/24 11/21/24 11/21/24 18:59 06:59 18:59 Intake Total 359 2149 240 Output Total 1725 2000 800 Balance -1366 149 -560 Weight 75.6 kg 77 kg Intake: IV 159 KVO 90 Mvi, Adult No.4 with Vit 60 K 10 ml Trace (Conc-1Ml/ Dose) 1 ml In Amino Acid 5%-D20w+Lytes*E* 1,000 ml @ 30 mls/hr IV .Q24H [facility] Rx#:[id number] Pressure bag 9 Intake, IV Titration 1069 Amount Mvi, Adult No.4 with Vit 1069 K 10 ml Trace (Conc-1Ml/ Dose) 1 ml Sodium Acetate 20 meq Potassium Phosphate 15 mmol Potassium Chloride 60 meq Magnesium Sulfate gm 1.5 gm Calcium Gluconate 1 gm In Amino Acids 5 %/ Dextrose 20 % 1,000 ml @ 60 mls/hr IV .[id number] [facility] Rx#:[id number] Oral 200 1080 240 Output: Drainage 0 Left Abdomen 0 Right Abdomen 0 Urine 575 1550 800 Stool 1150 450 Other: Voiding Method Indwelling Catheter Indwelling Catheter ABP, PAP, CO, CI - Last Documented Arterial Blood Pressure 81/61 - Constitutional General appearance: Present: cooperative, no acute distress, thin - EENT Eyes: Present: anicteric sclerae, EOMI ENT: Present: hearing grossly normal - Respiratory Details: resp unlabored at rest - Cardiovascular Details: skin warm, well perfused - Peripheral edema foot Peripheral Edema: bilateral: 1+ - Gastrointestinal General gastrointestinal: Present: decreased bowel sounds, soft - Neurologic Neurologic: Present: CNII-XII intact - Musculoskeletal Musculoskeletal: Present: generalized weakness - Psychiatric Psychiatric: Present: A&O x's 3, appropriate affect, intact judgment & insight - Labs CBC & Chem 7: 11/20/24 04:35 11/21/24 06:38 Labs: Abnormal Lab Results - Last 24 Hours (Table) 11/20/24 11/20/24 11/20/24 Range/Units 14:42 16:58 20:17 Sodium (137-145) mmol/L Potassium 2.7 L* (3.5-5.1) mmol/L Creatinine (0.66-1.25) mg/dL Glucose (74-99) mg/dL POC Glucose (mg/dL) 180 H 168 H (70-110) mg/dL Calcium (8.4-10.2) mg/dL Phosphorus (2.5-4.5) mg/dL Total Protein (6.3-8.2) g/dL Albumin (3.5-5.0) g/dL 11/21/24 11/21/24 11/21/24 Range/Units 00:01 06:02 06:38 Sodium 133 L (137-145) mmol/L Potassium (3.5-5.1) mmol/L Creatinine 0.34 L (0.66-1.25) mg/dL Glucose 115 H (74-99) mg/dL POC Glucose (mg/dL) 184 H 158 H (70-110) mg/dL Calcium 6.8 L (8.4-10.2) mg/dL Phosphorus 1.8 L (2.5-4.5) mg/dL Total Protein 4.1 L (6.3-8.2) g/dL Albumin 1.9 L (3.5-5.0) g/dL 11/21/24 Range/Units 11:38 Sodium (137-145) mmol/L Potassium (3.5-5.1) mmol/L Creatinine (0.66-1.25) mg/dL Glucose (74-99) mg/dL POC Glucose (mg/dL) 210 H (70-110) mg/dL Calcium (8.4-10.2) mg/dL Phosphorus (2.5-4.5) mg/dL Total Protein (6.3-8.2) g/dL Albumin (3.5-5.0) g/dL Microbiology - Last 24 Hours (Table) 11/16/24 19:37 Anaerobic Culture - Final Perineal Fluid Anaerobic Gm Negative Bacilli 11/16/24 19:37 Anaerobic Culture - Final Other - Other Clostridium difficile Anaerobic Gm Negative Bacilli Anaerobic Gm Negative Bacilli#2 Anaerobic Gm Negative Bacilli#3 11/16/24 19:37 Anaerobic Culture - Final Peritoneal Fluid 11/16/24 19:37 Anaerobic Culture - Final Other - Other 11/16/24 19:37 Gram Stain - Preliminary Peritoneal Fluid Body Fluid Culture - Preliminary Group D Enterococcus Ilda albicans Gram Neg Bacilli 11/16/24 19:37 Gram Stain - Preliminary Other - Other Body Fluid Culture - Preliminary Escherichia coli Group D Enterococcus Ilda albicans Assessment and Plan (1) Mass of colon Current Visit: Yes Status: Acute Priority: High Code(s): K63.89 - OTHER SPECIFIED DISEASES OF INTESTINE SNOMED Code(s): 609052949 (2) Iron deficiency anemia Current Visit: Yes Status: Acute Priority: High Code(s): D50.9 - IRON DEFICIENCY ANEMIA, UNSPECIFIED SNOMED Code(s): 91008846 Plan: Sigmoid colon mass -Noted to be present during surgical repair of incarcerated hernia resulting in small bowel obstruction. Sigmoidoscopy revealed tubular adenoma, near obstruction of sigmoid colon. S/P extensive open abdominal surgery. Pt is doing well post op, he has had stool in ostomy, he is starting to eat, TPN continues at this time. -CT abdomen/pelvis on 11/08/2024, no findings concerning for metastatic disease -CEA elevated only very slightly at 8.9, CA 19-9 WNL -CT of the chest with IV contrast reported non-specific 4mm ground glass nodule in left lung apex, and few scattered micro nodules. -Plan for PET CT after healed from surgery -Initial pathology negative for malignancy, peritonal fluid cytology neg for malignancy. Additional path pending Iron deficiency anemia -Microcytic anemia on admission -Iron studies on 11/10/2023 revealed ferritin of 275 with iron saturation 8.83% -Likely due to impaired absorption from incarcerated hernia and possible malignancy -IV iron given. Folic acid deficiency noted, supplementation started -Hgb has been stable. Will check CBC every few days Thrombocytosis-resolved -Likely reactive to iron deficiency and small bowel obstruction, plt have been normal on most recent CBC
[2024-11-22 00:04] LABS: Glucose,Whole Blood 146 mg/dL (70-110)
[2024-11-22 06:40] LABS: Glucose,Whole Blood 140 mg/dL (70-110)
[2024-11-22 06:43] LABS: Basophils # (A) 0.04 10*3/uL (0.00-0.10); Basophils % (A) 0.2 %; Eosinophils # (A) 0.06 10*3/uL (0.04-0.35); Eosinophils % (A) 0.2 %; HCT 22.8 % (39.6-50.0); HGB 7.8 g/dL (13.0-17.0); Lymphocytes % (A) 6.2 %; MCHC 34.2 g/dL (32.0-37.0); MCV 78.9 fL (80.0-97.0); Mean Platelet Volume 9.8 fL (9.5-12.2); Monocytes % (A) 4.5 %; Neutrophils # (A) 21.14 10*3/uL (1.80-7.70); Neutrophils % (A) 87.2 %; Platelet Count 492 10*3/uL (140-440); RBC 2.89 10*6/uL (4.40-5.60); RDW 19.1 % (11.5-14.5); WBC 24.25 10*3/uL (4.50-10.00)
[2024-11-22 07:28] LABS: ALT 21 U/L (4-49); AST 37 U/L (17-59); African American GFR (CKD) >90 (>60 ml/min/1.73 sqM); Albumin 1.9 g/dL (3.5-5.0); Alkaline Phosphatase 57 U/L (38-126); Anion Gap 3 mmol/L; Blood Urea Nitrogen 11 mg/dL (9-20); Calcium 6.9 mg/dL (8.4-10.2); Carbon Dioxide 29 mmol/L (22-30); Chloride 101 mmol/L (98-107); Glucose 107 mg/dL (74-99); Non-African American GFR(CKD) >90 (>60 ml/min/1.73 sqM); Phosphorus 2.7 mg/dL (2.5-4.5); Potassium 3.8 mmol/L (3.5-5.1); Sodium 133 mmol/L (137-145); Total Bilirubin 0.4 mg/dL (0.2-1.3); Total Protein 4.2 g/dL (6.3-8.2)
--- NOTE | 2024-11-22 08:20 | P.PN ---
Subjective Progress Note Date: 11/22/24 CHIEF COMPLAINT: Abdominal pain HISTORY OF PRESENT ILLNESS: The patient is a 54-year-old male status post left inguinal hernia repair on 11/10/2024 followed by open laparotomy, extensive lysis of adhesions, drainage of peritoneal and pelvic abscess, transverse colostomy, with subtotal colectomy for large bowel ischemia with perforation, 11/16/2024. Patient reports he feels really well. He is tolerating regular diet. He does report moderate output of his ostomy brown stool. No fevers or chills. He is obtaining lipids at bedside. REVIEW OF ORGAN SYSTEMS: No fevers or chills. No chest pain. PHYSICAL EXAM: VITALS: Reviewed CONSTITUTIONAL: Well developed and in no acute distress. EYES: Conjuctivae without sclera icterus. Extraocular movements grossly intact. HEAD, EARS, NOSE, THROAT: Head is atraumatic, normocephalic. Nasogastric tube present with bilious content RESPIRATORY: Nonlabored respirations. CARDIOVASCULAR: Palpable 2+ radial pulses. Heart rate within normal limits. ABDOMEN: Incisional wound VAC intact. Brown stool and gas liquid in Coloplast. JOHNNY serous. Minimal output in JPs. MUSCULOSKELETAL: No clubbing cyanosis or edema with bilateral lower extremity edema SKIN: Warm and well perfused with good skin turgor. NEUROLOGIC: No focal lateralizing signs PSYCH: Alert and oriented person place time. : Resolved scrotal edema. Montgomery clear CLINCAL LABS: Reviewed. WBC up from 14,000, now 26,000 MICROBIOLOGY: Peritoneal cultures Enterococcus, Ilda, including Clostridium, E. coli, ASSESSMENT: 1. 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 Left inguinal hernia 3. High risk malignancy 4. Hyponatremia 5. Emphysema with COPD, new 6. Thyroid nodule, left, new 7. Elevated CEA 8. Iron deficiency anemia 9. Sigmoid colon malignancy with obstruction 10. Persistent hypokalemia 11. Large bowel infarction, transverse colon, descending and sigmoid colon 12. Fecal peritonitis with pelvic abscess status post drainage 13. Septic shock 14. Severe protein malnutrition 15. Candidiasis peritonitis 16. C. difficile PLAN: 1. Patient now has new cultures demonstrating question of difficile and background of moderately elevated leukocytosis 2. Will also obtain bilateral Doppler ultrasounds due to bilateral lower extremity edema 3. I personally discontinued his Montgomery catheter at bedside 4. Discontinue TPN 6. Moderate antibiotic adjustment due to new finding close Clostridium Objective - Vital Signs Vital signs: Vital Signs Temp 97.9 F 11/22/24 07:55 Pulse 84 11/22/24 07:55 Resp 16 11/22/24 07:55 BP 135/78 11/22/24 07:55 Pulse Ox 98 11/22/24 07:55 FiO2 40 11/18/24 08:16 Intake & Output 11/21/24 11/22/24 11/22/24 18:59 06:59 18:59 Intake Total 420 1020 Output Total 3300 1900 Balance -2880 -880 Intake: Intake, IV Titration 1020 Amount Mvi, Adult No.4 with Vit 1020 K 10 ml Trace (Conc-1Ml/ Dose) 1 ml Sodium Acetate 20 meq Potassium Phosphate 15 mmol Potassium Chloride 60 meq Magnesium Sulfate gm 1.5 gm Calcium Gluconate 1 gm In Amino Acids 5 %/ Dextrose 20 % 1,000 ml @ 60 mls/hr IV .[id number] [facility] Rx#:[id number] Oral 420 Output: Urine 2600 1200 Stool 400 700 Urine/Stool Mix 300 Other: Voiding Method Indwelling Catheter Indwelling Catheter ABP, PAP, CO, CI - Last Documented Arterial Blood Pressure 81/61 - Labs CBC & Chem 7: 11/22/24 06:25 11/22/24 06:25 Labs: Abnormal Lab Results - Last 24 Hours (Table) 11/21/24 11/21/24 11/22/24 Range/Units 11:38 16:40 00:03 WBC (4.50-10.00) 10*3/uL RBC (4.40-5.60) 10*6/uL Hgb (13.0-17.0) g/dL Hct (39.6-50.0) % MCV (80.0-97.0) fL Plt Count (140-440) 10*3/uL Immature Gran # (0.00-0.04) 10*3/uL Neutrophils # (1.80-7.70) 10*3/uL Monocytes # (0.20-1.00) 10*3/uL Sodium (137-145) mmol/L Creatinine (0.66-1.25) mg/dL Glucose (74-99) mg/dL POC Glucose (mg/dL) 210 H 159 H 146 H (70-110) mg/dL Calcium (8.4-10.2) mg/dL Total Protein (6.3-8.2) g/dL Albumin (3.5-5.0) g/dL 11/22/24 11/22/24 11/22/24 Range/Units 06:25 06:25 06:39 WBC 24.25 H (4.50-10.00) 10*3/uL RBC 2.89 L (4.40-5.60) 10*6/uL Hgb 7.8 L (13.0-17.0) g/dL Hct 22.8 L (39.6-50.0) % MCV 78.9 L (80.0-97.0) fL Plt Count 492 H (140-440) 10*3/uL Immature Gran # 0.41 H (0.00-0.04) 10*3/uL Neutrophils # 21.14 H (1.80-7.70) 10*3/uL Monocytes # 1.10 H (0.20-1.00) 10*3/uL Sodium 133 L (137-145) mmol/L Creatinine 0.34 L (0.66-1.25) mg/dL Glucose 107 H (74-99) mg/dL POC Glucose (mg/dL) 140 H (70-110) mg/dL Calcium 6.9 L (8.4-10.2) mg/dL Total Protein 4.2 L (6.3-8.2) g/dL Albumin 1.9 L (3.5-5.0) g/dL Microbiology - Last 24 Hours (Table) 11/16/24 19:37 Gram Stain - Preliminary Other - Other Body Fluid Culture - Preliminary Escherichia coli Group D Enterococcus Ilda albicans 11/16/24 19:37 Anaerobic Culture - Final Perineal Fluid Anaerobic Gm Negative Bacilli 11/16/24 19:37 Anaerobic Culture - Final Other - Other Clostridium difficile Anaerobic Gm Negative Bacilli Anaerobic Gm Negative Bacilli#2 Anaerobic Gm Negative Bacilli#3 11/16/24 19:37 Anaerobic Culture - Final Peritoneal Fluid 11/16/24 19:37 Anaerobic Culture - Final Other - Other
[2024-11-22 09:38] LABS: HCT 21.7 % (39.6-50.0); HGB 7.5 g/dL (13.0-17.0); MCH 27.5 pg (27.0-32.0); MCHC 34.6 g/dL (32.0-37.0); MCV 79.5 fL (80.0-97.0); Mean Platelet Volume 10.1 fL (9.5-12.2); Platelet Count 494 10*3/uL (140-440); RBC 2.73 10*6/uL (4.40-5.60); RDW 19.3 % (11.5-14.5); WBC 23.58 10*3/uL (4.50-10.00)
--- NOTE | 2024-11-22 10:24 | US ---
EXAMINATION TYPE: US venous doppler duplex LE BI DATE OF EXAM: 11/22/2024 8:21 AM COMPARISON: NONE CLINICAL INDICATION: Male, 54 years old with history of Bilateral lower extremity swelling; Swelling. No hx of DVT. TECHNIQUE: The lower extremity deep venous system is examined utilizing real time linear array sonog babita with graded compression, color doppler sonography, and spectral doppler. SIDE PERFORMED: Bilateral FINDINGS: VESSELS IMAGED: Common Femoral Vein Deep Femoral Vein Greater Saphenous Vein * Femoral Vein Popliteal Vein Small Saphenous Vein * Proximal Calf Veins (* superficial vessels) Right Leg: No evidence of DVT, Color Doppler imaging shows patency of the vessels. Spectral waveform s are within normal limits. *Edema noted throughout the leg. Left Leg: No evidence of DVT, Color Doppler imaging shows patency of the vessels. Spectral waveforms are within normal limits. *Edema noted throughout the leg. IMPRESSION: 1. Bilateral lower extremity ultrasound negative for deep venous thrombosis. [facility], , 11/22/2024 10:22 AM
--- NOTE | 2024-11-22 10:43 | P.PN ---
Subjective 54-year-old male patient with no significant past medical history, presenting today for left lower quadrant sharp abdominal pain. Patient states this pain has been intermittent over the last 2 weeks. More persistent today, uncontrolled with 800 mg of ibuprofen or Pepcid. Patient endorses abdominal swelling and firmness over this time as well. He states he has had a left inguinal hernia "for a while" and the pain is not located over the region of the hernia. He denies fevers or chills, denies shortness of breath or chest pain, endorses nausea and today had 2 episodes of nonbloody nonbilious emesis. States he has intermittent brown stools sometimes with small streaks of blood no melena. No history of prior abdominal surgeries. Denies dysuria, hematuria or urinary frequency. No history of cancers in himself or family members. Patient has no other medical history. He does not drink alcohol or smoke cigarettes. Blood work completed in ED reveals a WBC of 15.1, hemoglobin of 10.9 and platelet count of 682, sodium 135, potassium 4.1, BUNs/creatinine of 18/0.71 and blood glucose of 126, lactic acid level of 1.1 CT of the abdomen and pelvis completed with contrast reveals left inguinal hernia extending into the scrotum containing nondilated small bowel loops. Multiple markedly enlarged small bowel loops proximal to the hernia consistent with small bowel obstruction. 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 He is currently sitting up in bed. Awake and alert in no acute distress. - CT scan of the pelvis today reveals a fistula tract extending from the anterior wall of the sigmoid colon proximally and what appeared to be small bowel loops. Possible abscess in the midline pelvis. Droplets of free intraper itoneal air either postsurgical or indicative of bowel perforation. Edema formation within the mesenteric infectious or postsurgical in nature. Resolution of the bowel within the left inguinal hernia and resolution of the previous bowel obstruction. Lab review shows White count 26.4. Hemoglobin 10.3. Platelets 512. Sodium 132. Potassium 3.6. Bicarb 26. BUN 7. Creatinine 0.6. Glucose 103. He remains on cefepime and Flagyl. Normal saline at 80 mL/h. Morphine and Dilaudid for pain control. Lovenox for DVT prophylaxis. -Surgery recommending EGD and colonoscopy with biopsies given sigmoid colon mass and iron deficiency anemia 11/13--patient was seen and examined today. Abdominal pain is better, reported bowel movement, underwent EGD today which showed hiatal hernia, Hill grade 3 low esophageal valve, LA grade C erosive esophagitis, 2 cm linear lesions, chronic gastritisbiopsies taken. Colonoscopy today showed internal/external hemorrhoids, obstructive sigmoid colon mass, showed polyps. General surgery following, plan for urgent colectomy due to bowel obstruction from likely malignant sigmoid colon mass. 11/14--patient was seen and examined today. Passing flatus, reported small bowel movement. Afebrile, heart rate 117, respiratory rate 17, blood pressure 110/71, saturating 93% on room air. WBCs 10.4, hemoglobin 12.4, platelet 490. Sodium 134, potassium 4.0, chloride 99, CO2 23.1, BUN 7.8, creatinine 0.5. Infectious disease consulted and following, on cefepime and Flagyl. 11/15--patient was seen and examined today. No issues overnight.Patient is afebrile, tachycardic with heart rate 104, will start on low-dose beta-ramin, respiratory rate 17, blood pressure 135/90, saturating 93% on room air. WBCs 24.0, hemoglobin 10.1, platelet 418. Sodium 134 potassium 3.2 chloride 102 BUN 15 creatinine 0.54. Infectious is consulted and following, currently on cefepime and Flagyl. 11/16--patient was seen and examined today. No issues overnight. Patient is afebrile, heart rate better 71, respiratory rate 18, blood pressure 145/95, saturating 94% on room air. WBCs 25.7, hemoglobin 9.3, platelet 393 sodium 132 potassium 2.8, 3.5 peripheral replacement, BUN 13, creatinine 0.46. Liver profile unremarkable. Potassium was low, replaced. Currently on cefepime and Flagyl. PICC line in place. Infectious disease following. General surgery planning for OR for sigmoid colectomy today. 11/17--patient was transferred to ICU from the OR yesterday due to septic shock, was intubated, currently on mechanical ventilation. ICU consulted and following. General surgery following. On IV fluids, on antibiotics cefepime and Flagyl. 11/18. Patient seen and examined. Blood work done today showed WBC 18.4, hemoglobin 9.2, platelet count 308, sodium 130, potassium 4.2, BUN 22, creatinine 0.93, calcium 7.3, phosphorus 2.4 AST 60, ALT 17. Patient was ex tubated this morning, currently on nasal cannula oxygen at 3 L 11/19. Patient seen and examined. States he feels much better. Labs on this morning showed WBC 18.9, hemoglobin 9, platelet count 296, sodium 137 potassium 3.3, BUN 14, creatinine 0.41 11/20. Patient seen and examined. States he feels better. Currently on 2 L of oxygen. Continues to be on TPN. ID following, keeping patient on cefepime, Flagyl, fluconazole, vancomycin for now. Patient being transferred out of ICU 11/21 Patient tolerates diet well Getting TPN Abdominal wound closed Drain is empty Montgomery catheter in place He had several bowel movement in his left lower colostomy bag he emptied it 5 times and the color of the stool is light brown. No other new complaint GI biopsy: duodenal biopsy no significant abnormality, stomach biopsy benign mucosa with focal congestion and negative for H. pylori. Esophageal biopsy C: G landular junctional mucosa with goblet cell interstitial metaplasia compatible with Waller's esophagus. Negative for dysplasia. Rectal biopsy limited to specimen. Sigmoid mass. Villous adenomatous tissue with prolapse change and low-grade dysplasia. Current specimen nondiagnostic for high-grade dysplasia or invasive carcinoma 11/22 Patient overall is doing well, he is able to tolerate diet today. He has little pain in his left lower quadrant which he describes as discomfort He has frequent bowel movement and C. difficile was sent to be checked. Montgomery catheter was discontinued, TPN was discontinued. Patient remains on broad-spectrum antibiotics with IV Flagyl cefepime fluconazole and IV vancomycin. WBC is slightly less 24 down to 23 and hemoglobin 7.8 down to 7.5. Ultrasound of the legs was reviewed and shows negative DVT in either legs. Plan for 6 improving Objective - Vital Signs Vital signs: Vital Signs Temp 97.9 F 11/22/24 07:55 Pulse 84 11/22/24 07:55 Resp 16 11/22/24 07:55 BP 135/78 11/22/24 07:55 Pulse Ox 98 11/22/24 09:17 FiO2 40 11/18/24 08:16 Intake & Output 11/21/24 11/22/24 11/22/24 18:59 06:59 18:59 Intake Total 420 1020 236 Output Total 3300 1900 35 Balance -2880 -880 201 Intake: Intake, IV Titration 1020 Amount Mvi, Adult No.4 with Vit 1020 K 10 ml Trace (Conc-1Ml/ Dose) 1 ml Sodium Acetate 20 meq Potassium Phosphate 15 mmol Potassium Chloride 60 meq Magnesium Sulfate gm 1.5 gm Calcium Gluconate 1 gm In Amino Acids 5 %/ Dextrose 20 % 1,000 ml @ 60 mls/hr IV .[id number] [facility] Rx#:[id number] Oral 420 236 Output: Drainage 35 Left Abdomen 20 Right Abdomen 15 Urine 2600 1200 Stool 400 700 Urine/Stool Mix 300 Other: Voiding Method Indwelling Catheter Indwelling Catheter ABP, PAP, CO, CI - Last Documented Arterial Blood Pressure 81/61 - Exam GENERAL: The patient is alert and oriented x3, not in any acute distress. Well developed, well nourished. HEENT: Pupils are round and equally reacting to light. EOMI. No scleral icterus. No conjunctival pallor. Normocephalic, atraumatic. No pharyngeal erythema. No thyromegaly. CARDIOVASCULAR: S1 and S2 present. No murmurs, rubs, or gallops. PULMONARY: Chest is clear to auscultation, no wheezing , no crackles. -ABDOMEN: Soft, nontender, nondistended, normoactive bowel sounds. No palpable organomegaly. Puncture surgical wounds are closed. Left lower quadrant colostomy bag in place. JOHNNY drain in place MUSCULOSKELETAL: No joint swelling or deformity. EXTREMITIES: No cyanosis, clubbing, or pedal edema. NEUROLOGICAL: Gross neurological examination did not reveal any focal deficits. SKIN: No rashes. no petechiae. - Labs CBC & Chem 7: 11/22/24 09:03 11/22/24 06:25 Labs: Abnormal Lab Results - Last 24 Hours (Table) 11/21/24 11/21/24 11/22/24 Range/Units 11:38 16:40 00:03 WBC (4.50-10.00) 10*3/uL RBC (4.40-5.60) 10*6/uL Hgb (13.0-17.0) g/dL Hct (39.6-50.0) % MCV (80.0-97.0) fL Plt Count (140-440) 10*3/uL Immature Gran # (0.00-0.04) 10*3/uL Neutrophils # (1.80-7.70) 10*3/uL Monocytes # (0.20-1.00) 10*3/uL Sodium (137-145) mmol/L Creatinine (0.66-1.25) mg/dL Glucose (74-99) mg/dL POC Glucose (mg/dL) 210 H 159 H 146 H (70-110) mg/dL Calcium (8.4-10.2) mg/dL Total Protein (6.3-8.2) g/dL Albumin (3.5-5.0) g/dL 11/22/24 11/22/24 11/22/24 Range/Units 06:25 06:25 06:39 WBC 24.25 H (4.50-10.00) 10*3/uL RBC 2.89 L (4.40-5.60) 10*6/uL Hgb 7.8 L (13.0-17.0) g/dL Hct 22.8 L (39.6-50.0) % MCV 78.9 L (80.0-97.0) fL Plt Count 492 H (140-440) 10*3/uL Immature Gran # 0.41 H (0.00-0.04) 10*3/uL Neutrophils # 21.14 H (1.80-7.70) 10*3/uL Monocytes # 1.10 H (0.20-1.00) 10*3/uL Sodium 133 L (137-145) mmol/L Creatinine 0.34 L (0.66-1.25) mg/dL Glucose 107 H (74-99) mg/dL POC Glucose (mg/dL) 140 H (70-110) mg/dL Calcium 6.9 L (8.4-10.2) mg/dL Total Protein 4.2 L (6.3-8.2) g/dL Albumin 1.9 L (3.5-5.0) g/dL 11/22/24 Range/Units 09:03 WBC 23.58 H (4.50-10.00) 10*3/uL RBC 2.73 L (4.40-5.60) 10*6/uL Hgb 7.5 L (13.0-17.0) g/dL Hct 21.7 L (39.6-50.0) % MCV 79.5 L (80.0-97.0) fL Plt Count 494 H (140-440) 10*3/uL Immature Gran # (0.00-0.04) 10*3/uL Neutrophils # (1.80-7.70) 10*3/uL Monocytes # (0.20-1.00) 10*3/uL Sodium (137-145) mmol/L Creatinine (0.66-1.25) mg/dL Glucose (74-99) mg/dL POC Glucose (mg/dL) (70-110) mg/dL Calcium (8.4-10.2) mg/dL Total Protein (6.3-8.2) g/dL Albumin (3.5-5.0) g/dL Microbiology - Last 24 Hours (Table) 11/16/24 19:37 Gram Stain - Preliminary Other - Other Body Fluid Culture - Preliminary Escherichia coli Group D Enterococcus Ilda albicans 11/16/24 19:37 Anaerobic Culture - Final Perineal Fluid Anaerobic Gm Negative Bacilli 11/16/24 19:37 Anaerobic Culture - Final Other - Other Clostridium difficile Anaerobic Gm Negative Bacilli Anaerobic Gm Negative Bacilli#2 Anaerobic Gm Negative Bacilli#3 11/16/24 19:37 Anaerobic Culture - Final Peritoneal Fluid 11/16/24 19:37 Anaerobic Culture - Final Other - Other Assessment and Plan Assessment: Obstructing sigmoid colon mass,Small and large bowel obstruction status post resection with primary anastomosis. colonoscopy report: "Circumferential obstructive fungating mass" . 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 abscess Waller's esophagus Septic shock, resolved Incarcerated left inguinal hernias/p robotic assisted laparoscopic repair of left inguinal hernia, small bowel resection with primary anastomosis 11/10 11/16--s/p extensive lysis of adhesions, drainage of peritoneal abscess and subtotal colectomy of large bowel ischemia with perforation Acute hypoxic respiratory failure requiring intubation mechanical ventilation Leukocytosis Chronic anemia Plan: Continue with antibiotic, currently on IV Flagyl cefepime fluconazole and vancomycin Continue TPN General Surgery primary team following closely Pulmonary and ID team following closely Labs and medication were reviewed.. Continue same treatment. Continue with symptomatic treatment. Resume home medication. Monitor labs and vitals. DVT and GI prophylaxis. Further recommendations as per clinical course of the patient DVT prophylaxis: Subcutaneous Lovenox GI Prophylaxis: Protonix Prognosis is guarded
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
[2024-11-22 16:44] LABS: Glucose,Whole Blood 157 mg/dL (70-110)
[2024-11-22] MEDS ORDERED: VANCOMYCIN 1,250 MG in SODIUM CHLORIDE 0.9% 250 ML IVPB SCH (20:00)
[2024-11-22] MEDS: VANCOMYCIN 1,250 MG in SODIUM CHLORIDE 0.9% 250 ML IVPB SCH (20:49)
[2024-11-23 00:02] LABS: Glucose,Whole Blood 112 mg/dL (70-110)
[2024-11-23 05:56] LABS: Glucose,Whole Blood 145 mg/dL (70-110)
[2024-11-23 08:40] LABS: Basophils # (A) 0.04 10*3/uL (0.00-0.10); Basophils % (A) 0.2 %; Eosinophils # (A) 0.07 10*3/uL (0.04-0.35); Eosinophils % (A) 0.3 %; HCT 24.4 % (39.6-50.0); HGB 8.1 g/dL (13.0-17.0); Lymphocytes % (A) 6.3 %; MCH 26.1 pg (27.0-32.0); MCHC 33.2 g/dL (32.0-37.0); MCV 78.7 fL (80.0-97.0); Mean Platelet Volume 9.6 fL (9.5-12.2); Monocytes # (A) 1.07 10*3/uL (0.20-1.00); Monocytes % (A) 4.9 %; Neutrophils # (A) 19.14 10*3/uL (1.80-7.70); Neutrophils % (A) 86.8 %; Platelet Count 723 10*3/uL (140-440); RDW 19.1 % (11.5-14.5); WBC 22.05 10*3/uL (4.50-10.00)
[2024-11-23 09:15] LABS: ALT 23 U/L (4-49); AST 34 U/L (17-59); African American GFR (CKD) >90 (>60 ml/min/1.73 sqM); Albumin 2.1 g/dL (3.5-5.0); Alkaline Phosphatase 83 U/L (38-126); Anion Gap 4 mmol/L; Blood Urea Nitrogen 9 mg/dL (9-20); Calcium 7.3 mg/dL (8.4-10.2); Carbon Dioxide 28 mmol/L (22-30); Chloride 100 mmol/L (98-107); Glucose 92 mg/dL (74-99); Magnesium 1.8 mg/dL (1.6-2.3); Non-African American GFR(CKD) >90 (>60 ml/min/1.73 sqM); Phosphorus 2.8 mg/dL (2.5-4.5); Potassium 3.5 mmol/L (3.5-5.1); Sodium 132 mmol/L (137-145); Total Bilirubin 0.5 mg/dL (0.2-1.3); Total Protein 4.6 g/dL (6.3-8.2)
[2024-11-23] MEDS: LOPERAMIDE 2 MG CAP PO PRN (11:14)
--- NOTE | 2024-11-23 11:16 | P.PN ---
Subjective 54-year-old male patient with no significant past medical history, presenting today for left lower quadrant sharp abdominal pain. Patient states this pain has been intermittent over the last 2 weeks. More persistent today, uncontrolled with 800 mg of ibuprofen or Pepcid. Patient endorses abdominal swelling and firmness over this time as well. He states he has had a left inguinal hernia "for a while" and the pain is not located over the region of the hernia. He denies fevers or chills, denies shortness of breath or chest pain, endorses nausea and today had 2 episodes of nonbloody nonbilious emesis. States he has intermittent brown stools sometimes with small streaks of blood no melena. No history of prior abdominal surgeries. Denies dysuria, hematuria or urinary frequency. No history of cancers in himself or family members. Patient has no other medical history. He does not drink alcohol or smoke cigarettes. Blood work completed in ED reveals a WBC of 15.1, hemoglobin of 10.9 and platelet count of 682, sodium 135, potassium 4.1, BUNs/creatinine of 18/0.71 and blood glucose of 126, lactic acid level of 1.1 CT of the abdomen and pelvis completed with contrast reveals left inguinal hernia extending into the scrotum containing nondilated small bowel loops. Multiple markedly enlarged small bowel loops proximal to the hernia consistent with small bowel obstruction. 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 He is currently sitting up in bed. Awake and alert in no acute distress. - CT scan of the pelvis today reveals a fistula tract extending from the anterior wall of the sigmoid colon proximally and what appeared to be small bowel loops. Possible abscess in the midline pelvis. Droplets of free intraper itoneal air either postsurgical or indicative of bowel perforation. Edema formation within the mesenteric infectious or postsurgical in nature. Resolution of the bowel within the left inguinal hernia and resolution of the previous bowel obstruction. Lab review shows White count 26.4. Hemoglobin 10.3. Platelets 512. Sodium 132. Potassium 3.6. Bicarb 26. BUN 7. Creatinine 0.6. Glucose 103. He remains on cefepime and Flagyl. Normal saline at 80 mL/h. Morphine and Dilaudid for pain control. Lovenox for DVT prophylaxis. -Surgery recommending EGD and colonoscopy with biopsies given sigmoid colon mass and iron deficiency anemia 11/13--patient was seen and examined today. Abdominal pain is better, reported bowel movement, underwent EGD today which showed hiatal hernia, Hill grade 3 low esophageal valve, LA grade C erosive esophagitis, 2 cm linear lesions, chronic gastritisbiopsies taken. Colonoscopy today showed internal/external hemorrhoids, obstructive sigmoid colon mass, showed polyps. General surgery following, plan for urgent colectomy due to bowel obstruction from likely malignant sigmoid colon mass. 11/14--patient was seen and examined today. Passing flatus, reported small bowel movement. Afebrile, heart rate 117, respiratory rate 17, blood pressure 110/71, saturating 93% on room air. WBCs 10.4, hemoglobin 12.4, platelet 490. Sodium 134, potassium 4.0, chloride 99, CO2 23.1, BUN 7.8, creatinine 0.5. Infectious disease consulted and following, on cefepime and Flagyl. 11/15--patient was seen and examined today. No issues overnight.Patient is afebrile, tachycardic with heart rate 104, will start on low-dose beta-ramin, respiratory rate 17, blood pressure 135/90, saturating 93% on room air. WBCs 24.0, hemoglobin 10.1, platelet 418. Sodium 134 potassium 3.2 chloride 102 BUN 15 creatinine 0.54. Infectious is consulted and following, currently on cefepime and Flagyl. 11/16--patient was seen and examined today. No issues overnight. Patient is afebrile, heart rate better 71, respiratory rate 18, blood pressure 145/95, saturating 94% on room air. WBCs 25.7, hemoglobin 9.3, platelet 393 sodium 132 potassium 2.8, 3.5 peripheral replacement, BUN 13, creatinine 0.46. Liver profile unremarkable. Potassium was low, replaced. Currently on cefepime and Flagyl. PICC line in place. Infectious disease following. General surgery planning for OR for sigmoid colectomy today. 11/17--patient was transferred to ICU from the OR yesterday due to septic shock, was intubated, currently on mechanical ventilation. ICU consulted and following. General surgery following. On IV fluids, on antibiotics cefepime and Flagyl. 11/18. Patient seen and examined. Blood work done today showed WBC 18.4, hemoglobin 9.2, platelet count 308, sodium 130, potassium 4.2, BUN 22, creatinine 0.93, calcium 7.3, phosphorus 2.4 AST 60, ALT 17. Patient was ex tubated this morning, currently on nasal cannula oxygen at 3 L 11/19. Patient seen and examined. States he feels much better. Labs on this morning showed WBC 18.9, hemoglobin 9, platelet count 296, sodium 137 potassium 3.3, BUN 14, creatinine 0.41 11/20. Patient seen and examined. States he feels better. Currently on 2 L of oxygen. Continues to be on TPN. ID following, keeping patient on cefepime, Flagyl, fluconazole, vancomycin for now. Patient being transferred out of ICU 11/21 Patient tolerates diet well Getting TPN Abdominal wound closed Drain is empty Montgomery catheter in place He had several bowel movement in his left lower colostomy bag he emptied it 5 times and the color of the stool is light brown. No other new complaint GI biopsy: duodenal biopsy no significant abnormality, stomach biopsy benign mucosa with focal congestion and negative for H. pylori. Esophageal biopsy C: G landular junctional mucosa with goblet cell interstitial metaplasia compatible with Waller's esophagus. Negative for dysplasia. Rectal biopsy limited to specimen. Sigmoid mass. Villous adenomatous tissue with prolapse change and low-grade dysplasia. Current specimen nondiagnostic for high-grade dysplasia or invasive carcinoma 11/22 Patient overall is doing well, he is able to tolerate diet today. He has little pain in his left lower quadrant which he describes as discomfort He has frequent bowel movement and C. difficile was sent to be checked. Montgomery catheter was discontinued, TPN was discontinued. Patient remains on broad-spectrum antibiotics with IV Flagyl cefepime fluconazole and IV vancomycin. WBC is slightly less 24 down to 23 and hemoglobin 7.8 down to 7.5. Ultrasound of the legs was reviewed and shows negative DVT in either legs. Plan for 6 improving 11/23 Patient looks comfortable and doing well He denies abdominal pain chest pain or dyspnea. He tolerates diet well. He still has frequent bowel movement. C. difficile was checked, negative. Im odium as needed can be added with close monitoring He is hemodynamically stable and afebrile. Leukocytosis slightly better at 22,000, hemoglobin is stable and slightly improved up to 8.1. Rest of CBC and, BMP is unremarkable. Patient remains on antibiotics as per ID team. Patient himself thinks he can go home today. Patient currently medically stable. Discussed. Objective - Vital Signs Vital signs: Vital Signs Temp 98.2 F 11/23/24 07:30 Pulse 96 11/23/24 07:30 Resp 16 11/23/24 07:30 BP 127/78 11/23/24 07:30 Pulse Ox 96 11/23/24 07:30 FiO2 40 11/18/24 08:16 Intake & Output 11/22/24 11/23/24 11/23/24 18:59 06:59 18:59 Intake Total 458 360 776 Output Total 2435 1100 515 Balance -1976 261 Weight 77 kg Intake: Oral 458 360 776 Output: Drainage 35 15 Left Abdomen 20 15 Right Abdomen 15 Urine 2000 900 500 Stool 400 200 Other: Voiding Method Indwelling Catheter Urinal Urinal # Voids 2 3 # Bowel Movements 600 ABP, PAP, CO, CI - Last Documented Arterial Blood Pressure 81/61 - Exam GENERAL: The patient is alert and oriented x3, not in any acute distress. Well developed, well nourished. HEENT: Pupils are round and equally reacting to light. EOMI. No scleral icterus. No conjunctival pallor. Normocephalic, atraumatic. No pharyngeal erythema. No thyromegaly. CARDIOVASCULAR: S1 and S2 present. No murmurs, rubs, or gallops. PULMONARY: Chest is clear to auscultation, no wheezing , no crackles. -ABDOMEN: Soft, nontender, nondistended, normoactive bowel sounds. No palpable organomegaly. Puncture surgical wounds are closed. Left lower quadrant colostomy bag in place. JOHNNY drain in place MUSCULOSKELETAL: No joint swelling or deformity. EXTREMITIES: No cyanosis, clubbing, or pedal edema. NEUROLOGICAL: Gross neurological examination did not reveal any focal deficits. SKIN: No rashes. no petechiae. - Labs CBC & Chem 7: 11/23/24 08:03 11/23/24 08:03 Labs: Abnormal Lab Results - Last 24 Hours (Table) 11/22/24 11/23/24 11/23/24 Range/Units 16:43 00:00 05:54 WBC (4.50-10.00) 10*3/uL RBC (4.40-5.60) 10*6/uL Hgb (13.0-17.0) g/dL Hct (39.6-50.0) % MCV (80.0-97.0) fL MCH (27.0-32.0) pg Plt Count (140-440) 10*3/uL Immature Gran # (0.00-0.04) 10*3/uL Neutrophils # (1.80-7.70) 10*3/uL Monocytes # (0.20-1.00) 10*3/uL Sodium (137-145) mmol/L Creatinine (0.66-1.25) mg/dL POC Glucose (mg/dL) 157 H 112 H 145 H (70-110) mg/dL Calcium (8.4-10.2) mg/dL Ionized Calcium Shoshana (4.5-5.3) mg/dL Total Protein (6.3-8.2) g/dL Albumin (3.5-5.0) g/dL 11/23/24 11/23/24 11/23/24 Range/Units 08:03 08:03 08:03 WBC 22.05 H (4.50-10.00) 10*3/uL RBC 3.10 L (4.40-5.60) 10*6/uL Hgb 8.1 L (13.0-17.0) g/dL Hct 24.4 L (39.6-50.0) % MCV 78.7 L (80.0-97.0) fL MCH 26.1 L (27.0-32.0) pg Plt Count 723 H (140-440) 10*3/uL Immature Gran # 0.33 H (0.00-0.04) 10*3/uL Neutrophils # 19.14 H (1.80-7.70) 10*3/uL Monocytes # 1.07 H (0.20-1.00) 10*3/uL Sodium 132 L (137-145) mmol/L Creatinine 0.40 L (0.66-1.25) mg/dL POC Glucose (mg/dL) (70-110) mg/dL Calcium 7.3 L (8.4-10.2) mg/dL Ionized Calcium [place]ana 4.4 L (4.5-5.3) mg/dL Total Protein 4.6 L (6.3-8.2) g/dL Albumin 2.1 L (3.5-5.0) g/dL Assessment and Plan Assessment: Obstructing sigmoid colon mass,Small and large bowel obstruction status post resection with primary anastomosis. colonoscopy report: "Circumferential obstructive fungating mass" . 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 abscess Waller's esophagus Septic shock, resolved Incarcerated left inguinal hernias/p robotic assisted laparoscopic repair of left inguinal hernia, small bowel resection with primary anastomosis 11/10 11/16--s/p extensive lysis of adhesions, drainage of peritoneal abscess and sub total colectomy of large bowel ischemia with perforation Acute hypoxic respiratory failure requiring intubation mechanical ventilation Leukocytosis Chronic anemia Plan: Continue with antibiotic, currently on IV Flagyl cefepime fluconazole and vancomycin Continue TPN General Surgery primary team following closely Pulmonary and ID team following closely Labs and medication were reviewed.. Continue same treatment. Continue with symptomatic treatment. Resume home medication. Monitor labs and vitals. DVT and GI prophylaxis. Further recommendations as per clinical course of the patient DVT prophylaxis: Subcutaneous Lovenox GI Prophylaxis: Protonix Prognosis is guarded
[2024-11-23 11:22] LABS: Glucose,Whole Blood 141 mg/dL (70-110)
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
--- NOTE | 2024-11-23 14:19 | P.PN ---
Subjective Progress Note Date: 11/23/24 CHIEF COMPLAINT: Abdominal pain HISTORY OF PRESENT ILLNESS: The patient is a 54-year-old male status post left inguinal hernia repair on 11/10/2024 followed by open laparotomy, extensive lysis of adhesions, drainage of peritoneal and pelvic abscess, transverse colostomy, with subtotal colectomy for large bowel ischemia with perforation, 11/16/2024. He is sitting up in chair at bedside. Reports no increased abdominal pain. He feels very well. He is tolerating regular diet. He is eager to go home. Central line from the neck has been removed as a source of infection. REVIEW OF ORGAN SYSTEMS: No fevers or chills. No chest pain. Has productive sputum. PHYSICAL EXAM: VITALS: Reviewed CONSTITUTIONAL: Well developed and in no acute distress. EYES: Conjuctivae without sclera icterus. Extraocular movements grossly intact. HEAD, EARS, NOSE, THROAT: Head is atraumatic, normocephalic. Nasogastric tube present with bilious content RESPIRATORY: Nonlabored respirations. CARDIOVASCULAR: Palpable 2+ radial pulses. Heart rate within normal limits. ABDOMEN: Incisional wound VAC intact. JOHNNY serous minimal output. MUSCULOSKELETAL: No clubbing cyanosis or edema with bilateral lower extremity edema SKIN: Warm and well perfused with good skin turgor. NEUROLOGIC: No focal lateralizing signs PSYCH: Alert and oriented person place time. : Resolved scrotal edema. [place] clear CLINCAL LABS: Reviewed. WBC down 26,000-22,000. Platelets up from 462/700. C. difficile negative. MICROBIOLOGY: Peritoneal cultures Enterococcus, Ilda, including Clostridium, E. coli, PATHOLOGY: Pending ASSESSMENT: 1. 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 Left inguinal hernia 3. High risk malignancy 4. Hyponatremia 5. Emphysema with COPD, new 6. Thyroid nodule, left, new 7. Elevated CEA 8. Iron deficiency anemia 9. Sigmoid colon malignancy with obstruction 10. Persistent hypokalemia 11. Large bowel infarction, transverse colon, descending and sigmoid colon 12. Fecal peritonitis with pelvic abscess status post drainage 13. Septic shock 14. Severe protein malnutrition 15. Candidiasis peritonitis 16. C. difficile per culture PLAN: 1. Although his white count is improving and clinically is doing well, his platelet count continues to elevate for concern for intra-abdominal pathology. 2. After discussion infectious disease provider, will obtain CT then pelvis with oral and IV contrast to identify intra-abdominal abscesses. 3. Patient is pending placement regarding imaging studies. 4. Removal of wound VAC dressing tomorrow discussed. Objective - Vital Signs Vital signs: Vital Signs Temp 98.1 F 11/23/24 11:05 Pulse 86 11/23/24 11:05 Resp 18 11/23/24 11:05 BP 130/78 11/23/24 11:05 Pulse Ox 97 11/23/24 11:05 FiO2 40 11/18/24 08:16 Intake & Output 11/22/24 11/23/24 11/23/24 18:59 06:59 18:59 Intake Total 458 360 776 Output Total 2435 1100 915 Balance -19760 -139 Weight 77 kg Intake: Oral 458 360 776 Output: Drainage 35 15 Left Abdomen 20 15 Right Abdomen 15 Urine 2000 900 900 Stool 400 200 Other: Voiding Method Indwelling Catheter Urinal Urinal # Voids 2 3 # Bowel Movements 600 ABP, PAP, CO, CI - Last Documented Arterial Blood Pressure 81/61 - Labs CBC & Chem 7: 11/23/24 08:03 11/23/24 08:03 Labs: Abnormal Lab Results - Last 24 Hours (Table) 11/22/24 11/23/24 11/23/24 Range/Units 16:43 00:00 05:54 WBC (4.50-10.00) 10*3/uL RBC (4.40-5.60) 10*6/uL Hgb (13.0-17.0) g/dL Hct (39.6-50.0) % MCV (80.0-97.0) fL MCH (27.0-32.0) pg Plt Count (140-440) 10*3/uL Immature Gran # (0.00-0.04) 10*3/uL Neutrophils # (1.80-7.70) 10*3/uL Monocytes # (0.20-1.00) 10*3/uL Sodium (137-145) mmol/L Creatinine (0.66-1.25) mg/dL POC Glucose (mg/dL) 157 H 112 H 145 H (70-110) mg/dL Calcium (8.4-10.2) mg/dL Ionized Calcium Shoshana (4.5-5.3) mg/dL Total Protein (6.3-8.2) g/dL Albumin (3.5-5.0) g/dL 11/23/24 11/23/24 11/23/24 Range/Units 08:03 08:03 08:03 WBC 22.05 H (4.50-10.00) 10*3/uL RBC 3.10 L (4.40-5.60) 10*6/uL Hgb 8.1 L (13.0-17.0) g/dL Hct 24.4 L (39.6-50.0) % MCV 78.7 L (80.0-97.0) fL MCH 26.1 L (27.0-32.0) pg Plt Count 723 H (140-440) 10*3/uL Immature Gran # 0.33 H (0.00-0.04) 10*3/uL Neutrophils # 19.14 H (1.80-7.70) 10*3/uL Monocytes # 1.07 H (0.20-1.00) 10*3/uL Sodium 132 L (137-145) mmol/L Creatinine 0.40 L (0.66-1.25) mg/dL POC Glucose (mg/dL) (70-110) mg/dL Calcium 7.3 L (8.4-10.2) mg/dL Ionized Calcium Sh[place]ana 4.4 L (4.5-5.3) mg/dL Total Protein 4.6 L (6.3-8.2) g/dL Albumin 2.1 L (3.5-5.0) g/dL 11/23/24 Range/Units 11:20 WBC (4.50-10.00) 10*3/uL RBC (4.40-5.60) 10*6/uL Hgb (13.0-17.0) g/dL Hct (39.6-50.0) % MCV (80.0-97.0) fL MCH (27.0-32.0) pg Plt Count (140-440) 10*3/uL Immature Gran # (0.00-0.04) 10*3/uL Neutrophils # (1.80-7.70) 10*3/uL Monocytes # (0.20-1.00) 10*3/uL Sodium (137-145) mmol/L Creatinine (0.66-1.25) mg/dL POC Glucose (mg/dL) 141 H (70-110) mg/dL Calcium (8.4-10.2) mg/dL Ionized Calcium Sh[place]ana (4.5-5.3) mg/dL Total Protein (6.3-8.2) g/dL Albumin (3.5-5.0) g/dL
[2024-11-23 14:54] VITALS: BMI 23.0
[2024-11-23] MEDS: IOPAMIDOL CONTRAST (ORAL USE) VIAL PO PRN (15:15)
[2024-11-23] MEDS: methylPREDNISolone SOD SUCCI 125 MG/2 ML VIAL IV STA (15:15)
[2024-11-23] MEDS: FAMOTIDINE 20 MG/2 ML VIAL IV STA (15:16)
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
[2024-11-23 16:14] LABS: Glucose,Whole Blood 124 mg/dL (70-110)
--- NOTE | 2024-11-23 17:33 | CT ---
EXAMINATION TYPE: CT abdomen pelvis w con DATE OF EXAM: 11/23/2024 4:47 PM COMPARISON: CT 11/12/2024 CLINICAL INDICATION: Male, 54 years old with history of Abdominal pain, history of peritonitis; Abdom inal pain. Elevated WBC. TECHNIQUE: Axial CT abdomen pelvis w con;Sagittal and coronal reformats were created on a separate w orkstation. Contrast used:100 ml mL of Isovue 300 with IV Contrast, (none if empty) Oral contrast used: with Oral Contrast (none if empty) CT DLP: 987.5 mGycm, Automated exposure control for dose reduction was used. FINDINGS: LOWER CHEST: Small left pleural effusion. Atelectasis changes noted in the bilateral lung bases. ABDOMEN LIVER: Unremarkable GALLBLADDER AND BILE DUCTS: Unremarkable. PANCREAS: Unremarkable. SPLEEN: Unremarkable. ADRENAL GLANDS: Unremarkable. KIDNEYS AND URETERS: No evidence of hydronephrosis or obstructing renal calculus. The ureters are unr emarkable. PELVIS BLADDER: No evidence for wall thickening or mass given limitations of exam. REPRODUCTIVE: Unremarkable. ABDOMEN & PELVIS STOMACH AND BOWEL: Postsurgical changes to the bowel with colostomy in the left anterior abdomen. Cir cumferential thickening of the hoang about this small bowel and large bowel. This is somewhat diffuse . There is suture seen in the low pelvis near the sigmoid colon. PERITONEUM/RETROPERITONEUM: Peritoneal thickening noted throughout the abdomen. There is Scattered tiny pockets of organizing fluid collection throughout abdomen. Right approach Kenyon kson-Conti drain with fluid extending along its course of under the diaphragm. Hyperemic peripherally enhancing fluid collection noted. On series 202 image 76 measuring 3.4 x 4.1 x 0.9 cm with a flat mo rphology. There is fluid collection along the abdomen extending along the liver. No additional fluid collection just medial of the ascending colon and anterior to the kidney inferior ly measuring 3.1 x 3.3 cm. Trent-Conti drain extends down into the pelvis from a left approach. There is bowel surrounding thi s loculated fluid around the tube as it enters into the abdomen. VASCULATURE: No evidence of aortic aneurysm. Partially visualized central venous catheter in the thor ax. MUSCULOSKELETAL: No acute osseous abnormalities LYMPH NODES: No gross evidence for lymphadenopathy. Prominent enlargement of the seen throughout the retroperitoneum. SOFT TISSUE/ABDOMINAL WALL: Diffuse anasarca throughout the soft tissues. IMPRESSION: 1. Peritoneal thickening likely representing peritonitis. Correlated with drainage fluid. 2. Diffuse enteritis with circumferential wall thickening of the small bowel. 3. Post surgical changes with colostomy present oral contrast extends to the colon. 4. Bilateral Trent-Conti drainage tubes with persistent fluid throughout the abdomen. Loculated fl uid collection is seen along the lateral aspect of the ascending colon with a flat morphology mediall y adjacent to the bowel. Additional fluid collection just medial to the ascending colon anterior to t he kidney noted. 5. Small left pleural effusion with atelectasis changes in the bilateral lung bases. Findings favor atelectasis. Superimposed infection calculus likely. [facility], , 11/23/2024 5:31 PM
[2024-11-24] LABS: Glucose,Whole Blood 202 mg/dL (70-110)
[2024-11-24 00:15] LABS: Glucose,Whole Blood 173 mg/dL (70-110)
[2024-11-24 06:00] LABS: Glucose,Whole Blood 134 mg/dL (70-110)
[2024-11-24 08:50] LABS: ALT 23 U/L (4-49); AST 32 U/L (17-59); African American GFR (CKD) >90 (>60 ml/min/1.73 sqM); Albumin 2.4 g/dL (3.5-5.0); Alkaline Phosphatase 93 U/L (38-126); Anion Gap 7 mmol/L; Blood Urea Nitrogen 11 mg/dL (9-20); Carbon Dioxide 25 mmol/L (22-30); Chloride 102 mmol/L (98-107); Glucose 112 mg/dL (74-99); Non-African American GFR(CKD) >90 (>60 ml/min/1.73 sqM); Potassium 3.7 mmol/L (3.5-5.1); Sodium 134 mmol/L (137-145); Total Bilirubin 0.4 mg/dL (0.2-1.3); Total Protein 5.2 g/dL (6.3-8.2)
[2024-11-24 09:25] LABS: Basophils # (A) 0.05 10*3/uL (0.00-0.10); Basophils % (A) 0.2 %; Eosinophils # (A) 0.01 10*3/uL (0.04-0.35); HCT 23.4 % (39.6-50.0); Lymphocytes # (A) 1.35 10*3/uL (0.90-5.00); MCH 27.2 pg (27.0-32.0); MCHC 34.2 g/dL (32.0-37.0); MCV 79.6 fL (80.0-97.0); Monocytes # (A) 1.14 10*3/uL (0.20-1.00); Neutrophils # (A) 19.93 10*3/uL (1.80-7.70); Neutrophils % (A) 88.1 %; Platelet Count 991 10*3/uL (140-440); RBC 2.94 10*6/uL (4.40-5.60); RDW 19.2 % (11.5-14.5); WBC 22.63 10*3/uL (4.50-10.00)
--- NOTE | 2024-11-24 10:30 | US ---
EXAMINATION TYPE: US abdomen limited DATE OF EXAM: 11/24/2024 COMPARISON: NONE CLINICAL INDICATION: Male, 54 years old with history of assess fluid collection for aspiration; TECHNIQUE: FINDINGS: Complex fluid collection seen, side marked IMPRESSION: 1. Hypoechoic area evident within the field of view. [facility], , 11/24/2024 10:28 AM
[2024-11-24 11:37] LABS: Glucose,Whole Blood 209 mg/dL (70-110)
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
--- NOTE | 2024-11-24 13:11 | P.PN ---
Subjective Progress Note Date: 11/24/24 CHIEF COMPLAINT: Abdominal pain HISTORY OF PRESENT ILLNESS: The patient is a 54-year-old male status post left inguinal hernia repair on 11/10/2024 followed by open laparotomy, extensive lysis of adhesions, drainage of peritoneal and pelvic abscess, transverse colostomy, with subtotal colectomy for large bowel ischemia with perforation, 11/16/2024. He is tolerating all diet. Denies any abdominal pain. He is ambulating. He does report bilateral feet swelling when he sits in the chair for over 3 hours. Otherwise he is eager to go home. REVIEW OF ORGAN SYSTEMS: No fevers or chills. No chest pain. No shortness of breath. PHYSICAL EXAM: VITALS: Reviewed CONSTITUTIONAL: Well developed and in no acute distress. EYES: Conjuctivae without sclera icterus. Extraocular movements grossly intact. HEAD, EARS, NOSE, THROAT: Head is atraumatic, normocephalic. Nasogastric tube present with bilious content RESPIRATORY: Nonlabored respirations. CARDIOVASCULAR: Palpable 2+ radial pulses. Heart rate within normal limits. ABDOMEN: JOHNNY drain discontinued due to minimal output over the last 3 days. Incisional wound VAC discontinued without cellulitis or infection. Ostomy pink patent and functioning with stool. MUSCULOSKELETAL: No clubbing cyanosis or edema with bilateral lower extremity edema SKIN: Warm and well perfused with good skin turgor. NEUROLOGIC: No focal lateralizing signs PSYCH: Alert and oriented person place time. : Resolved scrotal edema. [place] clear CLINCAL LABS: Reviewed. WBC 22,000. Platelets elevated over 900,000 MICROBIOLOGY: Peritoneal cultures Enterococcus, Ilda, including Clostridium, E. coli, PATHOLOGY: Demonstrates invasive moderately differentiated adenocarcinoma with negative margins. All lymph nodes were negative. T3 N0 lesion. STUDIES: CT of the abdomen pelvis independently reviewed demonstrates left pleural effusion. Retroperitoneal right flank 4 cm fluid collection identified. Edema of the small bowel identified. Finding suspicious for enteritis. No fluid collection in the pelvis or sigmoid colon stump. ASSESSMENT: 1. 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 Left inguinal hernia 3. High risk malignancy 4. Hyponatremia 5. Emphysema with COPD, new 6. Thyroid nodule, left, new 7. Elevated CEA 8. Iron deficiency anemia 9. Sigmoid colon malignancy with obstruction 10. Persistent hypokalemia 11. Large bowel infarction, transverse colon, descending and sigmoid colon 12. Fecal peritonitis with pelvic abscess status post drainage 13. Septic shock 14. Severe protein malnutrition 15. Candidiasis peritonitis 16. C. difficile per culture 17. Adeno carcinoma of the colon 18. Thrombocytosis PLAN: 1. Patient has confirmed diagnosis of adenocarcinoma of the colon with negative margins. Placement of Port-A-Cath pending further discussion with oncologist. 2. At bedside, JOHNNY drains including incisional wound VAC were discontinued without any signs of cellulitis or infection. 3. At this time, per interventional radiology, aspiration of fluid collection of the right flank amenable however deferred to Wednesday due to patient receiving dose of Lovenox earlier today. 4. Discharge on hold pending drainage of intra-abdominal abscess. 5. Continue protein intake, 90 g daily or more 6. Monitor thrombocytosis 7. Discharge pending drainage of abdominal abscess Objective - Vital Signs Vital signs: Vital Signs Temp 97.6 F 11/24/24 11:17 Pulse 83 11/24/24 11:32 Resp 17 11/24/24 11:32 BP 136/70 11/24/24 11:32 Pulse Ox 95 11/24/24 11:32 FiO2 40 11/18/24 08:16 Intake & Output 11/23/24 11/24/24 11/24/24 18:59 06:59 18:59 Intake Total 1316 120 920 Output Total 1698 700 330 Balance -382 -580 590 Weight 77 kg 77 kg Intake: Oral 1316 120 920 Output: Drainage 23 0 5 Left Abdomen 23 0 5 Right Abdomen 0 0 0 Urine 1675 500 325 Stool 200 Other: Voiding Method Urinal Urinal Urinal # Voids 1 1 # Bowel Movements 200 400 ABP, PAP, CO, CI - Last Documented Arterial Blood Pressure 81/61 - Labs CBC & Chem 7: 11/24/24 09:02 11/24/24 08:01 Labs: Abnormal Lab Results - Last 24 Hours (Table) 11/23/24 11/23/24 11/24/24 Range/Units 16:13 23:58 00:13 WBC (4.50-10.00) 10*3/uL RBC (4.40-5.60) 10*6/uL Hgb (13.0-17.0) g/dL Hct (39.6-50.0) % MCV (80.0-97.0) fL Plt Count (140-440) 10*3/uL Immature Gran # (0.00-0.04) 10*3/uL Neutrophils # (1.80-7.70) 10*3/uL Monocytes # (0.20-1.00) 10*3/uL Eosinophils # (0.04-0.35) 10*3/uL Sodium (137-145) mmol/L Creatinine (0.66-1.25) mg/dL Glucose (74-99) mg/dL POC Glucose (mg/dL) 124 H 202 H 173 H (70-110) mg/dL Calcium (8.4-10.2) mg/dL Total Protein (6.3-8.2) g/dL Albumin (3.5-5.0) g/dL 11/24/24 11/24/24 11/24/24 Range/Units 05:59 08:01 09:02 WBC 22.63 H (4.50-10.00) 10*3/uL RBC 2.94 L (4.40-5.60) 10*6/uL Hgb 8.0 L (13.0-17.0) g/dL Hct 23.4 L (39.6-50.0) % MCV 79.6 L (80.0-97.0) fL Plt Count 991 H (140-440) 10*3/uL Immature Gran # 0.15 H (0.00-0.04) 10*3/uL Neutrophils # 19.93 H (1.80-7.70) 10*3/uL Monocytes # 1.14 H (0.20-1.00) 10*3/uL Eosinophils # 0.01 L (0.04-0.35) 10*3/uL Sodium 134 L (137-145) mmol/L Creatinine 0.40 L (0.66-1.25) mg/dL Glucose 112 H (74-99) mg/dL POC Glucose (mg/dL) 134 H (70-110) mg/dL Calcium 8.0 L (8.4-10.2) mg/dL Total Protein 5.2 L (6.3-8.2) g/dL Albumin 2.4 L (3.5-5.0) g/dL 11/24/24 Range/Units 11:35 WBC (4.50-10.00) 10*3/uL RBC (4.40-5.60) 10*6/uL Hgb (13.0-17.0) g/dL Hct (39.6-50.0) % MCV (80.0-97.0) fL Plt Count (140-440) 10*3/uL Immature Gran # (0.00-0.04) 10*3/uL Neutrophils # (1.80-7.70) 10*3/uL Monocytes # (0.20-1.00) 10*3/uL Eosinophils # (0.04-0.35) 10*3/uL Sodium (137-145) mmol/L Creatinine (0.66-1.25) mg/dL Glucose (74-99) mg/dL POC Glucose (mg/dL) 209 H (70-110) mg/dL Calcium (8.4-10.2) mg/dL Total Protein (6.3-8.2) g/dL Albumin (3.5-5.0) g/dL
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
[2024-11-24 16:44] LABS: Glucose,Whole Blood 152 mg/dL (70-110)
--- NOTE | 2024-11-24 21:14 | P.PN ---
Subjective Progress Note Date: 11/24/24 No acute events overnight. Pt reporting feeling improved. Denies abd pain, having output in ostomy. Hgb stable at 8.0. Objective - Vital Signs Vital signs: Vital Signs Temp 97.8 F 11/24/24 15:45 Pulse 78 11/24/24 15:45 Resp 16 11/24/24 15:45 BP 138/71 11/24/24 15:45 Pulse Ox 97 11/24/24 15:45 FiO2 40 11/18/24 08:16 Intake & Output 11/23/24 11/24/24 11/24/24 18:59 06:59 18:59 Intake Total 0434 808 9894 Output Total 1698 700 330 Balance -382 -580 1130 Weight 77 kg 77 kg Intake: Oral 1888 115 5446 Output: Drainage 23 0 5 Left Abdomen 23 0 5 Right Abdomen 0 0 0 Urine 1675 500 325 Stool 200 Other: Voiding Method Urinal Urinal Urinal # Voids 1 1 # Bowel Movements 200 250 ABP, PAP, CO, CI - Last Documented Arterial Blood Pressure 81/61 - Constitutional General appearance: Present: average body habitus, no acute distress - EENT Eyes: Present: anicteric sclerae, EOMI ENT: Present: hearing grossly normal - Respiratory Details: breathing is even and unlabored - Cardiovascular Details: skin warm and dry - Gastrointestinal Gastrointestinal Comment(s): ostomy in situ General gastrointestinal: Present: soft. Absent: tenderness - Integumentary Integumentary: Absent: cyanotic - Psychiatric Psychiatric: Present: A&O x's 3 - Labs CBC & Chem 7: 11/24/24 09:02 11/24/24 08:01 Labs: Abnormal Lab Results - Last 24 Hours (Table) 11/23/24 11/24/24 11/24/24 Range/Units 23:58 00:13 05:59 WBC (4.50-10.00) 10*3/uL RBC (4.40-5.60) 10*6/uL Hgb (13.0-17.0) g/dL Hct (39.6-50.0) % MCV (80.0-97.0) fL Plt Count (140-440) 10*3/uL Immature Gran # (0.00-0.04) 10*3/uL Neutrophils # (1.80-7.70) 10*3/uL Monocytes # (0.20-1.00) 10*3/uL Eosinophils # (0.04-0.35) 10*3/uL Sodium (137-145) mmol/L Creatinine (0.66-1.25) mg/dL Glucose (74-99) mg/dL POC Glucose (mg/dL) 202 H 173 H 134 H (70-110) mg/dL Calcium (8.4-10.2) mg/dL Total Protein (6.3-8.2) g/dL Albumin (3.5-5.0) g/dL 11/24/24 11/24/24 11/24/24 Range/Units 08:01 09:02 11:35 WBC 22.63 H (4.50-10.00) 10*3/uL RBC 2.94 L (4.40-5.60) 10*6/uL Hgb 8.0 L (13.0-17.0) g/dL Hct 23.4 L (39.6-50.0) % MCV 79.6 L (80.0-97.0) fL Plt Count 991 H (140-440) 10*3/uL Immature Gran # 0.15 H (0.00-0.04) 10*3/uL Neutrophils # 19.93 H (1.80-7.70) 10*3/uL Monocytes # 1.14 H (0.20-1.00) 10*3/uL Eosinophils # 0.01 L (0.04-0.35) 10*3/uL Sodium 134 L (137-145) mmol/L Creatinine 0.40 L (0.66-1.25) mg/dL Glucose 112 H (74-99) mg/dL POC Glucose (mg/dL) 209 H (70-110) mg/dL Calcium 8.0 L (8.4-10.2) mg/dL Total Protein 5.2 L (6.3-8.2) g/dL Albumin 2.4 L (3.5-5.0) g/dL 11/24/24 Range/Units 16:42 WBC (4.50-10.00) 10*3/uL RBC (4.40-5.60) 10*6/uL Hgb (13.0-17.0) g/dL Hct (39.6-50.0) % MCV (80.0-97.0) fL Plt Count (140-440) 10*3/uL Immature Gran # (0.00-0.04) 10*3/uL Neutrophils # (1.80-7.70) 10*3/uL Monocytes # (0.20-1.00) 10*3/uL Eosinophils # (0.04-0.35) 10*3/uL Sodium (137-145) mmol/L Creatinine (0.66-1.25) mg/dL Glucose (74-99) mg/dL POC Glucose (mg/dL) 152 H (70-110) mg/dL Calcium (8.4-10.2) mg/dL Total Protein (6.3-8.2) g/dL Albumin (3.5-5.0) g/dL Assessment and Plan (1) Iron deficiency anemia Current Visit: Yes Status: Acute Priority: High Code(s): D50.9 - IRON DEFICIENCY ANEMIA, UNSPECIFIED SNOMED Code(s): 23132706 (2) Leukocytosis Current Visit: Yes Status: Acute Code(s): D72.829 - ELEVATED WHITE BLOOD CELL COUNT, UNSPECIFIED SNOMED Code(s): 133292000 (3) Mass of colon Current Visit: Yes Status: Acute Priority: High Code(s): K63.89 - OTHER SPECIFIED DISEASES OF INTESTINE SNOMED Code(s): 498980516 (4) Reactive thrombocytosis Current Visit: Yes Status: Acute Code(s): D75.838 - OTHER THROMBOCYTOSIS SNOMED Code(s): 173580056 (5) Small bowel obstruction Current Visit: Yes Status: Acute Code(s): K56.609 - UNSP INTESTNL OBST, UNSP TO PARTIAL VERSUS COMPLETE OBST SNOMED Code(s): 682935874 Plan: Colon adenocarcinoma: -Noted to be present during surgical repair of incarcerated hernia resulting in small bowel obstruction. Sigmoidoscopy revealed tubular adenoma, near obstruction of sigmoid colon. S/P extensive open abdominal surgery. Pt is doing well post op, he has had stool in ostomy, he is starting to eat, TPN continues at this time. -CT abdomen/pelvis on 11/08/2024, no findings concerning for metastatic disease -CEA elevated only very slightly at 8.9, CA 19-9 WNL -CT of the chest with IV contrast reported non-specific 4mm ground glass nodule in left lung apex, and few scattered micro nodules. -Surgical pathology positive for colon adenocaricnoma, 12/12 lymph nodes negative. -Will plan for outpt PET CT once healed from surgery and obtain circulating tumor DNA in outpt setting to help determine benefits of adjuvant chemo Results and POC discussed with pt, he was agreeable to the same. All questions and concerns addressed Iron deficiency anemia -Microcytic anemia on admission -Iron studies on 11/10/2023 revealed ferritin of 275 with iron saturation 8.83% -Likely due to impaired absorption from incarcerated hernia and possible malignancy -IV iron given. Folic acid deficiency noted, supplementation started -Hgb has been stable. Continue to monitor CBC Thrombocytosis-resolved -Likely reactive to iron deficiency and small bowel obstruction attests: I have performed H&P and developed impression and plan of care for patient, discussed with dictator. I agree with dictated noted, documented as a scribe
[2024-11-24 23:29] LABS: Glucose,Whole Blood 139 mg/dL (70-110)
[2024-11-25 06:05] LABS: Glucose,Whole Blood 116 mg/dL (70-110)
[2024-11-25 09:55] LABS: Basophils # (A) 0.05 10*3/uL (0.00-0.10); Basophils % (A) 0.2 %; Eosinophils # (A) 0.01 10*3/uL (0.04-0.35); HCT 23.3 % (39.6-50.0); Lymphocytes # (A) 1.56 10*3/uL (0.90-5.00); Lymphocytes % (A) 6.2 %; MCH 27.1 pg (27.0-32.0); MCHC 34.3 g/dL (32.0-37.0); Mean Platelet Volume 9.7 fL (9.5-12.2); Monocytes # (A) 1.04 10*3/uL (0.20-1.00); Monocytes % (A) 4.1 %; Neutrophils # (A) 22.32 10*3/uL (1.80-7.70); Neutrophils % (A) 88.7 %; RBC 2.95 10*6/uL (4.40-5.60); RDW 19.1 % (11.5-14.5); WBC 25.17 10*3/uL (4.50-10.00)
[2024-11-25 10:11] LABS: African American GFR (CKD) >90 (>60 ml/min/1.73 sqM); Anion Gap 2 mmol/L; Blood Urea Nitrogen 12 mg/dL (9-20); Calcium 7.3 mg/dL (8.4-10.2); Carbon Dioxide 30 mmol/L (22-30); Chloride 101 mmol/L (98-107); Glucose 116 mg/dL (74-99); Magnesium 1.6 mg/dL (1.6-2.3); Non-African American GFR(CKD) >90 (>60 ml/min/1.73 sqM); Phosphorus 2.3 mg/dL (2.5-4.5); Potassium 3.2 mmol/L (3.5-5.1); Sodium 133 mmol/L (137-145)
--- NOTE | 2024-11-25 11:11 | P.PN ---
Subjective Progress Note Date: 11/25/24 CHIEF COMPLAINT: Abdominal pain HISTORY OF PRESENT ILLNESS: The patient is a 54-year-old male status post left inguinal hernia repair on 11/10/2024 followed by open laparotomy, extensive lysis of adhesions, drainage of peritoneal and pelvic abscess, transverse colostomy, with subtotal colectomy for large bowel ischemia with perforation, 11/16/2024. He reports feeling stronger today. He is able to make a muscle with his right bicep. He reports developing diarrhea after eating salad last night. He had multiple changes of his ostomy bag overnight. Otherwise, no reports of abdominal pain. No fevers or chills. Swelling of his lower extremities and legs is moderately improved. REVIEW OF ORGAN SYSTEMS: No fevers or chills. No chest pain. No shortness of breath. PHYSICAL EXAM: VITALS: Reviewed CONSTITUTIONAL: Well developed and in no acute distress. EYES: Conjuctivae without sclera icterus. Extraocular movements grossly intact. HEAD, EARS, NOSE, THROAT: Head is atraumatic, normocephalic. RESPIRATORY: Nonlabored respirations. CARDIOVASCULAR: Palpable 2+ radial pulses. ABDOMEN: Ostomy pink patent and functioning. Midline incision dressing and clean dry intact. MUSCULOSKELETAL: 2+ pitting edema decrease from 3+ pitting edema yesterday along the foot and legs. SKIN: Warm and well perfused with good skin turgor. NEUROLOGIC: No focal lateralizing signs PSYCH: Alert and oriented person place time. CLINCAL LABS: Reviewed. WBC over 22,000. Platelets over 1 million. Potassium 3.1, low. Phosphate low, magnesium 1.6, low. Lactate normal. MICROBIOLOGY: Peritoneal cultures Enterococcus, Ilda, including Clostridium, E. coli, PATHOLOGY: Demonstrates invasive moderately differentiated adenocarcinoma with negative margins. All lymph nodes were negative. T3 N0 lesion. STUDIES: Ultrasound of the abdomen report demonstrates fluid collection along the right flank amenable to drainage. ASSESSMENT: 1. 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 Left inguinal hernia 3. High risk malignancy 4. Hyponatremia 5. Emphysema with COPD, new 6. Thyroid nodule, left, new 7. Elevated CEA 8. Iron deficiency anemia 9. Sigmoid colon malignancy with obstruction 10. Persistent hypokalemia 11. Large bowel infarction, transverse colon, descending and sigmoid colon 12. Fecal peritonitis with pelvic abscess status post drainage 13. Septic shock 14. Severe protein malnutrition 15. Candidiasis peritonitis 16. C. difficile per culture 17. Adeno carcinoma of the colon 18. Thrombocytosis 19. Hypophosphatemia 20. Hypokalemia 21. Hypomagnesia PLAN: 1. He is on multiple antibiotics for coverage of Enterococcus, Ilda, Clostridium and E. coli. 2. Patient had discussion with oncologist last night for any benefits regarding chemotherapy. Otherwise, pathology report demonstrates negative margins with negative lymph nodes. 3. For his diarrhea, patient reports eating sound to cause diarrhea. I have adjusted diet to high-protein high-calorie diet. Albumin is improving from 1.9- 2.4. 4. For severe protein malnutrition, multivitamin also added with high-protein high-calorie diet 5. For correction of low phosphate, low potassium, low magnesium, supplementation ordered. 6. Risk for thrombocytosis also include severe iron deficiency for which another round of iron infusions started 7. Overall, patient in good spirits and eager for discharge. Objective - Vital Signs Vital signs: Vital Signs Temp 97.7 F 11/25/24 08:35 Pulse 84 11/25/24 08:35 Resp 16 11/25/24 08:35 BP 131/62 11/25/24 08:35 Pulse Ox 97 11/25/24 08:35 FiO2 40 11/18/24 08:16 Intake & Output 11/24/24 11/25/24 11/25/24 18:59 06:59 18:59 Intake Total 1578 240 240 Output Total 330 1700 800 Balance 1248 -1460 -560 Weight 77 kg Intake: Oral 1578 240 240 Output: Drainage 5 Left Abdomen 5 Right Abdomen 0 Urine 325 1100 500 Stool 600 300 Other: Voiding Method Urinal Urinal Urinal # Voids 1 # Bowel Movements 250 ABP, PAP, CO, CI - Last Documented Arterial Blood Pressure 81/61 - Labs CBC & Chem 7: 11/25/24 09:35 11/25/24 09:35 Labs: Abnormal Lab Results - Last 24 Hours (Table) 11/24/24 11/24/24 11/24/24 Range/Units 11:35 16:42 23:27 WBC (4.50-10.00) 10*3/uL RBC (4.40-5.60) 10*6/uL Hgb (13.0-17.0) g/dL Hct (39.6-50.0) % MCV (80.0-97.0) fL Plt Count (140-440) 10*3/uL Immature Gran # (0.00-0.04) 10*3/uL Sodium (137-145) mmol/L Potassium (3.5-5.1) mmol/L Creatinine (0.66-1.25) mg/dL Glucose (74-99) mg/dL POC Glucose (mg/dL) 209 H 152 H 139 H (70-110) mg/dL Calcium (8.4-10.2) mg/dL Phosphorus (2.5-4.5) mg/dL 11/25/24 11/25/24 11/25/24 Range/Units 06:03 09:35 09:35 WBC 25.17 H (4.50-10.00) 10*3/uL RBC 2.95 L (4.40-5.60) 10*6/uL Hgb 8.0 L (13.0-17.0) g/dL Hct 23.3 L (39.6-50.0) % MCV 79.0 L (80.0-97.0) fL Plt Count 1173 H* (140-440) 10*3/uL Immature Gran # 0.19 H (0.00-0.04) 10*3/uL Sodium 133 L (137-145) mmol/L Potassium 3.2 L (3.5-5.1) mmol/L Creatinine 0.33 L (0.66-1.25) mg/dL Glucose 116 H (74-99) mg/dL POC Glucose (mg/dL) 116 H (70-110) mg/dL Calcium 7.3 L (8.4-10.2) mg/dL Phosphorus 2.3 L (2.5-4.5) mg/dL
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
[2024-11-25 11:33] LABS: Glucose,Whole Blood 151 mg/dL (70-110)
[2024-11-25 11:39] LABS: African American GFR (CKD) >90 (>60 ml/min/1.73 sqM); Non-African American GFR(CKD) >90 (>60 ml/min/1.73 sqM)
[2024-11-25] MEDS: SODIUM FERRIC GLUCONAT-SUCROSE 125 MG in SODIUM CHLORIDE 0.9% 100 ML IVPB SCH (12:17)
[2024-11-25] MEDS: POTASSIUM CHLORIDE ER 20 MEQ TAB.ER PO SCH (12:55)
[2024-11-25] MEDS: MULTIVITAMINS, THERA 1 EACH TAB PO SCH (12:55)
[2024-11-25] MEDS: POTASSIUM PHOSPHATE 10 MMOL in SODIUM CHLORIDE 0.9% 250 ML IV SCH (14:32)
[2024-11-25 15:31] LABS: Platelet Count 1173 10*3/uL (140-440)
[2024-11-25] MEDS: VANCOMYCIN TROUGH DUE 1 EACH MISC MISCELLANE ONE (16:19)
[2024-11-25] MEDS: MAGNESIUM SULFATE-D5W PMX 1 GM in DEXTROSE/WATER 1 100ML.BAG IVPB SCH (16:32)
[2024-11-25 16:40] LABS: Glucose,Whole Blood 171 mg/dL (70-110)
--- NOTE | 2024-11-25 18:13 | P.PN ---
Subjective Progress Note Date: 11/24/24 54-year-old male patient with no significant past medical history, presenting today for left lower quadrant sharp abdominal pain. Patient states this pain has been intermittent over the last 2 weeks. More persistent today, uncontrolled with 800 mg of ibuprofen or Pepcid. Patient endorses abdominal swelling and firmness over this time as well. He states he has had a left inguinal hernia "for a while" and the pain is not located over the region of the hernia. He denies fevers or chills, denies shortness of breath or chest pain, endorses nausea and today had 2 episodes of nonbloody nonbilious emesis. States he has intermittent brown stools sometimes with small streaks of blood no melena. No history of prior abdominal surgeries. Denies dysuria, hematuria or urinary frequency. No history of cancers in himself or family members. Patient has no other medical history. He does not drink alcohol or smoke cigarettes. Blood work completed in ED reveals a WBC of 15.1, hemoglobin of 10.[address] atelet count of 682, sodium 135, potassium 4.1, BUNs/creatinine of 18/0.71 and blood glucose of 126, lactic acid level of 1.1 CT of the abdomen and pelvis completed with contrast reveals left inguinal hernia extending into the scrotum containing nondilated small bowel loops. Multiple markedly enlarged small bowel loops proximal to the hernia consistent with small bowel obstruction. Small amount of free fluid 11/24/2024 Patient is seen and evaluated in follow-up on the selective care unit. He is currently sitting up in bed. Awake and alert in no acute distress. Denies any shortness of breath, cough or congestion. No fever or chills. Maintaining good O2 saturations in the 90s on room air. CT scan of the abdomen and pelvis revealed peritoneal thickening likely representing peritonitis. Diffuse enteritis with circumferential wall thickening of the small bowel. Postsurgical changes with colostomy present. Bilateral Trent-Conti drainage tubes with persistent fluid throughout the abdomen. Loculated fluid collection is seen along the lateral aspect of the ascending colon with a flat morphology medially adjacent to the bowel. Additional fluid collection just medial to the ascending colon anterior to the kidney noted. Small left pleural effusion with atelectasis at the lung bases. Ultrasound of the abdomen revealed complex fluid collection. Hypoechoic area evident within the [id number]. Interventional radiology has been consulted. White count 22.6. Hemoglobin 8.0. Platelets 991. Sodium 134. Potassium 3.7. Bicarb 25. BUN 11. Creatinine 0.40. Glucose 112. He is continued on cefepime, fluconazole, Flagyl and vancomycin. Objective - Vital Signs Vital signs: Vital Signs Temp 97.6 F 11/24/24 11:17 Pulse 83 11/24/24 11:32 Resp 17 11/24/24 11:32 BP 136/70 11/24/24 11:32 Pulse Ox 95 11/24/24 11:32 FiO2 40 11/18/24 08:16 Intake & Output 11/23/24 11/24/24 11/24/24 18:59 06:59 18:59 Intake Total 1316 120 920 Output Total 1698 700 330 Balance -382 -580 590 Weight 77 kg 77 kg Intake: Oral 1316 120 920 Output: Drainage 23 0 5 Left Abdomen 23 0 5 Right Abdomen 0 0 0 Urine 1675 500 325 Stool 200 Other: Voiding Method Urinal Urinal Urinal # Voids 1 1 # Bowel Movements 200 400 ABP, PAP, CO, CI - Last Documented Arterial Blood Pressure 81/61 - Exam CONSTITUTIONAL: [no apparent distress, chronic ill-appearing, nontoxic, somewhat cachectic] SKIN: warm, dry, no jaundice, hives or petechiae EYES: pupils are equally round, extraocular movements intact without nystagmus, clear conjunctiva, non-icteric sclera HENT: normocephalic, atraumatic NECK: Full range of motion, normal appearance PULMONARY: clear to auscultation without wheezes, rhonchi, or rales CARDIOVASCULAR: regular rate, rhythm, normal S1 and S2. No appreciated murmurs, rubs or gallops. Strong radial pulses with intact distal perfusion. No lower extremity edema GASTROINTESTINAL: Firm, distended, active bowel sounds throughout, tenderness outpatient the left lower and right lower quadrants, left inguinal hernia, of note tool room machinist was offered for exam however patient platelet declined, none irreducible, guarding palpation of the abdomen, no rebound no palpable masses No hepatosplenomegaly GENITOURINARY: As above MUSCULOSKELETAL: Extremities have no gross deformity, no edema, redness, or swelling. No calf swelling NEUROLOGIC: a/o x 3, GCS 15, normal mentation and speech. Moves all extremities x 4 without motor or sensory deficit PSYCHIATRIC: normal mood and affect, thought process is clear and linear - Labs CBC & Chem 7: 11/25/24 09:35 11/25/24 11:10 Labs: Abnormal Lab Results - Last 24 Hours (Table) 11/23/24 11/23/24 11/24/24 Range/Units 16:13 23:58 00:13 WBC (4.50-10.00) 10*3/uL RBC (4.40-5.60) 10*6/uL Hgb (13.0-17.0) g/dL Hct (39.6-50.0) % MCV (80.0-97.0) fL Plt Count (140-440) 10*3/uL Immature Gran # (0.00-0.04) 10*3/uL Neutrophils # (1.80-7.70) 10*3/uL Monocytes # (0.20-1.00) 10*3/uL Eosinophils # (0.04-0.35) 10*3/uL Sodium (137-145) mmol/L Creatinine (0.66-1.25) mg/dL Glucose (74-99) mg/dL POC Glucose (mg/dL) 124 H 202 H 173 H (70-110) mg/dL Calcium (8.4-10.2) mg/dL Total Protein (6.3-8.2) g/dL Albumin (3.5-5.0) g/dL 11/24/24 11/24/24 11/24/24 Range/Units 05:59 08:01 09:02 WBC 22.63 H (4.50-10.00) 10*3/uL RBC 2.94 L (4.40-5.60) 10*6/uL Hgb 8.0 L (13.0-17.0) g/dL Hct 23.4 L (39.6-50.0) % MCV 79.6 L (80.0-97.0) fL Plt Count 991 H (140-440) 10*3/uL Immature Gran # 0.15 H (0.00-0.04) 10*3/uL Neutrophils # 19.93 H (1.80-7.70) 10*3/uL Monocytes # 1.14 H (0.20-1.00) 10*3/uL Eosinophils # 0.01 L (0.04-0.35) 10*3/uL Sodium 134 L (137-145) mmol/L Creatinine 0.40 L (0.66-1.25) mg/dL Glucose 112 H (74-99) mg/dL POC Glucose (mg/dL) 134 H (70-110) mg/dL Calcium 8.0 L (8.4-10.2) mg/dL Total Protein 5.2 L (6.3-8.2) g/dL Albumin 2.4 L (3.5-5.0) g/dL 11/24/24 Range/Units 11:35 WBC (4.50-10.00) 10*3/uL RBC (4.40-5.60) 10*6/uL Hgb (13.0-17.0) g/dL Hct (39.6-50.0) % MCV (80.0-97.0) fL Plt Count (140-440) 10*3/uL Immature Gran # (0.00-0.04) 10*3/uL Neutrophils # (1.80-7.70) 10*3/uL Monocytes # (0.20-1.00) 10*3/uL Eosinophils # (0.04-0.35) 10*3/uL Sodium (137-145) mmol/L Creatinine (0.66-1.25) mg/dL Glucose (74-99) mg/dL POC Glucose (mg/dL) 209 H (70-110) mg/dL Calcium (8.4-10.2) mg/dL Total Protein (6.3-8.2) g/dL Albumin (3.5-5.0) g/dL Assessment and Plan Assessment: 1. Small bowel obstruction CT of the abdomen and pelvis reveals left inguinal hernia extending into scrotum containing nondilated small bowel loops. Multiple markedly enlarged small bowel loops proximal to hernia consistent with a small bowel obstruction. 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 Leukocytosis; likely reactive; no clear evidence of infection; will monitor CRP and procalcitonin and repeat CBC; plan to initiate sepsis workup if white blood count remains elevated or worsens 3. Mild hyponatremia; likely related to poor oral intake; will add IV fluids in form of normal saline at rate of 75 cc an hour 4. Anemia; patient does not report any history of anemia; will order stool occult blood; monitor H&H; start patient on IV Protonix 5. Mild hyperglycemia; possibly stress-induced; will monitor Accu-Cheks DVT prophylaxis; SCDs only given possibility of surgical intervention in next 24 hours CODE STATUS; full code
--- NOTE | 2024-11-25 18:15 | P.PN ---
Subjective Progress Note Date: 11/25/24 54-year-old male patient with no significant past medical history, presenting today for left lower quadrant sharp abdominal pain. Patient states this pain has been intermittent over the last 2 weeks. More persistent today, uncontrolled with 800 mg of ibuprofen or Pepcid. Patient endorses abdominal swelling and firmness over this time as well. He states he has had a left inguinal hernia "for a while" and the pain is not located over the region of the hernia. He denies fevers or chills, denies shortness of breath or chest pain, endorses nausea and today had 2 episodes of nonbloody nonbilious emesis. States he has intermittent brown stools sometimes with small streaks of blood no melena. No history of prior abdominal surgeries. Denies dysuria, hematuria or urinary frequency. No history of cancers in himself or family members. Patient has no other medical history. He does not drink alcohol or smoke cigarettes. Blood work completed in ED reveals a WBC of 15.1, hemoglobin of 10.[address] atelet count of 682, sodium 135, potassium 4.1, BUNs/creatinine of 18/0.71 and blood glucose of 126, lactic acid level of 1.1 CT of the abdomen and pelvis completed with contrast reveals left inguinal hernia extending into the scrotum containing nondilated small bowel loops. Multiple markedly enlarged small bowel loops proximal to the hernia consistent with small bowel obstruction. Small amount of free fluid 11/24/2024 Patient is seen and evaluated in follow-up on the selective care unit. He is currently sitting up in bed. Awake and alert in no acute distress. Denies any shortness of breath, cough or congestion. No fever or chills. Maintaining good O2 saturations in the 90s on room air. CT scan of the abdomen and pelvis revealed peritoneal thickening likely representing peritonitis. Diffuse enteritis with circumferential wall thickening of the small bowel. Postsurgical changes with colostomy present. Bilateral Trent-Conti drainage tubes with persistent fluid throughout the abdomen. Loculated fluid collection is seen along the lateral aspect of the ascending colon with a flat morphology medially adjacent to the bowel. Additional fluid collection just medial to the ascending colon anterior to the kidney noted. Small left pleural effusion with atelectasis at the lung bases. Ultrasound of the abdomen revealed complex fluid collection. Hypoechoic area evident within the [id number]. Interventional radiology has been consulted. White count 22.6. Hemoglobin 8.0. Platelets 991. Sodium 134. Potassium 3.7. Bicarb 25. BUN 11. Creatinine 0.40. Glucose 112. He is continued on cefepime, fluconazole, Flagyl and vancomycin. 11/25/2024 Patient is seen and evaluated in follow-up in room at bedside. He is awake and alert in no acute distress. Reports he has been ambulating in the room - maintaining good O2 saturations in the 90s on room air. Currently sitting up in bed. Denies any worsening shortness of breath, cough or congestion. Denies any significant abdominal discomfort. Blood work reveals white count 25.1. Hemoglobin 8.0. Platelets 1173. Sodium 133. Potassium 3.2. Bicarb 30. BUN 12. Creatinine 0.33. Glucose 116. - He remains on cefepime, fluconazole, Flagyl, and vancomycin. Plan is for drainage of the abdominal abscess by interventional radiology on 11/27/2024. Lovenox will be on hold for the procedure. Tolerating a regular diet Increase his activity as tolerated Plan will be for outpatient PET scan Plan is for [facility] at discharge Objective - Vital Signs Vital signs: Vital Signs Temp 97.7 F 11/25/24 08:35 Pulse 84 11/25/24 08:35 Resp 16 11/25/24 08:35 BP 131/62 11/25/24 08:35 Pulse Ox 97 11/25/24 08:35 FiO2 40 11/18/24 08:16 Intake & Output 11/24/24 11/25/24 11/25/24 18:59 06:59 18:59 Intake Total 1578 240 240 Output Total 330 1700 800 Balance 1248 -1460 -560 Weight 77 kg Intake: Oral 1578 240 240 Output: Drainage 5 Left Abdomen 5 Right Abdomen 0 Urine 325 1100 500 Stool 600 300 Other: Voiding Method Urinal Urinal Urinal # Voids 1 # Bowel Movements 250 ABP, PAP, CO, CI - Last Documented Arterial Blood Pressure 81/61 - Exam CONSTITUTIONAL: [no apparent distress, chronic ill-appearing, nontoxic, somewhat cachectic] SKIN: warm, dry, no jaundice, hives or petechiae EYES: pupils are equally round, extraocular movements intact without nystagmus, clear conjunctiva, non-icteric sclera HENT: normocephalic, atraumatic NECK: Full range of motion, normal appearance PULMONARY: clear to auscultation without wheezes, rhonchi, or rales CARDIOVASCULAR: regular rate, rhythm, normal S1 and S2. No appreciated murmurs, rubs or gallops. Strong radial pulses with intact distal perfusion. No lower extremity edema GASTROINTESTINAL: Firm, distended, active bowel sounds throughout, tenderness outpatient the left lower and right lower quadrants, left inguinal hernia, of note history faculty member was offered for exam however patient platelet declined, none irreducible, guarding palpation of the abdomen, no rebound no palpable masses No hepatosplenomegaly GENITOURINARY: As above MUSCULOSKELETAL: Extremities have no gross deformity, no edema, redness, or swelling. No calf swelling NEUROLOGIC: a/o x 3, GCS 15, normal mentation and speech. Moves all extremities x 4 without motor or sensory deficit PSYCHIATRIC: normal mood and affect, thought process is clear and linear - Labs CBC & Chem 7: 11/25/24 09:35 11/25/24 11:10 Labs: Abnormal Lab Results - Last 24 Hours (Table) 11/24/24 11/24/24 11/25/24 Range/Units 16:42 23:27 06:03 WBC (4.50-10.00) 10*3/uL RBC (4.40-5.60) 10*6/uL Hgb (13.0-17.0) g/dL Hct (39.6-50.0) % MCV (80.0-97.0) fL Plt Count (140-440) 10*3/uL Immature Gran # (0.00-0.04) 10*3/uL Neutrophils # (1.80-7.70) 10*3/uL Monocytes # (0.20-1.00) 10*3/uL Eosinophils # (0.04-0.35) 10*3/uL Sodium (137-145) mmol/L Potassium (3.5-5.1) mmol/L Creatinine (0.66-1.25) mg/dL Glucose (74-99) mg/dL POC Glucose (mg/dL) 152 H 139 H 116 H (70-110) mg/dL Calcium (8.4-10.2) mg/dL Phosphorus (2.5-4.5) mg/dL 11/25/24 11/25/24 11/25/24 Range/Units 09:35 09:35 11:10 WBC 25.17 H (4.50-10.00) 10*3/uL RBC 2.95 L (4.40-5.60) 10*6/uL Hgb 8.0 L (13.0-17.0) g/dL Hct 23.3 L (39.6-50.0) % MCV 79.0 L (80.0-97.0) fL Plt Count 1173 H* (140-440) 10*3/uL Immature Gran # 0.19 H (0.00-0.04) 10*3/uL Neutrophils # 22.32 H (1.80-7.70) 10*3/uL Monocytes # 1.04 H (0.20-1.00) 10*3/uL Eosinophils # 0.01 L (0.04-0.35) 10*3/uL Sodium 133 L (137-145) mmol/L Potassium 3.2 L (3.5-5.1) mmol/L Creatinine 0.33 L 0.36 L (0.66-1.25) mg/dL Glucose 116 H (74-99) mg/dL POC Glucose (mg/dL) (70-110) mg/dL Calcium 7.3 L (8.4-10.2) mg/dL Phosphorus 2.3 L (2.5-4.5) mg/dL 11/25/24 Range/Units 11:32 WBC (4.50-10.00) 10*3/uL RBC (4.40-5.60) 10*6/uL Hgb (13.0-17.0) g/dL Hct (39.6-50.0) % MCV (80.0-97.0) fL Plt Count (140-440) 10*3/uL Immature Gran # (0.00-0.04) 10*3/uL Neutrophils # (1.80-7.70) 10*3/uL Monocytes # (0.20-1.00) 10*3/uL Eosinophils # (0.04-0.35) 10*3/uL Sodium (137-145) mmol/L Potassium (3.5-5.1) mmol/L Creatinine (0.66-1.25) mg/dL Glucose (74-99) mg/dL POC Glucose (mg/dL) 151 H (70-110) mg/dL Calcium (8.4-10.2) mg/dL Phosphorus (2.5-4.5) mg/dL Assessment and Plan Assessment: 1. Small bowel obstruction CT of the abdomen and pelvis reveals left inguinal hernia extending into scrotum containing nondilated small bowel loops. Multiple markedly enlarged small bowel loops proximal to hernia consistent with a small bowel obstruction. 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 Leukocytosis; likely reactive; no clear evidence of infection; will monitor CRP and procalcitonin and repeat CBC; plan to initiate sepsis workup if white blood count remains elevated or worsens 3. Mild hyponatremia; likely related to poor oral intake; will add IV fluids in form of normal saline at rate of 75 cc an hour 4. Anemia; patient does not report any history of anemia; will order stool occult blood; monitor H&H; start patient on IV Protonix 5. Mild hyperglycemia; possibly stress-induced; will monitor Accu-Cheks DVT prophylaxis; SCDs only given possibility of surgical intervention in next 24 hours CODE STATUS; full code
[2024-11-25 20:10] LABS: Glucose,Whole Blood 94 mg/dL (70-110)
[2024-11-26 00:23] LABS: Glucose,Whole Blood 109 mg/dL (70-110)
[2024-11-26 06:19] LABS: Glucose,Whole Blood 93 mg/dL (70-110)
[2024-11-26 07:22] LABS: Basophils # (A) 0.05 10*3/uL (0.00-0.10); Basophils % (A) 0.2 %; Eosinophils # (A) 0.03 10*3/uL (0.04-0.35); Eosinophils % (A) 0.1 %; HCT 23.5 % (39.6-50.0); HGB 7.8 g/dL (13.0-17.0); Lymphocytes # (A) 1.52 10*3/uL (0.90-5.00); Lymphocytes % (A) 5.7 %; MCH 26.6 pg (27.0-32.0); MCHC 33.2 g/dL (32.0-37.0); MCV 80.2 fL (80.0-97.0); Mean Platelet Volume 9.7 fL (9.5-12.2); Monocytes # (A) 1.33 10*3/uL (0.20-1.00); Neutrophils # (A) 23.46 10*3/uL (1.80-7.70); Neutrophils % (A) 88.2 %; RBC 2.93 10*6/uL (4.40-5.60); RDW 19.2 % (11.5-14.5)
[2024-11-26 08:03] LABS: African American GFR (CKD) >90 (>60 ml/min/1.73 sqM); Anion Gap 2 mmol/L; Blood Urea Nitrogen 8 mg/dL (9-20); Calcium 7.7 mg/dL (8.4-10.2); Carbon Dioxide 31 mmol/L (22-30); Chloride 101 mmol/L (98-107); Glucose 79 mg/dL (74-99); Magnesium 2.1 mg/dL (1.6-2.3); Non-African American GFR(CKD) >90 (>60 ml/min/1.73 sqM); Potassium 4.1 mmol/L (3.5-5.1); Sodium 134 mmol/L (137-145)
[2024-11-26 08:21] LABS: Prothrombin Time 11.5 sec (10.0-12.5)
--- NOTE | 2024-11-26 08:27 | P.PN ---
Subjective Progress Note Date: 11/26/24 CHIEF COMPLAINT: Abdominal pain HISTORY OF PRESENT ILLNESS: The patient is a 54-year-old male status post left inguinal hernia repair on 11/10/2024 followed by open laparotomy, extensive lysis of adhesions, drainage of peritoneal and pelvic abscess, transverse colostomy, with subtotal colectomy for large bowel ischemia with perforation, 11/16/2024. He tolerated a high-protein high caloric diet. He reports moderate urination. He is emptying his own bag. Still liquid. No increased abdominal pain. He is eating bananas to maintain his potassium level. REVIEW OF ORGAN SYSTEMS: No fevers or chills. No chest pain. No shortness of breath. PHYSICAL EXAM: VITALS: Reviewed CONSTITUTIONAL: Well developed and in no acute distress. EYES: Conjuctivae without sclera icterus. Extraocular movements grossly intact. HEAD, EARS, NOSE, THROAT: Head is atraumatic, normocephalic. RESPIRATORY: Nonlabored respirations. CARDIOVASCULAR: Palpable 2+ radial pulses. ABDOMEN: Ostomy pink patent and functioning with gas and liquid stool.. Midline incision dressing and clean dry intact. MUSCULOSKELETAL: Lower extremity 2+ pitting edema. SKIN: Warm and well perfused with good skin turgor. NEUROLOGIC: No focal lateralizing signs PSYCH: Alert and oriented person place time. CLINCAL LABS: Reviewed. WBC over 22,000 now, 26,000. Platelets over 1 million now 1.2 million. Potassium now normal. Phosphate now normal., magnesium now normal. MICROBIOLOGY: Peritoneal cultures Enterococcus, Ilda, including Clostridium, E. coli, ASSESSMENT: 1. 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 Left inguinal hernia 3. High risk malignancy 4. Hyponatremia 5. Emphysema with COPD, new 6. Thyroid nodule, left, new 7. Elevated CEA 8. Iron deficiency anemia 9. Sigmoid colon malignancy with obstruction 10. Persistent hypokalemia 11. Large bowel infarction, transverse colon, descending and sigmoid colon 12. Fecal peritonitis with pelvic abscess status post drainage 13. Septic shock 14. Severe protein malnutrition 15. Candidiasis peritonitis 16. C. difficile per culture 17. [place] carcinoma of the colon 18. Thrombocytosis 19. Hypophosphatemia 20. Hypokalemia 21. Hypomagnesia PLAN: 1. His electrolyte abnormalities including magnesium, phosphate, potassium, have now been corrected. Will continue to monitor. 2. My main concern include persistent elevated white count and persistent elevated platelets that continue to rise. Patient did have positive Clostridium in the culture from his peritoneal fluid during surgery. He also has new liquid stools. Despite multiple IV antibiotics, vancomycin via oral has not been i nitiated. I have started him on vancomycin oral to address Clostridium difficile 3. Lovenox has been held for ultrasound-guided drainage of retroperitoneal fluid collection. Objective - Vital Signs Vital signs: Vital Signs Temp 97.7 F 11/26/24 08:00 Pulse 81 11/26/24 08:00 Resp 18 11/26/24 08:00 BP 136/75 11/26/24 08:00 Pulse Ox 97 11/26/24 08:00 FiO2 40 11/18/24 08:16 Intake & Output 11/25/24 11/26/24 11/26/24 18:59 06:59 18:59 Intake Total 1200 Output Total 2300 4475 Balance -1100 -4475 Weight 60.8 kg Intake: Oral 1200 Output: Urine 1600 3050 Stool 700 1425 Other: Voiding Method Urinal Urinal # Voids 1 # Bowel Movements 2 ABP, PAP, CO, CI - Last Documented Arterial Blood Pressure 81/61 - Labs CBC & Chem 7: 11/26/24 06:27 11/26/24 06:27 Labs: Abnormal Lab Results - Last 24 Hours (Table) 11/25/24 11/25/24 11/25/24 Range/Units 09:35 09:35 11:10 WBC 25.17 H (4.50-10.00) 10*3/uL RBC 2.95 L (4.40-5.60) 10*6/uL Hgb 8.0 L (13.0-17.0) g/dL Hct 23.3 L (39.6-50.0) % MCV 79.0 L (80.0-97.0) fL MCH (27.0-32.0) pg Plt Count 1173 H* (140-440) 10*3/uL Immature Gran # 0.19 H (0.00-0.04) 10*3/uL Neutrophils # 22.32 H (1.80-7.70) 10*3/uL Monocytes # 1.04 H (0.20-1.00) 10*3/uL Eosinophils # 0.01 L (0.04-0.35) 10*3/uL Sodium 133 L (137-145) mmol/L Potassium 3.2 L (3.5-5.1) mmol/L Carbon Dioxide (22-30) mmol/L BUN (9-20) mg/dL Creatinine 0.33 L 0.36 L (0.66-1.25) mg/dL Glucose 116 H (74-99) mg/dL POC Glucose (mg/dL) (70-110) mg/dL Calcium 7.3 L (8.4-10.2) mg/dL Phosphorus 2.3 L (2.5-4.5) mg/dL 11/25/24 11/25/24 11/26/24 Range/Units 11:32 16:38 06:27 WBC (4.50-10.00) 10*3/uL RBC (4.40-5.60) 10*6/uL Hgb (13.0-17.0) g/dL Hct (39.6-50.0) % MCV (80.0-97.0) fL MCH (27.0-32.0) pg Plt Count (140-440) 10*3/uL Immature Gran # (0.00-0.04) 10*3/uL Neutrophils # (1.80-7.70) 10*3/uL Monocytes # (0.20-1.00) 10*3/uL Eosinophils # (0.04-0.35) 10*3/uL Sodium 134 L (137-145) mmol/L Potassium (3.5-5.1) mmol/L Carbon Dioxide 31 H (22-30) mmol/L BUN 8 L (9-20) mg/dL Creatinine 0.40 L (0.66-1.25) mg/dL Glucose (74-99) mg/dL POC Glucose (mg/dL) 151 H 171 H (70-110) mg/dL Calcium 7.7 L (8.4-10.2) mg/dL Phosphorus (2.5-4.5) mg/dL 11/26/24 Range/Units 06:27 WBC 26.60 H (4.50-10.00) 10*3/uL RBC 2.93 L (4.40-5.60) 10*6/uL Hgb 7.8 L (13.0-17.0) g/dL Hct 23.5 L (39.6-50.0) % MCV (80.0-97.0) fL MCH 26.6 L (27.0-32.0) pg Plt Count 1240 H* (140-440) 10*3/uL Immature Gran # 0.21 H (0.00-0.04) 10*3/uL Neutrophils # 23.46 H (1.80-7.70) 10*3/uL Monocytes # 1.33 H (0.20-1.00) 10*3/uL Eosinophils # 0.03 L (0.04-0.35) 10*3/uL Sodium (137-145) mmol/L Potassium (3.5-5.1) mmol/L Carbon Dioxide (22-30) mmol/L BUN (9-20) mg/dL Creatinine (0.66-1.25) mg/dL Glucose (74-99) mg/dL POC Glucose (mg/dL) (70-110) mg/dL Calcium (8.4-10.2) mg/dL Phosphorus (2.5-4.5) mg/dL
[2024-11-26] MEDS: VANCOMYCIN 125 MG CAPSULE PO SCH (10:13)
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
[2024-11-26 11:28] LABS: Glucose,Whole Blood 152 mg/dL (70-110)
--- NOTE | 2024-11-26 15:03 | P.PN ---
Subjective Progress Note Date: 11/26/24 54-year-old male patient with no significant past medical history, presenting today for left lower quadrant sharp abdominal pain. Patient states this pain has been intermittent over the last 2 weeks. More persistent today, uncontrolled with 800 mg of ibuprofen or Pepcid. Patient endorses abdominal swelling and firmness over this time as well. He states he has had a left inguinal hernia "for a while" and the pain is not located over the region of the hernia. He denies fevers or chills, denies shortness of breath or chest pain, endorses nausea and today had 2 episodes of nonbloody nonbilious emesis. States he has intermittent brown stools sometimes with small streaks of blood no melena. No history of prior abdominal surgeries. Denies dysuria, hematuria or urinary frequency. No history of cancers in himself or family members. Patient has no other medical history. He does not drink alcohol or smoke cigarettes. Blood work completed in ED reveals a WBC of 15.1, hemoglobin of 10.[address] atelet count of 682, sodium 135, potassium 4.1, BUNs/creatinine of 18/0.71 and blood glucose of 126, lactic acid level of 1.1 CT of the abdomen and pelvis completed with contrast reveals left inguinal hernia extending into the scrotum containing nondilated small bowel loops. Multiple markedly enlarged small bowel loops proximal to the hernia consistent with small bowel obstruction. Small amount of free fluid 11/24/2024 Patient is seen and evaluated in follow-up on the selective care unit. He is currently sitting up in bed. Awake and alert in no acute distress. Denies any shortness of breath, cough or congestion. No fever or chills. Maintaining good O2 saturations in the 90s on room air. CT scan of the abdomen and pelvis revealed peritoneal thickening likely representing peritonitis. Diffuse enteritis with circumferential wall thickening of the small bowel. Postsurgical changes with colostomy present. Bilateral [place] drainage tubes with persistent fluid throughout the abdomen. Loculated fluid collection is seen along the lateral aspect of the ascending colon with a flat morphology medially adjacent to the bowel. Additional fluid collection just medial to the ascending colon anterior to the kidney noted. Small left pleural effusion with atelectasis at the lung bases. Ultrasound of the abdomen revealed complex fluid collection. Hypoechoic area evident within the [id number]. Interventional radiology has been consulted. White count 22.6. Hemoglobin 8.0. Platelets 991. Sodium 134. Potassium 3.7. Bicarb 25. BUN 11. Creatinine 0.40. Glucose 112. He is continued on cefepime, fluconazole, Flagyl and vancomycin. 11/25/2024 Patient is seen and evaluated in follow-up in room at bedside. He is awake and alert in no acute distress. Reports he has been ambulating in the room - maintaining good O2 saturations in the 90s on room air. Currently sitting up in bed. Denies any worsening shortness of breath, cough or congestion. Denies any significant abdominal discomfort. Blood work reveals white count 25.1. Hemoglobin 8.0. Platelets 1173. Sodium 133. Potassium 3.2. Bicarb 30. BUN 12. Creatinine 0.33. Glucose 116. - He remains on cefepime, fluconazole, Flagyl, and vancomycin. Plan is for drainage of the abdominal abscess by interventional radiology on 11/27/2024. Lovenox will be on hold for the procedure. Tolerating a regular diet Increase his activity as tolerated Plan will be for outpatient PET scan Plan is for [facility] at discharge 11/26/2024 Patient is seen and evaluated in follow-up on the selective care unit. He is sitting up in bed. Awake and alert in no acute distress. Continues to maintain good O2 saturations in the 90s on room air. No shortness of breath, cough or congestion. White count 26.6. Hemoglobin 7.8. Platelets 1240. Sodium 134. Potassium 4.1. Bicarb 31. BUN 8. Creatinine 0.40. Glucose 79. INR 1.0. He is continued on cefepime, fluconazole, Flagyl and vancomycin. Lovenox is on hold for procedure tomorrow with interventional radiology. Plan is to drain the abdominal abscess. Ostomy is functioning. He is tolerating a high-protein high caloric diet. IR to drain fluid collection in abdomen on 11/27/2024 Lovenox on hold White count remains elevated Platelets remain elevated Continued on vancomycin and cefepime; Diflucan and Flagyl Initiated on oral vancomycin per surgical services Objective - Vital Signs Vital signs: Vital Signs Temp 97.7 F 11/26/24 08:00 Pulse 81 11/26/24 08:00 Resp 18 11/26/24 08:00 BP 136/75 11/26/24 08:00 Pulse Ox 97 11/26/24 08:00 FiO2 40 11/18/24 08:16 Intake & Output 11/25/24 11/26/24 11/26/24 18:59 06:59 18:59 Intake Total 1200 480 Output Total 2300 4475 Balance -1100 -4475 480 Weight 60.8 kg Intake: Oral 1200 480 Output: Urine 1600 3050 Stool 700 1425 Other: Voiding Method Urinal Urinal # Voids 1 # Bowel Movements 2 ABP, PAP, CO, CI - Last Documented Arterial Blood Pressure 81/61 - Exam CONSTITUTIONAL: [no apparent distress, chronic ill-appearing, nontoxic, somewhat cachectic] SKIN: warm, dry, no jaundice, hives or petechiae EYES: pupils are equally round, extraocular movements intact without nystagmus, clear conjunctiva, non-icteric sclera HENT: normocephalic, atraumatic NECK: Full range of motion, normal appearance PULMONARY: clear to auscultation without wheezes, rhonchi, or rales CARDIOVASCULAR: regular rate, rhythm, normal S1 and S2. No appreciated murmurs, rubs or gallops. Strong radial pulses with intact distal perfusion. 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 No calf swelling NEUROLOGIC: a/o x 3, GCS 15, normal mentation and speech. Moves all extremities x 4 without motor or sensory deficit PSYCHIATRIC: normal mood and affect, thought process is clear and linear - Labs CBC & Chem 7: 11/26/24 06:27 11/26/24 06:27 Labs: Abnormal Lab Results - Last 24 Hours (Table) 11/25/24 11/25/24 11/25/24 Range/Units 09:35 09:35 11:10 WBC 25.17 H (4.50-10.00) 10*3/uL RBC 2.95 L (4.40-5.60) 10*6/uL Hgb 8.0 L (13.0-17.0) g/dL Hct 23.3 L (39.6-50.0) % MCV 79.0 L (80.0-97.0) fL MCH (27.0-32.0) pg Plt Count 1173 H* (140-440) 10*3/uL Immature Gran # 0.19 H (0.00-0.04) 10*3/uL Neutrophils # 22.32 H (1.80-7.70) 10*3/uL Monocytes # 1.04 H (0.20-1.00) 10*3/uL Eosinophils # 0.01 L (0.04-0.35) 10*3/uL Sodium 133 L (137-145) mmol/L Potassium 3.2 L (3.5-5.1) mmol/L Carbon Dioxide (22-30) mmol/L BUN (9-20) mg/dL Creatinine 0.33 L 0.36 L (0.66-1.25) mg/dL Glucose 116 H (74-99) mg/dL POC Glucose (mg/dL) (70-110) mg/dL Calcium 7.3 L (8.4-10.2) mg/dL Phosphorus 2.3 L (2.5-4.5) mg/dL 11/25/24 11/25/24 11/26/24 Range/Units 11:32 16:38 06:27 WBC (4.50-10.00) 10*3/uL RBC (4.40-5.60) 10*6/uL Hgb (13.0-17.0) g/dL Hct (39.6-50.0) % MCV (80.0-97.0) fL MCH (27.0-32.0) pg Plt Count (140-440) 10*3/uL Immature Gran # (0.00-0.04) 10*3/uL Neutrophils # (1.80-7.70) 10*3/uL Monocytes # (0.20-1.00) 10*3/uL Eosinophils # (0.04-0.35) 10*3/uL Sodium 134 L (137-145) mmol/L Potassium (3.5-5.1) mmol/L Carbon Dioxide 31 H (22-30) mmol/L BUN 8 L (9-20) mg/dL Creatinine 0.40 L (0.66-1.25) mg/dL Glucose (74-99) mg/dL POC Glucose (mg/dL) 151 H 171 H (70-110) mg/dL Calcium 7.7 L (8.4-10.2) mg/dL Phosphorus (2.5-4.5) mg/dL 11/26/24 Range/Units 06:27 WBC 26.60 H (4.50-10.00) 10*3/uL RBC 2.93 L (4.40-5.60) 10*6/uL Hgb 7.8 L (13.0-17.0) g/dL Hct 23.5 L (39.6-50.0) % MCV (80.0-97.0) fL MCH 26.6 L (27.0-32.0) pg Plt Count 1240 H* (140-440) 10*3/uL Immature Gran # 0.21 H (0.00-0.04) 10*3/uL Neutrophils # 23.46 H (1.80-7.70) 10*3/uL Monocytes # 1.33 H (0.20-1.00) 10*3/uL Eosinophils # 0.03 L (0.04-0.35) 10*3/uL Sodium (137-145) mmol/L Potassium (3.5-5.1) mmol/L Carbon Dioxide (22-30) mmol/L BUN (9-20) mg/dL Creatinine (0.66-1.25) mg/dL Glucose (74-99) mg/dL POC Glucose (mg/dL) (70-110) mg/dL Calcium (8.4-10.2) mg/dL Phosphorus (2.5-4.5) mg/dL Assessment and Plan Assessment: 1. Small bowel obstruction CT of the abdomen and pelvis reveals left inguinal hernia extending into scrotum containing nondilated small bowel loops. Multiple markedly enlarged small bowel loops proximal to hernia consistent with a small bowel obstruction. 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 Leukocytosis; likely reactive; no clear evidence of infection; will monitor CRP and procalcitonin and repeat CBC; plan to initiate sepsis workup if white blood count remains elevated or worsens 3. Mild hyponatremia; likely related to poor oral intake; will add IV fluids in form of normal saline at rate of 75 cc an hour 4. Anemia; patient does not report any history of anemia; will order stool occult blood; monitor H&H; start patient on IV Protonix 5. Mild hyperglycemia; possibly stress-induced; will monitor Accu-Cheks DVT prophylaxis; SCDs only given possibility of surgical intervention in next 24 hours CODE STATUS; full code
[2024-11-26 15:11] LABS: Platelet Count 1240 10*3/uL (140-440)
[2024-11-26] MEDS ORDERED: ZINC OXIDE PASTE (Z-GUARD) 1 APPLIC TOPICAL PRN (16:04)
[2024-11-26 16:39] LABS: Glucose,Whole Blood 141 mg/dL (70-110)
[2024-11-26 20:27] LABS: Glucose,Whole Blood 134 mg/dL (70-110)
[2024-11-26] MEDS: INSULIN LISPRO (HumaLOG) 100 UNIT/ML 10 mL VL SQ SCH (20:27)
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
[2024-11-27 05:58] LABS: Glucose,Whole Blood 120 mg/dL (70-110)
[2024-11-27 06:40] LABS: Basophils # (A) 0.04 10*3/uL (0.00-0.10); Basophils % (A) 0.1 %; Eosinophils # (A) 0.03 10*3/uL (0.04-0.35); Eosinophils % (A) 0.1 %; HCT 23.7 % (39.6-50.0); HGB 8.1 g/dL (13.0-17.0); Lymphocytes # (A) 1.81 10*3/uL (0.90-5.00); Lymphocytes % (A) 6.7 %; MCH 26.8 pg (27.0-32.0); MCHC 34.2 g/dL (32.0-37.0); MCV 78.5 fL (80.0-97.0); Mean Platelet Volume 8.9 fL (9.5-12.2); Monocytes # (A) 1.17 10*3/uL (0.20-1.00); Monocytes % (A) 4.4 %; Neutrophils % (A) 87.8 %; RBC 3.02 10*6/uL (4.40-5.60); WBC 26.88 10*3/uL (4.50-10.00)
[2024-11-27 06:45] LABS: Platelet Count 1168 10*3/uL (140-440)
[2024-11-27 07:09] LABS: African American GFR (CKD) >90 (>60 ml/min/1.73 sqM); Anion Gap 4 mmol/L; Blood Urea Nitrogen 8 mg/dL (9-20); Calcium 7.9 mg/dL (8.4-10.2); Carbon Dioxide 30 mmol/L (22-30); Chloride 100 mmol/L (98-107); Glucose 94 mg/dL (74-99); Magnesium 1.9 mg/dL (1.6-2.3); Non-African American GFR(CKD) >90 (>60 ml/min/1.73 sqM); Potassium 3.1 mmol/L (3.5-5.1); Sodium 134 mmol/L (137-145)
[2024-11-27 11:39] LABS: Glucose,Whole Blood 108 mg/dL (70-110)
[2024-11-27] MEDS: MAGNESIUM SULFATE-D5W PMX 1 GM in DEXTROSE/WATER 1 100ML.BAG IVPB SCH (11:39)
[2024-11-27] MEDS: POTASSIUM CHLORIDE ER 20 MEQ TAB.ER PO SCH (11:39)
[2024-11-27] MEDS: POTASSIUM PHOSPHATE 10 MMOL in SODIUM CHLORIDE 0.9% 250 ML IV SCH (12:01)
--- NOTE | 2024-11-27 12:12 | P.PN ---
Subjective Progress Note Date: 11/27/24 CHIEF COMPLAINT: Abdominal pain HISTORY OF PRESENT ILLNESS: The patient is a 54-year-old male status post left inguinal hernia repair on 11/10/2024 followed by open laparotomy, extensive lysis of adhesions, drainage of peritoneal and pelvic abscess, transverse colostomy, with subtotal colectomy for large bowel ischemia with perforation, 11/16/2024. He denies fevers or chills. He is status post aspiration of fluid collection of the right flank. Per discussion with interventional radiology, fluid was thick and loculated. 1.5 cc was obtained. Patient reports that his ostomy drainage is now thickened after being started on oral vancomycin. He reports feeling stronger today than over the weekend. He is ambulating. He also reports moderate decrease of swelling of his lower extremities. REVIEW OF ORGAN SYSTEMS: No fevers or chills. No chest pain. No shortness of breath. PHYSICAL EXAM: VITALS: Reviewed CONSTITUTIONAL: Well developed and in no acute distress. EYES: Conjuctivae without sclera icterus. Extraocular movements grossly intact. HEAD, EARS, NOSE, THROAT: Head is atraumatic, normocephalic. RESPIRATORY: Nonlabored respirations. CARDIOVASCULAR: Palpable 2+ radial pulses. ABDOMEN: Ostomy pink patent and functioning with gas and liquid stool. Midline incision dressing and clean dry intact. MUSCULOSKELETAL: Lower extremity 2+ pitting edema. SKIN: Warm and well perfused with good skin turgor. NEUROLOGIC: No focal lateralizing signs PSYCH: Alert and oriented person place time. CLINCAL LABS: Reviewed. WBC trending up to 26,000. Platelets decreased from over 1.2 million to 1.1 million. Potassium level 3.1. MICROBIOLOGY: Peritoneal cultures Enterococcus, Ilda, including Clostridium, E. coli, ASSESSMENT: 1. 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 Left inguinal hernia 3. High risk malignancy 4. Hyponatremia 5. Emphysema with COPD, new 6. Thyroid nodule, left, new 7. Elevated CEA 8. Iron deficiency anemia 9. Sigmoid colon malignancy with obstruction 10. Persistent hypokalemia 11. Large bowel infarction, transverse colon, descending and sigmoid colon 12. Fecal peritonitis with pelvic abscess status post drainage 13. Septic shock 14. Severe protein malnutrition 15. Candidiasis peritonitis 16. C. difficile per culture 17. Adeno carcinoma of the colon 18. Thrombocytosis 19. Hypophosphatemia 20. Hypokalemia 21. Hypomagnesia PLAN: 1. Additional potassium supplement including phosphate supplement magnesium supplement IV supplement ordered today. 2. Continue high-protein diet for optimal recovery 3. Cultures of peritoneal fluid being sent for aerobic, anaerobic and fungal 4. Source of leukocytosis still being investigated prior to discharge. Objective - Vital Signs Vital signs: Vital Signs Temp 97.4 F L 11/27/24 07:41 Pulse 70 11/27/24 10:57 Resp 16 11/27/24 10:57 BP 138/78 11/27/24 10:57 Pulse Ox 96 11/27/24 10:57 FiO2 40 11/18/24 08:16 Intake & Output 11/26/24 11/27/24 11/27/24 18:59 06:59 18:59 Intake Total 720 Output Total 2200 1550 Balance -1480 -1550 Weight 70.8 kg Intake: Oral 720 Output: Urine 1100 1200 Stool 1100 350 Other: Voiding Method Urinal Urinal Urinal # Voids 2 # Bowel Movements 2 ABP, PAP, CO, CI - Last Documented Arterial Blood Pressure 81/61 - Labs CBC & Chem 7: 11/27/24 06:29 11/27/24 06:29 Labs: Abnormal Lab Results - Last 24 Hours (Table) 11/26/24 11/26/24 11/26/24 Range/Units 06:27 16:37 20:26 WBC (4.50-10.00) 10*3/uL RBC (4.40-5.60) 10*6/uL Hgb (13.0-17.0) g/dL Hct (39.6-50.0) % MCV (80.0-97.0) fL MCH (27.0-32.0) pg Plt Count 1240 H* (140-440) 10*3/uL MPV (9.5-12.2) fL Immature Gran # (0.00-0.04) 10*3/uL Neutrophils # (1.80-7.70) 10*3/uL Monocytes # (0.20-1.00) 10*3/uL Eosinophils # (0.04-0.35) 10*3/uL Sodium (137-145) mmol/L Potassium (3.5-5.1) mmol/L BUN (9-20) mg/dL Creatinine (0.66-1.25) mg/dL POC Glucose (mg/dL) 141 H 134 H (70-110) mg/dL Calcium (8.4-10.2) mg/dL 11/27/24 11/27/24 11/27/24 Range/Units 05:57 06:29 06:29 WBC 26.88 H (4.50-10.00) 10*3/uL RBC 3.02 L (4.40-5.60) 10*6/uL Hgb 8.1 L (13.0-17.0) g/dL Hct 23.7 L (39.6-50.0) % MCV 78.5 L (80.0-97.0) fL MCH 26.8 L (27.0-32.0) pg Plt Count 1168 H* (140-440) 10*3/uL MPV 8.9 L (9.5-12.2) fL Immature Gran # 0.23 H (0.00-0.04) 10*3/uL Neutrophils # 23.60 H (1.80-7.70) 10*3/uL Monocytes # 1.17 H (0.20-1.00) 10*3/uL Eosinophils # 0.03 L (0.04-0.35) 10*3/uL Sodium 134 L (137-145) mmol/L Potassium 3.1 L (3.5-5.1) mmol/L BUN 8 L (9-20) mg/dL Creatinine 0.37 L (0.66-1.25) mg/dL POC Glucose (mg/dL) 120 H (70-110) mg/dL Calcium 7.9 L (8.4-10.2) mg/dL
--- NOTE | 2024-11-27 12:17 | US ---
EXAMINATION TYPE: US asp abscess/hemat/cyst DATE OF EXAM: 11/27/2024 10:58 AM COMPARISON: CT abdomen and pelvis November 23, 2024. Limited abdominal ultrasound November 24, 2024 CLINICAL INDICATION:Male, 54 years old with history of See IR consult for order details; leukocytosis after recent surgery, PHH; abnormal CT. TECHNIQUE: Ultrasound guided attempted fluid aspiration. PROCEDURE: Informed consent was obtained. Risks including bleeding, infection, damage to surrounding structures, and the potential need for further procedures as well as benefits were explained. All patient questi ons were answered. Initial ultrasound images were taken which showed safest access to fluid collection located in the ri t lower quadrant. There is curvilinear nonsimple fluid collection with septations redemonstrated b etween the liver and the right kidney. The patient was prepped and draped. Under sterile technique wi th 1% lidocaine local anesthesia a 20-gauge spinal needle was inserted under ultrasound guidance. Sev eral aspiration attempts were only successful in yielding 1 to 2 cc of blood-tinged yellow thick flu id. At this point it was withdrawn. The patient tolerated the procedure well without complication. Th e patient was transferred back to floor in stable condition. IMPRESSION: Successful access to nonsimple fluid collection right lower quadrant with tiny amount of nonsimple fl uid obtained for diagnostic purposes. [facility], , 11/27/2024 12:15 PM
[2024-11-27] MEDS: FLUCONAZOLE 100 MG TAB PO SCH (13:23)
[2024-11-27] MEDS: AMPICILLIN-SULBACTAM 3 GM in SODIUM CHLORIDE 0.9% 100 ML IVPB SCH (13:23)
--- NOTE | 2024-11-27 14:15 | P.PN ---
Subjective Progress Note Date: 11/27/24 Principal diagnosis: Bowel obstruction. The patient is seen today November 20, 2024 in follow-up in the intensive care unit. He is currently awake and alert in no acute distress. He is maintaining good O2 saturations in the upper 90s on 2 L/min per nasal cannula. He has been afeb rile. Hemodynamically stable. Peritoneal fluid cultures were positive for group D Enterococcus, Ilda albicans, gram-negative bacilli. White count 14.5. Hemoglobin 9.0. Platelets 290. Sodium 136. Potassium 2.8. Bicarb 31. BUN 12. Creatinine 0.41. Glucose 125. He is continued on albuterol as needed. He remains on vancomycin, cefepime, fluconazole and Flagyl. Protonix for GI prophylaxis. Lovenox for DVT prophylaxis. Working well with the incentive spirometer. X-ray reveals stable perihilar and lower lobe infiltrates. PICC line in place. The patient is seen today November 21, 2024 in follow-up on the selective care unit. He was transferred out of the ICU yesterday. He is awake and alert in no acute distress. Currently sitting up in a chair at the bedside. He denies any wo rsening shortness of breath, cough or congestion. Continued on Lovenox for DVT prophylaxis. Remains on fluconazole and Flagyl. Remains on vancomycin and cefepime. Left upper extremity PICC line in place. Continued on TPN at 60 mL/h. He is tolerating a regular diet. Peritoneal fluid was positive for group D Enterococcus and gram-negative bacilli. Sputum culture revealed no growth. Sodium 133. Potassium 3.6. Bicarb 30. BUN 10. Creatinine 0.34. Glucose 115. Vancomycin trough 12.8. The patient is seen today November 22, 2024 in follow-up on the selective care unit. He is currently sitting up in bed. Awake and alert in no acute distress. He is maintaining good O2 saturations in the 90s on room air. Denies any shortness of breath, cough or congestion. He has been afebrile. Hemodynamically stable. Dopplers of the lower extremities were negative for DVT. Peritoneal fluid was positive for group D Enterococcus, Ilda albicans, gram-negative bacilli. White count 23.5. Hemoglobin 7.5. Platelets 494. Sodium 133. Potassium 3.8. Bicarb 29. BUN 11. Creatinine 0.34. Glucose 107. He continues to work well with the incentive spirometer. He is continued on cefepime, fluconazole, Flagyl and vancomycin. Lovenox for DVT prophylaxis. He is tolerating a regular diet. Ostomy with brown stool. The patient is seen today November 23, 2024 in follow-up on the selective care unit. He is awake and alert in no acute distress. He is resting comfortably in bed. He denies any shortness of breath, cough or congestion. No fever or chills. Maintaining good O2 saturations in the 90s on room air. He is been afebrile. Hemodynamically stable. Peritoneal fluid was positive for group D Enterococcus, Ilda albicans, gram-negative bacilli. He remains on cefepime, fluconazole, Flagyl and vancomycin. Lovenox for DVT prophylaxis. 2.0. Hemoglobin 8.1. Platelets 723. Sodium 132. Potassium 3.5. Bicarb 28. BUN 9. Creatinine 0.40. Glucose 92. The patient is seen today November 24, 2024 in follow-up on the selective care unit. He is currently sitting up in bed. Awake and alert in no acute distress. Denies any shortness of breath, cough or congestion. No fever or chills. Maintaining good O2 saturations in the 90s on room air. CT scan of the abdomen and pelvis revealed peritoneal thickening likely representing peritonitis. Diffuse enteritis with circumferential wall thickening of the small bowel. Postsurgical changes with colostomy present. Bilateral Trent-Conti drainage tubes with persistent fluid throughout the abdomen. Loculated fluid collection is seen along the lateral aspect of the ascending colon with a flat morphology medially adjacent to the bowel. Additional fluid collection just medial to the ascending colon anterior to the kidney noted. Small left pleural effusion with atelectasis at the lung bases. Ultrasound of the abdomen revealed complex fluid collection. Hypoechoic area evident within the [id number]. Interventional radiology has been consulted. White count 22.6. Hemoglobin 8.0. Platelets 991. Sodium 134. Potassium 3.7. Bicarb 25. BUN 11. Creatinine 0.40. Glucose 112. He is continued on cefepime, fluconazole, Flagyl and vancomycin. The patient is seen today November 25, 2024 in follow-up on the selective care unit. He is awake and alert in no acute distress. Maintaining good O2 saturations in the 90s on room air. Currently sitting up in bed. Denies any worsening shortness of breath, cough or congestion. Denies any significant abdominal discomfort. White count 25.1. Hemoglobin 8.0. Platelets 1173. Sodium 133. Potassium 3.2. Bicarb 30. BUN 12. Creatinine 0.33. Glucose 116. He remains on cefepime, fluconazole, Flagyl, and vancomycin. Plan is for drainage of the abdominal abscess by interventional radiology on 11/27/2024. Lovenox will be on hold for the procedure. The patient is seen today November 26, 2024 in follow-up on the selective care unit. He is sitting up in bed. Awake and alert in no acute distress. Continues to maintain good O2 saturations in the 90s on room air. No shortness of breath, cough or congestion. White count 26.6. Hemoglobin 7.8. Platelets 1240. Sodium 134. Potassium 4.1. Bicarb 31. BUN 8. Creatinine 0.40. Glucose 79. INR 1.0. He is continued on cefepime, fluconazole, Flagyl and vancomycin. Lovenox is on hold for procedure tomorrow with interventional radiology. Plan is to drain the abdominal abscess. Ostomy is functioning. He is tolerating a high-protein high caloric diet. Progress note dated November 27, 2024. 54-year-old male seen today in room 371. Currently, the patient is on room air. He did have a drainage procedure, performed by interventional radiology. 1.5 mL of fluid was removed from the suspected abscess. The patient continues on vancomycin, cefepime, Flagyl, and Diflucan. Clinically, he is resting comfort ably in bed. He is in no distress. Current laboratory data includes a white count of 26.9, hemoglobin 8.1, hematocrit 23.7, and a platelet count of 1,168,000. Sodium 134, potassium 3.1, chlorides 100, CO2 30, BUN 8, and creatinine 0.37. Glucose was 108. Calcium is 7.9. Objective - Vital Signs Vital signs: Vital Signs Temp 97.4 F L 11/27/24 07:41 Pulse 70 11/27/24 10:57 Resp 16 11/27/24 10:57 BP 138/78 11/27/24 10:57 Pulse Ox 96 11/27/24 10:57 FiO2 40 11/18/24 08:16 Intake & Output 11/26/24 11/27/24 11/27/24 18:59 06:59 18:59 Intake Total 720 Output Total 2200 1550 Balance -1480 -1550 Weight 70.8 kg Intake: Oral 720 Output: Urine 1100 1200 Stool 1100 350 Other: Voiding Method Urinal Urinal Urinal # Voids 2 # Bowel Movements 2 ABP, PAP, CO, CI - Last Documented Arterial Blood Pressure 81/61 - Exam No acute distress, oriented 3. The patient continues on room air. HEENT examination is grossly unremarkable. Mucous membranes are moist. No oral lesions. Neck supple. Full range of motion. No adenopathy thyromegaly or neck vein distention. Cardiovascular examination reveals regular rhythm rate. S1-S2 normal. No S3 or S4. No discernible murmur noted. Lungs reveal clear breath sounds. Breath sounds are equal bilaterally. No adventitious lung sounds including wheezes rhonchi or crackles. Abdomen soft bowel sounds are heard. No masses or tenderness. Extremities are intact. No cyanosis clubbing or edema. Skin is without rash or lesion. Neurologic examination is brief but nonfocal. - Labs CBC & Chem 7: 11/27/24 06:29 11/27/24 06:29 Labs: Abnormal Lab Results - Last 24 Hours (Table) 11/26/24 11/26/24 11/26/24 Range/Units 06:27 16:37 20:26 WBC (4.50-10.00) 10*3/uL RBC (4.40-5.60) 10*6/uL Hgb (13.0-17.0) g/dL Hct (39.6-50.0) % MCV (80.0-97.0) fL MCH (27.0-32.0) pg Plt Count 1240 H* (140-440) 10*3/uL MPV (9.5-12.2) fL Immature Gran # (0.00-0.04) 10*3/uL Neutrophils # (1.80-7.70) 10*3/uL Monocytes # (0.20-1.00) 10*3/uL Eosinophils # (0.04-0.35) 10*3/uL Sodium (137-145) mmol/L Potassium (3.5-5.1) mmol/L BUN (9-20) mg/dL Creatinine (0.66-1.25) mg/dL POC Glucose (mg/dL) 141 H 134 H (70-110) mg/dL Calcium (8.4-10.2) mg/dL 11/27/24 11/27/24 11/27/24 Range/Units 05:57 06:29 06:29 WBC 26.88 H (4.50-10.00) 10*3/uL RBC 3.02 L (4.40-5.60) 10*6/uL Hgb 8.1 L (13.0-17.0) g/dL Hct 23.7 L (39.6-50.0) % MCV 78.5 L (80.0-97.0) fL MCH 26.8 L (27.0-32.0) pg Plt Count 1168 H* (140-440) 10*3/uL MPV 8.9 L (9.5-12.2) fL Immature Gran # 0.23 H (0.00-0.04) 10*3/uL Neutrophils # 23.60 H (1.80-7.70) 10*3/uL Monocytes # 1.17 H (0.20-1.00) 10*3/uL Eosinophils # 0.03 L (0.04-0.35) 10*3/uL Sodium 134 L (137-145) mmol/L Potassium 3.1 L (3.5-5.1) mmol/L BUN 8 L (9-20) mg/dL Creatinine 0.37 L (0.66-1.25) mg/dL POC Glucose (mg/dL) 120 H (70-110) mg/dL Calcium 7.9 L (8.4-10.2) mg/dL Assessment and Plan Assessment: Abdominal pain secondary to incarcerated left inguinal hernia with small bowel obstruction status robotic assisted laparoscopic repair of the incarcerated left inguinal hernia, small bowel resection with primary anastomosis on 11/10/2024. The scan of the pelvis November 12, 2024 reveals a fistula tract extending from the anterior wall of the sigmoid colon proximally and what appeared to be small bowel loops. Possible abscess in the midline pelvis. Droplets of free intraperitoneal air either postsurgical or indicative of bowel perforation. Edema formation within the mesenteric infectious or postsurgical in nature. Resolution of the bowel within the left inguinal hernia and resolution of the previous bowel obstruction. On November 16, 2024 the patient had undergone an open low anterior resection with partial colectomy and partial proctectomy with mid transverse colostomy for South's procedure. 2 JOHNNY drains placed. Prevena wound VAC system in place. Pathology positive for invasive moderately differentiated colonic adenocarcinoma eating into pericolonic soft tissue. Margins negative for malignancy or dysplasia. Abdominal abscess. CT scan of the abdomen and pelvis revealed peritoneal thickening likely representing peritonitis. Diffuse enteritis with circumferential wall thickening of the small bowel. Postsurgical changes with colostomy present. Bilateral Trent-Conti drainage tubes with persistent fluid throughout the abdomen. Loculated fluid collection is seen along the lateral aspect of the ascending colon with a flat morphology medially adjacent to the bowel. Additional fluid collection just medial to the ascending colon anterior to the kidney noted. Small left pleural effusion with atelectasis at the lung bases. Ultrasound of the abdomen revealed complex fluid collection. Hypoechoic area evident within the [id number]. Interventional radiology has been consulted and plans for drainage on 11/27/2024. Leukocytosis secondary to above. Remains on cefepime, vancomycin, Diflucan and Flagyl. C. difficile positive from anaerobic culture, initiated on oral vancomycin. Thrombocytosis. Sepsis with septic shock secondary to above, recovered. Shortness of breath secondary to right mainstem bronchus nasogastric tube placement, subsequent removal and relief of shortness of breath. CT scan evidence of moderate emphysema and atelectasis of the bases left greater than right. Unintentional weight loss. Former smoker. Plan: Plan dated November 27, 2024. The patient is seen today in room 371. He has now been here in the hospital for 19 days. He did have radiology drain a small amount of fluid, from the abdominal abscess. 1.5 cc of fluid was aspirated. It was sent for evaluation. Labs, x-rays, and all medications are reviewed. The patient appears to be relatively comfortable. He continues on vancomycin, and cefepime. He also continues on Diflucan, Flagyl, and oral vancomycin as per surgical services. We will continue to follow make recommendations along the way. Prognosis is certa inly guarded. We recommend deep breathing, coughing, clearing of secretions, and hourly use of the incentive spirometer. The patient is being considered for possible discharge, for rehabilitation. Dictation was produced using Dragon dictation software. Please excuse any grammatical, word or spelling errors. Time with Patient: Less than 30
[2024-11-27] MEDS: ACETAMINOPHEN TAB 500 MG TAB PO PRN (19:51)
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
--- NOTE | 2024-11-27 22:05 | P.PN ---
Subjective Progress Note Date: 11/27/24 54-year-old male patient with no significant past medical history, presenting today for left lower quadrant sharp abdominal pain. Patient states this pain has been intermittent over the last 2 weeks. More persistent today, uncontrolled with 800 mg of ibuprofen or Pepcid. Patient endorses abdominal swelling and firmness over this time as well. He states he has had a left inguinal hernia "for a while" and the pain is not located over the region of the hernia. He denies fevers or chills, denies shortness of breath or chest pain, endorses nausea and today had 2 episodes of nonbloody nonbilious emesis. States he has intermittent brown stools sometimes with small streaks of blood no melena. No history of prior abdominal surgeries. Denies dysuria, hematuria or urinary frequency. No history of cancers in himself or family members. Patient has no other medical history. He does not drink alcohol or smoke cigarettes. Blood work completed in ED reveals a WBC of 15.1, hemoglobin of 10.[address] atelet count of 682, sodium 135, potassium 4.1, BUNs/creatinine of 18/0.71 and blood glucose of 126, lactic acid level of 1.1 CT of the abdomen and pelvis completed with contrast reveals left inguinal hernia extending into the scrotum containing nondilated small bowel loops. Multiple markedly enlarged small bowel loops proximal to the hernia consistent with small bowel obstruction. Small amount of free fluid 11/24/2024 Patient is seen and evaluated in follow-up on the selective care unit. He is currently sitting up in bed. Awake and alert in no acute distress. Denies any shortness of breath, cough or congestion. No fever or chills. Maintaining good O2 saturations in the 90s on room air. CT scan of the abdomen and pelvis revealed peritoneal thickening likely representing peritonitis. Diffuse enteritis with circumferential wall thickening of the small bowel. Postsurgical changes with colostomy present. Bilateral Trent-Conti drainage tubes with persistent fluid throughout the abdomen. Loculated fluid collection is seen along the lateral aspect of the ascending colon with a flat morphology medially adjacent to the bowel. Additional fluid collection just medial to the ascending colon anterior to the kidney noted. Small left pleural effusion with atelectasis at the lung bases. Ultrasound of the abdomen revealed complex fluid collection. Hypoechoic area evident within the [id number]. Interventional radiology has been consulted. White count 22.6. Hemoglobin 8.0. Platelets 991. Sodium 134. Potassium 3.7. Bicarb 25. BUN 11. Creatinine 0.40. Glucose 112. He is continued on cefepime, fluconazole, Flagyl and vancomycin. 11/25/2024 Patient is seen and evaluated in follow-up in room at bedside. He is awake and alert in no acute distress. Reports he has been ambulating in the room - maintaining good O2 saturations in the 90s on room air. Currently sitting up in bed. Denies any worsening shortness of breath, cough or congestion. Denies any significant abdominal discomfort. Blood work reveals white count 25.1. Hemoglobin 8.0. Platelets 1173. Sodium 133. Potassium 3.2. Bicarb 30. BUN 12. Creatinine 0.33. Glucose 116. - He remains on cefepime, fluconazole, Flagyl, and vancomycin. Plan is for drainage of the abdominal abscess by interventional radiology on 11/27/2024. Lovenox will be on hold for the procedure. Tolerating a regular diet Increase his activity as tolerated Plan will be for outpatient PET scan Plan is for [facility] at discharge 11/26/2024 Patient is seen and evaluated in follow-up on the selective care unit. He is sitting up in bed. Awake and alert in no acute distress. Continues to maintain good O2 saturations in the 90s on room air. No shortness of breath, cough or congestion. White count 26.6. Hemoglobin 7.8. Platelets 1240. Sodium 134. Potassium 4.1. Bicarb 31. BUN 8. Creatinine 0.40. Glucose 79. INR 1.0. He is continued on cefepime, fluconazole, Flagyl and vancomycin. Lovenox is on hold for procedure tomorrow with interventional radiology. Plan is to drain the abdominal abscess. Ostomy is functioning. He is tolerating a high-protein high caloric diet. IR to drain fluid collection in abdomen on 11/27/2024 Lovenox on hold White count remains elevated Platelets remain elevated Continued on vancomycin and cefepime; Diflucan and Flagyl Initiated on oral vancomycin per surgical services 11/27/2024 Patient is sitting in the chair comfortably. Awake alert and oriented x 3. No complaints of chest pain or shortness of breath. Requiring any oxygen. Patient is able to tolerate oral diet. Ostomy is working. No complaints of abdominal pain. Otherwise fluid culture is pending. Continue antibiotics of Unasyn and Flagyl and also on Diflucan. Laboratory data showed WBC 26.8, hemoglobin 8.1 and platelets 1168 sodium 134 potassium 3.1 which is replaced chloride 100 bicarb is 30 BUN 18 creatinine 0.37 and calcium 7.9 and blood sugar 94. Magnesium 1.9. Anticipate discharge with ID final recommendations. Current medications reviewed. Objective - Vital Signs Vital signs: Vital Signs Temp 97.4 F L 11/27/24 07:41 Pulse 75 11/27/24 10:24 Resp 16 11/27/24 10:24 BP 121/72 11/27/24 10:24 Pulse Ox 99 11/27/24 10:24 FiO2 40 11/18/24 08:16 Intake & Output 11/26/24 11/27/24 11/27/24 18:59 06:59 18:59 Intake Total 720 Output Total 2200 1550 Balance -1480 -1550 Weight 70.8 kg Intake: Oral 720 Output: Urine 1100 1200 Stool 1100 350 Other: Voiding Method Urinal Urinal Urinal # Voids 2 # Bowel Movements 2 ABP, PAP, CO, CI - Last Documented Arterial Blood Pressure 81/61 - Exam - Exam CONSTITUTIONAL: [no apparent distress, chronic ill-appearing, nontoxic, somewhat cachectic] SKIN: warm, dry, no jaundice, hives or petechiae EYES: pupils are equally round, extraocular movements intact without nystagmus, clear conjunctiva, non-icteric sclera HENT: normocephalic, atraumatic NECK: Full range of motion, normal appearance PULMONARY: clear to auscultation without wheezes, rhonchi, or rales CARDIOVASCULAR: regular rate, rhythm, normal S1 and S2. No appreciated murmurs, rubs or gallops. Strong radial pulses with intact distal perfusion. No lower extremity edema GASTROINTESTINAL: Abdomen is soft and nontender. Bowel sounds are present. Stool noted in the ostomy bag. GENITOURINARY: As above MUSCULOSKELETAL: Extremities have no gross deformity, no edema, redness, or swelling. No calf swelling NEUROLOGIC: a/o x 3, GCS 15, normal mentation and speech. Moves all extremities x 4 without motor or sensory deficit PSYCHIATRIC: normal mood and affect, thought process is clear and linear - Labs CBC & Chem 7: 11/28/24 06:18 11/28/24 06:18 Labs: Abnormal Lab Results - Last 24 Hours (Table) 11/26/24 11/26/24 11/26/24 Range/Units 06:27 11:26 16:37 WBC (4.50-10.00) 10*3/uL RBC (4.40-5.60) 10*6/uL Hgb (13.0-17.0) g/dL Hct (39.6-50.0) % MCV (80.0-97.0) fL MCH (27.0-32.0) pg Plt Count 1240 H* (140-440) 10*3/uL MPV (9.5-12.2) fL Immature Gran # (0.00-0.04) 10*3/uL Neutrophils # (1.80-7.70) 10*3/uL Monocytes # (0.20-1.00) 10*3/uL Eosinophils # (0.04-0.35) 10*3/uL Sodium (137-145) mmol/L Potassium (3.5-5.1) mmol/L BUN (9-20) mg/dL Creatinine (0.66-1.25) mg/dL POC Glucose (mg/dL) 152 H 141 H (70-110) mg/dL Calcium (8.4-10.2) mg/dL 11/26/24 11/27/24 11/27/24 Range/Units 20:26 05:57 06:29 WBC (4.50-10.00) 10*3/uL RBC (4.40-5.60) 10*6/uL Hgb (13.0-17.0) g/dL Hct (39.6-50.0) % MCV (80.0-97.0) fL MCH (27.0-32.0) pg Plt Count (140-440) 10*3/uL MPV (9.5-12.2) fL Immature Gran # (0.00-0.04) 10*3/uL Neutrophils # (1.80-7.70) 10*3/uL Monocytes # (0.20-1.00) 10*3/uL Eosinophils # (0.04-0.35) 10*3/uL Sodium 134 L (137-145) mmol/L Potassium 3.1 L (3.5-5.1) mmol/L BUN 8 L (9-20) mg/dL Creatinine 0.37 L (0.66-1.25) mg/dL POC Glucose (mg/dL) 134 H 120 H (70-110) mg/dL Calcium 7.9 L (8.4-10.2) mg/dL 11/27/24 Range/Units 06:29 WBC 26.88 H (4.50-10.00) 10*3/uL RBC 3.02 L (4.40-5.60) 10*6/uL Hgb 8.1 L (13.0-17.0) g/dL Hct 23.7 L (39.6-50.0) % MCV 78.5 L (80.0-97.0) fL MCH 26.8 L (27.0-32.0) pg Plt Count 1168 H* (140-440) 10*3/uL MPV 8.9 L (9.5-12.2) fL Immature Gran # 0.23 H (0.00-0.04) 10*3/uL Neutrophils # 23.60 H (1.80-7.70) 10*3/uL Monocytes # 1.17 H (0.20-1.00) 10*3/uL Eosinophils # 0.03 L (0.04-0.35) 10*3/uL Sodium (137-145) mmol/L Potassium (3.5-5.1) mmol/L BUN (9-20) mg/dL Creatinine (0.66-1.25) mg/dL POC Glucose (mg/dL) (70-110) mg/dL Calcium (8.4-10.2) mg/dL Assessment and Plan Assessment: 1. incarcerated left inguinal hernia CT of the abdomen and pelvis reveals left inguinal hernia extending into scrotum containing nondilated small bowel loops. Multiple markedly enlarged small bowel loops proximal to hernia consistent with a small bowel obstruction. Small amount of free fluid Abdominal pain secondary to incarcerated left inguinal hernia with small bowel obstruction status robotic assisted laparoscopic repair of the incarcerated left inguinal hernia, small bowel resection with primary anastomosis on 11/10/2024. On November 16, 2024 the patient had undergone an open low anterior resection with partial colectomy and partial proctectomy with mid transverse colostomy for South's procedure. Prevena wound VAC system in place. Pathology positive for invasive moderately differentiated colonic adenocarcinoma eating into pericolonic soft tissue. Margins negative for malignancy or dysplasia. 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 Diffuse enteritis with circumferential wall thickening of the small bowel. Postsurgical changes with colostomy present. Bilateral Trent-Conti drainage tubes with persistent fluid throughout the abdomen. Loculated fluid collection is seen along the lateral aspect of the ascending colon with a flat morphology medially adjacent to the bowel. Additional fluid collection just medial to the ascending colon anterior to the kidney noted. Small left pleural effusion with atelectasis at the lung bases. Ultrasound of the abdomen revealed complex fluid collection. Hypoechoic area evident within the [id number]. Status post drainage on 11/27/2024 by interventional radiology.. 3 Thrombocytosis. 4 Sepsis with septic shock secondary to above, recovered. 5. Mild hyponatremia; likely related to poor oral intake; will add IV fluids in form of normal saline at rate of 75 cc an hour 6 Anemia; patient does not report any history of anemia; will order stool occult blood; monitor H&H; start patient on IV Protonix 7. Mild hyperglycemia; possibly stress-induced; will monitor Accu-Cheks DVT prophylaxis; SCDs only given possibility of surgical intervention in next 24 hours CODE STATUS; full code Time with Patient: Greater than 30
[2024-11-28 06:53] LABS: Basophils # (A) 0.03 10*3/uL (0.00-0.10); Basophils % (A) 0.1 %; Eosinophils # (A) 0.06 10*3/uL (0.04-0.35); Eosinophils % (A) 0.3 %; HCT 22.2 % (39.6-50.0); HGB 7.6 g/dL (13.0-17.0); Lymphocytes # (A) 1.58 10*3/uL (0.90-5.00); Lymphocytes % (A) 7.7 %; MCH 26.9 pg (27.0-32.0); MCHC 34.2 g/dL (32.0-37.0); MCV 78.4 fL (80.0-97.0); Mean Platelet Volume 9.3 fL (9.5-12.2); Monocytes # (A) 1.03 10*3/uL (0.20-1.00); Neutrophils # (A) 17.76 10*3/uL (1.80-7.70); Neutrophils % (A) 86.2 %; RBC 2.83 10*6/uL (4.40-5.60); RDW 19.1 % (11.5-14.5); WBC 20.61 10*3/uL (4.50-10.00)
[2024-11-28 06:58] LABS: Platelet Count 1042 10*3/uL (140-440)
[2024-11-28 07:10] LABS: African American GFR (CKD) >90 (>60 ml/min/1.73 sqM); Anion Gap 3 mmol/L; Blood Urea Nitrogen 7 mg/dL (9-20); Calcium 7.9 mg/dL (8.4-10.2); Carbon Dioxide 31 mmol/L (22-30); Chloride 100 mmol/L (98-107); Glucose 85 mg/dL (74-99); Non-African American GFR(CKD) >90 (>60 ml/min/1.73 sqM); Potassium 3.5 mmol/L (3.5-5.1); Sodium 134 mmol/L (137-145)
[2024-11-28 12:08] VITALS: BP 116/68; PULSE 72; RESP 17; TEMP 98.7
--- NOTE | 2024-11-28 12:45 | P.PN ---
Subjective Progress Note Date: 11/28/24 Principal diagnosis: Bowel obstruction. The patient is seen today November 20, 2024 in follow-up in the intensive care unit. He is currently awake and alert in no acute distress. He is maintaining good O2 saturations in the upper 90s on 2 L/min per nasal cannula. He has been afeb rile. Hemodynamically stable. Peritoneal fluid cultures were positive for group D Enterococcus, Ilda albicans, gram-negative bacilli. White count 14.5. Hemoglobin 9.0. Platelets 290. Sodium 136. Potassium 2.8. Bicarb 31. BUN 12. Creatinine 0.41. Glucose 125. He is continued on albuterol as needed. He remains on vancomycin, cefepime, fluconazole and Flagyl. Protonix for GI prophylaxis. Lovenox for DVT prophylaxis. Working well with the incentive spirometer. X-ray reveals stable perihilar and lower lobe infiltrates. PICC line in place. The patient is seen today November 21, 2024 in follow-up on the selective care unit. He was transferred out of the ICU yesterday. He is awake and alert in no acute distress. Currently sitting up in a chair at the bedside. He denies any wo rsening shortness of breath, cough or congestion. Continued on Lovenox for DVT prophylaxis. Remains on fluconazole and Flagyl. Remains on vancomycin and cefepime. Left upper extremity PICC line in place. Continued on TPN at 60 mL/h. He is tolerating a regular diet. Peritoneal fluid was positive for group D Enterococcus and gram-negative bacilli. Sputum culture revealed no growth. Sodium 133. Potassium 3.6. Bicarb 30. BUN 10. Creatinine 0.34. Glucose 115. Vancomycin trough 12.8. The patient is seen today November 22, 2024 in follow-up on the selective care unit. He is currently sitting up in bed. Awake and alert in no acute distress. He is maintaining good O2 saturations in the 90s on room air. Denies any shortness of breath, cough or congestion. He has been afebrile. Hemodynamically stable. Dopplers of the lower extremities were negative for DVT. Peritoneal fluid was positive for group D Enterococcus, Ilda albicans, gram-negative bacilli. White count 23.5. Hemoglobin 7.5. Platelets 494. Sodium 133. Potassium 3.8. Bicarb 29. BUN 11. Creatinine 0.34. Glucose 107. He continues to work well with the incentive spirometer. He is continued on cefepime, fluconazole, Flagyl and vancomycin. Lovenox for DVT prophylaxis. He is tolerating a regular diet. Ostomy with brown stool. The patient is seen today November 23, 2024 in follow-up on the selective care unit. He is awake and alert in no acute distress. He is resting comfortably in bed. He denies any shortness of breath, cough or congestion. No fever or chills. Maintaining good O2 saturations in the 90s on room air. He is been afebrile. Hemodynamically stable. Peritoneal fluid was positive for group D Enterococcus, Ilda albicans, gram-negative bacilli. He remains on cefepime, fluconazole, Flagyl and vancomycin. Lovenox for DVT prophylaxis. 2.0. Hemoglobin 8.1. Platelets 723. Sodium 132. Potassium 3.5. Bicarb 28. BUN 9. Creatinine 0.40. Glucose 92. The patient is seen today November 24, 2024 in follow-up on the selective care unit. He is currently sitting up in bed. Awake and alert in no acute distress. Denies any shortness of breath, cough or congestion. No fever or chills. Maintaining good O2 saturations in the 90s on room air. CT scan of the abdomen and pelvis revealed peritoneal thickening likely representing peritonitis. Diffuse enteritis with circumferential wall thickening of the small bowel. Postsurgical changes with colostomy present. Bilateral Trent-Conti drainage tubes with persistent fluid throughout the abdomen. Loculated fluid collection is seen along the lateral aspect of the ascending colon with a flat morphology medially adjacent to the bowel. Additional fluid collection just medial to the ascending colon anterior to the kidney noted. Small left pleural effusion with atelectasis at the lung bases. Ultrasound of the abdomen revealed complex fluid collection. Hypoechoic area evident within the [id number]. Interventional radiology has been consulted. White count 22.6. Hemoglobin 8.0. Platelets 991. Sodium 134. Potassium 3.7. Bicarb 25. BUN 11. Creatinine 0.40. Glucose 112. He is continued on cefepime, fluconazole, Flagyl and vancomycin. The patient is seen today November 25, 2024 in follow-up on the selective care unit. He is awake and alert in no acute distress. Maintaining good O2 saturations in the 90s on room air. Currently sitting up in bed. Denies any worsening shortness of breath, cough or congestion. Denies any significant abdominal discomfort. White count 25.1. Hemoglobin 8.0. Platelets 1173. Sodium 133. Potassium 3.2. Bicarb 30. BUN 12. Creatinine 0.33. Glucose 116. He remains on cefepime, fluconazole, Flagyl, and vancomycin. Plan is for drainage of the abdominal abscess by interventional radiology on 11/27/2024. Lovenox will be on hold for the procedure. The patient is seen today November 26, 2024 in follow-up on the selective care unit. He is sitting up in bed. Awake and alert in no acute distress. Continues to maintain good O2 saturations in the 90s on room air. No shortness of breath, cough or congestion. White count 26.6. Hemoglobin 7.8. Platelets 1240. Sodium 134. Potassium 4.1. Bicarb 31. BUN 8. Creatinine 0.40. Glucose 79. INR 1.0. He is continued on cefepime, fluconazole, Flagyl and vancomycin. Lovenox is on hold for procedure tomorrow with interventional radiology. Plan is to drain the abdominal abscess. Ostomy is functioning. He is tolerating a high-protein high caloric diet. Progress note dated November 27, 2024. 54-year-old male seen today in room 371. Currently, the patient is on room air. He did have a drainage procedure, performed by interventional radiology. 1.5 mL of fluid was removed from the suspected abscess. The patient continues on vancomycin, cefepime, Flagyl, and Diflucan. Clinically, he is resting comfort ably in bed. He is in no distress. Current laboratory data includes a white count of 26.9, hemoglobin 8.1, hematocrit 23.7, and a platelet count of 1,168,000. Sodium 134, potassium 3.1, chlorides 100, CO2 30, BUN 8, and creatinine 0.37. Glucose was 108. Calcium is 7.9. Progress note dated November 28, 2024. 54-year-old male seen again in room 371. He is resting comfortably in bed. He is not receiving any supplemental oxygen. He is getting saline at 20 cc an hour. Clinically, the patient appears to be relatively stable. He has not been in the hospital for 20 days. His white count is 20.6, hemoglobin 7.6, hematocrit 22.2, and platelet counts 1,042,000. Sodium is 134, potassium 3.5, chlorides 100, CO2 31, anion gap 3, BUN 7, creatinine 0.34. Calcium is 7.9. Objective - Vital Signs Vital signs: Vital Signs Temp 98.7 F 11/28/24 12:07 Pulse 72 11/28/24 12:07 Resp 17 11/28/24 12:07 BP 116/68 11/28/24 12:07 Pulse Ox 96 11/28/24 12:07 FiO2 40 11/18/24 08:16 Intake & Output 11/27/24 11/28/24 11/28/24 18:59 06:59 18:59 Intake Total 1670 Output Total 1450 1200 Balance 220 -1200 Weight 71.1 kg Intake: IV 100 metroNIDAZOLE-NS PMX 500 100 mg In Saline 1 100ml.bag @ 100 mls/hr IVPB Q8H [facility] Rx#:[id number] Intake, IV Titration 850 Amount Ampicillin-Sulbactam 3 gm 100 In Sodium Chloride 0.9% 100 ml @ 200 mls/hr IVPB Q6HR [facility] Rx#:[id number] Cefepime 2 gm In Dextrose 100 5% in Water 100 ml @ 25 mls/hr IVPB Q8H [facility] Rx#: [id number] Magnesium Sulfate-D5w Pmx 200 1 gm In Dextrose/Water 1 100ml.bag @ 100 mls/hr IVPB Q1H [facility] Rx#: [id number] Potassium Phosphate 10 100 mmol In Sodium Chloride 0 .9% 250 ml @ 125 mls/hr IV Q2H [facility] Rx#:[id number] Sodium Ferric Gluconat- 100 Sucrose 125 mg In Sodium Chloride 0.9% 100 ml @ 100 mls/hr IVPB DAILY [facility] Rx#:[id number] Vancomycin 1,250 mg In 250 Sodium Chloride 0.9% 250 ml @ 125 mls/hr IVPB Q8H [facility] Rx#:[id number] Oral 720 Output: Urine 750 1200 Stool 700 Other: Voiding Method Urinal Urinal # Bowel Movements 2 ABP, PAP, CO, CI - Last Documented Arterial Blood Pressure 81/61 - Exam No acute distress, oriented 3. The patient continues on room air. HEENT examination is grossly unremarkable. Mucous membranes are moist. No oral lesions. Neck supple. Full range of motion. No adenopathy thyromegaly or neck vein distention. Cardiovascular examination reveals regular rhythm rate. S1-S2 normal. No S3 or S4. No discernible murmur noted. Lungs reveal clear breath sounds. Breath sounds are equal bilaterally. No adventitious lung sounds including wheezes rhonchi or crackles. Abdomen soft bowel sounds are heard. No masses or tenderness. Extremities are intact. No cyanosis clubbing or edema. Skin is without rash or lesion. Neurologic examination is brief but nonfocal. - Labs CBC & Chem 7: 11/28/24 06:18 11/28/24 06:18 Labs: Abnormal Lab Results - Last 24 Hours (Table) 11/28/24 11/28/24 Range/Units 06:18 06:18 WBC 20.61 H (4.50-10.00) 10*3/uL RBC 2.83 L (4.40-5.60) 10*6/uL Hgb 7.6 L (13.0-17.0) g/dL Hct 22.2 L (39.6-50.0) % MCV 78.4 L (80.0-97.0) fL MCH 26.9 L (27.0-32.0) pg Plt Count 1042 H* (140-440) 10*3/uL MPV 9.3 L (9.5-12.2) fL Immature Gran # 0.15 H (0.00-0.04) 10*3/uL Neutrophils # 17.76 H (1.80-7.70) 10*3/uL Monocytes # 1.03 H (0.20-1.00) 10*3/uL Sodium 134 L (137-145) mmol/L Carbon Dioxide 31 H (22-30) mmol/L BUN 7 L (9-20) mg/dL Creatinine 0.34 L (0.66-1.25) mg/dL Calcium 7.9 L (8.4-10.2) mg/dL Microbiology - Last 24 Hours (Table) 11/27/24 10:50 Gram Stain - Preliminary Other - Other Body Fluid Culture - Preliminary 11/16/24 19:37 Gram Stain - Final Other - Other Wound Culture - Final Enterococcus durans/hirae Ilda albicans 11/16/24 19:37 Gram Stain - Final Other - Other Wound Culture - Final Enterococcus durans/hirae 11/16/24 19:37 Gram Stain - Final Peritoneal Fluid Body Fluid Culture - Final Enterococcus durans/hirae Ilda albicans Escherichia coli 11/16/24 19:37 Gram Stain - Final Other - Other Body Fluid Culture - Final Escherichia coli Enterococcus durans/hirae Ilda albicans Assessment and Plan Assessment: Abdominal pain secondary to incarcerated left inguinal hernia with small bowel obstruction status robotic assisted laparoscopic repair of the incarcerated left inguinal hernia, small bowel resection with primary anastomosis on 11/10/2024. The scan of the pelvis November 12, 2024 reveals a fistula tract extending from the anterior wall of the sigmoid colon proximally and what appeared to be small bowel loops. Possible abscess in the midline pelvis. Droplets of free intraperitoneal air either postsurgical or indicative of bowel perforation. Edema formation within the mesenteric infectious or postsurgical in nature. Resolution of the bowel within the left inguinal hernia and resolution of the previous bowel obstruction. On November 16, 2024 the patient had undergone an open low anterior resection with partial colectomy and partial proctectomy with mid transverse colostomy for South's procedure. 2 JOHNNY drains placed. Prevena wound VAC system in place. Pathology positive for invasive moderately differentiated colonic adenocarcinoma eating into pericolonic soft tissue. Margins negative for malignancy or dysplasia. Abdominal abscess. CT scan of the abdomen and pelvis revealed peritoneal thickening likely representing peritonitis. Diffuse enteritis with circumferent ial wall thickening of the small bowel. Postsurgical changes with colostomy present. Bilateral Trent-Conti drainage tubes with persistent fluid throughout the abdomen. Loculated fluid collection is seen along the lateral aspect of the ascending colon with a flat morphology medially adjacent to the bowel. Additional fluid collection just medial to the ascending colon anterior to the kidney noted. Small left pleural effusion with atelectasis at the lung bases. Ultrasound of the abdomen revealed complex fluid collection. Hypoechoic area evident within the heovw-eq-vyin. Interventional radiology has been consulted and plans for drainage on 11/27/2024. Leukocytosis secondary to above. C. difficile positive from anaerobic culture. Thrombocytosis. Sepsis with septic shock secondary to above, recovered. Shortness of breath secondary to right mainstem bronchus nasogastric tube vitaliy cement, subsequent removal and relief of shortness of breath. CT scan evidence of moderate emphysema and atelectasis of the bases left greater than right. Unintentional weight loss. Former smoker. Plan: Plan dated November 27, 2024. The patient is seen today in room 371. He has now been here in the hospital for 19 days. He did have radiology drain a small amount of fluid, from the abdominal abscess. 1.5 cc of fluid was aspirated. It was sent for evaluation. Labs, x-rays, and all medications are reviewed. The patient appears to be relatively comfortable. He continues on vancomycin, and cefepime. He also continues on Diflucan, Flagyl, and oral vancomycin as per surgical services. We will continue to follow make recommendations along the way. Prognosis is certainly guarded. We recommend deep breathing, coughing, clearing of secretions, and hourly use of the incentive spirometer. The patient is being considered for possible discharge, for rehabilitation. Dictation was produced using [employer] software. Please excuse any grammatical, word or spelling errors. Plan dated November 28, 2024. The patient is again seen today in room 371. The patient appears relatively stable. He is on room air. He is receiving saline at 20 cc an hour. He is currently on Unasyn. We will continue to follow make recommendations along the way. The patient's overall prognosis remains guarded. Labs, x-rays, and medications are reviewed. The patient has now been in the hospital for 20 days. Discharge planning underway. Dictation was produced using [employer] software. Please excuse any grammatical, word or spelling errors. Time with Patient: Less than 30
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
--- NOTE | 2024-11-28 14:46 | P.DS ---
Providers Date of admission: 11/08/24 15:04 Expected date of discharge: 11/28/24 Attending physician: Zoraida So Consults: 11/08/24 15:04 Consult Physician Urgent Consulting Provider: Rick Velez Consult Reason/Comments: med ranjeet. Do you want consulting provider notified?: Already Contacted 11/10/24 05:13 Consult Physician Routine Consulting Provider: [facility] Consult Reason/Comments: Abdominal block Do you want consulting provider notified?: Yes 11/10/24 21:41 Consult Physician Routine Consulting Provider: Bela Burns Consult Reason/Comments: Sigmoid colon mass Do you want consulting provider notified?: Yes, Notify in am 11/11/24 11:08 Consult Physician Routine Consulting Provider: Edgar Gómez Consult Reason/Comments: COPD, moderate Do you want consulting provider notified?: Yes 11/13/24 07:30 Consult Physician Routine Consulting Provider: Lamont Orellana Consult Reason/Comments: Sepsis Do you want consulting provider notified?: Yes 11/16/24 21:40 Consult Physician Routine Consulting Provider: Beatrice Salter Consult Reason/Comments: ICU and vent management Do you want consulting provider notified?: Yes Primary care physician: Stated None Hospital Course: Discharge diagnosis 1. 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 Left inguinal hernia 3. High risk malignancy 4. Hyponatremia 5. Emphysema with COPD, new 6. Thyroid nodule, left, new 7. Elevated CEA 8. Iron deficiency anemia 9. Sigmoid colon malignancy with obstruction 10. Persistent hypokalemia 11. Large bowel infarction, transverse colon, descending and sigmoid colon 12. Fecal peritonitis with pelvic abscess status post drainage 13. Septic shock 14. Severe protein malnutrition 15. Candidiasis peritonitis 16. C. difficile per culture 17. Adeno carcinoma of the colon 18. Thrombocytosis 19. Hypophosphatemia 20. Hypokalemia 21. Hypomagnesia Hospital course The patient is a 54-year-old male status post left inguinal hernia repair on 11/10/2024 followed by open laparotomy, extensive lysis of adhesions, drainage of peritoneal and pelvic abscess, transverse colostomy, with subtotal colectomy for large bowel ischemia with perforation, 11/16/2024. Patient's pain is controlled. His ostomy is functioning. He is tolerating diet. He has been up and ambulating. He is afebrile. His white count is trending down. He is status aspiration of fluid in the right lower quadrant. Culture is pending. Patient will continue antibiotics as per recommended per infectious disease. Patient to be discharged to [facility] for further rehab and antibiotics. Patient is stable for discharge. Physician Radar Tester note has been reviewed by physician. Signing provider agrees with the documented findings, assessment, and plan of care. Patient Condition at Discharge: Stable Plan - Discharge Summary New Discharge Prescriptions: New Folic Acid 1 mg PO DAILY tab Multivitamins, Thera [Multivitamin (formulary)] 1 each PO DAILY tab Ampicillin-Sulbactam [Unasyn] 3 gm IVPB Q6HR 14 Days each Fluconazole [Diflucan] 200 mg PO DAILY #14 tablet Acetaminophen Tab [Tylenol] 1,000 mg PO Q6HR PRN #30 tablet PRN Reason: Pain Discharge Medication List Acetaminophen Tab [Tylenol] 1,000 mg PO Q6HR PRN #30 tablet 11/28/24 [Rx] Ampicillin-Sulbactam [Unasyn] 3 gm IVPB Q6HR 14 Days each 11/28/24 [Rx] Fluconazole [Diflucan] 200 mg PO DAILY #14 tablet 11/28/24 [Rx] Folic Acid 1 mg PO DAILY tab 11/28/24 [Rx] Multivitamins, Thera [Multivitamin (formulary)] 1 each PO DAILY tab 11/28/24 [Rx] Follow up Appointment(s)/Referral(s): Bela Burns MD [STAFF PHYSICIAN] - 01/04/25 2:30 pm Zoraida So MD [STAFF PHYSICIAN] - 12/12/24 None,Stated [Primary Care Provider] - 1-2 days Lamont Orellana MD [STAFF PHYSICIAN] - 1 Week Te Singh MD [STAFF PHYSICIAN] - 1 Week Activity/Diet/Wound Care/Special Instructions: Ostomy: Heather one piece cut to fit #[id number], change every 3 to 5 days and if leaking and empty when half full Non sting skin barrier prep pads Last changed: 11/20/24 No lifting over 4 pounds in 4 weeks Shower daily No bath tub soaks for two weeks Repeat Abdominal CT scan in 2 weeks Discharge/Stand Alone Forms: [facility] Area PCPs Discharge Disposition: TRANSFER TO SNF/ECF
--- NOTE | 2024-11-28 19:42 | P.PN ---
Subjective Progress Note Date: 11/28/24 54-year-old male patient with no significant past medical history, presenting today for left lower quadrant sharp abdominal pain. Patient states this pain has been intermittent over the last 2 weeks. More persistent today, uncontrolled with 800 mg of ibuprofen or Pepcid. Patient endorses abdominal swelling and firmness over this time as well. He states he has had a left inguinal hernia "for a while" and the pain is not located over the region of the hernia. He denies fevers or chills, denies shortness of breath or chest pain, endorses nausea and today had 2 episodes of nonbloody nonbilious emesis. States he has intermittent brown stools sometimes with small streaks of blood no melena. No history of prior abdominal surgeries. Denies dysuria, hematuria or urinary frequency. No history of cancers in himself or family members. Patient has no other medical history. He does not drink alcohol or smoke cigarettes. Blood work completed in ED reveals a WBC of 15.1, hemoglobin of 10.[address] atelet count of 682, sodium 135, potassium 4.1, BUNs/creatinine of 18/0.71 and blood glucose of 126, lactic acid level of 1.1 CT of the abdomen and pelvis completed with contrast reveals left inguinal hernia extending into the scrotum containing nondilated small bowel loops. Multiple markedly enlarged small bowel loops proximal to the hernia consistent with small bowel obstruction. Small amount of free fluid 11/24/2024 Patient is seen and evaluated in follow-up on the selective care unit. He is currently sitting up in bed. Awake and alert in no acute distress. Denies any shortness of breath, cough or congestion. No fever or chills. Maintaining good O2 saturations in the 90s on room air. CT scan of the abdomen and pelvis revealed peritoneal thickening likely representing peritonitis. Diffuse enteritis with circumferential wall thickening of the small bowel. Postsurgical changes with colostomy present. Bilateral Trent-Conti drainage tubes with persistent fluid throughout the abdomen. Loculated fluid collection is seen along the lateral aspect of the ascending colon with a flat morphology medially adjacent to the bowel. Additional fluid collection just medial to the ascending colon anterior to the kidney noted. Small left pleural effusion with atelectasis at the lung bases. Ultrasound of the abdomen revealed complex fluid collection. Hypoechoic area evident within the [id number]. Interventional radiology has been consulted. White count 22.6. Hemoglobin 8.0. Platelets 991. Sodium 134. Potassium 3.7. Bicarb 25. BUN 11. Creatinine 0.40. Glucose 112. He is continued on cefepime, fluconazole, Flagyl and vancomycin. 11/25/2024 Patient is seen and evaluated in follow-up in room at bedside. He is awake and alert in no acute distress. Reports he has been ambulating in the room - maintaining good O2 saturations in the 90s on room air. Currently sitting up in bed. Denies any worsening shortness of breath, cough or congestion. Denies any significant abdominal discomfort. Blood work reveals white count 25.1. Hemoglobin 8.0. Platelets 1173. Sodium 133. Potassium 3.2. Bicarb 30. BUN 12. Creatinine 0.33. Glucose 116. - He remains on cefepime, fluconazole, Flagyl, and vancomycin. Plan is for drainage of the abdominal abscess by interventional radiology on 11/27/2024. Lovenox will be on hold for the procedure. Tolerating a regular diet Increase his activity as tolerated Plan will be for outpatient PET scan Plan is for [facility] at discharge 11/26/2024 Patient is seen and evaluated in follow-up on the selective care unit. He is sitting up in bed. Awake and alert in no acute distress. Continues to maintain good O2 saturations in the 90s on room air. No shortness of breath, cough or congestion. White count 26.6. Hemoglobin 7.8. Platelets 1240. Sodium 134. Potassium 4.1. Bicarb 31. BUN 8. Creatinine 0.40. Glucose 79. INR 1.0. He is continued on cefepime, fluconazole, Flagyl and vancomycin. Lovenox is on hold for procedure tomorrow with interventional radiology. Plan is to drain the abdominal abscess. Ostomy is functioning. He is tolerating a high-protein high caloric diet. IR to drain fluid collection in abdomen on 11/27/2024 Lovenox on hold White count remains elevated Platelets remain elevated Continued on vancomycin and cefepime; Diflucan and Flagyl Initiated on oral vancomycin per surgical services 11/27/2024 Patient is sitting in the chair comfortably. Awake alert and oriented x 3. No complaints of chest pain or shortness of breath. Requiring any oxygen. Patient is able to tolerate oral diet. Ostomy is working. No complaints of abdominal pain. Otherwise fluid culture is pending. Continue antibiotics of Unasyn and Flagyl and also on Diflucan. Laboratory data showed WBC 26.8, hemoglobin 8.1 and platelets 1168 sodium 134 potassium 3.1 which is replaced chloride 100 bicarb is 30 BUN 18 creatinine 0.37 and calcium 7.9 and blood sugar 94. Magnesium 1.9. Anticipate discharge with ID final recommendations. 11/28/2024 Patient is sitting in the chair. Awake alert and oriented x 3. Able to tolerate oral diet. Does have output from ostomy bag. No complaints of chest pain or shortness of breath no abdominal pain. No cough or sputum production. No other acute overnight issues. Patient will be continued on antibiotics of Unasyn and final antibiotic recommendations. Patient wishes to be discharged home today. All laboratory data reviewed. Current medications reviewed. Objective - Vital Signs Vital signs: Vital Signs Temp 98.7 F 11/28/24 12:07 Pulse 72 11/28/24 12:07 Resp 17 11/28/24 12:07 BP 116/68 11/28/24 12:07 Pulse Ox 96 11/28/24 12:07 FiO2 40 11/18/24 08:16 Intake & Output 11/27/24 11/28/24 11/28/24 18:59 06:59 18:59 Intake Total 1670 Output Total 1450 1200 Balance 220 -1200 Weight 71.1 kg Intake: IV 100 metroNIDAZOLE-NS PMX 500 100 mg In Saline 1 100ml.bag @ 100 mls/hr IVPB Q8H YI Rx#:[id number] Intake, IV Titration 850 Amount Ampicillin-Sulbactam 3 gm 100 In Sodium Chloride 0.9% 100 ml @ 200 mls/hr IVPB Q6HR YI Rx#:[id number] Cefepime 2 gm In Dextrose 100 5% in Water 100 ml @ 25 mls/hr IVPB Q8H YI Rx#: [id number] Magnesium Sulfate-D5w Pmx 200 1 gm In Dextrose/Water 1 100ml.bag @ 100 mls/hr IVPB Q1H YI Rx#: [id number] Potassium Phosphate 10 100 mmol In Sodium Chloride 0 .9% 250 ml @ 125 mls/hr IV Q2H YI Rx#:[id number] Sodium Ferric Gluconat- 100 Sucrose 125 mg In Sodium Chloride 0.9% 100 ml @ 100 mls/hr IVPB DAILY YI Rx#:[id number] Vancomycin 1,250 mg In 250 Sodium Chloride 0.9% 250 ml @ 125 mls/hr IVPB Q8H YI Rx#:[id number] Oral 720 Output: Urine 750 1200 Stool 700 Other: Voiding Method Urinal Urinal # Bowel Movements 2 ABP, PAP, CO, CI - Last Documented Arterial Blood Pressure 81/61 - Exam - Exam CONSTITUTIONAL: [no apparent distress, chronic ill-appearing, nontoxic, somewhat cachectic] SKIN: warm, dry, no jaundice, hives or petechiae EYES: pupils are equally round, extraocular movements intact without nystagmus, clear conjunctiva, non-icteric sclera HENT: normocephalic, atraumatic NECK: Full range of motion, normal appearance PULMONARY: clear to auscultation without wheezes, rhonchi, or rales CARDIOVASCULAR: regular rate, rhythm, normal S1 and S2. No appreciated murmurs, rubs or gallops. Strong radial pulses with intact distal perfusion. No lower extremity edema GASTROINTESTINAL: Abdomen is soft and nontender. Bowel sounds are present. Stool noted in the ostomy bag. GENITOURINARY: As above MUSCULOSKELETAL: Extremities have no gross deformity, no edema, redness, or swelling. No calf swelling NEUROLOGIC: a/o x 3, GCS 15, normal mentation and speech. Moves all extremities x 4 without motor or sensory deficit PSYCHIATRIC: normal mood and affect, thought process is clear and linear - Labs CBC & Chem 7: 11/28/24 06:18 11/28/24 06:18 Labs: Abnormal Lab Results - Last 24 Hours (Table) 11/28/24 11/28/24 Range/Units 06:18 06:18 WBC 20.61 H (4.50-10.00) 10*3/uL RBC 2.83 L (4.40-5.60) 10*6/uL Hgb 7.6 L (13.0-17.0) g/dL Hct 22.2 L (39.6-50.0) % MCV 78.4 L (80.0-97.0) fL MCH 26.9 L (27.0-32.0) pg Plt Count 1042 H* (140-440) 10*3/uL MPV 9.3 L (9.5-12.2) fL Immature Gran # 0.15 H (0.00-0.04) 10*3/uL Neutrophils # 17.76 H (1.80-7.70) 10*3/uL Monocytes # 1.03 H (0.20-1.00) 10*3/uL Sodium 134 L (137-145) mmol/L Carbon Dioxide 31 H (22-30) mmol/L BUN 7 L (9-20) mg/dL Creatinine 0.34 L (0.66-1.25) mg/dL Calcium 7.9 L (8.4-10.2) mg/dL Microbiology - Last 24 Hours (Table) 11/27/24 10:50 Gram Stain - Preliminary Other - Other Body Fluid Culture - Preliminary 11/16/24 19:37 Gram Stain - Final Other - Other Wound Culture - Final Enterococcus durans/hirae Ilda albicans 11/16/24 19:37 Gram Stain - Final Other - Other Wound Culture - Final Enterococcus durans/hirae 11/16/24 19:37 Gram Stain - Final Peritoneal Fluid Body Fluid Culture - Final Enterococcus durans/hirae Ilda albicans Escherichia coli 11/16/24 19:37 Gram Stain - Final Other - Other Body Fluid Culture - Final Escherichia coli Enterococcus durans/hirae Ilda albicans Assessment and Plan Assessment: 1. incarcerated left inguinal hernia CT of the abdomen and pelvis reveals left inguinal hernia extending into scrotum containing nondilated small bowel loops. Multiple markedly enlarged small bowel loops proximal to hernia consistent with a small bowel obstruction. Small amount of free fluid Abdominal pain secondary to incarcerated left inguinal hernia with small bowel obstruction status robotic assisted laparoscopic repair of the incarcerated left inguinal hernia, small bowel resection with primary anastomosis on 11/10/2024. On November 16, 2024 the patient had undergone an open low anterior resection with partial colectomy and partial proctectomy with mid transverse colostomy for South's procedure. Prevena wound VAC system in place. Pathology positive for invasive moderately differentiated colonic adenocarcinoma eating into pericolonic soft tissue. Margins negative for malignancy or dysplasia. 2 Abdominal abscess/leukocytosis; CT scan of the abdomen and pelvis revealed peritoneal thickening likely representing peritonitis. Diffuse enteritis with circumferential wall thickening of the small bowel. Postsurgical changes with colostomy present. Bilateral Trent-Conti drainage tubes with persistent fluid throughout the abdomen. Loculated fluid collection is seen along the lateral aspect of the ascending colon with a flat morphology medially adjacent to the bowel. Additional fluid collection just medial to the ascending colon anterior to the kidney noted. Small left pleural effusion with atelectasis at the lung bases. Ultrasound of the abdomen revealed complex fluid collection. Hypoechoic area evident within the [id number]. Status post drainage on 11/27/2024 by interventional radiology.. Fluid culture negative as per pulmonary Report. Patient will be continued on antibiotics in the form of Unasyn. ID is on board. 3 Thrombocytosis. 4 Sepsis with septic shock secondary to above, recovered. 5. Mild hyponatremia; likely related to poor oral intake; will add IV fluids in form of normal saline at rate of 75 cc an hour 6 Anemia; patient does not report any history of anemia; will order stool occult blood; monitor H&H; start patient on IV Protonix 7. Mild hyperglycemia; possibly stress-induced; will monitor Accu-Cheks DVT prophylaxis; SCDs only given possibility of surgical intervention in next 24 hours CODE STATUS; full code Time with Patient: Greater than 30
== END 2024-11-28 16:10 | DRG 710 ==
LOC: EC 11:56 → 4SSUR 15:04 → 2SICU 11-16 17:05 → 3SCARD 11-20 12:22
PROVIDERS: ADMIT Surgery Plastic and Reconstructive Surgery; ATTEND Surgery Plastic and Reconstructive Surgery
PROC: 3E0T3BZ Introduction of Anesthetic Agent into Peripheral Nerves and Plexi, Percutaneous Approach (ICD-10-PCS; 2024-11-10)
PROC: 3E0T33Z Introduction of Anti-inflammatory into Peripheral Nerves and Plexi, Percutaneous Approach (ICD-10-PCS; 2024-11-10)
PROC: 8E0W4CZ Robotic Assisted Procedure of Trunk Region, Percutaneous Endoscopic Approach (ICD-10-PCS; 2024-11-10)
PROC: 0DT84ZZ Resection of Small Intestine, Percutaneous Endoscopic Approach (ICD-10-PCS; 2024-11-10)
PROC: 0YU64JZ Supplement Left Inguinal Region with Synthetic Substitute, Percutaneous Endoscopic Approach (ICD-10-PCS; 2024-11-10)
PROC: 0DTJ4ZZ Resection of Appendix, Percutaneous Endoscopic Approach (ICD-10-PCS; 2024-11-10)
PROC: 0DB84ZZ Excision of Small Intestine, Percutaneous Endoscopic Approach (ICD-10-PCS; principal; 2024-11-10 07:30)
PROC: 0DB98ZX Excision of Duodenum, Via Natural or Artificial Opening Endoscopic, Diagnostic (ICD-10-PCS; 2024-11-13)
PROC: 0DB78ZX Excision of Stomach, Pylorus, Via Natural or Artificial Opening Endoscopic, Diagnostic (ICD-10-PCS; 2024-11-13)
PROC: 0DB58ZX Excision of Esophagus, Via Natural or Artificial Opening Endoscopic, Diagnostic (ICD-10-PCS; 2024-11-13)
PROC: 0DBN8ZX Excision of Sigmoid Colon, Via Natural or Artificial Opening Endoscopic, Diagnostic (ICD-10-PCS; 2024-11-13)
PROC: 3E0H8KZ Introduction of Other Diagnostic Substance into Lower GI, Via Natural or Artificial Opening Endoscopic (ICD-10-PCS; 2024-11-13)
PROC: 02HV33Z Insertion of Infusion Device into Superior Vena Cava, Percutaneous Approach (ICD-10-PCS; 2024-11-15)
PROC: 0DNB0ZZ Release Ileum, Open Approach (ICD-10-PCS; 2024-11-16)
PROC: 0DNN0ZZ Release Sigmoid Colon, Open Approach (ICD-10-PCS; 2024-11-16)
PROC: 0DBM0ZZ Excision of Descending Colon, Open Approach (ICD-10-PCS; 2024-11-16)
PROC: 0DBL0ZZ Excision of Transverse Colon, Open Approach (ICD-10-PCS; 2024-11-16)
PROC: 0DBN0ZZ Excision of Sigmoid Colon, Open Approach (ICD-10-PCS; 2024-11-16)
PROC: 0DBN0ZZ Excision of Sigmoid Colon, Open Approach (ICD-10-PCS; 2024-11-16)
PROC: 0DBU0ZZ Excision of Omentum, Open Approach (ICD-10-PCS; 2024-11-16)
PROC: 0DBP0ZZ Excision of Rectum, Open Approach (ICD-10-PCS; 2024-11-16)
PROC: 3E1M48Z Irrigation of Peritoneal Cavity using Irrigating Substance, Percutaneous Endoscopic Approach (ICD-10-PCS; 2024-11-16)
PROC: 0D1L0Z4 Bypass Transverse Colon to Cutaneous, Open Approach (ICD-10-PCS; 2024-11-16)
PROC: 0DNL0ZZ Release Transverse Colon, Open Approach (ICD-10-PCS; 2024-11-16)
PROC: 8E0W4CZ Robotic Assisted Procedure of Trunk Region, Percutaneous Endoscopic Approach (ICD-10-PCS; 2024-11-16)
PROC: 0DJD4ZZ Inspection of Lower Intestinal Tract, Percutaneous Endoscopic Approach (ICD-10-PCS; 2024-11-16)
PROC: 5A1945Z Respiratory Ventilation, 24-96 Consecutive Hours (ICD-10-PCS; 2024-11-16)
PROC: 3E0436Z Introduction of Nutritional Substance into Central Vein, Percutaneous Approach (ICD-10-PCS; 2024-11-19)
DX: A41.9 Sepsis, unspecified organism (principal); R65.21 Severe sepsis with septic shock; K55.049 Acute infarction of large intestine, extent unspecified; J96.01 Acute respiratory failure with hypoxia; R57.1 Hypovolemic shock; B37.89 Other sites of candidiasis; K65.1 Peritoneal abscess; K63.2 Fistula of intestine; K56.2 Volvulus; R18.8 Other ascites; E87.20 Acidosis, unspecified; K40.30 Unilateral inguinal hernia, with obstruction, without gangrene, not specified as recurrent; K57.20 Diverticulitis of large intestine with perforation and abscess without bleeding; E43 Unspecified severe protein-calorie malnutrition; E83.39 Other disorders of phosphorus metabolism; C18.7 Malignant neoplasm of sigmoid colon; I25.5 Ischemic cardiomyopathy; I11.9 Hypertensive heart disease without heart failure; J43.9 Emphysema, unspecified; D53.9 Nutritional anemia, unspecified; D50.9 Iron deficiency anemia, unspecified; K22.70 Barrett's esophagus without dysplasia; Z53.8 Procedure and treatment not carried out for other reasons; D75.838 Other thrombocytosis; K66.0 Peritoneal adhesions (postprocedural) (postinfection); K21.00 Gastro-esophageal reflux disease with esophagitis, without bleeding; K29.50 Unspecified chronic gastritis without bleeding; K44.9 Diaphragmatic hernia without obstruction or gangrene; D12.8 Benign neoplasm of rectum; K64.4 Residual hemorrhoidal skin tags; K64.8 Other hemorrhoids; D49.7 Neoplasm of unspecified behavior of endocrine glands and other parts of nervous system; B95.2 Enterococcus as the cause of diseases classified elsewhere; N50.89 Other specified disorders of the male genital organs; E53.8 Deficiency of other specified B group vitamins; E83.42 Hypomagnesemia; E86.1 Hypovolemia; E87.1 Hypo-osmolality and hyponatremia; E87.6 Hypokalemia; K38.1 Appendicular concretions; K36 Other appendicitis; R73.9 Hyperglycemia, unspecified; B96.20 Unspecified Escherichia coli [E. coli] as the cause of diseases classified elsewhere; B96.89 Other specified bacterial agents as the cause of diseases classified elsewhere; Z68.21 Body mass index [BMI] 21.0-21.9, adult; Z87.891 Personal history of nicotine dependence; Z82.49 Family history of ischemic heart disease and other diseases of the circulatory system; Z88.0 Allergy status to penicillin; Z80.0 Family history of malignant neoplasm of digestive organs
CPT/HCPCS: 10160; 36415; 36573; 36600; 43239; 45381; 45385; 64468; 71045; 71250; 72193; 74018; 74177; 76705; 80048; 80053; 80202; 81001; 82150; 82330; 82378; 82565; 82607; 82728; 82746; 82805; 83036; 83540; 83550; 83605; 83690; 83735; 83921; 84100; 84132; 84145; 84478; 85025; 85027; 85610; 85730; 86301; 86850; 86900; 86901; 87070; 87075; 87077; 87102; 87186; 87205; 87324; 88108; 88302; 88304; 88305; 88307; 88309; 88341; 88342; 93005; 93306; 93970; 94002; 94003; 94640; 94760; 96361; 96374; 96375; 96376; 99291

== ENCOUNTER 2024-12-25 08:03 | Emergency (ER) | payer OTHER ==
--- NOTE | 2024-12-25 08:35 | P.PN ---
Progress Note - Text Progress Note Date: 12/25/24 Patient presented to the emergency room after being in extended-care facility with moderately elevated white blood cell count. Patient be seen by infectious disease including myself. Notified by ER that patient presents to the emergency room. Due to his iodine allergy, recommend CT of the abdomen pelvis with IV and oral contrast with contrast allergy protocol including prednisone and Benadryl. Also recommend CBC and CMP.
[2024-12-25] MEDS ORDERED: BARIUM SULFATE 2% - 450 ML ORAL.SUSP BOTTLE PO PRN (08:36)
[2024-12-25 09:04] LABS: Basophils # (A) 0.05 10*3/uL (0.00-0.10); Basophils % (A) 0.4 %; Eosinophils # (A) 0.13 10*3/uL (0.04-0.35); HCT 32.8 % (39.6-50.0); Lymphocytes # (A) 2.13 10*3/uL (0.90-5.00); Lymphocytes % (A) 16.4 %; MCH 28.3 pg (27.0-32.0); MCHC 32.9 g/dL (32.0-37.0); Mean Platelet Volume 8.7 fL (9.5-12.2); Monocytes # (A) 1.01 10*3/uL (0.20-1.00); Monocytes % (A) 7.8 %; Neutrophils # (A) 9.58 10*3/uL (1.80-7.70); Neutrophils % (A) 73.7 %; Platelet Count 465 10*3/uL (140-440); RBC 3.82 10*6/uL (4.40-5.60); RDW 22.3 % (11.5-14.5); WBC 12.99 10*3/uL (4.50-10.00)
[2024-12-25 09:11] LABS: HGB 10.8 g/dL (13.0-17.0); MCV 85.9 fL (80.0-97.0)
[2024-12-25 09:15] LABS: ALT 40 U/L (4-49); African American GFR (CKD) >90 (>60 ml/min/1.73 sqM); Albumin 4.1 g/dL (3.5-5.0); Anion Gap 8 mmol/L; Blood Urea Nitrogen 22 mg/dL (9-20); Calcium 9.5 mg/dL (8.4-10.2); Carbon Dioxide 28 mmol/L (22-30); Chloride 100 mmol/L (98-107); Glucose 101 mg/dL (74-99); Lipase 205 U/L (23-300); Non-African American GFR(CKD) >90 (>60 ml/min/1.73 sqM); Sodium 136 mmol/L (137-145); Total Bilirubin 0.6 mg/dL (0.2-1.3); Total Protein 7.5 g/dL (6.3-8.2)
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
[2024-12-25 09:20] LABS: AST 31 U/L (17-59); Alkaline Phosphatase 107 U/L (38-126); Potassium 5.1 mmol/L (3.5-5.1)
[2024-12-25] MEDS: FAMOTIDINE 20 MG/2 ML VIAL IV STA (09:31)
[2024-12-25] MEDS: diphenhydrAMINE 50 MG/ML 1 ML VIAL IVP STA (09:31)
[2024-12-25] MEDS: methylPREDNISolone SOD SUCCI 125 MG/2 ML VIAL IV STA (09:32)
[2024-12-25 10:44] LABS: Appearance,Urine Clear (Clear); Bilirubin,Urine Negative (Negative); Blood,Urine Negative (Negative); Color,Urine Colorless; Glucose,Urine (UA) Negative (Negative); Ketones,Urine Negative (Negative); Leukocyte Esterase,Urine Negative (Negative); Nitrite,Urine Negative (Negative); Protein,Urine Negative (Negative); Specific Gravity,Urine 1.009 (1.001-1.035); Urobilinogen,Urine <2.0 mg/dL (<2.0)
[2024-12-25] MEDS: methylPREDNISolone SOD SUCCI 125 MG/2 ML VIAL IV ONE (12:42)
[2024-12-25] MEDS: diphenhydrAMINE 50 MG/ML 1 ML VIAL IVP ONE (12:44)
[2024-12-25] MEDS: FAMOTIDINE 20 MG/2 ML VIAL IV ONE (12:46)
--- NOTE | 2024-12-25 14:18 | CT ---
EXAMINATION TYPE: CT abdomen pelvis w con CT DLP: 646.5 mGycm, Automated exposure control for dose reduction was used. DATE OF EXAM: 12/25/2024 2:00 PM COMPARISON: CT abdomen pelvis 11/23/2024, 11/08/2024, CT pelvis 11/12/2024 CLINICAL INDICATION:Male, 54 years old with history of Peritoneal abscess abdominal pain; Peritoneal abscess, abdominal pain, recent sx to bowel. Redicat. TECHNIQUE: Standard CT of the abdomen and pelvis following the administration of 100 cc of Isovue 3 00 IV contrast material and oral contrast. Coronal and sagittal reformats were performed. Patient was premedicated. FINDINGS: LOWER CHEST: Bilateral lower lobe dependent subsegmental atelectasis. Elevation of the right hemidiap hragm. ABDOMEN LIVER: Unremarkable GALLBLADDER AND BILE DUCTS: Unremarkable. PANCREAS: Unremarkable. SPLEEN: Unremarkable. ADRENAL GLANDS: Unremarkable. KIDNEYS AND URETERS: No evidence of hydronephrosis or renal calculus. The kidneys enhance symmetrical ly. Contrast is demonstrated within both collecting systems on the delayed phase. Subcentimeter left renal likely cyst. No follow-up recommended. PELVIS BLADDER: Unremarkable REPRODUCTIVE: Coarse calcifications of the prostate gland are identified. Enlarged prostate gland danita suring 5.0 cm in transverse dimension. ABDOMEN & PELVIS STOMACH AND BOWEL: Stomach and duodenum are unremarkable. Enteric contrast reaches the distal transve rse colon. Moderate amount of stool is present within the colon. Postsurgical changes with left lower quadrant colostomy with South's pouch. There are scattered regions of circumferential wall thicken ing of the small bowel with surrounding inflammatory changes within the mesentery. No evidence of bow el obstruction. No extravasation of enteric contrast identified. No pneumatosis. PERITONEUM: No evidence of pneumoperitoneum. Interval removal of previously seen surgical drainage ca theters. No organized fluid collection identified. Improvement in mesenteric edema from prior examina tion. Trace ascites throughout the abdomen and pelvis. VASCULATURE: Mild atherosclerotic calcifications are present throughout the abdominal aorta and its b ranches. No evidence of aortic aneurysm. Several pelvic phleboliths identified. MUSCULOSKELETAL: No acute osseous abnormalities. Degenerative disc disease at L5-S1. LYMPH NODES: No evidence for lymphadenopathy. SOFT TISSUE/ABDOMINAL WALL: Unremarkable IMPRESSION: Redemonstration of postsurgical changes with left lower quadrant colostomy and South's pouch. No ev idence for contrast extravasation. There are regions of circumferential wall thickening of the small bowel with surrounding fat stranding and mesenteric edema suggesting an enteritis. No organized fluid collection to suggest abscess. Moderate amount of stool is present within the colon without evidence for obstruction. [facility], , 12/25/2024 2:16 PM
[2024-12-25 14:38] VITALS: PULSE 82
[2024-12-25 15:33] VITALS: BP 121/81; RESP 18; TEMP 97.8
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
== END 2024-12-25 15:33 | disposition home or self-care (01) ==
LOC: EC 08:03
DX: K52.9 Noninfective gastroenteritis and colitis, unspecified (principal); Z85.038 Personal history of other malignant neoplasm of large intestine; Z93.3 Colostomy status; Z91.041 Radiographic dye allergy status; Z91.013 Allergy to seafood
CPT/HCPCS: 36415; 80053; 83605; 83690; 83735; 85025; 81003; 74177; 99284; 96374; 96375 ×2; J1200; Q9967; J2919; J1308

== ENCOUNTER → 2024-12-28 | Outpatient (CLI) | payer OTHER ==
--- NOTE | 2024-12-29 15:29 | PE ---
EXAMINATION TYPE: PET CT fusion skull to thigh DATE OF EXAM: 12/28/2024 CLINICAL INDICATION:Male, 54 years old with history of C20 colon ca; TECHNIQUE: Following the intravenous administration of 10.10 mCi of F-18 FDG, whole body images are performed from the skull base to the Mid thigh. Images are reviewed on the computer in the coronal, axial, and sagittal planes. Reconstructed rotating images are created on independent workstation an d reviewed on the computer. A non-contrast CT is performed in conjunction with the PET scan. Glucos e level 98 mg/dL CT DLP: 418.5 mGycm, Automated exposure control for dose reduction was used. COMPARISON: CT 12/25/2024, PET/CT None, MRI: None FINDINGS: Mediastinal SUV mean is 2.0. Hepatic parenchyma SUV mean is 2.5. SKULL BASE AND NECK: No suspicious radiotracer activity. CHEST, MEDIASTINUM, AND HILAR REGION: No suspicious radiotracer activity. ABDOMEN AND PELVIS: * Left hepatic lobe lesion max SUV 12.4. * Right hepatic lobe subcapsular anterior lesion max SUV 5.5 * Right lower liver versus immediately adjacent to the liver lesion which is abutting the kidney les ion max SUV 6.9 measuring 12 mm. * Visible lymph nodes in the mesentery or within normal limits for size but demonstrate increased up take max SUV 4.3 MUSCULOSKELETAL STRUCTURES: Uptake along the right lower anterior abdominal wall likely area of prior surgery max SUV 4.3. OTHER CT: Postsurgical changes to the bowel with ostomy in the left lower quadrant. Mild centrilobula r and paraseptal emphysema changes. Atherosclerosis of the carotid bifurcations. Mild cardiomegaly. S mall hiatal hernia. Mesenteric edema throughout the abdomen. 6 IMPRESSION: At least 3 areas in the liver that are suspicious for metastatic disease. Few scattered mesenteric ly mph nodes may also be present given slightly elevated FDG activity. No evidence for abnormal uptake w ithin the chest or the head, neck. [facility], , 12/29/2024 3:27 PM
== END | disposition home or self-care (01) ==
LOC: RADPETMAIN 08:37
PROVIDERS: ATTEND Internal Medicine
DX: C20 Malignant neoplasm of rectum (principal)
CPT/HCPCS: 78815; A9552